=== PATIENT | male | born 1960 | race Caucasian/White ===

== ENCOUNTER → 2020-02-05 16:38 | Outpatient (CLI) | payer MEDICARE, SELFPAY ==
[2020-02-05 17:27] LABS: Basophils # 0.1 K/mm3 (0-0.2); Basophils % 0.5 % (0.1-2.0); Eosinophils # 0.4 K/mm3 (0.0-0.4); Eosinophils % 3.2 % (0.1-12.0); Hemoglobin 12.8 g/dL (14.1-18.0); Lymphocytes # 1.6 K/mm3 (0.7-4.5); Lymphocytes % 12.4 % (10-50); Mean Corpuscular HGB Conc 32.9 g/dL (31.8-35.4); Mean Corpuscular Hemoglobin 27.2 pg (27.0-31.2); Mean Corpuscular Volume 82.7 fl (80-94); Mean Platelet Volume 9.7 fl (7.4-10.4); Monocytes # 0.7 K/mm3 (0.1-1.0); Monocytes % 5.6 % (1.7-9.3); Neutrophils # 9.9 K/mm3 (1.8-7.8); Neutrophils % 78.4 % (37.0-80.0); Platelet Count 308 K/mm3 (142-424); Red Blood Count 4.71 M/mm3 (4.60-6.20); Red Cell Distribution Width 15.2 % (11.5-17.5); White Blood Count 12.7 K/mm3 (4.8-10.8)
[2020-02-05 17:29] LABS: Chloride 97 mmol/L (98-107)
[2020-02-05 17:30] LABS: Potassium 5.1 mmoL/L (3.5-5.1); Sodium 136 mmol/L (136-145)
[2020-02-05 17:32] LABS: Blood Urea Nitrogen 28 mg/dl (9-20); Estimated Glomerular Filt Rate 62 ml/min (>60); GFR (African American) 75 ML/MIN (>60)
[2020-02-05 17:33] LABS: Alanine Aminotransferase 21 U/L (12-78); Albumin/Globulin Ratio 1.3 (1.1-1.8); Alkaline Phosphatase 47 U/L (38-126); Anion Gap 17.1 mEq/L (5-15); Aspartate Amino Transferase 25 U/L (17-59); Bilirubin,Total 0.8 mg/dl (0.2-1.3); Calcium 9.8 mg/dl (8.4-10.2); Carbon Dioxide 27 mmol/L (22.0-30.0); Chol/HDL Ratio 3.9 (1-3.5); Cholesterol 128 mg/dl (140-200); Glucose 255 mg/dl (74-100); HDL Cholesterol 33 mg/dl (40-60); Triglycerides 154 mg/dl (30-150); VLDL Cholesterol 31 mg/dL (0-40)
[2020-02-05 17:44] LABS: Direct LDL Cholesterol 83.18 mg/dL (100-129)
[2020-02-05 19:41] LABS: Hemoglobin A1C 8.2 % (4.0-6.0)
== END ==
PROVIDERS: Visit Provider Family Medicine
DX: D64.9 Anemia, unspecified (principal); R00.1 Bradycardia, unspecified; I10 Essential (primary) hypertension; E11.9 Type 2 diabetes mellitus without complications; Z79.4 Long term (current) use of insulin
CPT/HCPCS: 80053; 80061; 83036; 84439; 84443; 85025

== ENCOUNTER → 2020-11-18 15:15 | Outpatient (CLI) | payer MEDICARE, OTHER, SELFPAY ==
[2020-11-18 15:41] LABS: Alanine Aminotransferase 17 U/L (12-78); Albumin Level 3.9 g/dl (3.5-5.0); Albumin/Globulin Ratio 1.3 (1.1-1.8); Alkaline Phosphatase 52 U/L (38-126); Anion Gap 12.8 mEq/L (5-15); Aspartate Amino Transferase 24 U/L (17-59); Bilirubin,Total 0.5 mg/dl (0.2-1.3); Blood Urea Nitrogen 20 mg/dl (9-20); Carbon Dioxide 25 mmol/L (22.0-30.0); Chloride 102 mmol/L (98-107); Cholesterol 129 mg/dl (140-200); Estimated Glomerular Filt Rate 68 ml/min (>60); GFR (African American) 82 ML/MIN (>60); Globulin 2.9 g/dL (1.3-3.2); Glucose 221 mg/dl (74-100); HDL Cholesterol 32 mg/dl (40-60); Potassium 4.8 mmoL/L (3.5-5.1); Sodium 135 mmol/L (136-145); Total Protein,Serum 6.8 g/dl (6.3-8.2); Triglycerides 124 mg/dl (30-150); VLDL Cholesterol 25 mg/dL (0-40)
[2020-11-18 15:52] LABS: Direct LDL Cholesterol 86.87 mg/dL (100-129)
[2020-11-18 15:59] LABS: T4 (Thyroxine) 10.9 ug/dl (5.53-11.0)
[2020-11-18 16:12] LABS: Prostate Specific Ag Screen 0.3 ng/ml (0.0-4.0); Thyroid Stimulating Hormone 5.17 uIU/mL (0.465-4.68)
== END ==
PROVIDERS: Visit Provider Family Medicine
DX: Z12.5 Encounter for screening for malignant neoplasm of prostate (principal); E05.90 Thyrotoxicosis, unspecified without thyrotoxic crisis or storm; E11.9 Type 2 diabetes mellitus without complications; E78.5 Hyperlipidemia, unspecified; I10 Essential (primary) hypertension; Z79.4 Long term (current) use of insulin
CPT/HCPCS: 80053; 80061; 84436; 84443; G0103

== ENCOUNTER → 2021-05-12 16:51 | Outpatient (CLI) | payer MEDICARE, SELFPAY ==
[2021-05-12 20:08] LABS: Alanine Aminotransferase 21 U/L (12-78); Albumin Level 3.9 g/dl (3.5-5.0); Albumin/Globulin Ratio 1.5 (1.1-1.8); Alkaline Phosphatase 49 U/L (38-126); Anion Gap 14.5 mEq/L (5-15); Aspartate Amino Transferase 25 U/L (17-59); Bilirubin,Total 0.4 mg/dl (0.2-1.3); Blood Urea Nitrogen 22 mg/dl (9-20); Calcium 9.2 mg/dl (8.4-10.2); Carbon Dioxide 26 mmol/L (22.0-30.0); Chloride 101 mmol/L (98-107); Cholesterol 137 mg/dl (140-200); Estimated Glomerular Filt Rate 86 ml/min (>60); GFR (African American) 104 ML/MIN (>60); Globulin 2.6 g/dL (1.3-3.2); Glucose 231 mg/dl (74-100); Hemoglobin A1C 9.4 % (4.0-6.0); Potassium 4.5 mmoL/L (3.5-5.1); Sodium 137 mmol/L (136-145); Total Protein,Serum 6.5 g/dl (6.3-8.2); Triglycerides 218 mg/dl (30-150); VLDL Cholesterol 44 mg/dL (0-40)
[2021-05-12 20:19] LABS: Direct LDL Cholesterol 88.99 mg/dL (100-129)
[2021-05-12 20:23] LABS: Free T4 (Free Thyroxine) 1.46 ng/dl (0.78-2.19)
[2021-05-12 20:40] LABS: Thyroid Stimulating Hormone 4.38 uIU/mL (0.465-4.68)
[2021-05-12 21:16] LABS: Basophils # 0.1 K/mm3 (0-0.2); Basophils % 0.7 % (0.1-2.0); Eosinophils # 0.5 K/mm3 (0.0-0.4); Eosinophils % 3.7 % (0.1-12.0); Hematocrit 42.9 % (42.0-52.0); Hemoglobin 13.6 g/dL (14.1-18.0); Lymphocytes % 16.2 % (10-50); Mean Corpuscular HGB Conc 31.6 g/dL (31.8-35.4); Mean Corpuscular Hemoglobin 24.5 pg (27.0-31.2); Mean Corpuscular Volume 77.5 fl (80-94); Mean Platelet Volume 9.8 fl (7.4-10.4); Monocytes # 0.8 K/mm3 (0.1-1.0); Monocytes % 6.2 % (1.7-9.3); Neutrophils % 73.2 % (37.0-80.0); Platelet Count 304 K/mm3 (142-424); Red Blood Count 5.53 M/mm3 (4.60-6.20); Red Cell Distribution Width 16.4 % (11.5-17.5); White Blood Count 12.3 K/mm3 (4.8-10.8)
[2021-05-12 21:52] LABS: Chol/HDL Ratio 4.4 (1-3.5); HDL Cholesterol 31 mg/dl (40-60)
== END ==
PROVIDERS: Visit Provider Family Medicine
DX: E11.9 Type 2 diabetes mellitus without complications (principal); Z79.4 Long term (current) use of insulin
CPT/HCPCS: 80053; 80061; 83036; 84439; 84443; 85025

== ENCOUNTER → 2021-12-18 16:40 | Outpatient (CLI) | payer MEDICARE, SELFPAY ==
[2021-12-18 13:53] LABS: Basophils # 0.1 K/mm3 (0-0.2); Basophils % 1.1 % (0.1-2.0); Eosinophils # 0.4 K/mm3 (0.0-0.4); Eosinophils % 2.9 % (0.1-12.0); Hematocrit 43.2 % (42.0-52.0); Hemoglobin 14.3 g/dL (14.1-18.0); Lymphocytes # 1.6 K/mm3 (0.7-4.5); Lymphocytes % 11.9 % (10-50); Mean Corpuscular Hemoglobin 24.9 pg (27.0-31.2); Mean Corpuscular Volume 75.7 fl (80-94); Mean Platelet Volume 9.6 fl (7.4-10.4); Monocytes # 0.7 K/mm3 (0.1-1.0); Monocytes % 5.5 % (1.7-9.3); Neutrophils # 10.5 K/mm3 (1.8-7.8); Neutrophils % 78.6 % (37.0-80.0); Platelet Count 298 K/mm3 (142-424); Red Blood Count 5.71 M/mm3 (4.60-6.20); Red Cell Distribution Width 16.7 % (11.5-17.5); White Blood Count 13.3 K/mm3 (4.8-10.8)
[2021-12-18 14:41] LABS: Free T4 (Free Thyroxine) 1.52 ng/dl (0.78-2.19)
[2021-12-18 14:58] LABS: Hemoglobin A1C 10.4 % (4.0-6.0)
[2021-12-18 15:58] LABS: Alanine Aminotransferase 21 U/L (12-78); Albumin Level 3.7 g/dl (3.5-5.0); Albumin/Globulin Ratio 1.3 (1.1-1.8); Alkaline Phosphatase 60 U/L (38-126); Anion Gap 14.7 mEq/L (5-15); Aspartate Amino Transferase 27 U/L (17-59); Bilirubin,Total 0.3 mg/dl (0.2-1.3); Blood Urea Nitrogen 24 mg/dl (9-20); Calcium 9.2 mg/dl (8.4-10.2); Carbon Dioxide 22 mmol/L (22.0-30.0); Chloride 102 mmol/L (98-107); Chol/HDL Ratio 5.5 (1-3.5); Cholesterol 153 mg/dl (140-200); Estimated Glomerular Filt Rate 68 ml/min (>60); GFR (African American) 82 ML/MIN (>60); Globulin 2.8 g/dL (1.3-3.2); Glucose 275 mg/dl (74-100); HDL Cholesterol 28 mg/dl (40-60); Potassium 4.7 mmoL/L (3.5-5.1); Sodium 134 mmol/L (136-145); Total Protein,Serum 6.5 g/dl (6.3-8.2); Triglycerides 187 mg/dl (30-150); VLDL Cholesterol 37 mg/dL (0-40)
[2021-12-18 16:09] LABS: Direct LDL Cholesterol 99.64 mg/dL (100-129)
[2021-12-18 16:29] LABS: Prostate Specific Ag Screen 0.4 ng/ml (0.0-4.0); Thyroid Stimulating Hormone 3.62 uIU/mL (0.465-4.68)
== END ==
PROVIDERS: Visit Provider Family Medicine
DX: E05.90 Thyrotoxicosis, unspecified without thyrotoxic crisis or storm (principal); R53.81 Other malaise; E11.9 Type 2 diabetes mellitus without complications; Z12.5 Encounter for screening for malignant neoplasm of prostate; Z79.4 Long term (current) use of insulin
CPT/HCPCS: 80053; 80061; 83036; 84439; 84443; 85025; G0103

== ENCOUNTER → 2022-07-20 17:12 | Outpatient (CLI) | payer MEDICARE, SELFPAY ==
[2022-07-20 15:21] LABS: Basophils # 0.1 K/mm3 (0-0.2); Basophils % 0.6 % (0.1-2.0); Eosinophils # 0.5 K/mm3 (0.0-0.4); Eosinophils % 3.4 % (0.1-12.0); Hematocrit 43.1 % (42.0-52.0); Hemoglobin 14.1 g/dL (14.1-18.0); Lymphocytes # 1.8 K/mm3 (0.7-4.5); Lymphocytes % 11.6 % (10-50); Mean Corpuscular HGB Conc 32.7 g/dL (31.8-35.4); Mean Corpuscular Hemoglobin 25.3 pg (27.0-31.2); Mean Corpuscular Volume 77.4 fl (80-94); Mean Platelet Volume 9.8 fl (7.4-10.4); Monocytes # 0.9 K/mm3 (0.1-1.0); Neutrophils # 12.2 K/mm3 (1.8-7.8); Neutrophils % 78.4 % (37.0-80.0); Platelet Count 320 K/mm3 (142-424); Red Blood Count 5.57 M/mm3 (4.60-6.20); Red Cell Distribution Width 15.9 % (11.5-17.5); White Blood Count 15.6 K/mm3 (4.8-10.8)
[2022-07-20 15:26] LABS: MANUAL DIFFERENTIAL MANUAL DIFFERENTIAL (MANUAL DIFF)
[2022-07-20 15:53] LABS: Alanine Aminotransferase 20 U/L (12-78); Albumin Level 3.7 g/dl (3.5-5.0); Albumin/Globulin Ratio 1.4 (1.1-1.8); Alkaline Phosphatase 59 U/L (38-126); Anion Gap 13.5 mEq/L (5-15); Aspartate Amino Transferase 28 U/L (17-59); Bilirubin,Total 0.3 mg/dl (0.2-1.3); Blood Urea Nitrogen 17 mg/dl (9-20); Calcium 8.4 mg/dl (8.4-10.2); Carbon Dioxide 26 mmol/L (22.0-30.0); Chloride 103 mmol/L (98-107); Chol/HDL Ratio 6.7 (1-3.5); Cholesterol 141 mg/dl (140-200); Estimated Glomerular Filt Rate 68 ml/min (>60); GFR (African American) 82 ML/MIN (>60); Globulin 2.7 g/dL (1.3-3.2); Glucose 144 mg/dl (74-100); HDL Cholesterol 21 mg/dl (40-60); Potassium 4.5 mmoL/L (3.5-5.1); Sodium 138 mmol/L (136-145); Total Protein,Serum 6.4 g/dl (6.3-8.2); Triglycerides 319 mg/dl (30-150); VLDL Cholesterol 64 mg/dL (0-40)
[2022-07-20 16:10] LABS: Direct LDL Cholesterol 89.27 mg/dL (100-129)
[2022-07-20 16:53] LABS: Hemoglobin A1C 8.1 % (4.0-6.0)
[2022-07-20 18:21] LABS: Anisocytosis 1+; Eosinophils % 3 % (0-3); Lymphocytes % 14 % (10-50); Microcytosis 2+; Monocytes % 1 % (2-9); Neutrophils % 79 % (42-76); Platelet Estimate Normal; Total Cells Counted 100; Toxic Granulation 2+
== END ==
LOC: LAB.DROPOF 17:13
PROVIDERS: PCP Family Medicine; Visit Provider Family Medicine
DX: E05.90 Thyrotoxicosis, unspecified without thyrotoxic crisis or storm (principal); E11.9 Type 2 diabetes mellitus without complications; L40.9 Psoriasis, unspecified; Z79.4 Long term (current) use of insulin
CPT/HCPCS: 80053; 80061; 83036; 84443; 85007; 85025

== ENCOUNTER → 2022-11-08 23:09 | Outpatient (CLI) | payer MEDICARE, SELFPAY ==
[2022-11-08 18:11] LABS: Basophils % 0.3 % (0.1-2.0); Eosinophils # 0.6 K/mm3 (0.0-0.4); Eosinophils % 3.7 % (0.1-12.0); Hemoglobin 13.5 g/dL (14.1-18.0); Lymphocytes # 1.5 K/mm3 (0.7-4.5); Lymphocytes % 9.6 % (10-50); Mean Corpuscular HGB Conc 31.5 g/dL (31.8-35.4); Mean Corpuscular Hemoglobin 23.9 pg (27.0-31.2); Mean Corpuscular Volume 75.9 fl (80-94); Mean Platelet Volume 9.8 fl (7.4-10.4); Monocytes % 6.2 % (1.7-9.3); Neutrophils # 12.6 K/mm3 (1.8-7.8); Neutrophils % 80.3 % (37.0-80.0); Platelet Count 297 K/mm3 (142-424); Red Blood Count 5.66 M/mm3 (4.60-6.20); Red Cell Distribution Width 15.9 % (11.5-17.5); White Blood Count 15.7 K/mm3 (4.8-10.8)
[2022-11-08 18:13] LABS: MANUAL DIFFERENTIAL MANUAL DIFFERENTIAL (MANUAL DIFF)
[2022-11-08 18:26] LABS: Alanine Aminotransferase 19 U/L (12-78); Albumin Level 3.3 g/dl (3.5-5.0); Albumin/Globulin Ratio 1.2 (1.1-1.8); Alkaline Phosphatase 57 U/L (38-126); Anion Gap 17.1 mEq/L (5-15); Aspartate Amino Transferase 26 U/L (17-59); Bilirubin,Total 0.5 mg/dl (0.2-1.3); Blood Urea Nitrogen 20 mg/dl (9-20); Calcium 8.6 mg/dl (8.4-10.2); Carbon Dioxide 29 mmol/L (22.0-30.0); Chloride 92 mmol/L (98-107); Chol/HDL Ratio 4.9 (1-3.5); Cholesterol 128 mg/dl (140-200); Estimated Glomerular Filt Rate 56 ml/min (>60); GFR (African American) 67 ML/MIN (>60); Globulin 2.7 g/dL (1.3-3.2); Glucose 210 mg/dl (74-100); HDL Cholesterol 26 mg/dl (40-60); Potassium 5.1 mmoL/L (3.5-5.1); Sodium 133 mmol/L (136-145); Triglycerides 163 mg/dl (30-150); VLDL Cholesterol 33 mg/dL (0-40)
[2022-11-08 18:36] LABS: Direct LDL Cholesterol 86.86 mg/dL (100-129)
[2022-11-08 18:40] LABS: Hemoglobin A1C 7.9 % (4.0-6.0)
[2022-11-08 18:43] LABS: T4 (Thyroxine) 10.4 ug/dl (5.53-11.0)
[2022-11-08 18:56] LABS: Thyroid Stimulating Hormone 4.95 uIU/mL (0.465-4.68)
[2022-11-08 19:30] LABS: Anisocytosis 1+; Eosinophils % 3 % (0-3); Hypochromasia 2+; Lymphocytes % 14 % (10-50); Microcytosis 1+; Monocytes % 2 % (2-9); Neutrophils % 81 % (42-76); Platelet Estimate Normal; Total Cells Counted 100
== END ==
LOC: LAB.DROPOF 23:09
PROVIDERS: PCP Family Medicine; Visit Provider Family Medicine
DX: E05.90 Thyrotoxicosis, unspecified without thyrotoxic crisis or storm (principal); E11.9 Type 2 diabetes mellitus without complications; E78.5 Hyperlipidemia, unspecified; G62.9 Polyneuropathy, unspecified; I10 Essential (primary) hypertension; Z79.4 Long term (current) use of insulin
CPT/HCPCS: 80053; 80061; 83036; 84436; 84443; 85007; 85025

== ENCOUNTER → 2023-01-02 10:20 | Outpatient (CLI) | payer MEDICARE, SELFPAY ==
[2023-01-02 19:05] LABS: Alanine Aminotransferase 19 U/L (12-78); Albumin Level 3.4 g/dl (3.5-5.0); Albumin/Globulin Ratio 1.1 (1.1-1.8); Alkaline Phosphatase 55 U/L (38-126); Anion Gap 15.4 mEq/L (5-15); Aspartate Amino Transferase 30 U/L (17-59); Bilirubin,Total 0.3 mg/dl (0.2-1.3); Blood Urea Nitrogen 22 mg/dl (9-20); Calcium 8.9 mg/dl (8.4-10.2); Carbon Dioxide 25 mmol/L (22.0-30.0); Chloride 99 mmol/L (98-107); Chol/HDL Ratio 6.5 (1-3.5); Cholesterol 144 mg/dl (140-200); Estimated Glomerular Filt Rate 51 ml/min (>60); GFR (African American) 62 ML/MIN (>60); Glucose 146 mg/dl (74-100); HDL Cholesterol 22 mg/dl (40-60); Potassium 4.4 mmoL/L (3.5-5.1); Sodium 135 mmol/L (136-145); Total Protein,Serum 6.4 g/dl (6.3-8.2); Triglycerides 303 mg/dl (30-150); VLDL Cholesterol 61 mg/dL (0-40)
[2023-01-02 19:15] LABS: Basophils # 0.1 K/mm3 (0-0.2); Basophils % 0.5 % (0.1-2.0); Eosinophils # 0.4 K/mm3 (0.0-0.4); Eosinophils % 3.5 % (0.1-12.0); Hematocrit 44.4 % (42.0-52.0); Hemoglobin 14.3 g/dL (14.1-18.0); Lymphocytes # 1.6 K/mm3 (0.7-4.5); Lymphocytes % 12.9 % (10-50); Mean Corpuscular HGB Conc 32.1 g/dL (31.8-35.4); Mean Corpuscular Hemoglobin 23.6 pg (27.0-31.2); Mean Corpuscular Volume 73.5 fl (80-94); Mean Platelet Volume 9.8 fl (7.4-10.4); Monocytes % 8.3 % (1.7-9.3); Neutrophils % 74.8 % (37.0-80.0); Platelet Count 295 K/mm3 (142-424); Red Blood Count 6.04 M/mm3 (4.60-6.20)
[2023-01-02 19:24] LABS: T4 (Thyroxine) 12.3 ug/dl (5.53-11.0)
[2023-01-02 19:37] LABS: Prostate Specific Ag Screen 0.3 ng/ml (0.0-4.0); Thyroid Stimulating Hormone 6.95 uIU/mL (0.465-4.68)
== END ==
LOC: LAB.DROPOF 01-03 06:55
PROVIDERS: PCP Family Medicine; Visit Provider Family Medicine
DX: Z12.5 Encounter for screening for malignant neoplasm of prostate (principal); I10 Essential (primary) hypertension; E11.9 Type 2 diabetes mellitus without complications; Z79.4 Long term (current) use of insulin; Z79.899 Other long term (current) drug therapy
CPT/HCPCS: 80053; 80061; 83036; 84436; 84443; 85025; G0103

== ENCOUNTER 2023-07-25 22:11 | Outpatient (CLI) | payer MEDICARE, SELFPAY ==
[2023-07-25 19:53] LABS: Chloride 104 mmol/L (98-107)
[2023-07-25 19:54] LABS: Potassium 4.6 mmoL/L (3.5-5.1); Sodium 135 mmol/L (136-145)
[2023-07-25 19:56] LABS: Alanine Aminotransferase 21 U/L (12-78); Albumin Level 3.1 g/dl (3.5-5.0); Albumin/Globulin Ratio 1.2 (1.1-1.8); Alkaline Phosphatase 55 U/L (38-126); Anion Gap 12.6 mEq/L (5-15); Aspartate Amino Transferase 41 U/L (17-59); Bilirubin,Total 0.4 mg/dl (0.2-1.3); Blood Urea Nitrogen 19 mg/dl (9-20); Carbon Dioxide 23 mmol/L (22.0-30.0); Estimated Glomerular Filt Rate 51 ml/min (>60); GFR (African American) 62 ML/MIN (>60); Globulin 2.6 g/dL (1.3-3.2); Total Protein,Serum 5.7 g/dl (6.3-8.2)
[2023-07-25 19:57] LABS: Calcium 8.6 mg/dl (8.4-10.2); Glucose 173 mg/dl (74-100)
[2023-07-25 20:29] LABS: Thyroid Stimulating Hormone 5.24 uIU/mL (0.465-4.68)
[2023-07-26 00:31] LABS: Hemoglobin A1C 8.1 % (4.0-6.0)
== END 2023-07-25 23:59 ==
LOC: LAB.DROPOF 22:11
PROVIDERS: PCP Family Medicine; Visit Provider Family Medicine
DX: E11.9 Type 2 diabetes mellitus without complications (principal); Z76.0 Encounter for issue of repeat prescription; E07.9 Disorder of thyroid, unspecified; Z79.4 Long term (current) use of insulin
CPT/HCPCS: 80053; 83036; 84443

== ENCOUNTER 2023-10-17 10:56 | Outpatient (CLI) | payer MEDICARE, SELFPAY ==
[2023-10-17 18:40] LABS: Hemoglobin A1C 8.8 % (4.0-6.0)
[2023-10-17 18:55] LABS: Alanine Aminotransferase 16 U/L (12-78); Albumin Level 3.2 g/dl (3.5-5.0); Albumin/Globulin Ratio 1.2 (1.1-1.8); Alkaline Phosphatase 51 U/L (38-126); Anion Gap 11.3 mEq/L (5-15); Aspartate Amino Transferase 23 U/L (17-59); Bilirubin,Total 0.4 mg/dl (0.2-1.3); Blood Urea Nitrogen 18 mg/dl (9-20); Calcium 8.7 mg/dl (8.4-10.2); Carbon Dioxide 25 mmol/L (22.0-30.0); Chloride 105 mmol/L (98-107); Chol/HDL Ratio 7.6 (1-3.5); Cholesterol 182 mg/dl (140-200); Estimated Glomerular Filt Rate 47 ml/min (>60); GFR (African American) 57 ML/MIN (>60); Globulin 2.6 g/dL (1.3-3.2); Glucose 194 mg/dl (74-100); HDL Cholesterol 24 mg/dl (40-60); Potassium 4.3 mmoL/L (3.5-5.1); Sodium 137 mmol/L (136-145); Total Protein,Serum 5.8 g/dl (6.3-8.2); Triglycerides 259 mg/dl (30-150); VLDL Cholesterol 52 mg/dL (0-40)
[2023-10-17 19:03] LABS: Free T4 (Free Thyroxine) 1.32 ng/dl (0.78-2.19)
[2023-10-17 19:06] LABS: Direct LDL Cholesterol 109.02 mg/dL (100-129)
[2023-10-17 19:26] LABS: Thyroid Stimulating Hormone 9.04 uIU/mL (0.465-4.68)
== END 2023-10-17 23:59 | disposition home or self-care (01) ==
LOC: LAB.DROPOF 10-18 10:56
PROVIDERS: PCP Family Medicine; Visit Provider Family Medicine
DX: E11.9 Type 2 diabetes mellitus without complications (principal); E05.90 Thyrotoxicosis, unspecified without thyrotoxic crisis or storm; Z79.4 Long term (current) use of insulin; Z79.85 Long-term (current) use of injectable non-insulin antidiabetic drugs
CPT/HCPCS: 80053; 80061; 80162; 83036; 84439; 84443

== ENCOUNTER 2023-12-09 18:00 | Outpatient (CLI) | payer MEDICARE, SELFPAY ==
[2023-12-09 18:11] LABS: Basophils # 0.1 K/mm3 (0-0.2); Eosinophils # 0.5 K/mm3 (0.0-0.4); Eosinophils % 4.4 % (0.1-12.0); Hematocrit 46.3 % (42.0-52.0); Hemoglobin 14.7 g/dL (14.1-18.0); Lymphocytes # 1.3 K/mm3 (0.7-4.5); Lymphocytes % 12.3 % (10-50); Mean Corpuscular HGB Conc 31.7 g/dL (31.8-35.4); Mean Corpuscular Hemoglobin 25.3 pg (27.0-31.2); Mean Corpuscular Volume 79.9 fl (80-94); Monocytes # 0.7 K/mm3 (0.1-1.0); Monocytes % 6.2 % (1.7-9.3); Neutrophils # 8.3 K/mm3 (1.8-7.8); Platelet Count 175 K/mm3 (142-424); Red Cell Distribution Width 15.7 % (11.5-17.5); White Blood Count 10.9 K/mm3 (4.8-10.8)
[2023-12-09 18:30] LABS: Chloride 100 mmol/L (98-107); Potassium 4.4 mmoL/L (3.5-5.1); Sodium 134 mmol/L (136-145)
[2023-12-09 18:33] LABS: Anion Gap 13.4 mEq/L (5-15); Carbon Dioxide 25 mmol/L (22.0-30.0)
[2023-12-09 18:34] LABS: Glucose 187 mg/dl (74-100)
[2023-12-09 19:04] LABS: Blood Urea Nitrogen 22 mg/dl (9-20); Estimated Glomerular Filt Rate 41 ml/min (>60); GFR (African American) 49 ML/MIN (>60)
== END 2023-12-09 23:59 | disposition home or self-care (01) ==
LOC: LAB.DROPOF 12-10 10:15
PROVIDERS: PCP Nurse Practitioner; Visit Provider Nurse Practitioner
DX: E11.9 Type 2 diabetes mellitus without complications (principal); R30.0 Dysuria; Z79.4 Long term (current) use of insulin; Z79.85 Long-term (current) use of injectable non-insulin antidiabetic drugs
CPT/HCPCS: 80048; 85025

== ENCOUNTER 2023-12-11 15:24 | Outpatient (CLI) | payer MEDICARE, SELFPAY | END 2023-12-11 23:59 | disposition home or self-care (01) | LOC: LAB.DROPOF 12-12 15:24 | PROVIDERS: PCP Nurse Practitioner; Visit Provider Nurse Practitioner | DX: R30.0 Dysuria (principal); B96.5 Pseudomonas (aeruginosa) (mallei) (pseudomallei) as the cause of diseases classified elsewhere | CPT/HCPCS: 87086; 87088; 87186 ==

== ENCOUNTER 2024-04-09 11:30 | Outpatient (CLI) | payer MEDICARE, SELFPAY ==
[2024-04-09 19:06] LABS: Alanine Aminotransferase 16 U/L (12-78); Albumin Level 3.2 g/dl (3.5-5.0); Albumin/Globulin Ratio 1.1 (1.1-1.8); Alkaline Phosphatase 48 U/L (38-126); Anion Gap 6.3 mEq/L (5-15); Aspartate Amino Transferase 22 U/L (17-59); Bilirubin,Total 0.5 mg/dl (0.2-1.3); Blood Urea Nitrogen 20 mg/dl (9-20); Calcium 8.7 mg/dl (8.4-10.2); Carbon Dioxide 25 mmol/L (22.0-30.0); Chloride 106 mmol/L (98-107); Estimated Glomerular Filt Rate 41 ml/min (>60); GFR (African American) 49 ML/MIN (>60); Globulin 2.9 g/dL (1.3-3.2); Glucose 201 mg/dl (74-100); Potassium 4.3 mmoL/L (3.5-5.1); Sodium 133 mmol/L (136-145); Total Protein,Serum 6.1 g/dl (6.3-8.2)
[2024-04-09 19:08] LABS: Creatinine,Urine Random 132 mg/dL (Not Estab.)
[2024-04-09 19:33] LABS: Prostate Specific Ag Screen 0.4 ng/ml (0.0-4.0)
[2024-04-09 19:56] LABS: Microalbumin > 1140.000 mg/L (0-16.7); Microalbumin/Creatinine Ratio 863.6
[2024-04-09 20:38] LABS: Thyroid Stimulating Hormone 8.03 uIU/mL (0.465-4.68)
== END 2024-04-09 23:59 | disposition home or self-care (01) ==
LOC: LAB.DROPOF 04-10 09:45
PROVIDERS: PCP Family Medicine; Visit Provider Family Medicine
DX: E11.9 Type 2 diabetes mellitus without complications (principal); E78.5 Hyperlipidemia, unspecified; Z12.5 Encounter for screening for malignant neoplasm of prostate; Z00.00 Encounter for general adult medical examination without abnormal findings; E05.90 Thyrotoxicosis, unspecified without thyrotoxic crisis or storm; N15.9 Renal tubulo-interstitial disease, unspecified; Z87.442 Personal history of urinary calculi; L40.9 Psoriasis, unspecified; Z85.528 Personal history of other malignant neoplasm of kidney; Z90.5 Acquired absence of kidney; M15.4 Erosive (osteo)arthritis; G89.29 Other chronic pain; R53.81 Other malaise; I89.0 Lymphedema, not elsewhere classified
CPT/HCPCS: 80053; 82043; 82570; 84443; G0103

== ENCOUNTER 2024-06-10 10:20 | Outpatient (CLI) | payer MEDICARE, SELFPAY ==
[2024-06-10 19:19] LABS: Alanine Aminotransferase 14 U/L (12-78); Albumin Level 3.2 g/dl (3.5-5.0); Albumin/Globulin Ratio 1.2 (1.1-1.8); Alkaline Phosphatase 48 U/L (38-126); Anion Gap 11.5 mEq/L (5-15); Aspartate Amino Transferase 23 U/L (17-59); Bilirubin,Total 0.4 mg/dl (0.2-1.3); Blood Urea Nitrogen 25 mg/dl (9-20); Calcium 8.5 mg/dl (8.4-10.2); Carbon Dioxide 22 mmol/L (22.0-30.0); Chloride 108 mmol/L (98-107); Estimated Glomerular Filt Rate 30 ml/min (>60); GFR (African American) 37 ML/MIN (>60); Globulin 2.7 g/dL (1.3-3.2); Glucose 222 mg/dl (74-100); Potassium 4.5 mmoL/L (3.5-5.1); Sodium 137 mmol/L (136-145); Total Protein,Serum 5.9 g/dl (6.3-8.2)
== END 2024-06-10 23:59 | disposition home or self-care (01) ==
LOC: LAB.DROPOF 06-11 08:59
PROVIDERS: PCP Family Medicine; Visit Provider Family Medicine
DX: E78.5 Hyperlipidemia, unspecified (principal)
CPT/HCPCS: 80053

== ENCOUNTER 2024-08-21 21:23 | Outpatient (CLI) | payer MEDICARE, SELFPAY ==
[2024-08-25 12:31] LABS: Creatinine,Urine Random 58 mg/dL (Not Estab.)
[2024-08-25 12:48] LABS: Chloride 107 mmol/L (98-107); Potassium 5.4 mmoL/L (3.5-5.1); Sodium 139 mmol/L (136-145)
[2024-08-25 12:51] LABS: Anion Gap 14.4 mEq/L (5-15); Blood Urea Nitrogen 28 mg/dl (9-20); Calcium 8.8 mg/dl (8.4-10.2); Carbon Dioxide 23 mmol/L (22.0-30.0); Estimated Glomerular Filt Rate 30 ml/min (>60); GFR (African American) 37 ML/MIN (>60); Glucose 162 mg/dl (74-100)
[2024-08-25 13:10] LABS: T4 (Thyroxine) 8.8 ug/dl (5.53-11.0)
[2024-08-25 13:12] LABS: 25-OH Vitamin D, Total < 12.8 ng/mL (30-100)
[2024-08-25 13:23] LABS: Thyroid Stimulating Hormone 5.16 uIU/mL (0.465-4.68)
== END 2024-08-21 23:59 | disposition home or self-care (01) ==
LOC: LAB.DROPOF 21:27
PROVIDERS: PCP Internal Medicine; Visit Provider Internal Medicine
DX: I12.9 Hypertensive chronic kidney disease with stage 1 through stage 4 chronic kidney disease, or unspecified chronic kidney disease (principal); E11.22 Type 2 diabetes mellitus with diabetic chronic kidney disease; N18.32 Chronic kidney disease, stage 3b
CPT/HCPCS: 80048; 82088; 82306; 82570; 84436; 84443

== ENCOUNTER 2025-01-25 11:00 | Outpatient (CLI) | payer MEDICARE, SELFPAY ==
--- OUTSIDE RECORDS SUMMARY | 2020-03-18 05:00 | XMS_ITS | Encounter Summary ---
Author Organization [place] [address] Care Team Providers Care Waitress Name Role Phone Geovani Wright MD Primary Care Provider [phone] Raleigh Evangelista MD Unavailable [phone] Reina Holden APRN Unavailable [phone] Encounter Details Date Type Department Care Team (Late st Contact Info) Description 03/18/2020 5:00 AM EDT Hospital Encounter [facility] Referral Lab 1 [place] [address] Social History Tobacco Use Types [...] 8:38 PM EDT Marie Quintero RN * [place] Suicide Severity Rating Scale (Q shift for [...] Care Team (Late st Contact Info) Description 01/28/2025 3:45 PM EDT Office Visit [facility] Nephrology [place] 47 [facility] [address] [place] [address] Greg Leblanc MD 47 [facility] [address] [place] [address] 02/05/2025 9:30 AM EDT Office Visit [facility] [address] [facility] [address] [place] [address] 02/05/2025 10:00 AM EDT Office Visit [facility] [address] [facility] [address] [place] [address] Elizabeth Lee, DENISA [address] [place], [place] [phone] 03/10/2025 12:30 PM EDT [facility] [address] [facility], [place] [phone] Talib Martínez MD [address] [place] [address] 03/17/2025 10:30 AM EDT Office Visit [facility] [address] [place] [address] [address] [place] [address] 03/17/2025 11:00 AM EDT Office Visit [facility] [address] [place] [address] [address] [place] [address] [place] Evangelista MD [address] [place] [id number] 04/22/2025 10:30 AM EDT Office Visit [facility] Nephrology [place] [address] [place], [place] [phone] Nilsa Petersen APRN [address] [place] [address] documented as of this encounter Results * [...] - 100 mg/dL 03/18/2020 9:08 AM EDT [facility] BUN 21 8 - 23 mg/dL 03/18/2020 9:08 AM EDT [facility] Creatinine 1.29 0.67 - 1.30 mg/dL 03/18/2020 9:08 AM EDT [facility] Albumin 3.7 3.2 - 4.6 gm/dL 03/18/2020 9:08 AM EDT [facility] Phosphorus 4.3 2.5 - 4.5 mg/dL 03/18/2020 9:08 AM EDT [facility] GFR Afr Am 69 >=60 mL/min/1.7 3 m2 03/18/2020 9:08 AM EDT [facility] GFR Non Afr Am 60 >=60 mL/min/1.7 3 m2 03/18/2020 9:08 AM EDT [facility] Comment: This estimated GFR was calculated using [...] U Unknown CHEMISTRY ORDERABLES Final Resul t [facility] 1 [facility] , [place] [address] [facility] 1 [place] [address] * (ABNORMAL) CBC WITH DIFF (03/18/2020 5:55 AM EDT) WBC 10.1 3.7 - 10.3 x10(3)/mcL 03/18/2020 [...] 8:46 AM EDT [facility] Platelet 308 155 - 369 x10(3)/mcL 03/18/2020 8:46 AM EDT [facility] MPV 10.5 8.8 - 12.5 fL 03/18/2020 8:46 AM EDT [facility] Neut Percent 67.1 % 03/18/2020 8:46 AM EDT [facility] Comment:Neutrophils equals s egs plus bands Imm Gran% 0.8 % 03/18/2020 8:46 AM EDT [facility] Comment:Automated count of m etamyelocytes, myelocytes and promyelocytes. Lymph Percent 20.0 % 03/18/2020 8:46 AM EDT [facility] [place] Percent 8.5 % 03/18/2020 8:46 AM EDT [facility] Eos Percent 2.8 % 03/18/2020 8:46 AM EDT [facility] Baso Percent 0.8 % 03/18/2020 8:46 AM EDT [facility] Neut # 6.8(H) 1.6 - 6.1 x10(3)/mcL 03/18/2020 8:46 AM EDT [facility] Comment:Neutrophils equals s egs plus bands IMMGRAN# 0.1 0.0 - 0.1 x10(3)/[facility] 03/18/2020 8:46 AM EDT [facility] Comment:Automated count of m etamyelocytes, myelocytes and promyelocytes. An absolute IG <0.1 is reported as 0.0. Lymph # 2.0 1.2 - 3.9 x10(3)/[facility] 03/18/2020 8:46 AM EDT [facility] [place] # 0.9 0.3 - 0.9 x10(3)/[facility] 03/18/2020 8:46 AM EDT [facility] Eos# 0.3 0.0 - 0.5 x10(3)/[facility] 03/18/2020 8:46 AM EDT [facility] Baso # 0.1 0.0 - 0.1 x10(3)/[facility] 03/18/2020 8:46 AM EDT [facility] Blood Venipuncture / Unknown 03/18/2020 5:55 AM EDT 03/18/2020 7:39 AM EDT us U Unknown HEMATOLOGY ORDERABLES Final Resu lt [facility] [employer] [address] [facility] , [place] [address] documented in this encounter Visit Diagnoses Not on filedocumented in this encounter Additional Health Concerns Infection Onset Date Last Indicated Resolved Time R/O C-Diff 06/21/2021 06/21/2021 06/21/2021 11:3 0 AM EST R/O COVID-19 07/02/2021 07/02/2021 07/02/2021 7:20 PM EST R/O C-Diff 07/07/2021 07/07/2021 07/07/2021 6:23 PM EST documented as of this encounter Care Teams Waitress Relationship Specialty Start Date End Date Geovani Wright MD PCP - General Family Medicine 02/12/12 [place] Evangelista MD [address] [facility] [place] [address] Internal Medicine - Clinical Cardiac Electrophysiology 04/10/16 Reina Holden APRN [address] [facility] [place] [address] Nurse Practitioner 10/12/16 documented as of this encounter
--- OUTSIDE RECORDS SUMMARY | 2020-03-21 05:00 | XMS_ITS | Encounter Summary ---
Author Organization [place] [address] Care Team Providers Care Caster Operator Name Role Phone Geovani Wright MD Primary Care Provider [phone] [place] Evangelista MD Unavailable [phone] Reina Holden APRN Unavailable [phone] Encounter Details Date Type Department Care Team (Late st Contact Info) Description 03/21/2020 5:00 AM EDT Hospital Encounter [facility] Referral Lab 1 [place] [address] Social History Tobacco Use Types [...] 8:38 PM EDT Marie Quintero RN * [place] Suicide Severity Rating Scale (Q shift for [...] Description 01/28/2025 3:45 PM EDT Office Visit [facility] Nephrology [place] 47 [facility] [address] [place] [address] Greg Leblanc MD 47 [facility] [address] [place] [address] 02/05/2025 9:30 AM EDT Office Visit [facility] [address] [facility] [address] [place] [address] 02/05/2025 10:00 AM EDT Office Visit [facility] [address] [facility] [address] [place] [address] Elizabeth Lee, DENISA [address] [place], [place] [phone] 03/10/2025 12:30 PM EDT [facility] Visit [facility] [address] [place], [place] [phone] Talib Martínez MD [address] [place] [address] 03/17/2025 10:30 AM EDT Office Visit [facility] [address] [place] [address] [address] [place] [address] 03/17/2025 11:00 AM EDT Office Visit [facility] [address] [place] [address] [address] [place] [address] [place] Evangelista MD [address] [place] [phone] 04/22/2025 10:30 AM EDT Office Visit [facility] Nephrology [place] 47 [facility] [address] [place], [place] [phone] Nilsa Petersen APRN [address] [facility] [address] [place] [address] Scheduled Orders Name Type Priority Associated Diagnoses Orde r Schedule CBC WITH DIFF Lab Routine ONCE for 1 Occurrences starting 03/21/2020 until 04/25/2020 documented as of this encounter Results * (ABNORMAL) RENAL FUNCTION PANEL (03/21/2020 5:15 AM EDT) Sodium 138 136 - 145 mmol/L 03/21/2020 8:51 AM EDT [facility] Potassium 4.5 3.5 - 5.0 mmol/L 03/21/2020 8:51 AM EDT [facility] Chloride 100 98 - 107 mmol/L 03/21/2020 8:51 AM EDT [facility] Total CO2 25 22 - 29 mmol/L 03/21/2020 8:51 AM EDT [facility] Anion Gap 13 7 - 16 mmol/L 03/21/2020 8:51 AM EDT [facility] Calcium 8.9 8.8 - 10.4 mg/dL 03/21/2020 8:51 AM EDT [facility] Glucose Lvl 217(H) 82 - 100 mg/dL 03/21/2020 8:51 AM EDT [facility] BUN 25(H) 8 - 23 mg/dL 03/21/2020 8:51 AM EDT [facility] Creatinine 1.42(H) 0.67 - 1.30 mg/dL 03/21/2020 8:51 AM EDT [facility] Albumin 3.9 3.2 - 4.6 gm/dL 03/21/2020 8:51 AM EDT [facility] Phosphorus 3.9 2.5 - 4.5 mg/dL 03/21/2020 8:51 AM EDT [facility], [facility] GFR Afr Am 62 >=60 mL/min/1.7 3 m2 03/21/2020 8:51 AM EDT [facility] GFR Non Afr Am 53(L) >=60 mL/min/1.7 3 m2 03/21/2020 8:51 AM EDT [facility] Comment: This estimated GFR was calculated [...] or muscle mass. Blood Venipuncture / Unknown 03/21/2020 5:15 AM EDT 03/21/2020 8:15 AM EDT us U Unknown CHEMISTRY ORDERABLES Final Resul t [facility], [facility] 1 [facility] , [place] [address] [facility] 1 [place] [address] documented in this encounter Visit Diagnoses Not on filedocumented in this encounter Additional Health Concerns Infection Onset Date Last Indicated Resolved Time R/O C-Diff 06/21/2021 06/21/2021 06/21/2021 11:3 0 AM EST R/O COVID-19 07/02/2021 07/02/2021 07/02/2021 7:20 PM EST R/O C-Diff 07/07/2021 07/07/2021 07/07/2021 6:23 PM EST documented as of this encounter Care Teams Caster Operator Relationship Specialty Start Date End Date Geovani Wright MD PCP - General Family Medicine 02/12/12 [place] Evangelista MD [address] [facility] [place] [address] Internal Medicine - Clinical Cardiac Electrophysiology 04/10/16 Reina Holden APRN [address] [place] [address] [place] [address] Nurse Practitioner 10/12/16 documented as of this encounter
--- OUTSIDE RECORDS SUMMARY | 2020-03-28 05:00 | XMS_ITS | Encounter Summary ---
Author Organization [place] [address] Care Team Providers Care Blogs Manager Name Role Phone Geovani Wright MD Primary Care Provider [phone] Raleigh Evangelista MD Unavailable [phone] Reina Holden APRN Unavailable [phone] Encounter Details Date Type Department Care Team (Late st Contact Info) Description 03/28/2020 5:00 AM EDT Hospital Encounter [facility] Referral Lab 1 [place] [address] Social History Tobacco Use Types [...] of Assessment Author No 12/25/2019 2:36 PM EDeHide Farmer RN * Question Answer Date of [...] 8:38 PM EDT Marie Quintero RN * [place] Suicide Severity Rating Scale (Q shift for [...] Description 01/28/2025 3:45 PM EDT Office Visit [facility] Nephrology [place] [address] [facility] [address] [place] [phone] Greg Leblanc MD [address] [facility] [address] [place] [phone] 02/05/2025 9:30 AM EDT Office Visit [facility] [address] [facility] [address] [place] [address] 02/05/2025 10:00 AM EDT Office Visit [facility] [address] [facility] [address] [place] [address] Elizabeth Lee, DENISA [address] [place], [place] [id number] 03/10/2025 12:30 PM EDT Office Visit [facility] [address] [place], [place] [id number] Talib Martínez MD [address] [place] [phone] 03/17/2025 10:30 AM EDT Office Visit [facility] [address] [place] [address] [address] [place] [phone] 03/17/2025 11:00 AM EDT Office Visit [facility] [address] [place] [address] [address] [place] [address] Raleigh Evangelista MD [address] [place] [id number] 04/22/2025 10:30 AM EDT Office Visit [facility] Nephrology [place] [address] [facility] [address] [place], [place] [phone] Nilsa Petersen APRN [address] [facility] [address] [place] [address] Scheduled Orders Name Type Priority [...] documented as of this encounter Care Teams Blogs Manager Relationship Specialty Start Date End Date Geovani Wright MD PCP - General Family Medicine 02/12/12 Raleigh Evangelista MD [address] [facility] [place] [address] Internal Medicine - Clinical Cardiac Electrophysiology 04/10/16 Reina Holden APRN [address] [place] [address] [place] [address] Nurse Practitioner 10/12/16 documented as of this encounter
--- OUTSIDE RECORDS SUMMARY | 2025-01-20 10:30 | XMS_ITS | Encounter Summary ---
Author Organization [facility] Address [address] [facility] [place] [address] Care Team Providers Care Preassembler And Inspector Name Role Phone Geovani Wright MD Primary Care Provider [phone] Raleigh Evangelista MD Unavailable [phone] Reina Holden APRN Unavailable [phone] Reason for Visit * Reason Comments Hypertension Chronic Kidney Disease Encounter Details Date Type Department Care Team (Late st Contact Info) Description 01/20/2025 10:30 AM EDT Office Visit [facility] Nephrology [place] [address] [place], [place] [id number] Nilsa Petersen, RN COMMUNITY [address] [facility] [address] [place] [address] Stage 4 chronic kidney disease (HCC) (Primary Dx); High blood pressure associated with diabetes (HCC) Social History Tobacco Use Types Packs/Day Years Used Date Smoking Tobacco: Former Cigarettes 3 40 0 12/21/1967 - 2005 Smokeless Tobacco: Never Tobacco Cessation:Counseling Given: Not Answered Alcohol Use Standard Drinks/Week Comments No 0 (1 standard drink = 0.6 oz pur e alcohol) Sex and Gender Information Value Date Recorded Sex Assigned at Not on file Legal Sex Male 6:06 PM EDT Gender Identity Not on file Sexual Orientation Not on file documented as of this encounter Last Filed Vital Signs Vital Sign Reading Time Taken Comments Blood Pressure 142/74 01/20/2025 10:16 AM EDT Pulse - - Temperature 36.7 C (98.1 F) 01/20/2025 10:16 AM EDT Respiratory Rate - - Oxygen Saturation - - Inhaled Oxygen Concentration - - Weight - - Height - - Body Mass Index - - documented in this encounter Functional Status * Is the person deaf or does [...] of Assessment Author Yes 12/25/2019 2:36 PM EDT Heide Ellis RN * Does this person have difficulty dressing or bathing? Answer Date of Assessment Author Yes 12/25/2019 2:36 PM EDT Heide Ellis RN * Because of a physical, mental or emotional condition, does this person have difficulty doing errands alone such as visiting a doctor's office or shopping? Answer Date of Assessment Author No 12/25/2019 2:36 PM EDT Heide Ellis RN documented as of this encounter Mental Status * Because of a physical, mental or emotional condition, does this person have serious difficulty concentrating, remembering or making decisions? Answer Entry Date Author No 12/25/2019 2:36 PM EDT Heide Ellis RN documented in this encounter Ordered Prescriptions Prescription Sig Dispense Quantity Refills Last Filled Start Date End Date ergocalciferol (DRISDOL) 1,250 mcg (50,000 unit) Oral Capsule Take 1 Capsule by mouth once a week. 12 Capsule 1 01/20/2025 ferrous sulfate 325 mg (65 mg iron) Oral Tablet, Delayed Release (E.C.) Take 1 Tablet by mouth 2 times daily. 180 Tablet 3 01/20/2025 allopurinoL (ZYLOPRIM) 100 mg Oral Tablet Take 1 Tablet by mouth daily. 90 Tablet 2 01/20/2025 documented in this encounter Progress Notes * Nilsa Petersen, RN COMMUNITY - 01/20/2025 10:30 AM EDT Images from the original note were not included. Interval History Gilberto Anderson is a 64 y.o. male with Hx of CKD. Patient of Dr Wright. Previously seen on 11/04/2024. Gilberto is doing pretty good Neg for SOA, flank pain, CP, N/v/D Bilateral le edema - Denies hospitalizations or surgeries since last visit BP checked at 82/55-->152/84-->142/74-->142/74 Wt last checked at 300-->212--> Wheelchair #s Vit D 25 = 17 C02 = 23 BUN = 39 Uric Acid = 9.3 UA Protein = 3+ UA Glucose = 4+ UA Blood = 4+ UA RBC = 11-20 UA Bacteria = 1+ Osmo Calc = 291 Completed kidney ultrasound 12/22/2024 Assessment & Plan 1.CKD Stage III-b : Cr at present 1.68-->2.49-->2.20-->2.31-->2.58-->2.70. GFR 45-->28-->30-->31-->27-->25 ml/min. ( Underlying condition: Nephrosclerosis ) Has acute worsening of Cr. ?? Medication related ?? CKD progression. Has solitary Kidney. Mild Proteinruia in past. Last was nephrotic range. Unable to do biopsy with solitary kidney. Volume stable. Had KIERRA and Hyperkalemia in 2017, required HD. Recovered nicely. 09/02/2024 UPC 5.57 PTH 47 UA 4+ blood Phos 3.9 Uric 8.1 Mg 2.0 Serum Aldosetrone 5.2 K 5.4 -> 5.0 11/04/2024 K 5.0 Tsat 13% Na 137 Bicarb 24 Glucose 137 BUN 36 Cr 2.31 01/16/2025 Vit D 25 = 17 UR Protein Random = 234-->235 H/h = 10.9/34.3-->115/36.4 BUN = 26 Iron = 44 TIBC = 377 Iron sat - 12 Uric Acid = 9.3 K 4.9 - on Veltassa daily Farxiga 10 mg daily 01/20/2025 Feeling well. SERGIO boots still. BOSTON left nephretcomy. Right kidney 11.7x5.5x5.6. Plan- - Tsat 12, had gone for 2 iron infusions at [facility] but difficulty with transport. Would like totake an iron pill for now. - Had slight improvement with stopping medication Kerendia and losartan but still 2.20 with 5.5 gm proteinuria and 4+ blood on the UA. Most recently UA with 2 gm protein and 4+ blood. Has solitary kidney so biopsy is not an option. Continue with current dose of Losartan 25 mg. He has issues with hyperkalemia with the Losartan so he is on Veltassa 8.4 gm daily. No change to Losartan right now. LowK diet has been discussed and he has been given K food list to help monitor K intake. - Check BP at home. BP running around 140/70's at home now. - FSBS have been better. Glucose 131 on BMP. - Low sodium DASH diet. - RTC 3 months. He gets his labs at [facility] as it is closer to home. Lab sheet sent with him today for next visit. 2. Left Nephrectomy in 2009 Had RCC Margins were clear Need BOSTON updated 3. Hx of Nephrolithiasis Hx of Ureteral stent in 2017 Been stable since Needs 24 hour urine studies at some point 4. Proteinuria UPC 6.67 -> 2.02 gm Losartan 25 mg daily 5. HTN, BP currently controlled 6. Chronic A Fib, rate control, Xarelto 7. T2 DM with c/o, tight DM control addressed. On Trulicity. A1c 7.4 now, doing better. 8. Anemia of CKD , Tsat 13% Will try for iron infusion at [facility]. 9. HLD, goal LDL 70 or less 10. Gen Weakness, wheel chair bound since 2019 when he had GB surgery. ?? Neuropathy 11.KIA,Obesity, does not use CPAP 12. Quit smoking 10+ yrs ago. No EtOH Past Medical History: Diagnosis Date Anesthesia couldn't breathe after surgery Arthritis Atrial fibrillation (HCC) Atrial flutter (HCC) Blood circulation, collateral Cancer (HCC) kidney- no chemo/radiation, surgical removal of left kidney and freezing of right kidney Cardiac dysrhythmia CHF (congestive heart failure) (HCC) Chronic kidney disease kidney cancer Claustrophobia COPD (chronic obstructive pulmonary disease) (HCC) PRN 2L oxygen per NC Diabetes mellitus (HCC) IDDM Diabetic neuropathy (HCC) HATFIELD (dyspnea on exertion) Encounter for blood transfusion 2017 Heartburn Hyperlipidemia Hypertension Hyperthyroidism Kidney disorder right partial surgical freezing Neuropathy On home O2 2lnc PRN, unsure of companies name, no travel tank Orthopnea KIA (obstructive sleep apnea) wasn't able to tolerate CPap Pacemaker Psoriasis RBBB Recurrent appendicitis 11/10/2017 Sinus bradycardia Sinus bradycardia Sinus node dysfunction (HCC) Past Surgical History: Past Surgical History: Procedure Laterality Date ABLATION OF DYSRHYTHMIC FOCUS 12/24/2019 EPS w/ Typical AFL Ablation - Dr. Evangelista APPENDECTOMY CARDIAC CATHETERIZATION CHOLECYSTECTOMY, LAPAROSCOPIC N/A 03/03/2020 Laparoscopic cholecystectomy ; Surgeon: Manuel العلي MD; Location: [facility]; Service: General COLONOSCOPY CYSTOSCOPY Right 09/27/2016 CYSTOSCOPY RIGHT STENT INSERTION right retrograde; Surgeon: Georgi Myrick MD; Location: [facility]; Service: Urology CYSTOSCOPY 09/27/2016 Surgeon: Georgi Myrick MD; Location: [facility]; Service: Urology CYSTOSCOPY Right 04/20/2019 CYSTOSCOPY RIGHT STENT REMOVAL; Surgeon: Ray Teran MD; Location: [facility]; Service: Urology KIDNEY SURGERY left nephrectomy, right freezing PACEMAKER INSERTION Left 04/10/2016 MDT, dual chamber pacemaker by Dr. Evangelista PACEMAKER INSERTION 10/16/2024 Pacemaker generator change for SURI by Dr. Evangelista PRESSURE ULCER DEBRIDEMENT N/A 05/19/2020 EXCISIONAL DEBRIDEMENT BUTTOCK WOUND; Surgeon: Manuel العلي MD; Location: [facility]; Service: General TYMPANOSTOMY TUBE PLACEMENT UPPER GASTROINTESTINAL ENDOSCOPY N/A 09/25/2016 ESOPHAGOGASTRODUODENOSCOPY with biopsy; Surgeon: Rikki Mcmanus MD; Location: [facility]; Service: Endoscopy URETEROSCOPY Right 11/25/2018 CYSTOSCOPY RIGHT URETEROSCOPY, BASKET STONE RETRIEVAL, LOO EXCHANGE AND STENT INSERTION; Surgeon:Domo Penny MD; Location: [facility]; Service: Urology Allergies: Allergies Allergen Reactions Ciprocinonide Other (See Comments) developed pancreatitis Ciprofloxacin Other (See Comments) developed pancreatitis Amiodarone Other (See Comments) Hyperthyroidism Bactrim [Sulfamethoxazole-Trimethoprim] Rash Medications: Current Outpatient Medications Medication ACCU-CHEK SOFTCLIX LANCETS Mis Misc ammonium lactate (LAC-HYDRIN) 12 % Top Lotion apremilast (OTEZLA) 30 mg Oral Tablet dapagliflozin propanediol (FARXIGA) 10 mg Oral Tablet digoxin (LANOXIN) 125 mcg (0.125 mg) Oral Tablet dilTIAZem 120 mg Oral Capsule, Sust. Release 24 hr diphenhydrAMINE (BENADRYL) 25 mg Oral Tablet fenofibrate (TRICOR) 145 mg Oral Tablet finerenone (KERENDIA) 20 mg Oral Tablet gabapentin (NEURONTIN) 800 mg Oral Tablet HUMALOG KWIKPEN INSULIN 100 unit/mL SubQ Insulin Pen HYDROcodone-acetaminophen (NORCO) 10-325 mg Oral Tablet insulin aspart U-100 (NOVOLOG) 100 unit/mL SubQ Solution insulin glargine U-100 (LANTUS) 100 unit/mL SubQ Solution loperamide (IMODIUM) 2 mg Oral Capsule losartan (COZAAR) 25 mg Oral Tablet methIMAzole (TAPAZOLE) 5 mg Oral Tablet metoprolol succinate ER (TOPROL-XL) 100 mg Oral Tablet Sustained Release 24 hr ONETOUCH VERIO FLEX METER [facility] ONETOUCH VERIO TEST STRIPS [facility] Strip pantoprazole (PROTONIX) 40 mg Oral Tablet, Delayed Release (E.C.) patiromer calcium sorbitex (VELTASSA) 8.4 gram Oral Powder in Packet rivaroxaban (XARELTO) 20 mg Oral Tablet tamsulosin (FLOMAX) 0.4 mg Oral Capsule TRULICITY 0.75 mg/0.5 mL SubQ Pen Injector No current facility-administered medications for this visit. Social History: Social History Tobacco Use Smoking status: Former Current packs/day: 0.00 Average packs/day: 3.0 packs/day for 40.0 years (120.1 ttl pk-yrs) Types: Cigarettes Start date: 12/21/1967 Quit date: 2006 Years since quittin.5 Smokeless tobacco: Never Vaping Use Vaping status: Never Used Substance Use Topics Alcohol use: No Drug use: No Family History: Family History Problem Relation Age of Onset Coronary Art Dis Mother 63 age: 63 Diabetes Mother COPD Mother Cancer Mother lung Coronary Art Dis Maternal Grandfather 70 Heart Attack Maternal Grandfather Anesth Problems Neg Hx Pertinent Labs: CBC: Lab Results Component Value Date WBC 12.5 (H) 10/16/2024 WBC 8.2 11/15/2016 RBC 5.81 10/16/2024 RBC 3.27 (L) 11/15/2016 HGB 13.5 (L) 10/16/2024 HGB 10.1 (L) 11/15/2016 HCT 45.0 10/16/2024 HCT 29.1 (L) 11/15/2016 MCV 77.5 (L) 10/16/2024 MCV 89.0 11/15/2016 MCHC 30.0 (L) 10/16/2024 MCHC 34.8 11/15/2016 RDW 15.7 (H) 10/16/2024 RDW 16.0 (H) 11/15/2016 PLT 273 10/16/2024 PLT 347 11/15/2016 MPV 10.2 10/16/2024 MPV 7.4 11/15/2016 BMP: Lab Results Component Value Date NA 139 10/16/2024 NA 137 09/30/2016 K 4.7 10/16/2024 K 4.8 09/30/2016 CL 104 10/16/2024 CL 99 09/30/2016 CO2 22 10/16/2024 CO2 21 (L) 09/30/2016 BUN 28 (H) 10/16/2024 BUN 23 (H) 09/30/2016 CREATININE 2.42 (H) 10/16/2024 CREATININE 2.60 (H) 09/30/2016 CALCIUM 9.4 10/16/2024 CALCIUM 9.0 09/30/2016 GFRAFRAM 53 (L) 05/23/2020 GFRAFRAM 31 09/30/2016 GFRNONAFRAM 45 (L) 05/23/2020 GFRNONAFRAM 26 09/30/2016 GLU 166 (H) 10/16/2024 GLU 220 (H) 09/30/2016 Review of Systems: 12 point ROS done and negative except listed above Physical Exam: Patient is Alert and oriented x3 HEENT, PEERL Chest clear to auscultation bilaterally S1S2 normal Abdomen is soft and NT Ext: Edema + Bilateral SERGIO boots he changes weekly Patient Active Problem List Diagnosis Hypertensive heart disease without heart failure Hyperlipidemia associated with type 2 diabetes mellitus (HCC) Type 2 diabetes mellitus with complication, with long-term current use of insulin (HCC) Hypertension associated with diabetes (HCC) Long-term insulin use in type 2 diabetes (HCC) KIA (obstructive sleep apnea) RBBB Advance directive discussed with patient Intestinal mass Sinus node dysfunction (HCC) Pacemaker Acanthosis nigricans Chronic acquired lymphedema Other termite control service representative (current) drug therapy Psoriasis Acute on chronic diastolic (congestive) heart failure (HCC) suspected Obesity due to excess calories with serious comorbidity CKD stage 3 due to type 2 diabetes mellitus (HCC) Hyperkalemia Metabolic acidosis Iron deficiency anemia due to chronic blood loss Anemia in stage 3 chronic kidney disease (HCC) Chronic venous hypertension involving both sides Ureterolithiasis KIERRA (acute kidney injury) Calculus of ureter Typical atrial flutter (HCC) Atrial flutter with rapid ventricular response (HCC) Acute cystitis with hematuria Sepsis (HCC) Paroxysmal A-fib (HCC) Essential hypertension CKD stage 2 due to type 2 diabetes mellitus (HCC) Abdominal pain Acute calculous cholecystitis Cholecystitis Hyponatremia Encephalopathy acute Neuropathy Weakness of left foot Atrial fibrillation with RVR (HCC) Diarrhea Diabetic ketoacidosis associated with type 2 diabetes mellitus (HCC) UTI (urinary tract infection) Elevated troponin Leukocytosis Fever Personal history of colonic polyps Venous insufficiency of both lower extremities Lymph edema Non-pressure ulcer of left lower extremity (HCC) Pacemaker battery depletion Return to CKD Clinic in 3 month with labs. Labs to be drawn few days prior to the visit. Thank You for letting me participate in your patient care. Please do not hesitate to call me if anyquestions ( office phone [phone] ). Nilsa Petersen APRN Seen in collaboration with Greg Leblanc MD Nephrology documented in this encounter Miscellaneous Notes * Patient Instructions - Jodie BINU Singh - 01/20/2025 10:30 AM EDT 2 Gram Sodium Diet, Low Sodium A 2 gram sodium diet restricts the amount of sodium in the diet to no more than 2 grams or 2000 milligrams (mg) daily. Limiting the amount of sodium is often used to help lower blood pressure, and important for heart failure, liver and kidney problems. Many foods contain sodium for flavor and sometimes as a preservative. So when the amount of sodium in a diet needs to be low, it's important to know what to look for when choosing foods and drinks. It may take some time to get used to making somedietary changes. The following includes some information and guidelines to help make it easier for you to adapt to a lower sodium diet. QUICK TIPS ?? Do not add salt to food. ?? Avoid convenience items and fast food which are often high in sodium. ?? Choose unsalted snack foods. ?? Buy lower sodium products often labeled as lower sodium or no salt added . ?? Check food labels to learn how much sodium is in one serving. ?? When eating at a restaurant, ask that your food be prepared with less salt, or none if possible. READING FOOD LABELS FOR SODIUM INFORMATION The Nutrition Facts panel is a good place to find how much sodium is in foods. Look for products with no more than 500-600 mg/meal and no more than 150 mg salt/serving. Remember that 2 g = 2000 mg. The food label may also list foods as: ?? Sodium-free: Less than five mg in a serving. ?? Very low sodium: 35 mg or less in a serving. ?? Low-sodium: 140 mg or less in a serving. ?? Light in sodium: 50 percent less sodium in a serving. ?? For example, if a food that usually has 300 mg of sodium is changed to become light in sodium, it will have 150 mg of sodium. ?? Reduced sodium: 25 percent less sodium in a serving. For example, if a food that usually has 400mg of sodium is changed to reduced sodium; it will have 300 mg of sodium. CHOOSING FOODS AVOID CHOOSE Grains: Salted crackers and snack items Some cereals, including instant hot cereals Bread stuffing and biscuit mixes. Seasoned rice or pasta mixes Grains: Unsalted snack items Low sodium cereals, oats, puffed wheat and rice, shredded wheat Maltese muffins and bread Pasta Meats: Salted, canned, smoked, spiced, pickled meats including fish and poultry. Lacey, ham, sausage, cold cuts, hot dogs, anchovies. Meats: Low sodium canned tuna and salmon. Fresh or frozen meat, poultry and fish. Dairy: Processed cheese and spreads Cottage cheese Buttermilk and condensed milk Regular cheese Dairy: Milk Low sodium cottage cheese Yogurt Sour cream Low sodium cheese Fruits and Vegetables: Regular canned vegetables Regular canned tomato sauce and paste Frozen vegetables in sauces Olives Pickles Relishes Sauerkraut Fruits and Vegetables: Low sodium canned vegetables Low sodium tomato sauce and paste Frozen or fresh vegetables Fresh and frozen fruit Condiments: Canned and packaged gravies [facility] Hospital[facility] sauce Tartar sauce Barbecue sauce Soy sauce Steak sauce Ketchup Onion, garlic and table salt Meat flavorings and tenderizers Condiments: Fresh and dried herbs and spices. Low sodium varieties of mustard and ketchup. Lemon juice Tabasco sauce Horseradish SAMPLE 2 GRAM SODIUM MEAL PLAN Meal Foods Sodium (mg) Breakfast 1 cup low fat milk 2 slices whole wheat toast 1 Tablespoon heart healthy tub margarine 1 hardboiled egg 1 small orange 143 270 153 139 0 Lunch 1 cup raw carrots ?? cup hummus 1 cup low fat milk ?? cup red grapes 1 whole wheat frances bread 76 298 143 2 356 Dinner 1 cup whole wheat pasta 1 cup low sodium tomato sauce 3 oz lean ground beef 1 small side salad (1 cup raw spinach leaves, ?? cup cucumber, ?? cup yellow kimbrough pepper) with 1 tsp olive oil and 1 tsp red wine vinegar 2 73 57 25 Snack 1 container low fat vanilla yogurt 3 homer cracker squares 107 127 Nutrient Analysis Calories: 2032 Protein: 77g Carbohydrate: 282g Fat: 72g Sodium: 1971mg documented in this encounter Plan of Treatment Upcoming Encounters Date Type Department Care Team (Late st Contact Info) Description 01/28/2025 3:45 PM EDT Office Visit [facility]phrology [place] [address] [place] [address] Greg Leblanc MD [address] [facility] [address] [place] [address] 02/05/2025 9:30 AM EDT Office Visit [facility] [address] [place] [address] [place] [phone] 02/05/2025 10:00 AM EDT Office Visit [facility] [address] [place] [address] [address] [place] [address] Elizabeth Lee APRN [address] [place] [phone] 03/10/2025 12:30 PM EDT Office Visit [facility] [address] [place] [address] Talib Martínez MD [address] [place] [address] 03/17/2025 10:30 AM EDT Office Visit [facility] [address] [place] [phone] 03/17/2025 11:00 AM EDT Office Visit [facility] [address] [place] [phone] Raleigh Evangelista MD [address] [place] [phone] 04/22/2025 10:30 AM EDT Office Visit [facility] Nephrology [place] [address] [place] [address] Nilsa Petersen, RN COMMUNITY [address] [place] [address] documented as of this encounter Visit Diagnoses Diagnosis Stage 4 chronic kidney disease (HCC)- Primary High blood pressure associated with diabetes (HCC) Type II or unspecified type diabetes mellitus with other specified manifestations, not stated as uncontrolled documented in this encounter Care Teams Preassembler And Inspector Relationship Specialty Start Date End Date Geovani Wright MD PCP - General Family Medicine 02/12/12 Raleigh Evangelista MD [address] [place] [address] [place] [address] Internal Medicine - Clinical Cardiac Electrophysiology 04/10/16 Reina Holden APRN [address] [place] [address] [place] [address] Nurse Practitioner 10/12/16 documented as of this encounter
[2025-01-25 15:59] LABS: Alanine Aminotransferase 21 U/L (12-78); Albumin Level 3.5 g/dl (3.5-5.0); Albumin/Globulin Ratio 1.3 (1.1-1.8); Alkaline Phosphatase 51 U/L (38-126); Anion Gap 13.4 mEq/L (5-15); Aspartate Amino Transferase 27 U/L (17-59); Bilirubin,Total 0.2 mg/dl (0.2-1.3); Blood Urea Nitrogen 34 mg/dl (9-20); Calcium 8.7 mg/dl (8.4-10.2); Carbon Dioxide 19 mmol/L (22.0-30.0); Chloride 114 mmol/L (98-107); Creatinine,Serum 2.60 mg/dl (0.66-1.25); Estimated Glomerular Filt Rate 25 ml/min (>60); GFR (African American) 30 ML/MIN (>60); Globulin 2.7 g/dL (1.3-3.2); Glucose 121 mg/dl (74-100); Sodium 140 mmol/L (136-145); Total Protein,Serum 6.2 g/dl (6.3-8.2)
[2025-01-25 16:20] LABS: Potassium 6.4 mmoL/L (3.5-5.1)
[2025-01-25 16:31] LABS: Thyroid Stimulating Hormone 7.44 uIU/mL (0.465-4.68)
[2025-01-25 16:56] LABS: Hepatitis C Ab Qual. W/ RFX NEGATIVE (Negative)
--- OUTSIDE RECORDS SUMMARY | 2025-01-25 20:29 | XMS_ITS | Encounter Summary ---
Author Organization [place] [address] Care Team Providers Care Machinist Instructor Name Role Phone Geovani Wright MD Primary Care Provider [phone] Raleigh Evangelista MD Unavailable [phone] Reina Holden APRN Unavailable [phone] Reason for Visit * Reason Comments Abnormal Lab Pt sts he had blood work drawn and the MD called reynaldo telling him to come in for eval due to abnormal K+. Pt voices he has been having trouble with his kidney. CPTA: none Encounter Details Date Type Department Care Team (Late st Contact Info) Description 01/25/2025 8:29 PM EDT - 01/25/2025 11:20 PM EDT Emergency [facility] [place] [address] Bob Arana MD [address] [place] [address] Hyperkalemia (Primary Dx); Hx of chronic kidney disease Discharge Disposition: Home or Self Care Social History Tobacco Use Types Packs/Day Years [...] Sign Reading Time Taken Comments Blood Pressure 137/68 01/25/2025 7:51 PM EDT Pulse 64 01/25/2025 11:19 PM EDT Temperature 36.6 C (97.8 F) 01/25/2025 7:51 PM EDT Respiratory Rate 20 01/25/2025 7:51 PM EDT Oxygen Saturation 100% 01/25/2025 7:51 PM EDT Inhaled Oxygen Concentration - - Weight 102.1 kg (225 lb) 01/25/2025 7:51 PM EDT Height 172.7 cm (5' 8 ) 01/25/2025 7:51 PM EDT Body Mass Index 34.21 01/25/2025 7:51 PM EDT documented in this encounter Functional Status * [...] 2:36 PM EDT Heide Ellis RN * Suicide Severity Rating Answer Date of Assessment Author No Risk 01/25/2025 8:38 PM EDT Marie Quintero RN * [place] Suicide Severity Rating Scale (Q shift for [...] Heide Ellis RN documented in this encounter Discharge Instructions * Discharge Instructions* Juanita Purdy APRN - 01/25/2025 10:26 PM EDT Call your construction administrative assistant tomorrow for close follow-up Take the Veltassa once in the morning and once in the evening for the next 3 days Return to the ER for any new or worsening chest pain, shortness of breath, vomiting, diarrhea or any other concerning symptom documented in this encounter Medications at Time of Discharge ACCU-CHEK SOFTCLIX LANCETS [facility] 03/23/2022 allopurinoL (ZYLOPRIM) 100 mg Oral Tablet Take 1 Tablet by mouth daily. 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 digoxin (LANOXIN) 125 mcg (0.125 mg) Oral TabletIndications :Paroxysmal A-fib (HCC) Take 1 Tablet by mouth daily. 90 Tablet 05/07/2022 dilTIAZem 120 mg Oral Capsule, Sust. Release 24 hr TAKE 2 CAPSULES (240 MG) BY MOUTH EVERY MORNING AND 1 CAPSULE (120 MG) BY MOUTH EVERY EVENING. 90 Capsule 5 05/18/2022 diphenhydrAMINE (BENADRYL) 25 mg Oral Tablet Take 1-2 Tablets by mouth every 4 hours as needed for Rash. 30 Tablet 06/30/2021 ergocalciferol (DRISDOL) 1,250 mcg (50,000 unit) Oral Capsule Take 1 Capsule by mouth once a week. 12 Capsule 1 01/20/2025 fenofibrate (TRICOR) 145 mg Oral Tablet Take 145 mg by mouth daily. 02/05/2020 ferrous sulfate 325 mg (65 mg iron) Oral Tablet, Delayed Release (E.C.) Take 1 Tablet by mouth 2 times daily. 180 Tablet 3 01/20/2025 finerenone (KERENDIA) 20 mg Oral Tablet Take 20 mg by mouth daily. gabapentin (NEURONTIN) 800 mg Oral Tablet Take 1 Tab by mouth 3 times daily. 0 08/27/2018 HUMALOG KWIKPEN INSULIN 100 unit/mL SubQ Insulin Pen Subcutaneous (Inject under the skin) 80 Units Before every meal. 02/23/2020 HYDROcodone-aceta minophen (NORCO) 10-325 mg Oral Tablet Take 1 Tablet by mouth 2 times daily as needed. for pain 03/10/2024 insulin aspart U-100 (NOVOLOG) 100 unit/mL SubQ Solution 04/05/2020 insulin glargine U-100 (LANTUS) 100 unit/mL SubQ Solution Subcutaneous (Inject under the skin) 36 Units 2 times daily. 10 mL 06/30/2021 loperamide (IMODIUM) 2 mg Oral Capsule Take 1 Capsule by mouth every 4 hours as needed for Diarrhea. 06/30/2021 losartan (COZAAR) 25 mg Oral Tablet TAKE ONE (1) TABLET BY MOUTH DAILY. 30 Tablet 3 11/30/2024 methIMAzole (TAPAZOLE) 5 mg Oral Tablet Take 5 mg by mouth daily. metoprolol succinate ER (TOPROL-XL) 100 mg Oral Tablet Sustained Release 24 hrIndications:Par oxysmal A-fib (HCC) TAKE 2 TABLETS BY MOUTH 2 TIMES DAILY. 360 Tablet 1 08/15/2022 ONETOUCH VERIO FLEX METER [facility] 03/30/2022 ONETOUCH VERIO TEST STRIPS [facility] Strip 03/30/2022 pantoprazole (PROTONIX) 40 mg Oral Tablet, Delayed Release (E.C.) Take 1 Tab by mouth daily. 30 Tab 2 09/30/2016 patiromer calcium sorbitex (VELTASSA) 8.4 gram Oral Powder in Packet Take 8.4 g by mouth 2 times daily for 3 days. 6 Each 01/25/2025 rivaroxaban (XARELTO) 20 mg Oral Tablet Take 1 Tab by mouth daily. 30 Tab 5 08/15/2020 tamsulosin (FLOMAX) 0.4 mg Oral Capsule Take 0.4 mg by mouth daily. TRULICITY 0.75 mg/0.5 mL SubQ Pen Injector 04/03/2022 documented as of this encounter Ordered Prescriptions Prescription Sig Dispense Quantity Refills Last Filled Start Date End Date patiromer calcium sorbitex (VELTASSA) 8.4 gram Oral Powder in Packet Take 8.4 g by mouth 2 times daily for 3 days. 6 Each 01/25/2025 01/28/2025 documented in this encounter Discharge Disposition Disposition Code Departure Means Destination Comment s Home or Self Nursing Home documented in this encounter Miscellaneous Notes * Critical Result Value - Angelica Mcbride RN - 01/25/2025 9:36 PM EDT Test Name/ Result: Potassium 6.1 Date/ Time: 01/25/25 Notified Physician/Physician Designee: Sumit documented in this encounter Plan of Treatment Upcoming Encounters Date Type Department Care Team (Late st Contact Info) Description 01/28/2025 3:45 PM EDT Office Visit [facility] Nephrology [place] [address] [facility] [address] [place] [address] Greg Leblanc MD [address] [facility] [address] [place] [address] 02/05/2025 9:30 AM EDT [facility] [address] [place] [address] [address] [place] [address] 02/05/2025 10:00 AM EDT Office Visit [facility] [address] [place] [address] [address] [place] [address] Elizabeth Lee APRN [address] [place], [place] [id number] 03/10/2025 12:30 PM EDT Office Visit [facility] [address] [place] [address] Talib Martínez MD [address] [place] [address] 03/17/2025 10:30 AM EDT Office Visit [facility] [address] [place] [address] [address] [place] [address] 03/17/2025 11:00 AM EDT Office Visit [facility] [address] [place] [address] [address] [place] [address] Raleigh Evangelista MD [address] [place] [id number] 04/22/2025 10:30 AM EDT Office Visit [facility] Nephrology [place] [address] [place] [address] Nilsa Petersen, MANAGER C[employer]INARY [address] [place] [address] documented as of this encounter Procedures Procedure Name Priority Date/Time Associated Diagnosis Comments SCANNED EKG 01/26/2025 11:36 AM EDT BASIC METABOLIC PANEL STAT 01/25/2025 9:05 PM EDT EK EKG 12 LEAD STAT 01/25/2025 7:21 PM EDT documented in this encounter Results * SCANNED EKG (01/26/2025 11:36 AM EDT) Anatomical Region Laterality Modality Other 01/26/2025 11:3 6 AM EDT us Unknown Provider IMG ECG ORDERABLES Final Result * (ABNORMAL) BASIC METABOLIC PANEL (01/25/2025 9:05 PM EDT) Sodium 139 136 - 145 mmol/L 01/25/2025 9:35 PM EDT [facility] Potassium 6.1(HH) 3.5 - 5.0 mmol/L 01/25/2025 9:35 PM EDT [facility] Chloride 111(H) 98 - 107 mmol/L 01/25/2025 9:35 PM EDT [facility] Total CO2 17(L) 22 - 29 mmol/L 01/25/2025 9:35 PM EDT [facility] Anion Gap 11 7 - 16 mmol/L 01/25/2025 9:35 PM EDT [facility] Calcium 8.4(L) 8.8 - 10.4 mg/dL 01/25/2025 9:35 PM EDT [facility] Glucose Lvl 140(H) 70 - 99 mg/dL 01/25/2025 9:35 PM EDT [facility] BUN 39(H) 8 - 23 mg/dL 01/25/2025 9:35 PM EDT [facility] Creatinine 2.49(H) 0.67 - 1.30 mg/dL 01/25/2025 9:35 PM EDT [facility] eGFR (CKD-EPIcr 2020) 28(L) >=60 mL/min/1.7 3 m2 01/25/2025 9:35 PM EDT [facility] Comment:Estimated GFR was ca lculated using the CKD-EPIcr (2020) equation refit without race. The equation is recommended by the National Kidney Foundation - [place] [employer] of Nephrology Task Force. Blood VENOUS BLOOD / Unknown Venipuncture / Unknown 01/25/2025 9:05 PM EDT 01/25/2025 9:08 PM EDT us Bob Arana MD CHEMISTRY ORDERABLES Final Resul t [facility] [place] [facility] [address] [place] [address] * EK EKG 12 LEAD (01/25/2025 7:21 PM EDT) Anatomical Region Laterality Modality Electrocardiogra phy 01/25/2025 7:25 PM EDT Impressions 01/26/2025 9:[address] [facility] [place] Test Date: 2025-01-25 Pat Name: [facility] Department: DEPID Room: [facility] Gender: Male Adjunct Instructor In Economics: : 1960 Requested By: [facility] Order Number: [id number] Reading MD: Adolfo Bañuelos Measurements Intervals [place] Rate: 65 P: 0 KS: 0 QRS: -44 QRSD: 132 T: -69 QT: 363 QTc: 380 Interpretive Statements ELECTRONIC VENTRICULAR PACEMAKER Electronically Signed On 01-26-2025 09:51:14 EDT by Adolfo Bañuelos Narrative Procedure Note Adolfo Bañuelos MD - 01/26/[address] [facility] [place] Test Date: 2025-01-25 Pat Name: [facility] Department: DEPID Room: [facility] Gender: Male Adjunct Instructor In Economics: : 1960 Requested By: [facility] Order Number: [id number] Reading MD: Adolfo Bañuelos Measurements Intervals [place] Rate: 65 P: 0 KS: 0 QRS: -44 QRSD: 132 T: -69 QT: 363 QTc: 380 Interpretive Statements ELECTRONIC VENTRICULAR PACEMAKER Electronically Signed On 01-26-2025 09:51:14 EDT by Adolfo Bañuelos us Bob Arana MD IMG ECG ORDERABLES Final Result documented in this encounter Visit Diagnoses Diagnosis Hyperkalemia- Primary Hyperpotassemia Hx of chronic kidney disease Personal history of other disorder of urinary system documented in this encounter Administered Medications Inactive Administered Medications - up to 1 most recent administrations Medication Order MAR Action Action Date Dose Rate Site sodium zirconium cyclosilicate (LOKELMA) packet 10 g 10 g, Oral, ONCE, 1 dose, On Sat01/25/25 at 2200, Administer other oral medications at least 2 hours before or 2 hours after administration. Empty entire contents of packet into drinking glass containing at least 3 tablespoons (45 mL) of water. Stir well and drink immediately. If powder remains in drinking glass, add water, stir and drink immediately. Repeat until no powder remains to ensure full dose is taken. Given 01/25/2025 10:12 PM EDT 10 g documented in this encounter Discontinued Medications Medication Sig Discontinue Reason Start Date End Da te patiromer calcium sorbitex (VELTASSA) 8.4 gram Oral Powder in Packet Take 8.4 g by mouth daily. 09/02/2024 01/25/2025 documented as of this encounter Active and Recently Administered Medications Times are shown in EDT. Scheduled Medication Order 01/23/2025 01/24/2025 01/25/2025 sodium zirconium cyclosilicate (LOKELMA) packet 10 g (COMPLETED) 10 g, Oral, ONCE, 1 dose, On Sat01/25/25 at 2200, Administer other oral medications at least 2 hours before or 2 hours after administration. Empty entire contents of packet into drinking glass containing at least 3 tablespoons (45 mL) of water. Stir well and drink immediately. If powder remains in drinking glass, add water, stir and drink immediately. Repeat until no powder remains to ensure full dose is taken. 2211 (Given - Provid er: Brianda Quintero RN) documented in this encounter Orders Medications Ordered That Darryl ht Not Have Been Administered Count Last Ordered Date First Ordered Date sodium zirconium cyclosilica te (LOKELMA) packet 10 g 1 01/25/2025 Nursing Count Last Ordered Date First Orde red Date BLOOD GLUCOSE 1 01/25/2025 documented in this encounter Care Teams Machinist Instructor Relationship Specialty Start Date End Date Geovani Wright MD PCP - General Family Medicine 02/12/12 Raleigh Evangelista MD [address] [facility] [place] [address] Internal Medicine - Clinical Cardiac Electrophysiology 04/10/16 Reina Holden APRN [address] [place] [address] [place] [address] Nurse Practitioner 10/12/16 documented as of this encounter
--- OUTSIDE RECORDS SUMMARY | 2025-01-26 15:44 | XMS_ITS | Encounter Summary ---
Author Organization [place] [address] Care Team Providers Care Aerospace Medicine Physician Name Role Phone Geovani Wright MD Primary Care Provider [phone] Raleigh Evangelista MD Unavailable [phone] Reina Holden APRN Unavailable [phone] Encounter Details Date Type Department Care Team (Late st Contact Info) Description 01/03/2020 Orders Only [facility] [address] [facility] [address] [place] [address] Raleigh Evangelista MD [address] [place] [address] Social History Tobacco Use Types [...] Exposure Response Date Recorded In the last month, have you been in contact with someone who was confirmed or suspected to have Coronavirus / COVID-19? No / Unsure 12/25/2019 2:51 PM EDT documented as of this encounter Functional Status * Is the [...] 01/28/2025 3:45 PM EDT Office Visit [facility] Nephrology [place] [address] [facility] [address] [place] [address] Greg Leblanc MD [address] [facility] [address] [place] [address] 02/05/2025 9:30 AM EDT Office Visit [facility] [address] [facility] [address] [place] [address] 02/05/2025 10:00 AM EDT Office Visit [facility] [address] [facility] [address] [place] [address] Elizabeth Lee APRN [address] [place], [place] [phone] 03/10/2025 12:30 PM EDT Office Visit [facility] [address] [facility], [place] [id number] Talib Martínez MD [address] [place] [address] 03/17/2025 10:30 AM EDT Office Visit [facility] [address] [place] [address] [address] [place] [address] 03/17/2025 11:00 AM EDT Office Visit [facility] [address] [place] [address] [address] [place] [address] Raleigh Evangelista MD [address] [place] [id number] 04/22/2025 10:30 AM EDT Office Visit [facility] Nephrology [place] [address] [place] [address] Nilsa Petersen, CLINICAL STAFF RN [address] [place] [address] documented as of this encounter Procedures Procedure Name Priority Date/Time Associated Diagnosis Comments PACEART REPORT Routine 01/03/2020 11:59 PM EDT documented in this encounter Results * PACEART REPORT (01/03/2020 11:59 PM EDT) 01/03/2020 11:5 9 PM EDT Narrative [facility] - 01/04/2020 1:10 PM EDT Remote Carelink transmission ELLA D PPM- 1 wk f/u med change. Presenting EGM = AP/VS @ 86 bpm. AP = 30.1%TOWER HELPER = 16.2% AF burden = 65.8% Last AF event lasted 95 hrs with max v- rate 146 bpm. Hx PAF/warfarin. Patient was started on diltizem 240mg bid a week ago and was told to send transmission 1 wk later. Rates decreased and not in AF today. Patient sttes he feels better.Device function is as programmed. Will let Dr. Evangelista know. Ruthann Fajardo RN us Raleigh Evangelista MD [facility] C[facility] ORDERAB LES Final Result [facility] [address] [place] [id number] documented in this encounter Visit Diagnoses Not on filedocumented in this encounter Additional Health Concerns Infection Onset Date Last Indicated Resolved Time R/O C-Diff 06/21/2021 06/21/2021 06/21/2021 11:3 0 AM EST R/O COVID-19 07/02/2021 07/02/2021 07/02/2021 7:20 PM EST R/O C-Diff 07/07/2021 07/07/2021 07/07/2021 6:23 PM EST documented as of this encounter Care Teams Aerospace Medicine Physician Relationship Specialty Start Date End Date Geovani Wright MD PCP - General Family Medicine 02/12/12 Raleigh Evangelista MD [address] [place] [address] Internal Medicine - Clinical Cardiac Electrophysiology 04/10/16 Reina Holden APRN [address] [place] [address] Nurse Practitioner 10/12/16 documented as of this encounter
--- OUTSIDE RECORDS SUMMARY | 2025-01-26 15:44 | XMS_ITS | Clinical Summary ---
Author Organization [facility] Address [address] [facility] [address] [place] [address] Phone Care Team Providers Care Capacity Planner Name Role Phone Outside, Provider Unavailable [phone] Conditions or Problems Problem Name Problem Code Onset Date Status Entry Date Provider Comment Standard Description Annotate SPONDYLOSIS, CERVICAL W/MYELOPATHY 16155459 (SNOMED CT) Active Vee Benavides MD Cervical spondylosis with myelopathy OVERWEIGHT 132474134 (SNOMED CT) Active Vee Benavides MD Overweight Medications Medication Instructions Start Date Stop Date Generic Name NDC Provider ULTRAM 50 MG ORAL TABLET 1 PO TID-QID prn pain TRAMADOL HCL 10912355898 Vee Benavides MD ULTRAM 50 MG ORAL TABLET 1 OI TID - QID TRAMADOL HCL [id number] Tamara Cole MA CLINDAMYCIN HCL 150 MG CAPS CLINDAMYCIN HCL 12021038041 Vee Benavides MD FUROSEMIDE 40 MG TABS FUROSEMIDE 79185352794 Vee Benavides MD PANTOPRAZOLE SODIUM 40 MG TBEC PANTOPRAZOLE SODIUM 68623015440 Vee Benavides MD FENOFIBRATE 145 MG TABS FENOFIBRATE [id number] Vee Benavides MD PENICILLIN V POTASSIUM 500 MG TABS PENICILLIN V POTASSIUM 22785291176 Vee Benavides MD CLINDAMYCIN HCL 300 MG CAPS CLINDAMYCIN HCL 29331243323 Vee Benavides MD METHIMAZOLE 5 MG TABS METHIMAZOLE [id number] Vee Benavides MD HYDRALAZINE HCL 50 MG TABS HYDRALAZINE HCL [id number] Vee Benavides MD WARFARIN SODIUM 4 MG TABS WARFARIN SODIUM 30800765013 Vee Benavides MD GABAPENTIN 600 MG TABS GABAPENTIN 49050949546 Vee Benavides MD NOVOLOG FLEXPEN 100 UNIT/ML SOPN INSULIN ASPART [id number] Vee Benavides MD ACETAMINOPHEN-CO DEINE #3 300-30 MG ORAL TABLET ACETAMINOPHEN-C ODEINE 89865690212 Vee Benavides MD METOPROLOL SUCCINATE ER 100 MG [id number] METOPROLOL SUCCINATE 66779957049 Vee Benavides MD LISINOPRIL 5 MG TABS LISINOPRIL [id number] Vee Benavides MD LINZESS 145 MCG CAPS LINACLOTIDE 29933346472 Vee Benavides MD GABAPENTIN 800 MG TABS GABAPENTIN [id number] Vee Benavides MD Medications Administered No information available. Allergies, Adverse Reactions, Alerts Allergy Name Reaction Description Start Date Severity Statu s Provider CIPRO Critical Vee Benavides MD Results No information available. Plan of Care No information available. Procedures Code Procedure Name Date Entry Date [facility]-[id number] Flu Shot Previously Received [facility]-[id number] Medications Documented Vital Signs Date Name Value Unit Description BMI (Body Mass Index) 48.65 kg/m2 Bod y Mass Index (Ratio) BP Diastolic 80 mm[Hg] blood pressu re, diastolic BP Systolic 140 mm[Hg] blood pressur e, systolic Height 68 [in_us] height E&M Weight Measured 320 [lb_av] weight E& M Weight Measured 320 [lb_av] weight E& M Immunizations No information available. Advance Directives No information available.
--- OUTSIDE RECORDS SUMMARY | 2025-01-26 15:44 | XMS_ITS | Encounter Summary ---
Author Organization [place] [address] Care Team Providers Care Screen Printing Stencil Preparer Name Role Phone Geovani Wright MD Primary Care Provider Raleigh Evangelista MD Unavailable [phone] Reina Holden APRN Unavailable [phone] Encounter Details Date Type Department Care Team (Late st Contact Info) Description 12/28/2019 Orders Only [facility] [address] [facility] [address] [place] [address] Raleigh Evangelista MD [address] [place] [address] Social History Tobacco Use Types [...] Description 01/28/2025 3:45 PM EDT Office Visit [facility] Nephrology [place] [address] [facility] [address] [place] [address] Greg Leblanc MD 47 [facility] [address] [place] [address] 02/05/2025 9:30 AM EDT Office Visit [facility] [address] [facility] [address] [place] [address] 02/05/2025 10:00 AM EDT Office Visit [facility] [address] [facility] [address] [place] [address] Elizabeth Lee APRN [address] [place], [place] [id number] 03/10/2025 12:30 PM EDT Office Visit [facility] [address] [facility] [place], [place] [id number] Talib Martínez MD [address] [place] [address] 03/17/2025 10:30 AM EDT Office Visit [facility] [address] [place] [address] [address] [place] [address] 03/17/2025 11:00 AM EDT Office Visit [facility] [address] [place] [address] [address] [place] [address] Raleigh Evangelista MD [address] [place], [place] [id number] 04/22/2025 10:30 AM EDT Office Visit [facility] Nephrology [place] [address] [place] [address] Nilsa Petersen, CORPORATE TRAVEL CONSULTANT [address] [place] [address] documented as of this encounter Procedures Procedure Name Priority Date/Time Associated Diagnosis Comments PACEART REPORT Routine 12/28/2019 12:47 PM EDT documented in this encounter Results * PACEART REPORT (12/28/2019 12:47 PM EDT) 12/28/2019 12:4 7 PM EDT Narrative [facility] - 12/28/2019 10:14 AM EDT - [employer] DR ashok erwin at the request of Dr. Evangelista d/t pt c/o having issues w/ heart rate over the weekend. - No VT events recorded since 12/24/19. - (6) Fast A/V events. All events = 12/26/19 between 12:50-14:29. Longest = 8 min. EGM's = AF/FL w/ RVR. Avg V-rates = 145-182bpm. - (4) AF events. Last in progress since 12/26/19 starting @ 17:12. V-rates during AT/AF = 100-170bpm approx 65-70% of time. AF burden = 55%. Pt is on ELIQUIS and TOPROL-XL 100mg BID per [facility] med list. - Presenting rhythm EGM = AF w/ rapid irregular VS'ing rhythm @ 100-120's. Results forwarded to Dr. Evangelista and DENISA (Hanane Alfaro). us Raleigh Evangelista MD [facility] C[facility] ORDERAB LES Final Result [facility] [address] [place] [address] documented in this encounter Visit Diagnoses Not on filedocumented in this encounter Additional Health Concerns Infection Onset Date Last Indicated Resolved Time R/O C-Diff 06/21/2021 06/21/2021 06/21/2021 11:3 0 AM EST R/O COVID-19 07/02/2021 07/02/2021 07/02/2021 7:20 PM EST R/O C-Diff 07/07/2021 07/07/2021 07/07/2021 6:23 PM EST documented as of this encounter Care Teams Screen Printing Stencil Preparer Relationship Specialty Start Date End Date Geovani Wright MD PCP - General Family Medicine 02/12/12 Raleigh Evangelista MD [address] [place] [address] [place] [address] Internal Medicine - Clinical Cardiac Electrophysiology 04/10/16 Reina Holden APRN [address] [place] [address] [place] [address] Nurse Practitioner 10/12/16 documented as of this encounter
--- OUTSIDE RECORDS SUMMARY | 2025-01-26 15:45 | XMS_ITS | Encounter Summary ---
Author Organization [place] [address] Care Team Providers Care Supervisor Correspondence Section Name Role Phone Geovani Wright MD Primary Care Provider [phone] Raleigh Evangeilsta MD Unavailable [phone] Reina Holden APRN Unavailable [phone] Encounter Details Date Type Department Care Team (Late st Contact Info) Description 12/21/2019 Orders Only [facility] [address] [facility] [address] [place] [address] Raleigh Evangelista MD [address] [place] [address] Social History Tobacco Use Types [...] have Coronavirus / COVID-19? No / Unsure 12/23/2019 7:50 PM EDT documented as of this encounter Functional Status * Alcohol Screening Score Answer Date of Assessment Author 0 12/21/2019 8:49 PM EDT Bryon Tavarez, LARRY * Drug Screening Score Answer Date of Assessment Author 0 12/21/2019 8:49 PM EDT Bryon Tavarez, LARRY * Question Answer Date of Assessment Author How often do you have a drin k containing alcohol? 0 12/21/2019 8:49 PM EDT Toribio Tavarez RN How many drinks containing alcohol do you have on a typical day when you are drinking? 0 12/21/2019 8:49 PM EDT Toribio Tavarez RN How often do you have six or more drinks on one occasion? 0 12/21/2019 8:49 PM EDT Toribio Tavarez RN AUDIT-C to Determine Rows 4-10 0 12/21/2019 8:49 PM EDT Toribio Tavarez RN documented as of this encounter Plan of Treatment Upcoming Encounters Date Type Department Care Team (Late st Contact Info) Description 01/28/2025 3:45 PM EDT Office Visit [facility] Nephrology [place] [address] [place] [address] Greg Leblanc MD [address] [place] [phone] 02/05/2025 9:30 AM EDT Office Visit [facility] [address] [facility] [address] [place] [address] 02/05/2025 10:00 AM EDT Office Visit [facility] [address] [facility] [address] [place] [address] Elizabeth Lee, DENISA [address] [place] [address] 03/10/2025 12:30 PM EDT Office Visit [facility] [address] [place] [address] Talib Martínez MD [address] [place] [address] 03/17/2025 10:30 AM EDT Office Visit [facility] [address] [facility] [address] [place] [address] 03/17/2025 11:00 AM EDT Office Visit [facility] [address] [facility] [address] [place] [address] Raleigh Evangelista MD [address] [place] [address] 04/22/2025 10:30 AM EDT Office Visit [facility] Nephrology [place] [address] [place] [address] Nilsa Petersen APRN [address] [place] [address] documented as of this encounter Procedures Procedure Name Priority Date/Time Associated Diagnosis Comments PACEART REPORT Routine 12/21/2019 2:36 PM EDT documented in this encounter Results * PACEART REPORT (12/21/2019 2:36 PM EDT) 12/21/2019 2:36 PM EDT [address] [facility] - 12/21/2019 11:40 AM EDT Manual Carelink transmission for c/o heart rate in the 150s since Saturday @ 1:00pm. MDT D PPM. Current EGM AT/AFL, VS rate 158. Programmed MVP-R 60/130/130. Episodes since 10/22/2019; 100% AF. 361 fast A&V, 25 SVT, which started on 12/19/2019 @ 5:10pm and ongoing, average ventricular rate 140-158bpm. See telephone encounter in [facility] for full documentation. Macie Nam RN, BSN us Raleigh Evangelista MD [facility] CARDIAC CATH ORDERAB LES Final Result [facility] 1 [place] [address] documented in this encounter Visit Diagnoses Not on filedocumented in this encounter Additional Health Concerns Infection Onset Date Last Indicated Resolved Time R/O COVID-19 10/30/2019 10/30/2019 12/21/2019 6:55 PM EDT R/O C-Diff 12/22/2019 12/22/2019 12/24/2019 6:51 AM EDT R/O C-Diff 06/21/2021 06/21/2021 06/21/2021 11:3 0 AM EST R/O COVID-19 07/02/2021 07/02/2021 07/02/2021 7:20 PM EST R/O C-Diff 07/07/2021 07/07/2021 07/07/2021 6:23 PM EST documented as of this encounter Care Teams Supervisor Correspondence Section Relationship Specialty Start Date End Date Geovani Wright MD PCP - General Family Medicine 02/12/12 Raleigh Evangelista MD [address] [place] [address] [place] [address] Internal Medicine - Clinical Cardiac Electrophysiology 04/10/16 Reina Holden APRN [address] [place] [address] [place] [address] Nurse Practitioner 10/12/16 documented as of this encounter
--- OUTSIDE RECORDS SUMMARY | 2025-01-26 15:45 | XMS_ITS | Encounter Summary ---
Author Organization [place] [address] Care Team Providers Care Data Entry Name Role Phone Geovani Wright MD Primary Care Provider [phone] Raleigh Evangelista MD Unavailable Reina Holden APRN Unavailable Encounter Details Date Type Department Care Team (Late st Contact Info) Description 04/10/2016 Orders Only [facility] [address] [facility] [address] [place] [address] Raleigh Evangelista MD [address] [place] [address] Social History Tobacco Use Types Packs/Day Years Used Date Smoking Tobacco: Former Cigarettes 3 35 0 03/10/1978 - 03/10/2013 Comments:quit in 2004 Alcohol Use Standard Drinks/Week Comments No 0 (1 standard drink = 0.6 oz pur e alcohol) Quit over 10 years ago Sex and Gender Information Value Date Recorded Sex Assigned at Not on file Legal Sex Male 6:06 PM EDT Gender Identity Not on file Sexual Orientation Not on file documented as of this encounter Plan of Treatment Upcoming Encounters Date Type Department Care Team (Late st Contact Info) Description 01/28/2025 3:45 PM EDT Office Visit [facility] Nephrology [place] [address] [place], [place] [phone] Greg Leblanc MD [address] [facility] [address] [place] [phone] 02/05/2025 9:30 AM EDT Office Visit [facility] [address] [place] [address] [address] [place] [address] 02/05/2025 10:00 AM EDT Office Visit [facility] [address] [place] [address] [address] [place] [address] Elizabeth Lee APRN [address] [place] [phone] 03/10/2025 12:30 PM EDT Office Visit [facility] [address] [place] [address] Talib Martínez MD [address] [place] [address] 03/17/2025 10:30 AM EDT Office Visit [facility] [address] [place] [phone] 03/17/2025 11:00 AM EDT Office Visit [facility] [address] [place] [address] Raleigh Evangelista MD [address] [place] [address] [phone] 04/22/2025 10:30 AM EDT Office Visit [facility] Nephrology [place] [address] [place] [address] Nilsa Petersen, DENISA [address] [place] [phone] documented as of this encounter Procedures Procedure Name Priority Date/Time Associated Diagnosis Comments PACEART REPORT Routine 04/10/2016 3:09 PM EDT documented in this encounter Results * PACEART REPORT (04/10/2016 3:09 PM EDT) 04/10/2016 3:09 PM EDT Narrative [facility] - 04/10/2016 1:33 PM EDT implant report us Raleigh Evangelista MD [facility] CARDIAC CATH ORDERAB LES Final Result [facility] 1 [place] [address] documented in this encounter Visit Diagnoses Not [...] documented as of this encounter Care Teams Data Entry Relationship Specialty Start Date End Date Geovani Wright MD PCP - General Family Medicine 02/12/12 Raleigh Evangelista MD [address] [place] [address] [place] [address] Internal Medicine - Clinical Cardiac Electrophysiology 04/10/16 Reina Holden APRN [address] [place] [address] [place] [address] Nurse Practitioner 10/12/16 documented as of this encounter
--- OUTSIDE RECORDS SUMMARY | 2025-01-26 15:45 | XMS_ITS | Encounter Summary ---
Author Organization [place] [address] Care Team Providers Care Airplane Pilot Photogrammetry Name Role Phone Geovani Wright MD Primary Care Provider [phone] Raleigh Evangelista MD Unavailable [phone] Reina Holden APRN Unavailable [phone] Encounter Details Date Type Department Care Team (Late st Contact Info) Description 12/24/2019 Orders Only [facility] [address] [facility] [address] [place] [address] Hanane Davis APRN Social History Tobacco Use Types Packs/Day Years [...] as of this encounter Functional Status * Cognitive and Functional Status Question Answer Date of Assessment Author Is the person deaf or does he/she have serious difficulty hearing? No 12/25/2019 2:36 PM EDT Heide Singh RN Is the person blind or does he/she have serious difficulty seeing even when wearing glasses? No 12/25/2019 2:36 PM EDT Heide Singh RN Does this person have seriou s difficulty walking or climbing stairs? Yes 12/25/2019 2:36 PM EDT Heide Singh RN Does this person have difficulty dressing or bathing? Yes 12/25/2019 2:36 PM EDT Heide Singh RN documented as of this encounter Mental Status * Cognitive and Functional Status Question Answer Entry Date Author Because of a physical, menta l or emotional condition, does this person have difficulty doing errands alone such as visiting a doctor's office or shopping? No 12/25/2019 2:36 PM EDT Heide Singh RN Because of a physical, menta l or emotional condition, does this person have serious difficulty concentrating, remembering or making decisions? No 12/25/2019 2:36 PM EDT Heide Singh RN documented in this encounter Plan of Treatment Upcoming Encounters Date Type Department Care Team (Late st Contact Info) Description 01/28/2025 3:45 PM EDT Office Visit [facility] Nephrology [place] [address] [facility] [address] [place] [address] Greg Leblanc MD 47 [facility] [address] [place] [phone] 02/05/2025 9:30 AM EDT Office Visit [facility] [address] [facility] [address] [place] [phone] 02/05/2025 10:00 AM EDT Office Visit [facility] [address] [facility] [address] [place] [phone] Elizabeth Lee, DENISA [address] [place] [address] 03/10/2025 12:30 PM EDT Office Visit [facility] [address] [place] [address] Talib Martínez MD [address] [place] [address] 03/17/2025 10:30 AM EDT Office Visit [facility] [address] [facility] [address] [place] [address] 03/17/2025 11:00 AM EDT Office Visit [facility] [address] [facility] [address] [place] [address] Raleigh Evangelista MD [address] [place] [address] 04/22/2025 10:30 AM EDT Office Visit [facility] Nephrology [place] [address] [place] [address] Nilsa Petersen APRN [address] [place] [address] documented as of this encounter Procedures Procedure Name Priority Date/Time Associated Diagnosis Comments EP LAB RECORDINGS Routine 12/24/2019 3:35 PM EDT documented in this encounter Results * EP LAB RECORDINGS (12/24/2019 3:35 PM EDT) 12/24/2019 3:35 PM EDT Hanane Davis APRN CARDIAC CATH ORDERABLES Edited Result - Final [facility] 1 [place], [place] [id number] documented in this encounter Visit Diagnoses Not on filedocumented in this encounter Additional Health Concerns Infection Onset Date Last Indicated Resolved Time R/O C-Diff 12/22/2019 12/22/2019 12/24/2019 6:51 AM EDT R/O C-Diff 06/21/2021 06/21/2021 06/21/2021 11:3 0 AM EST R/O COVID-19 07/02/2021 07/02/2021 07/02/2021 7:20 PM EST R/O C-Diff 07/07/2021 07/07/2021 07/07/2021 6:23 PM EST documented as of this encounter Care Teams Airplane Pilot Photogrammetry Relationship Specialty Start Date End Date Geovani Wright MD PCP - General Family Medicine 02/12/12 Raleigh Evangelista MD [address] [place] [address] Internal Medicine - Clinical Cardiac Electrophysiology 04/10/16 Reina Holden APRN [address] [place] [address] Nurse Practitioner 10/12/16 documented as of this encounter
--- OUTSIDE RECORDS SUMMARY | 2025-01-26 15:45 | XMS_ITS | Encounter Summary ---
Author Organization [place] [address] Care Team Providers Care Solidworks Designer Name Role Phone Geovani Wright MD Primary Care Provider Raleigh Evangelista MD Unavailable [phone] Reina Holden APRN Unavailable Encounter Details Date Type Department Care Team (Late st Contact Info) Description 10/17/2017 Orders Only [facility] [address] [facility] [address] [place] [address] Raleigh Evangelista MD [address] [place] [address] Social History Tobacco Use Types Packs/Day Years Used Date Smoking Tobacco: Former Cigarettes 3 35 0 07/01/2005 - 03/10/2006 Smokeless Tobacco: Never Comments:quit in 2004 Alcohol Use Standard Drinks/Week [...] Description 01/28/2025 3:45 PM EDT Office Visit [facility] Nephrology [place] [address] [place], [place] [phone] Greg Leblanc MD [address] [facility] [address] [place] [phone] 02/05/2025 9:30 AM EDT Office Visit [facility] [address] [place] [address] 02/05/2025 10:00 AM EDT Office Visit [facility] [address] [place] [address] Elizabeth Lee APRN [address] [place] [phone] 03/10/2025 12:30 PM EDT Office Visit [facility] [address] [place] [address] Talib Martínez MD [address] [place] [address] 03/17/2025 10:30 AM EDT Office Visit [facility] [address] [place] [phone] 03/17/2025 11:00 AM EDT Office Visit [facility] [address] [place] [address] Raleigh Evangelista MD [address] [place] [address] [phone] 04/22/2025 10:30 AM EDT Office Visit [facility] Nephrology [place] [address] [place] [address] Nilsa Petersen APRN [address] [place] [phone] documented as of this encounter Procedures Procedure Name Priority Date/Time Associated Diagnosis Comments PACEART REPORT Routine 10/17/2017 7:24 PM EDT documented in this encounter Results * PACEART REPORT (10/17/2017 7:24 PM EDT) 10/17/2017 7:24 PM EDT Narrative [facility] - 10/17/2017 3:52 PM EDT Carelink transmission sent in at request of Nohelia CRAWLEY. Patient c/o of having more AF and currently in AF with RVR of 150. Longest event was 19 hrs, 21/40 were paced terminated. Avg V- rate 108-128 bpm. Currently on amio and warfarin. Stephanie Holden FIRE EQUIPMENT OPERATOR to f/u with patient. Ruthann Fajardo RN us Raleigh Evangelista MD [facility] CARDIAC CATH ORDERAB LES Final Result [facility] 1 [place] [address] documented in this encounter Visit Diagnoses Not [...] documented as of this encounter Care Teams Solidworks Designer Relationship Specialty Start Date End Date Geovani Wright MD PCP - General Family Medicine 02/12/12 Raleigh Evangelista MD [address] [facility] [place] [address] Internal Medicine - Clinical Cardiac Electrophysiology 04/10/16 Reina Holden APRN [address] [facility] [place] [address] Nurse Practitioner 10/12/16 documented as of this encounter
--- OUTSIDE RECORDS SUMMARY | 2025-01-26 15:45 | XMS_ITS | Encounter Summary ---
Author Organization [place] [address] Care Team Providers Care Snow Removal/Plowing Name Role Phone Geovani Wright MD Primary Care Provider [phone] Raleigh Evangelista MD Unavailable [phone] Reina Holden APRN Unavailable Encounter Details Date Type Department Care Team (Late st Contact Info) Description 09/23/2017 Orders Only [facility] 711 [facility] [address] [place] [address] Raleigh Evangelista MD [address] [place] [address] Social History Tobacco Use Types [...] Description 01/28/2025 3:45 PM EDT Office Visit [facility] Nephrology [place] [address] [place], [place] [phone] Greg Leblanc MD [address] [facility] [address] [place] [phone] 02/05/2025 9:30 AM EDT Office Visit [facility] [address] [place] [phone] 02/05/2025 10:00 AM EDT Office Visit [facility] [address] [place] [address] Elizabeth Lee APRN [address] [place] [address] [phone] 03/10/2025 12:30 PM EDT Office Visit [facility] [address] [place] [address] Talib Martínez MD [address] [place] [address] 03/17/2025 10:30 AM EDT Office Visit [facility] [address] [place] [phone] 03/17/2025 11:00 AM EDT Office Visit [facility] [address] [place] [address] Raleigh Evangelista MD [address] [place] [address] [phone] 04/22/2025 10:30 AM EDT Office Visit [facility] Nephrology [place] [address] [place] [address] Nilsa Petersen APRN [address] [place] [phone] documented as of this encounter Procedures Procedure Name Priority Date/Time Associated Diagnosis Comments PACEART REPORT Routine 09/23/2017 3:48 PM EDT documented in this encounter Results * PACEART REPORT (09/23/2017 3:48 PM EDT) 09/23/2017 3:48 PM EDT Narrative [facility] - 09/23/2017 12:10 PM EDT Unscheduled Carelink transmission for symptomatic AF. 43 treated AF, longest 12 hours. 63 monitored AF, longest 77 seconds and average ventricular rate 90's-130's for all AF episodes. 6 Fast A&V (AF with RVR) all on 09/03/17 with average ventricular rate 171-200bpm and longest ~ 6 minutes. AF burden 9.8%. Stable lead performance. No device malfunction noted. Macie aNm, RN us Raleigh Evangelista MD [facility] CARDIAC CATH ORDERAB LES Final Result [facility] 1 [place] [address] documented in this encounter Visit Diagnoses Not [...] documented as of this encounter Care Teams Snow Removal/Plowing Relationship Specialty Start Date End Date Geovani Wright MD PCP - General Family Medicine 02/12/12 Raleigh Evangelista MD [address] [place] [address] [place] [address] Internal Medicine - Clinical Cardiac Electrophysiology 04/10/16 Reina Holden APRN [address] [place] [address] [place] [address] Nurse Practitioner 10/12/16 documented as of this encounter
--- OUTSIDE RECORDS SUMMARY | 2025-01-26 15:45 | XMS_ITS | Encounter Summary ---
Author Organization [place] [address] Care Team Providers Care Business Technology Analyst Name Role Phone Geovani Wright MD Primary Care Provider [phone] Raleigh Evangelista MD Unavailable [phone] Reina Holden APRN Unavailable [phone] Encounter Details Date Type Department Care Team (Late st Contact Info) Description 10/22/2019 Orders Only [facility] [address]11 [facility] [address] [place] [address] Raleigh Evangelista MD [address] [place] [address] Social History Tobacco Use Types Packs/Day Years Used Date Smoking Tobacco: Former Cigarettes 3 40 1 966 - 2006 Smokeless Tobacco: Never Alcohol Use Standard Drinks/Week [...] or suspected to have Coronavirus / COVID-19? Unable to assess 10/13/2019 9:59 AM EDT documented as of this encounter Plan of Treatment Upcoming Encounters Date Type Department Care Team (Late st Contact Info) Description 01/28/2025 3:45 PM EDT Office Visit [facility] Nephrology [place] [address] [place] [address] Greg Leblanc MD [address] [facility] [address] [place] [phone] 02/05/2025 9:30 AM EDT Office Visit [facility] [address] [place] [address] 210 [place] [phone] 02/05/2025 10:00 AM EDT Office Visit [facility] [address] [place] [address] 210 [place] [address] Elizabeth Lee APRN [address] [place] [address] [phone] 03/10/2025 12:30 PM EDT Office Visit [facility] [address] [place] [address] Talib Martínez MD [address] [place] [place] [address] 03/17/2025 10:30 AM EDT Office Visit [facility] [address] [place] [phone] 03/17/2025 11:00 AM EDT Office Visit [facility] [address] [place] [address] 210 [place] [address] Raleigh Evangelista MD [address] [place] [address] 04/22/2025 10:30 AM EDT Office Visit [facility] Nephrology [place] [address] [place], [place] [phone] Nilsa Petersen APRN [address] [place] [address] documented as of this encounter Procedures Procedure Name Priority Date/Time Associated Diagnosis Comments PACEART REPORT Routine 10/22/2019 1:36 PM EDT documented in this encounter Results * PACEART REPORT (10/22/2019 1:36 PM EDT) 10/22/2019 1:36 PM EDT Narrative [facility] - 10/22/2019 10:25 AM EDT Carelink transmission d/t patient experiencing rapid heart rate in the 150s. Current EGM AT/AFL, ventricular rate 150s. 100% AT/AFL since 10/12/2019, on warfarin. Ventricular rate during AT/AFL >150 ~10% of the time. ROPE SILICA MACHINE OPERATOR 9.2%. Stable lead performance. Battery longevity 4 years. Macie Nam, RN, BSN [place] Evangelista MD [facility] CARDIAC CATH ORDERAB LES Final Result [facility] [address] [place], [place] [id number] documented in this encounter Visit Diagnoses Not [...] documented as of this encounter Care Teams Business Technology Analyst Relationship Specialty Start Date End Date Geovani Wright MD PCP - General Family Medicine 02/12/12 Raleigh Evangelista MD [address] [place] [address] Internal Medicine - Clinical Cardiac Electrophysiology 04/10/16 Reina Holden APRN [address] [place] [address] [place] [address] Nurse Practitioner 10/12/16 documented as of this encounter
--- OUTSIDE RECORDS SUMMARY | 2025-01-26 15:46 | XMS_ITS | Encounter Summary ---
Author Organization [place] [address] Care Team Providers Care Electronics Hardware Design Engineer Name Role Phone Geovani Wright MD Primary Care Provider [phone] Raleigh Evangelista MD Unavailable [phone] Reina Holden APRN Unavailable [phone] Encounter Details Date Type Department Care Team (Late st Contact Info) Description 10/12/2019 Orders Only [facility] [address] [facility] [address] [place] [address] Raleigh Evangelista MD [address] [place] [address] Social History Tobacco Use Types [...] Description 01/28/2025 3:45 PM EDT Office Visit [facility] Nephrology [place] [address] [place] [address] Greg Leblanc MD [address] [place] [address] 02/05/2025 9:30 AM EDT Office Visit [facility] [address] [place] [address] [address] [place] [address] 02/05/2025 10:00 AM EDT Office Visit [facility] [address] [place] [address] [address] [place] [address] Elizabeth Lee APRN [address] [place] [address] [id number] 03/10/2025 12:30 PM EDT Office Visit [facility] [address] [place] [address] Talib Martínez MD [address] [place] [address] 03/17/2025 10:30 AM EDT Office Visit [facility] [address] [place] [address] 03/17/2025 11:00 AM EDT Office Visit [facility] [address] [place] [address] [address] [place] [address] Raleigh Evangelista MD [address] [place] [address] 04/22/2025 10:30 AM EDT Office Visit [facility] Nephrology [place] [address] [place], [place] [address] Nilsa Petersen APRN [address] [place] [address] documented as of this encounter Procedures Procedure Name Priority Date/Time Associated Diagnosis Comments PACEART REPORT Routine 10/12/2019 6:08 PM EDT documented in this encounter Results * PACEART REPORT (10/12/2019 6:08 PM EDT) 10/12/2019 6:08 PM EDT Narrative [facility] - 10/12/2019 2:19 PM EDT Manual Carelink transmission to assess current rhythm. Current EGM AT/AFL atrial rate 300bpm, ventricular rate 150bpm. See [facility] for telephone encounter. Macie Nam, RN, BSN us Raleigh Evangelista MD [facility] CARDIAC CATH ORDERAB LES Final Result [facility] 1 [place] [address] documented in this encounter Visit Diagnoses Not [...] documented as of this encounter Care Teams Electronics Hardware Design Engineer Relationship Specialty Start Date End Date Geovani Wright MD PCP - General Family Medicine 02/12/12 Raleigh Evangelista MD [address] [facility] [address] Internal Medicine - Clinical Cardiac Electrophysiology 04/10/16 Reina Holden APRN [address] [facility] [address] [place], [place] [address] Nurse Practitioner 10/12/16 documented as of this encounter
--- OUTSIDE RECORDS SUMMARY | 2025-01-26 15:46 | XMS_ITS | Encounter Summary ---
Author Organization [place] [address] Care Team Providers Care Dinkey Locomotive Engineer Name Role Phone Geovani Wright MD Primary Care Provider [phone] Raleigh Evangelista MD Unavailable [phone] Reina Holden APRN Unavailable [phone] Encounter Details Date Type Department Care Team (Late st Contact Info) Description 10/13/2012 Pre-Imaging Procedure Adult Med [address] [place] [address] Aisha Agrawal, LARRY Social History Tobacco Use Types Packs/Day Years Used Date Smoking Tobacco: Never Assessed Sex and Gender Information Value Date Recorded Sex Assigned at Not on file Legal Sex Male 6:06 PM EDT Gender Identity Not on file Sexual Orientation Not on file documented as of this encounter Plan of Treatment Upcoming Encounters Date Type Department Care Team (Late st Contact Info) Description 01/28/2025 3:45 PM EDT Office Visit [facility] Nephrology [place] [address] [place] [address] Greg Leblanc MD [address] [place] [address] 02/05/2025 9:30 AM EDT Office Visit [facility] [address] [place] [address] [address] [place] [address] 02/05/2025 10:00 AM EDT Office Visit [facility] [address] [place] [address] [address] [place] [address] Elizabeth Lee APRN [address] [place] [address] [id number] 03/10/2025 12:30 PM EDT Office Visit [facility] [address] [place] [address] Talib Martínez MD [address] [place] [address] 03/17/2025 10:30 AM EDT Office Visit [facility] [address] [place] [address] [address] [place] [address] 03/17/2025 11:00 AM EDT Office Visit [facility] [address] [place] [address] [address] [place] [address] Raleigh Evangelista MD [address] [place] [address] [id number] 04/22/2025 10:30 AM EDT Office Visit [facility] Nephrology [address] [place] [phone] Nilsa Petersen, DENISA [address] [place] [address] documented as of this encounter Visit Diagnoses [...] documented as of this encounter Care Teams Dinkey Locomotive Engineer Relationship Specialty Start Date End Date Geovani Wright MD PCP - General Family Medicine 02/12/12 Raleigh Evangelista MD [address] [facility] [place] [address] Internal Medicine - Clinical Cardiac Electrophysiology 04/10/16 Reina Holden APRN [address] [place] [address] Nurse Practitioner 10/12/16 documented as of this encounter
--- OUTSIDE RECORDS SUMMARY | 2025-01-26 15:47 | XMS_ITS | Encounter Summary ---
Author Organization [facility] Address [address] [place] [address] Care Team Providers Care Chief Radiologic Technologist Name Role Phone Geovani Wright MD Primary Care Provider [phone] Raleigh Evangelista MD Unavailable [phone] Reina Holden APRN Unavailable [phone] Reason for Visit * Reason Onset Date Comments Follow-up 11/30/2024 Encounter Details Date Type Department Care Team (Late st Contact Info) Description 11/30/2024 Telephone [facility] Nephrology [place] [address] [facility] [address] [place] [address] Samantha Feliciano RMA Follow-up Social History Tobacco Use Types Packs/Day Years [...] on file documented as of this encounter Functional Status [...] Heide Ellis RN documented in this encounter Miscellaneous Notes * Telephone Encounter - Samantha Feliciano RMA - 11/30/2024 3:38 PM EDTSummary: infusion auth code faxed Spoke to infusion center verified fax number [phone] re-faxed Auth Code Authorizations approved for iron infusions CPT code J1756 Auth code [id number] documented in this encounter Plan of Treatment Upcoming Encounters Date Type Department Care Team (Late st Contact Info) Description 01/28/2025 3:45 PM EDT Office Visit [facility] Nephrology [place] [address] [facility] [address] [place] [address] Greg Leblanc MD [address] [facility] [address] [place] [address] 02/05/2025 9:30 AM EDT Office Visit [facility] [address] [facility] [address] [place] [address] 02/05/2025 10:00 AM EDT Office Visit [facility] [address] [place] [address] [address] [place] [address] Elizabeth Lee APRN [address] [place] [address] 03/10/2025 12:30 PM EDT Office Visit [facility] [address] [address] Talib Martínez MD [address] [place] [address] 03/17/2025 10:30 AM EDT Office Visit [facility] [address] [place] [address] [address] [place] [address] 03/17/2025 11:00 AM EDT Office Visit [facility] [address] [place] [address] [address] [place] [address] Raleigh Evangelista MD [address] [place] [address] [place] [address] 04/22/2025 10:30 AM EDT Office Visit [facility] Nephrology [place] [address] [place] [address] Nilsa Petersen APRN [address] [place] [address] documented as of this encounter Visit Diagnoses Not on filedocumented in this encounter Care Teams Chief Radiologic Technologist Relationship Specialty Start Date End Date Geovani Wright MD PCP - General Family Medicine 02/12/12 Raleigh Evangelista MD [address] [place] [address] [place] [address] Internal Medicine - Clinical Cardiac Electrophysiology 04/10/16 Reina Holden APRN 1 [place] [address] Nurse Practitioner 10/12/16 documented as of this encounter
--- OUTSIDE RECORDS SUMMARY | 2025-01-26 15:47 | XMS_ITS | Continuity of Care Document ---
Author Organization [facility] & [place], [facility] M[id number] Address [address] [place] [address] [place] [address] Assessment No assessment recorded. Plan of Treatment Reminders Order Date Submit Date Provider Last Modified By Organization Details Last Modified Time Details Appointments None record ed. Lab None record ed. Referral None record ed. Procedures None record ed. Surgeries None record ed. Imaging None record ed. Medication Orders None record ed. Patient TargetsNo targets recorded. Patient InstructionsNo instructions recorded. Reason for Referral None Reported. Problems Name Problem SNOMED Code Status Onset Date Resolution Date Notes Provider Name and Address Organization Details Recorded Time Sensorineural hearing loss 05020578 Active 2022 MARKIE SINGH, AUD [address] [facility], [place], [address] , [facility] [place] 3 10:23:12 Chronic atrial fibrillation 510963979 Active 2024 Juancarlos Shaffer MD [facility] [employer] [facility],[place] [address] [place] [address], [phone] , [facility] [place] 5 14:56:21 Moderate aortic valve stenosis 768433291 Active 2024 Juancarlos Shaffer MD [facility] [employer],[place] [address] [place] [address], [phone] , [facility] [place] 5 14:56:39 Diastolic dysfunction 6425946 Active 2024 Juancarlos Shaffer MD [facility] [employer] [facility],[place] [address], [address] , [facility] [place] 5 14:56:47 Essential hypertension 34603139 Active 2024 Juancarlos Shaffer MD [address] [place] [address], [phone] , [facility] [place] 5 14:56:52 Electrocardio gram abnormal 916006389 Active 2024 Juancarlos Shaffer MD [address] [place] [address], [phone] , [facility] [place] 5 14:57:36 Coronary arteriosclero sis 62189054 Active 2024 Juancarlos Shaffer MD [address] [place] [address], [phone] , [facility] [place] 5 14:57:46 Problem Notes None recorded. Procedures Surgical History Date Name Laterality Status Provider Name and Address Organization Details Recorded Time kidney excision completed Leigh Morales [place] [facility] & [place] 10/20/2024 09:49:23 Cholecystectomy completed [facility]/20[facility] 09:49:44 Imaging Results None recorded. Procedure Notes None recorded. Medical Equipment None Reported. Allergies Allergen ID Allergen Name Allergen Category Reaction Reaction Severity Criticality Documentation Date Start Date Code Code System Note Provider Name and Address Organization Details Recorded Time 203952 Cipro medicatio n Not available Not available Not available 10/20/202415218 3 RxNorm Leigh Horneharpreet n null, [facility] & [place] 5 09:47:07 Medications Name Sig Start Date Stop Date Status Note LastModified by Organization Details LastModified Time loperamide 2 mg capsule Take 1 capsule every 4 hours by oral route as needed. active Not Available Not Available N ot Available metoprolol succinate ER 100 mg tablet,exten ded release 24 hr Take 2 tablets twice a day by oral route. active Not Available Not Available No t Available hydrocodone 10 mg-acetamino phen 325 mg tablet Take 1 tablet twice a day by oral route as needed. active Not Available Not Available No t Available tamsulosin 0.4 mg capsule Take 1 capsule every day by oral route. active Not Available Not Available No t Available gabapentin 800 mg tablet Take 1 tablet 3 times a day by oral route. active Not Available Not Available No t Available pantoprazole 40 mg tablet,delay ed release Take 1 tablet every day by oral route. active Not Available Not Available No t Available diphenhydram ine 25 mg tablet Take 1 tablet every 4 hours by oral route. active Not Available Not Available Not Available losartan 25 mg tablet Take 1 tablet every day by oral route. active Not Available Not Available No t Available methimazole 5 mg tablet Take 1 tablet every day by oral route. active Not Available Not Available No t Available diltiazem CD 120 mg capsule,exte nded release 24 hr Take 1 capsule every day by oral route. active Not Available Not Available No t Available digoxin 125 mcg (0.125 mg) tablet Take 1 tablet every day by oral route. active Not Available Not Available No t Available fenofibrate micronized 145 mg tablet Take 1 tablet every day by oral route. active Not Available Not Available No t Available insulin glargine (U-100) 100 unit/mL (3 mL) subcutaneous pen Inject 36 units twice a day by subcutaneou s route. active Not Available Not Available No t Available Humalog KwikPen (U-100) Insulin 100 unit/mL subcutaneous Inject 80 units 3 times a day by subcutaneou s route before meal(s). active Not Available Not Available No t Available Xarelto 20 mg tablet Take 1 tablet every day by oral route. active Not Available Not Available No t Available dapagliflozi n propanediol 10 mg tablet Take 1 tablet every day by oral route. active Not Available Not Available No t Available Otezla 30 mg tablet Take 1 tablet twice a day by oral route. active Not Available Not Available No t Available Veltassa 8.4 gram oral powder packet Take 1 packet every day by oral route. active Not Available Not Available No t Available Vitals None Recorded Social History None recorded. Functional Status Question Answer Note LastModified by Organizat ion Details LastModified Time Do you use any illicit or recreational drugs? No [email or web address] Information not available 10/20/2024 What is your level of alcohol consumption? None [email or web address] Information not available 10/20/2024 Mental Status None recorded. Family History Nothing Reported. Medical History Condition Response Diabetes Y Atrial Fibrillation Y Hypertension Y Past Encounters Encounter ID Performer Location Encounter Start Date Encounter Closed Date Diagnosis/Indication Diagnosis SNOMED-CT Code Diagnosis ICD10 Code Diagnosis Note [id number] [facility] [address] [place] [phone] 12/14/2024 12:33:36 12/14/2024 12:58:44 Sensorineural hearing loss 62135683 H90.3 Health Concerns Section Related Observation LastModified by Organization Detai ls LastModified Time None Recorded Concern Status LastModified by Organization Details LastModified Time None Recorded Payers None recorded.
--- OUTSIDE RECORDS SUMMARY | 2025-01-26 15:47 | XMS_ITS | Encounter Summary ---
Author Organization [facility] Address [address] [facility] [address] [place] [address] Care Team Providers Care Core Finisher Name Role Phone Geovani Wright MD Primary Care Provider [phone] Raleigh Evangelista MD Unavailable [phone] Reina Holden APRN Unavailable [phone] Reason for Visit * Reason Onset Date Comments Follow-up 11/27/2024 Encounter Details Date Type Department Care Team (Late st Contact Info) Description 11/27/2024 Telephone [facility] Nephrology [place] [address] [facility] [address] [place] [address] Samantha Feliciano RMA Follow-up Social History Tobacco [...] Telephone Encounter - Samantha Feliciano RMA - 11/27/2024 12:09 PM EDTSummary: Prior Authorizations Authorizations approved for iron infusions CPT code J1756 Auth code [id number] documented in this encounter Plan of Treatment Upcoming Encounters Date Type Department Care Team (Late st Contact Info) Description 01/28/2025 3:45 PM EDT Office Visit [facility] Nephrology [place] [address] [facility] [address] [place] [address] Greg Leblanc MD 47 [facility] [address] [place] [address] 02/05/2025 9:30 AM EDT Office Visit [facility] [address] [facility] [address] [place] [address] 02/05/2025 10:00 AM EDT Office Visit [facility] [address] [facility] [address] [place] [address] Elizabeth Lee APRN [address] [place] [phone] 03/10/2025 12:30 PM EDT Office Visit [facility] [address] [place] [address] Talib Martínez MD [address] [place] [place] [address] 03/17/2025 10:30 AM EDT Office Visit [facility] [address] [place] [address] [address] [place] [address] 03/17/2025 11:00 AM EDT Office Visit [facility] [address] [place] [address] [address] [place] [address] Raleigh Evangelista MD [address] [place] [address] [address] [place], [place] [phone] 04/22/2025 10:30 AM EDT Office Visit [facility] Nephrology [place] [address] [facility] [address] [place], [place] [address] Nilsa Petersen APRN [address] [facility] [address] [place] [address] documented as of this encounter Visit Diagnoses Not on filedocumented in this encounter Care Teams Core Finisher Relationship Specialty Start Date End Date Geovani Wright MD PCP - General Family Medicine 02/12/12 Raleigh Evangelista MD [address] [place] [address] [address] [place], [place] [id number] Internal Medicine - Clinical Cardiac Electrophysiology 04/10/16 Reina Holden APRN [address] [facility] [place] [address] Nurse Practitioner 10/12/16 documented as of this encounter
--- OUTSIDE RECORDS SUMMARY | 2025-01-26 15:47 | XMS_ITS | Encounter Summary ---
Author Organization [place] [address] Care Team Providers Care Narrative Writer Name Role Phone Geovani Wright MD Primary Care Provider Raleigh Evangelista MD Unavailable [phone] Reina Holden APRN Unavailable [phone] Encounter Details Date Type Department Care Team (Late st Contact Info) Description 01/15/2025 Orders Only [facility] [address] [facility] [address] [place] [address] Raleigh Evangelista MD [address] [place] [address] Vector Remote Device Social History Tobacco Use Types Packs/Day Years [...] Author No 12/25/2019 2:36 PM EDT Heide Ellis, LARRY * Is the person blind or does [...] Description 01/28/2025 3:45 PM EDT Office Visit [facility] Nephrology [place] [address] [facility] [address] [place] [address] Greg Leblanc MD 47 [facility] [address] [place] [address] 02/05/2025 9:30 AM EDT Office Visit [facility] [address] [facility] [address] [place] [address] 02/05/2025 10:00 AM EDT Office Visit [facility] [address] [facility] [address] [place] [address] Elizabeth Lee, DENISA [address] [place] [address] 03/10/2025 12:30 PM EDT Office Visit [facility] [address] [place] [address] Talib Martínez MD [address] [place] [address] 03/17/2025 10:30 AM EDT Office Visit [facility] [address] [place] [address] [address] [place] [address] 03/17/2025 11:00 AM EDT Office Visit [facility] [address] [facility] [address] [place] [address] Raleigh Evangelista MD [address] [place] [address] 04/22/2025 10:30 AM EDT Office Visit [facility] Nephrology [place] [address] [place] [address] Nilsa Petersen, DENISA [address] [place] [address] documented as of this encounter Procedures Procedure Name Priority Date/Time Associated Diagnosis Comments IL REM INTERROG PM/LDLS PM <90 D PHYS/QHP Routine 01/15/2025 12:00 AM EDT Vector Remote Device documented in this encounter Results * VECTOR REMOTE DEVICE (01/15/2025 12:00 AM EDT) 01/15/2025 Narrative [facility] - 01/15/2025 12:00 AM EDT No significant episodes. Atrial Episodes: 9 c/w AF/AFL, current episode in progress since 01/13/25. AT/AF [place]: 85%. Longest atrial episode 22 days. Patient on AC. Mode: AAIR<=>DDDR. AP: 15%. TREASURY MANAGER: 74%. Normal device function. us Raleigh Evangelista MD [facility] CARDIAC CATH ORDERAB LES Final Result [facility] 1 [place] [address] documented in this encounter Visit Diagnoses Diagnosis Vector Remote Device documented in this encounter Care Teams Narrative Writer Relationship Specialty Start Date End Date Geovani Wright MD PCP - General Family Medicine 02/12/12 Raleigh Evangelista MD [address] [place] [address] [place] [address] Internal Medicine - Clinical Cardiac Electrophysiology 04/10/16 Reina Holden APRN [address] [place] [address] [place] [address] Nurse Practitioner 10/12/16 documented as of this encounter
--- OUTSIDE RECORDS SUMMARY | 2025-01-26 15:47 | XMS_ITS | Encounter Summary ---
Author Organization [place] [address] Care Team Providers Care Processes Chemical Design Engineer Name Role Phone Geovani Wright MD Primary Care Provider [phone] Raleigh Evangelista MD Unavailable [phone] Reina Holden APRN Unavailable [phone] Reason for Referral * MRI/CAT Scan (Routine) - Closed Specialty Diagnoses / Procedures Referred By Contac t Referred To Contact Radiology Diagnoses Malignant neoplasm of kidney, except pelvis Procedures CT GUIDED PARENCHYMAL TISSUE ABLATION Kar Ferrari MD Phone: tel: fax: Referral ID Status Reason Start Date Expiration Date Visits Re quested Visits Authorized [id number] Closed 10/13/2012 04/11/2013 1 1 Encounter Details Date Type Department Care Team (Latest Contact Info) Description 10/13/2012 Pre-Imaging Procedure Adult Med [address] [place] [address] Aisha Agrawal, LARRY Malignant neoplasm of kidney, except pelvis (HCC) (Primary Dx) Social History Tobacco Use Types Packs/Day Years [...] Description 01/28/2025 3:45 PM EDT Office Visit [facility] Nephrology [place] [address] [place] [address] Greg Leblanc MD [address] [facility] [place] [phone] 02/05/2025 9:30 AM EDT Office Visit [facility] [address] [place] [address] 02/05/2025 10:00 AM EDT Office Visit [facility] [address] [place] [address] Elizabeth Lee APRN [address] [place] [address] [phone] 03/10/2025 12:30 PM EDT Office Visit [facility] [address] [place] [address] Talib Martínez MD [address] [place] [address] 03/17/2025 10:30 AM EDT Office Visit [facility] [address] [place] [address] 03/17/2025 11:00 AM EDT Office Visit [facility] [address] [place] [address] Raleigh Evangelista MD [address] [place] [address] [id number] 04/22/2025 10:30 AM EDT Office Visit [facility] Nephrology [place] [address] [place] [address] Nilsa Petersen TRUCK BODY REPAIRER 47 [facility] [address] [place] [address] documented as of this encounter Results * CT GUIDED PARENCHYMAL TISSUE ABLATION (11/19/2012 12:33 PM EDT) Anatomical Region Laterality Modality Computed Tomogra phy 11/19/2012 Impressions 11/19/2012 1:45 PM EDT IMPRESSION: Successful CT-guided right lower pole renal mass cryoablation. Followup CT scan in 3, 6, 9, and 12 months. Narrative 11/19/2012 1:[address]-guided right kidney lower pole renal mass cryoablation, 11/19/2012 COMPARISON: 08/25/2012 HISTORY: Enlarging right lower pole renal mass. Patient with history of left renal cell carcinoma and left nephrectomy. Right lower pole mass is presumed to be renal cell carcinoma. Sedation provided by anesthesiology PROCEDURE: Patient was placed in the prone position. CT scanning reidentified right lower pole renal mass. Using CT guidance, three 17-gauge 17 cm cryoablation probes were placed into the renal mass in a triangular configuration. CT scanning confirmed probe positioning within mass. Cryoablation was performed, with two 10 minute freeze cycles performed. CT scanning during ablation demonstrated good ice ball formation enveloping the entire mass. Following ablation, needles were removed. Hemostasis achieved with manual pressure. No immediate complications. Procedure Note Kar Ferrari MD - 11/19/2012 CT-guided right kidney lower pole renal mass cryoablation, 11/19/2012 COMPARISON: 08/25/2012 HISTORY: Enlarging right lower pole renal mass. Patient with history ofleft renal cell carcinoma and left nephrectomy. Right lower pole mass is presumed to berenal cell carcinoma. Sedation provided by anesthesiology PROCEDURE: Patient was placed in the prone position. CT scanningreidentified right lower pole renal mass. Using CT guidance, three 17-gauge 17 cm cryoablation probeswere placed into the renal mass in a triangular configuration. CT scanning confirmed probepositioning within mass. Cryoablation was performed, with two 10 minute freeze cycles performed. CTscanning during ablation demonstrated good ice ball formation enveloping the entire mass.Following ablation, needles were removed. Hemostasis achieved with manual pressure. Noimmediate complications. IMPRESSION: Successful CT-guided right lower pole renal masscryoablation. Followup CT scan in 3, 6, 9, and 12 months. us Agustina BELL IMG CT ORDERABLES Final Result documented in this encounter Visit Diagnoses Diagnosis Malignant neoplasm of kidney, except pelvis- Primary Malignant neoplasm of kidney, except pelvis- Primary documented in this encounter Additional Health Concerns Infection Onset Date Last Indicated Resolved Time R/O COVID-19 10/30/2019 10/30/2019 12/21/2019 6:55 PM EDT R/O C-Diff 12/22/2019 12/22/2019 12/24/2019 6:51 AM EDT R/O C-Diff 06/21/2021 06/21/2021 06/21/2021 11:3 0 AM EST R/O COVID-19 07/02/2021 07/02/2021 07/02/2021 7:20 PM EST R/O C-Diff 07/07/2021 07/07/2021 07/07/2021 6:23 PM EST documented as of this encounter Care Teams Processes Chemical Design Engineer Relationship Specialty Start Date End Date Geovani Wright MD PCP - General Family Medicine 02/12/12 Raleigh Evangelista MD [address] [place] [address] [place] [address] Internal Medicine - Clinical Cardiac Electrophysiology 04/10/16 Reina Holden APRN [address] [place] [address] [place] [address] Nurse Practitioner 10/12/16 documented as of this encounter
--- OUTSIDE RECORDS SUMMARY | 2025-01-26 15:47 | XMS_ITS | Encounter Summary ---
Author Organization [place] [address] Care Team Providers Care Food Mixer Repairer Name Role Phone Geovani Wright MD Primary Care Provider [phone] Raleigh Evangelista MD Unavailable [phone] Reina Holden APRN Unavailable [phone] Encounter Details Date Type Department Care Team (Late st Contact Info) Description 10/02/2012 Pre-Imaging Procedure Adult Med [address] [place] [address] Aisha Agrawal, LARRY Social History Tobacco [...] Description 01/28/2025 3:45 PM EDT Office Visit [facility] Nephrology [place] [address] [place] [address] Greg Leblanc MD [address] [place] [address] 02/05/2025 9:30 AM EDT Office Visit [facility] [address] [place] [address] [address] [place] [address] 02/05/2025 10:00 AM EDT Office Visit [facility] [address] [place] [address] [address] [place] [address] Elizabeth Lee APRN [address] [place] [address] [phone] 03/10/2025 12:30 PM EDT Office Visit [facility] [address] [place] [address] Talib Martínez MD [address] [place] [address] 03/17/2025 10:30 AM EDT Office Visit [facility] [address] [place] [address] [address] [place] [address] 03/17/2025 11:00 AM EDT Office Visit [facility] [address] [place] [address] [address] [place] [address] Raleigh Evangelista MD [address] [place] [address] [phone] 04/22/2025 10:30 AM EDT Office Visit [facility] Nephrology [address] [place] [phone] Nilsa Petersen, DENISA [address] [place] [address] documented as of this encounter Visit Diagnoses [...] documented as of this encounter Care Teams Food Mixer Repairer Relationship Specialty Start Date End Date Geovani Wright MD PCP - General Family Medicine 02/12/12 Raleigh Evangelista MD [address] [place] [address] Internal Medicine - Clinical Cardiac Electrophysiology 04/10/16 Reina Holden APRN [address] [place] [address] Nurse Practitioner 10/12/16 documented as of this encounter
--- OUTSIDE RECORDS SUMMARY | 2025-01-26 15:47 | XMS_ITS | Encounter Summary ---
Author Organization [place] [address] Care Team Providers Care Operations Executive Name Role Phone Geovani Wright MD Primary Care Provider [phone] Raleigh Evangelista MD Unavailable [phone] Reina Holden APRN Unavailable [phone] Encounter Details Date Type Department Care Team (Latest Contact Info) Description 10/13/2012 Pre-Imaging Procedure Adult Med [address] [place] [address] [phone] Aisha Agrawal, LARRY Malignant neoplasm of kidney, [...] Description 01/28/2025 3:45 PM EDT Office Visit [facility] Nephrology [place] [address] [place] [address] Greg Leblanc MD [address] [facility] [address] [place] [address] 02/05/2025 9:30 AM EDT Office Visit [facility] [address] [place] [address] [address] [place] [address] 02/05/2025 10:00 AM EDT Office Visit [facility] [address] [place] [address] [address] [place] [address] Elizabeth Lee APRN [address] [place], [place] [phone] 03/10/2025 12:30 PM EDT Office Visit [facility] [address] [place] [facility] [place] [address] Talib Martínez MD [address] [place] [address] 03/17/2025 10:30 AM EDT Office Visit [facility] [address] [place] [address] [address] [place] [address] 03/17/2025 11:00 AM EDT Office Visit [facility] [address] [place] [address] [address] [place] [address] Raleigh Evangelista MD [address] [place] [address] [phone] 04/22/2025 10:30 AM EDT Office Visit [facility] Nephrology [place] [address] [place] [address] Nilsa Petersen, BRUSH SANDER [address] [place] [address] documented as of this encounter Visit Diagnoses Diagnosis Malignant neoplasm [...] documented as of this encounter Care Teams Operations Executive Relationship Specialty Start Date End Date Geovani Wright MD PCP - General Family Medicine 02/12/12 Raleigh Evangelista MD [address] [place] [address] [place] [address] Internal Medicine - Clinical Cardiac Electrophysiology 04/10/16 Reina Holden APRN [address] [place] [address] [place] [address] Nurse Practitioner 10/12/16 documented as of this encounter
--- OUTSIDE RECORDS SUMMARY | 2025-01-26 15:47 | XMS_ITS | Encounter Summary ---
Author Organization [place] [address] Care Team Providers Care Practical Nurse Clinical Coordinator Name Role Phone Geovani Wright MD Primary Care Provider [phone] Raleigh Evangelista MD Unavailable [phone] Reina Holden APRN Unavailable [phone] Encounter Details Date Type Department Care Team (Latest Contact Info) Description 10/02/2012 Pre-Imaging Procedure Adult Med [address] [place] [address] [phone] Aisha Agrawal, LARRY Malignant neoplasm of kidney, [...] EDT Office Visit [facility] Nephrology [place] [address] [place] [address] Greg Leblanc MD [address] [facility] [address] [place] [address] 02/05/2025 9:30 AM EDT Office Visit [facility] [address] [place] [address] [address] [place] [address] 02/05/2025 10:00 AM EDT Office Visit [facility] [address] [place] [address] [address] [place] [address] Elizabeth Lee APRN [address] [place], [place] [phone] 03/10/2025 12:30 PM EDT Office Visit [facility] [address] [facility] [place] [address] Talib Martínez MD [address] [place] [address] 03/17/2025 10:30 AM EDT Office Visit [facility] [address] [place] [address] [address] [place] [address] 03/17/2025 11:00 AM EDT Office Visit [facility] [address] [place] [address] [address] [place] [address] Raleigh Evangelista MD [address] [place] [address] [id number] 04/22/2025 10:30 AM EDT Office Visit [facility] Nephrology [place] [address] [place] [address] Nilsa Petersen, EARLY CHILDHOOD EDUCATION SPECIALIST [address] [place] [address] documented as of this encounter Visit Diagnoses [...] documented as of this encounter Care Teams Practical Nurse Clinical Coordinator Relationship Specialty Start Date End Date Geovani Wright MD PCP - General Family Medicine 02/12/12 Raleigh Evangelista MD [address] [place] [address] [place] [address] Internal Medicine - Clinical Cardiac Electrophysiology 04/10/16 Reina Holden APRN [address] [place] [address] [place] [address] Nurse Practitioner 10/12/16 documented as of this encounter
--- OUTSIDE RECORDS SUMMARY | 2025-01-26 15:47 | XMS_ITS | Continuity of Care Document ---
Author Organization [facility] [place] NEW Address [address] [place] [address] [address] [place] [address] Assessment No assessment recorded. Plan of Treatment [...] Organization Details Recorded Time Sensorineural hearing loss 39946136 Active 2022 MARKIE SINGH, AUD [address] [facility]ly [facility], [place], [address] , [facility] 3 10:23:12 Chronic atrial fibrillation 147292017 Active 2024 Juancarlos Shaffer MD [facility] [employer] [address] [place] [address], [phone] , [facility] 5 14:56:21 Moderate aortic valve stenosis 653303656 Active 2024 Juancarlos Shaffer MD [facility] [employer] [address] [place] [address], [phone] , [facility] 5 14:56:39 Diastolic dysfunction 0279900 Active 2024 Juancarlos Shaffer MD [facility] [employer] [address], [place], [address] , [facility] [place] [facility] 5 14:56:47 Essential hypertension 62294883 Active 2024 Juancarlos Shaffer MD [address] [place] [address], [phone] , [facility] [place] 5 14:56:52 Electrocardio gram abnormal 611681526 Active 2024 Juancarlos Shaffer MD [address] [place] [address], [phone] , [facility] [place] 5 14:57:36 Coronary arteriosclero sis 06424824 Active 2024 Juancarlos Shaffer MD [address] [place] [address], [phone] , [facility] 5 14:57:46 Problem Notes None recorded. Procedures Surgical History Date Name Laterality Status Provider Name and Address Organization Details Recorded Time kidney excision completed Leighbarb Morales [facility] 10/20/2024 09:49:23 Cholecystectomy completed Leigh Morales JE[facility] PAUL [facility] 10/20/2024 09:49:44 Imaging Results None recorded. Procedure Notes None recorded. Medical Equipment None Reported. Allergies Allergen ID Allergen Name Allergen Category Reaction Reaction Severity Criticality Documentation Date Start Date Code Code System Note Provider Name and Address Organization Details Recorded Time 716828 Cipro medicatio n Not available Not available Not available 10/20/202499109 3 RxNorm Leigh Tomeka n hilaria, [facility] 5 09:47:07 Medications Name Sig Start Date [...] use any illicit or recreational drugs? No [email or web address] Information not available 10/20/2024 What is your level of alcohol consumption? None [email or web address] Information not available 10/20/2024 Mental Status None recorded. Family History Nothing Reported. Medical History Condition Response Atrial Fibrillation Y Diabetes Y Hypertension Y Past Encounters Encounter ID Performer Location Encounter Start Date Encounter Closed Date Diagnosis/Indication Diagnosis SNOMED-CT Code Diagnosis ICD10 Code Diagnosis Note [id number] [facility] S[facility] [address] [place] [address] 01/22/2025 11:01:32 01/22/2025 11:01:55 Sensorineural hearing loss 08945462 H90.3 Health Concerns Section Related Observation LastModified by Organization Detai ls LastModified Time None Recorded Concern Status LastModified by Organization Details LastModified Time None Recorded Payers Encounter Date Sequence Insurance Name Policy Number Policy Hare Covered Member ID Hare Member ID Guarantor Name 01/22/2025 1 LCURETIA-JEAN PAUL: JASWINDER [facility] ACCESS (MEDICARE REPLACEMENT REGIONAL O) [id number] Gilberto Anderson [id number] Gilberto Anderson
--- OUTSIDE RECORDS SUMMARY | 2025-01-26 15:47 | XMS_ITS | Encounter Summary ---
Author Organization [facility] Address [address] [facility] [place] [address] Care Team Providers Care Lead Principal Technical Architect Name Role Phone Geovani Wright MD Primary Care Provider Raleigh Evangelista MD Unavailable [phone] Reina Holden APRN Unavailable [phone] Reason for Visit * Reason Comments Medication Refill Encounter Details Date Type Department Care Team (Late st Contact Info) Description 11/30/2024 Refill [facility] Nephrology [place] [address] [place] [address] Nilsa Petersen, PASTER OPERATOR [address] [facility] [address] [place] [address] Medication Refill Social History Tobacco Use Types Packs/Day Years [...] Refills Last Filled Start Date End Date losartan (COZAAR) 25 mg Oral Tablet TAKE ONE (1) TABLET BY MOUTH DAILY. 30 Tablet 3 11/30/2024 documented in this encounter Plan of Treatment Upcoming Encounters Date Type Department Care Team (Late st Contact Info) Description 01/28/2025 3:45 PM EDT Office Visit [facility] Nephrology [place] [address] [facility] [address] [place] [address] Greg Leblanc MD [address] [facility] [address] [place] [address] 02/05/2025 9:30 AM EDT Office Visit [facility] [address] [facility] [address] [place] [address] 02/05/2025 10:00 AM EDT Office Visit [facility] [address] [facility] [address] [place] [address] Elizabeth Lee, DENISA [address] [place], [place] [phone] 03/10/2025 12:30 PM EDT Office Visit [facility] [address] [place], [place] [phone] Talib Martínez MD [address] [place] [address] 03/17/2025 10:30 AM EDT Office Visit [facility] [address] [place] [address] 03/17/2025 11:00 AM EDT Office Visit [facility] [address] [place] [address] Raleigh Evangelista MD [address] [place] [address] [place], [place] [phone] 04/22/2025 10:30 AM EDT Office Visit [facility] Nephrology [place] [address] [facility] [address] [place], [place] [phone] Nilsa Petersen, DENISA [address] [facility] [address] [place] [address] documented as of this encounter Visit Diagnoses Not on filedocumented in this encounter Discontinued Medications Medication Sig Discontinue Reason Start Date End Da te losartan (COZAAR) 25 mg Oral Tablet Take 1 Tablet by mouth daily. 09/02/2024 11/30/2024 documented as of this encounter Care Teams Lead Principal Technical Architect Relationship Specialty Start Date End Date Geovani Wright MD PCP - General Family Medicine 02/12/12 Raleigh Evangelista MD [address] [place] [address] [place] [address] Internal Medicine - Clinical Cardiac Electrophysiology 04/10/16 Reina Holden APRN [address] [facility] [place] [address] Nurse Practitioner 10/12/16 documented as of this encounter
--- OUTSIDE RECORDS SUMMARY | 2025-01-26 15:47 | XMS_ITS | Clinical Summary ---
Author Organization [facility] Address [address] [place] [address] Care Team Providers Care Manager Banking Name Role Phone Geovani Wright MD Primary Care Provider [phone] Source Comments This information has been disclosed to you from confidential records protectedfrom disclosure by state law. You shall make no further disclosure of thisinformation without the specific, written, and informed release of theindividual to whom it pertains, or as otherwise permitted by law. A generalauthorization for the release of medical or other information is not sufficientfor the purposes of therelease of HIV test results or diagnoses. [id number] Allergies Active Allergy Reactions Criticality Noted Date Comments Ciprofloxacin Medications ranitidine (ZANTAC) 150 MG tablet Active DULoxetine (CYMBALTA) 60 MG capsule Active carvedilol (COREG) 12.5 MG tablet Active losartan (COZAAR) 100 MG tablet Active fenofibric acid, choline, (TRILIPIX) 135 mg capsule Active metFORMIN (GLUCOPHAGE) 500 MG tablet Take 1,000 mg by mouth 2 (two) times daily. Active amLODIPine (NORVASC) 10 MG tablet Active furosemide (LASIX) 80 MG tablet Active potassium chloride (MICRO-K) 10 MEQ CR capsule Activ e niacin-simvasta tin 1,000-40 mg TM24 Active ASPIRIN LOW-STRENGTH ORAL DAKSHA 81 MG TBEC Active insulin glargine (LANTUS) 100 unit/mL injection Active INSULIN ASPART (NOVOLOG PENFILL SUBQ) Active liraglutide (VICTOZA) 0.6 mg/0.1 mL (18 mg/3 mL) PnIj Active fluocinonide (LIDEX) 0.05 % creamIndication s:PSORIASIS 2 (two) times daily as needed. Apply to affected areas 2 Active urea (CARMOL) 40 % CreamIndication s:Psoriasis Apply to feet at bedtime 199 g 3 3 Active clobetasol (TEMOVATE) 0.05 % ointmentIndicat ions:Psoriasis Apply topically 2 times a day. 120 g 3 3 Active cephALEXin (KEFLEX) 500 MG capsuleIndicati ons:Psoriasis Take 1 capsule (500 mg total) by mouth 4 times daily before meals and at bedtime. 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 Acanthosis nigricans 08/21/2012 Other psoriasis 09/05/2011 Family History Medical History Relation Comments Melanoma Neg Hx denies Social History Tobacco Use Types Packs/Day Years Used Date Smoking Tobacco: Former Comments:09-05-2011 Alcohol Use Standard Drinks/Week Comments No 0 (1 standard drink = 0.6 oz pur e alcohol) 09-05-2011 Sex and Gender Information Value Date Recorded Sex Assigned at Not on file Legal Sex Male 4:17 PM EST Gender Identity Not on file Sexual Orientation Not on file Last Filed Vital Signs Vital Sign Reading Time Taken Comments Blood Pressure - - Pulse - - Temperature - - Respiratory Rate - - Oxygen Saturation - - Inhaled Oxygen Concentration - - Weight 155.6 kg (343 lb) 08/21/2012 11:14 AM EST Height 172.7 cm (5' 8 ) 08/21/2012 11:14 AM EST Body Mass Index 52.15 08/21/2012 11:14 AM EST Plan of Treatment Not on file Care Teams Manager Banking Relationship Specialty Start Date End Date Geovani Wright MD [address] [place] [address] PCP - General Family Medicine 01/04/12
--- OUTSIDE RECORDS SUMMARY | 2025-01-26 15:48 | XMS_ITS | Data Portability ---
Author Organization [place] & [facility] ADMIN Address [address] [place] [address] Assessment Encounter Date Assessment Date Assessment LastModified by Organization Details LastModified Time 10/20/2024 10/20/2024 no signs of hear t failure on examination. He has never had a stent. Mild coronary disease. His ejection fraction is normal to 70%. Has a history a heart murmur and it looks like he has moderate aortic stenosis and moderate aortic insufficiency. It was a difficult study. Pressures in the harder normal. This is something to follow. He has not having any other symptoms. I need to get all his records. We will get these from the outside hospital and from his rn medication . Will then see him back in 5-6 weeks. In the meantime I am not going to make any changes in the medical regimen. He has chronic atrial fibrillation. He is followed by electrophysiology. We will follow him for general cardiology in his other issues. Continue the current medical regimen. Blood pressure and heart rate are under excellent control. Exam is also not consistent with critical or severe aortic stenosis. Follow-up in 5-6 weeks in Cardiology Clinic Patient Education was printed, I have reviewed the Past Medical, Family, and Social Histories along with ROS and all orders in today's record, and have noted any changes. Medications, charts and records reviewed in full today. 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 Mild mitral insufficiency. He has evidence for moderate aortic stenosis and moderate aortic insufficiency. Velocity is a rapid upstroke. The leaflets of the valves appear to be moving in this does not appear to be severe aortic stenosis LAST ISCHEMIC EVAL:10/21/2009 showed normal perfusion with no ischemia and normal left ventricular systolic function LAST HEART CATH: None on file. LAST LDL: None on file. LAST CNI: None on file. PAST LHC: None on file. Plan: Get records from electrophysiology and prior cardiology Continue electrophysiology follow-up Repeat echocardiogram at the six-month kaylyn Continue digoxin and diltiazem Continue metoprolol Continue Xarelto Blood work as per primary care Patient is not having symptoms at present time. No need for stress testing. We will see when his last studies were when we get his old records Follow-up in Cardiology Clinic in 5-6 weeks -Continue other current medications. -Continue aggressive risk factor modification. -Recommend LDL less than 100. -Encouraged regular exercise and activity. This note was dictated using [employer] software. If something is unclear, or does not make sense, please do not hesitate to contact our office at [phone] for clarification. laura Not available 10/20/2024 14:56:13 Plan of Treatment Reminders Order Date Submit Date Provider Last Modified By Organization Details Last Modified Time Details Appointments None recorded. Lab None recorded. Referral None recorded. Procedures None recorded. Surgeries None recorded. Imaging electrocard iogram 2024 [address], [place], [address], 14:58:05 Medication Orders None recorded. Patient TargetsNo targets recorded. Patient InstructionsNo instructions recorded. Reason for Referral None Reported. Results Created Date Observation Date Name Description Value Unit Range Abnormal Flag Note LastModifiedBy Organization Detail LastModifiedTime 10/21/19 elect radha paz am No observ ation record ed. RAYMOND Adkins [address], [place], [address], 10/20/2024 09:51:42 10/21/19 25 10/20/2024 elect radha bagr am No observ ation record ed. [email or web address] Not Available 2024 11:12:52 Result Notes None recorded. Problems Name Problem SNOMED Code Status Onset Date Resolution Date Notes Provider Name and Address Organization Details Recorded Time Sensorineural hearing loss 31096622 Active 2022 MARKIE SINGH, AUD [address] [facility], [place], [address] , [place] - [place] - [place] & [place] 3 10:23:12 Chronic atrial fibrillation 589116065 Active 2024 Juancarlos Shaffer MD [facility],[address] [place] [address], [address] , [place] & [place] 5 14:56:21 Moderate aortic valve stenosis 588977352 Active 2024 Juancarlos Shaffer MD [facility] [employer] [facility],[address], [place], [address] , [place] & [place] 5 14:56:39 Diastolic dysfunction 7544739 Active 2024 Juancarlos Shaffer MD [facility] [employer] [facility],[address], [place], [address] , [place] & [place] 5 14:56:47 Essential hypertension 55843640 Active 2024 Juancarlos Shaffer MD [facility] [employer] [facility],[address], [place], [address] , [place] & [place] 5 14:56:52 Electrocardio gram abnormal 678204431 Active 2024 Juancarlos Shaffer MD [facility] [employer] [facility],[address], [place], [address] , [place] & [place] 5 14:57:36 Coronary arteriosclero sis 95908493 Active 2024 Juancarlos Shaffer MD [facility] [employer] [facility],[address], [place], [address] , [place] & [place] 5 14:57:46 Problem Notes None recorded. Procedures Surgical History Date Name Laterality Status Provider Name and Address Organization Details Recorded Time kidney excision completed Leigh REAVES - [facility] & [place] 10/20/2024 09:49:23 Cholecystectomy completed Leigh SPARKS [facility] & [place] 10/20/2024 09:49:44 Imaging Results None recorded. Procedure Notes None recorded. Medical Equipment None Reported. Allergies Allergen ID Allergen Name Allergen Category Reaction Reaction Severity Criticality Documentation Date Start Date Code Code System Note Provider Name and Address Organization Details Recorded Time 957267 Cipro medicatio n Not available Not available Not available 10/20/2024 3 RxNorm Leigh wall null, JEAN PAUL [facility] & [place] 09:47:07 Medications Name Sig Start Date Stop [...] Available Not Available No t Available Vitals Date Recorded Body height Body mass index (BMI) Body weight Oxygen saturation Oxygen saturation in Arterial blood by Pulse oximetry Heart rate Systolic And Diastolic Provider Name and Address Organization Details Last Updated DateTime 5 172.72 cm 33.5 kg/m2 11219.3 2 g 97 % 97 % 74 /min 100/79 mm[Hg] Leigh wall [facility] & [place] 5 09:58:06 Social History None recorded. Functional Status Question Answer Note LastModified by Organizat ion Details LastModified Time Do you use any illicit or recreational drugs? No [email or web address] Information not available 10/20/2024 What is your level of alcohol consumption? None [email or web address] Information not available 10/20/2024 Mental Status None recorded. Family History Nothing Reported. Medical History Condition Response Atrial Fibrillation Y Diabetes Y Hypertension Y Past Encounters Encounter ID Performer Location Encounter Start Date Encounter Closed Date Diagnosis/Indication Diagnosis SNOMED-CT Code Diagnosis ICD10 Code Diagnosis Note [id number] [facility] [address] [place] [address] 09/03/2022 10:20:58 09/03/2022 10:22:53 Sensorineural hearing loss 61729481 H90.[id number] MAGGY SAPP [address] [place] [id number] 8 12/26/2022 13:36:00 12/26/2022 13:36:21 Sensorineural hearing loss 37812123 H90.3 [id number] MAGGY SAPP [address] [place] [address] 01/17/2024 09:44:29 01/17/2024 10:14:52 Sensorineural hearing loss 90090917 H90.3 [id number] MAGYG SAPP [address] [place] [address] 03/11/2024 11:58:56 03/11/2024 12:06:41 Sensorineural hearing loss 79567607 H90.3 [id number] Juancarlos Shaffer MD [address] [place] [address] [place] [address] 6 10/20/2024 09:29:01 10/20/2024 10:21:38 Heart murmur 74650456 R01.1 Chronic at rial fibrillation 760030924 I48.20 Cardiac pa cemaker in situ 504894183 Z95.0 Moderate a ortic valve stenosis 988679874 I35.0 Diastolic dysfunction 35 38845 I51.89 Essential hypertension 87368699 I10 Electrocar diogram abnormal 574884854 R94.31 Coronary arteriosclerosis 96239021 I25.10 [id number] [facility] [address] [place] [address] 12/14/2024 12:33:36 12/14/2024 12:58:44 Sensorineural hearing loss 74663175 H90.3 [id number] MAGGY SAPP [address] [place] [address] 01/22/2025 11:01:32 01/22/2025 11:01:55 Sensorineural hearing loss 57065325 H90.3 Health Concerns Section Related Observation LastModified by Organization Detai ls LastModified Time None Recorded Concern Status LastModified by Organization Details LastModified Time None Recorded Advance Directives Directive None Recorded Payers Insurance Date Sequence Insurance Name Policy Number Policy Hare Covered Member ID Hare Member ID Guarantor Name 12/14/2024 [employer] Gilberto Anderson 03/11/2024 1 [place] Gilberto Anderson [id number] Gilberto Anderson 01/20/2025 1 [place] - [employer] (MEDICARE REPLACEMENT REGIONAL PPO) [id number] Gilberto Anderson [id number] Gilberto Anderson
--- OUTSIDE RECORDS SUMMARY | 2025-01-26 16:47 | XMS_ITS | CCD ---
Author Organization Unknown Care Team Providers Care Electrocardiograph Operator Name Role Phone Unavailable Primary Care Provider Unavailabl e Unavailable Chronic Care Management Unavaila ble Summary Purpose DataExchange Insurance Providers Payer name Policy type / Coverage type Covered libertarian ID Effective Begin Date Effective End Date [facility] [id number] Unknown Unknown Family History Family History data not found Medication Administered No Medication Administered data Reason For Visit No Reason For Visit data Medical Equipment No Medical Equipment data Advance Directives No Advance Directive data
--- OUTSIDE RECORDS SUMMARY | 2025-01-26 16:47 | XMS_ITS | CCD ---
Author Organization Unknown Care Team Providers Care Beauty Operator Apprentice Name Role Phone Unavailable Primary Care Provider Unavailabl e Unavailable Chronic Care Management Unavaila ble Summary Purpose DataExchange Insurance Providers Payer name Policy type / Coverage type Covered green party ID Effective Begin Date Effective End Date [facility] [id number] Unknown Unknown Family History Family History data not found Medication Administered No Medication Administered data Reason For Visit No Reason For Visit data Medical Equipment No Medical Equipment data Advance Directives No Advance Directive data
== END 2025-01-25 23:59 | disposition home or self-care (01) ==
LOC: LAB.DROPOF 01-26 15:42
PROVIDERS: PCP Family Medicine; Visit Provider Family Medicine
DX: E11.9 Type 2 diabetes mellitus without complications (principal); E87.5 Hyperkalemia; I10 Essential (primary) hypertension; Z11.59 Encounter for screening for other viral diseases
CPT/HCPCS: 80053; 80074; 84443; 87389

== ENCOUNTER 2025-04-23 10:29 | Outpatient (CLI) | payer MEDICARE, SELFPAY ==
--- OUTSIDE RECORDS SUMMARY | 2020-03-18 05:00 | XMS_ITS | Encounter Summary ---
Author Organization [place] [address] Care Team Providers Care Relationship Assoc Name Role Phone Geovani Wright MD Primary Care Provider [phone] Raleigh Evangelista MD Unavailable [phone] Reina Holden APRN Unavailable [phone] Encounter Details Date Type Department Care Team (Late st Contact Info) Description 03/18/2020 5:00 AM EDT Hospital Encounter [facility] Referral Lab 1 [place] [address] Social History Tobacco Use Types Packs/Day Years Used Date Smoking Tobacco: Former Cigarettes 3 40 0 12/21/1967 - 2005 Smokeless Tobacco: Never Alcohol Use Standard Drinks/Week Comments No 0 (1 standard drink = 0.6 oz pur e alcohol) Sex and Gender Information Value Date Recorded Sex Assigned at Not on file Legal Sex Male 6:06 PM EDT Gender Identity Not on file Sexual Orientation Not on file COVID-19 Exposure Response Date Recorded In the last 10 days, have yo u been in contact with someone who was confirmed or suspected to have Coronavirus/COVID-19? No / Unsure 12/27/2022 8:09 AM EDT documented as of this encounter Functional Status * Alcohol Screening Score Answer Date of Assessment Author 0 06/21/2021 3:30 AM Devorah Dacosta RN * Drug Screening Score Answer Date of Assessment Author 0 06/21/2021 3:30 AM Devorah Dacosta RN * Question Answer Date of Assessment Author How often do you have a drin k containing alcohol? 0 06/21/2021 3:30 AM Devorah Dacosta RN How many drinks containing a lcohol do you have on a typical day when you are drinking? 0 06/21/2021 3:30 AM Devorah Dacosta RN How often do you have six or more drinks on one occasion? 0 06/21/2021 3:30 AM Pasquale Dacosta RN AUDIT-C to Determine Rows 4-10 0 06/21/2021 3:30 AM Devorah Dacosta RN * Is the person deaf or does he/she have serious difficulty hearing? Answer Date of Assessment Author No 12/25/2019 2:36 PM EDT Heide Ellis RN * Is the person blind or does he/she have serious difficulty seeing even when wearing glasses? Answer Date of Assessment Author No 12/25/2019 2:36 PM EDT Heide Ellis RN * Does this person have serious difficulty walking or climbing stairs? Answer Date of Assessment Author Yes 12/25/2019 2:36 PM Heide Gallo RN * Does this person have difficulty dressing or bathing? Answer Date of Assessment Author Yes 12/25/2019 2:36 PM Heide Gallo RN * Because of a physical, mental or emotional condition, does this person have difficulty doing errands alone such as visiting a doctor's office or shopping? Answer Date of Assessment Author No 12/25/2019 2:36 PM EDHeide Farmer RN * Question Answer Date of Assessment Author Do you ever wish you weren't alive anymore? (Past 1 Month) 0 06/20/2021 10:28 PM Lolis Thorne RN Have you thought about doing something to make youself not alive anymore? (Past 1 Month) 0 06/20/2021 10:28 PM Lolis Thorne, LARRY * Recent Risk Level: Answer Date of Assessment Author No Risk, Screening Complete 06/20/2021 10:28 PM Lolis Underwood, LARRY * Suicide Severity Rating Answer Date of Assessment Author No Risk 01/25/2025 8:38 PM EDT Marie Quintero RN * [place] Suicide Severity Rating Scale (Q shift for moderate and high) Question Answer Date of Assessment Author 1. In the past month, have y ou wished you were or wished you could go to sleep and not wake up? 0 01/25/2025 8:38 PM EDT Tesha Quintero RN 2. In the past month, have y ou actually had any thoughts of killing yourself? (If no, skip to question 6) 0 01/25/2025 8:38 PM EDT Brianda Quintero RN 6. Have you ever done anythi ng, started to do anything, or prepared to do anything to end your life? 0 01/25/2025 8:38 PM EDT Slime Quintero RN documented as of this encounter Mental Status * Because of a physical, mental or emotional condition, does this person have serious difficulty concentrating, remembering or making decisions? Answer Entry Date Author No 12/25/2019 2:36 PM EDT Heide Ellis RN documented in this encounter Plan of Treatment Upcoming Encounters Date Type Department Care Team (Late st Contact Info) Description 06/02/2025 12:00 PM EST Office Visit [facility] [place] [facility] [address] [place] [address] Greg Leblanc MD 47 [facility] [address] [place] [address] 06/09/2025 12:00 PM EST Office Visit [facility] [address] [place] [address] Talib Martínez MD [address] [place] [address] 03/31/2026 10:30 AM EDT [facility] [address] [facility] [address] [place] [address] 03/31/2026 11:00 AM EDT Office Visit [facility] [address] [facility] [address] [place] [address] Elizabeth Lee, CLIENT EXPERIENCE ADMINISTRATOR [address] [place] [address] documented as of this encounter Results * (ABNORMAL) RENAL FUNCTION PANEL (03/18/2020 5:55 AM EDT) Sodium 136 136 - 145 mmol/L 03/18/2020 9:08 AM EDT [facility] Potassium 4.6 3.5 - 5.0 mmol/L 03/18/2020 9:08 AM EDT [facility] Chloride 98 98 - 107 mmol/L 03/18/2020 9:08 AM EDT [facility] Total CO2 26 22 - 29 mmol/L 03/18/2020 9:08 AM EDT [facility] Anion Gap 12 7 - 16 mmol/L 03/18/2020 9:08 AM EDT [facility] Calcium 9.2 8.8 - 10.4 mg/dL 03/18/2020 9:08 AM EDT [facility] Glucose Lvl 166(H) 82 - 100 mg/dL 03/18/2020 9:08 AM EDT [facility] BUN 21 8 - 23 mg/dL 03/18/2020 9:08 AM EDT [facility] Creatinine 1.29 0.67 - 1.30 mg/dL 03/18/2020 9:08 AM EDT [facility] Albumin 3.7 3.2 - 4.6 gm/dL 03/18/2020 9:08 AM EDT [facility] Phosphorus 4.3 2.5 - 4.5 mg/dL 03/18/2020 9:08 AM EDT [facility] GFR Afr Am 69 >=60 mL/min/1.7 3 m2 03/18/2020 9:08 AM EDT [facility] GFR Non Afr Am 60 >=60 mL/min/1.7 3 m2 03/18/2020 9:08 AM EDT [facility] Comment: This estimated GFR was calculated using CKD-EPI equation which is modified based on ethnicity for Non Americans and Americans. Both results are reported since it is not always possible to determine the patient's ethnicity. This equation should only be used for individuals 18 and older. It has not been validated for use with the elderly (>70 years), women, or in some racial or ethnic subgroups, such as Hispanics. The equation will be less accurate in people with differences in nutritional status or muscle mass. Blood Venipuncture / Unknown 03/18/2020 5:55 AM EDT 03/18/2020 7:39 AM EDT us U Unknown CHEMISTRY ORDERABLES Final Resul t [facility] 1 [facility], [address] [place] [id number] [facility] [address] [place] [address] * (ABNORMAL) CBC WITH DIFF (03/18/2020 5:55 AM EDT) [facility] WBC 10.1 3.7 - 10.3 x10(3)/mcL 03/18/2020 8:46 AM EDT [facility] RBC 4.38(L) 4.60 - 6.10 x10(6)/mcL 03/18/2020 8:46 AM EDT [facility] Hgb 11.4(L) 13.7 - 17.5 g/dL 03/18/2020 8:46 AM EDT [facility] Hct 36.9(L) 40.0 - 51.0 % 03/18/2020 8:46 AM EDT [facility] MCV 84.2 80.0 - 100.0 fL 03/18/2020 8:46 AM EDT [facility] MCH 26.0 26.0 - 34.0 pg 03/18/2020 8:46 AM EDT [facility] MCHC 30.9 30.7 - 35.5 g/dL 03/18/2020 8:46 AM EDT [facility] RDW 15.6(H) <=14.9 % 03/18/2020 8:46 AM EDT [facility] Platelet 308 155 - 369 x10(3)/mcL 03/18/2020 8:46 AM EDT [facility] MPV 10.5 8.8 - 12.5 fL 03/18/2020 8:46 AM EDT [facility] Neut Percent 67.1 % 03/18/2020 8:46 AM EDT [facility] Comment:Neutrophils equals s egs plus bands Imm Gran% 0.8 % 03/18/2020 8:46 AM EDT [facility] Comment:Automated count of m etamyelocytes, myelocytes and promyelocytes. Lymph Percent 20.0 % 03/18/2020 8:46 AM EDT [facility] Lares Percent 8.5 % 03/18/2020 8:46 AM EDT [facility] Eos Percent 2.8 % 03/18/2020 8:46 AM EDT [facility] Baso Percent 0.8 % 03/18/2020 8:46 AM EDT [facility] Neut # 6.8(H) 1.6 - 6.1 x10(3)/[facility] 03/18/2020 8:46 AM EDT [facility] Comment:Neutrophils equals s egs plus bands IMMGRAN# 0.1 0.0 - 0.1 x10(3)/[facility] 03/18/2020 8:46 AM EDT [facility] Comment:Automated count of m etamyelocytes, myelocytes and promyelocytes. An absolute IG <0.1 is reported as 0.0. Lymph # 2.0 1.2 - 3.9 x10(3)/[facility] 03/18/2020 8:46 AM EDT [facility] Lares # 0.9 0.3 - 0.9 x10(3)/[facility] 03/18/2020 8:46 AM EDT [facility] Eos# 0.3 0.0 - 0.5 x10(3)/[facility] 03/18/2020 8:46 AM EDT [facility] Baso # 0.1 0.0 - 0.1 x10(3)/[facility] 03/18/2020 8:46 AM EDT [facility] Blood Venipuncture / Unknown 03/18/2020 5:55 AM EDT 03/18/2020 7:39 AM EDT us U Unknown HEMATOLOGY ORDERABLES Final Resu lt [facility] [employer] [address] [facility] , [place] [address] documented in this encounter Visit Diagnoses Not on filedocumented in this encounter Additional Health Concerns Infection Onset Date Last Indicated Resolved Time R/O C-Diff 06/21/2021 06/21/2021 06/21/2021 11:3 0 AM EST R/O COVID-19 07/02/2021 07/02/2021 07/02/2021 7:20 PM EST R/O C-Diff 07/07/2021 07/07/2021 07/07/2021 6:23 PM EST documented as of this encounter Care Teams Relationship Assoc Relationship Specialty Start Date End Date Geovani Wright MD PCP - General Family Medicine 02/12/12 [place] Evangelista MD [address] [facility] [place] [address] Internal Medicine - Clinical Cardiac Electrophysiology 04/10/16 Reina Holden APRN [address] [place] [address] [place] [address] Nurse Practitioner 10/12/16 documented as of this encounter
--- OUTSIDE RECORDS SUMMARY | 2020-03-21 05:00 | XMS_ITS | Encounter Summary ---
Author Organization [place] [address] Care Team Providers Care Cloth Laminating Supervisor Name Role Phone Geovani Wright MD Primary Care Provider [phone] [place] Evangelista MD Unavailable [phone] Reina Holden APRN Unavailable [phone] Encounter Details Date Type Department Care Team (Late st Contact Info) Description 03/21/2020 5:00 AM EDT Hospital Encounter [facility] Referral Lab 1 [place] [address] Social History Tobacco Use Types [...] 8:38 PM EDT Marie Quintero RN * [place] Suicide Severity Rating Scale (Q shift for [...] Description 06/02/2025 12:00 PM EST Office Visit [facility] Nephrology [place] [address] [facility] [address] [place] [address] Greg Leblanc MD 47 [facility] [address] [place] [phone] 06/09/2025 12:00 PM EST Office Visit [facility] [address] [place] [address] Talib Martínez MD [address] [place] [address] 03/31/2026 10:30 AM EDT Office Visit [facility] [address] [facility] [address] [place] [address] 03/31/2026 11:00 AM EDT Office Visit [facility] [address] [facility] [address] [place] [address] Elizabeth Lee, STRUCTURAL IRONWORKER [address] [place] [address] Scheduled Orders Name Type Priority Associated Diagnoses [...] 8:51 AM EDT [facility] Calcium 8.9 8.8 - 10.4 mg/dL 03/21/2020 8:51 AM EDT [facility] Glucose Lvl 217(H) 82 - 100 mg/dL 03/21/2020 8:51 AM EDT [facility] BUN 25(H) 8 - 23 mg/dL 03/21/2020 8:51 AM EDT [facility] Creatinine 1.42(H) 0.67 - 1.30 mg/dL 03/21/2020 8:51 AM EDT [facility] Albumin 3.9 3.2 - 4.6 gm/dL 03/21/2020 8:51 AM EDT [facility] Phosphorus 3.9 2.5 - 4.5 mg/dL 03/21/2020 8:51 AM EDT [facility] GFR Afr Am 62 >=60 mL/min/1.7 3 m2 03/21/2020 8:51 AM EDT [facility] GFR Non Afr Am 53(L) >=60 mL/min/1.7 3 m2 03/21/2020 8:51 AM EDT [facility] Comment: This estimated GFR was calculated [...] CHEMISTRY ORDERABLES Final Resul t [facility] [employer] 1 [facility] , [place] [address] [facility] [address] [place] [address] documented in this encounter Visit Diagnoses Not on filedocumented in this encounter Additional Health Concerns Infection Onset Date Last Indicated Resolved Time R/O C-Diff 06/21/2021 06/21/2021 06/21/2021 11:3 0 AM EST R/O COVID-19 07/02/2021 07/02/2021 07/02/2021 7:20 PM EST R/O C-Diff 07/07/2021 07/07/2021 07/07/2021 6:23 PM EST documented as of this encounter Care Teams Cloth Laminating Supervisor Relationship Specialty Start Date End Date Geovani Wright MD PCP - General Family Medicine 02/12/12 [place] Evangelista MD [address] [facility] [place] [address] Internal Medicine - Clinical Cardiac Electrophysiology 04/10/16 Reina Holden APRN [address] [facility] [place] [address] Nurse Practitioner 10/12/16 documented as of this encounter
--- OUTSIDE RECORDS SUMMARY | 2020-03-28 05:00 | XMS_ITS | Encounter Summary ---
Author Organization [place] [address] Care Team Providers Care Special Loan Officer Name Role Phone Geovani Wright MD Primary Care Provider [phone] Raleigh Evangelista MD Unavailable [phone] Reina Holden APRN Unavailable [phone] Encounter Details Date Type Department Care Team (Late st Contact Info) Description 03/28/2020 5:00 AM EDT Hospital Encounter [facility] Referral Lab 1 [place] [address] Social History Tobacco Use Types [...] 8:38 PM EDT Marie Quintero RN * [place] Suicide Severity Rating Scale (Q shift for [...] Description 06/02/2025 12:00 PM EST Office Visit [facility] [address] [facility] [address] [place] [id number] Greg Leblanc MD [address] [facility] [address] [place] [phone] 06/09/2025 12:00 PM EST Office Visit [facility] [address] [place] [address] Talib Martínez MD [address] [place] [address] 03/31/2026 10:30 AM EDT Office Visit [facility] [address] [facility] [address] [place] [address] 03/31/2026 11:00 AM EDT Office Visit [facility] [address] [facility] [address] [place] [address] Elizabeth Lee APRN [address] [place] [address] Scheduled Orders Name Type Priority Associated Diagnoses Orde r Schedule CBC WITH DIFF Lab Routine ONCE for 1 Occurrences starting 03/28/2020 until 05/02/2020 documented as of this encounter Visit Diagnoses Not on filedocumented in this encounter Additional Health Concerns Infection Onset Date Last Indicated Resolved Time R/O C-Diff 06/21/2021 06/21/2021 06/21/2021 11:3 0 AM EST R/O COVID-19 07/02/2021 07/02/2021 07/02/2021 7:20 PM EST R/O C-Diff 07/07/2021 07/07/2021 07/07/2021 6:23 PM EST documented as of this encounter Care Teams Special Loan Officer Relationship Specialty Start Date End Date Geovani Wright MD PCP - General Family Medicine 02/12/12 Raleigh Evangelista MD [address] [place] [address] [place] [address] Internal Medicine - Clinical Cardiac Electrophysiology 04/10/16 Reina Holden APRN [address] [place] [address] [place] [address] Nurse Practitioner 10/12/16 documented as of this encounter
--- OUTSIDE RECORDS SUMMARY | 2025-03-30 13:30 | XMS_ITS | Encounter Summary ---
Author Organization [place] [address] Care Team Providers Care Trash Collector Name Role Phone Geovani Wright MD Primary Care Provider [phone] Raleigh Evangelista MD Unavailable [phone] Reina Holden APRN Unavailable [phone] Reason for Visit * Reason Comments Pacemaker Check 1 year f/u MDT D PPM Encounter Details Date Type Department Care Team (Late st Contact Info) Description 03/30/2025 1:30 PM EDT Office Visit [facility] [address] [facility] [address] [place] [address] Leighton Tafoya, RN Pacemaker reprogramming/check (Primary Dx); RBBB; Sinus node dysfunction (HCC); Pacemaker; Typical atrial flutter (HCC); Atrial flutter with rapid ventricular response (HCC); Paroxysmal A-fib (HCC) Social History Tobacco Use Types Packs/Day [...] - Inhaled Oxygen Concentration - - Weight 103.4 kg (228 lb) 03/30/2025 1:4 8 PM EDT Pt is in wheelchair. Height - - Body Mass Index 34.67 01/28/2025 3:40 PM EDT documented in this encounter Functional [...] Heide Ellis RN documented in this encounter Progress Notes * Leighton Tafoya RN - 03/30/2025 1:30 PM EDT Device Site Physician: Second [employer] Device Leads: Dual Chamber Device Type: Pacemaker Device Name: [place] Implant Date: 10/16/24 Implanting Provider: Dr. Jean Carlos Reyna in Clinic Check: 10/30/24 Device is not on advisory Presenting: AF w/ Welding Pantograph Machine Operator'ing in 60's. Underlying Rhythm: AF w/ intermittent CHB @ 30ppm. Patient is pacemaker dependent Pacing Mode / Rate: MVP(R) Lower Rate: 60 bpm UTR / USR: 130 bpm / 130 bpm Battery: 12.5 yr till SURI. Battery Voltage: 3.16 V Charge Time: Atrium Paced: Atrium Paced: 7.6% Ventricle Paced: Ventricle Paced: 78.7% SIC: 0 PVC: 6.5/hr AF: AF: 92.3% V rates in AF: (Avg V-rates = 60-70's.) AF Alert: OFF RA Lead: [id number] Lead Implant Date: 04/10/16 Sensing: Sensin.4mv Pacing Threshold: AF Impedance: 399 Ohm RV Lead: [id number] Lead Implant Date: 04/10/16 Sensing: Sensin.1mv Pacing Threshold: 0.75V @ 0.4ms Impedance: 665 Ohm Ejection Fraction History 06/21/2021 4:14 PM Ejection Fraction 55 HF Monitoring: No On Anticoagulant: Yes (XARELTO) Dx: Atrial Fibrillation; Sinus Node Dysfunction Next Remote Due: 04/16/25 Phone Number with Vector: [phone] Impression: Since 10/30/24: (9) AT/AF episodes. Last in progress since 01/13/25. Avg V-rates 60-70's. No VT episodes. Histogram indicates OK rate response distribution. ADL/Exertion response adjusted to 4 from [address] respose. RA is already @ max sensitivity = 0.15mv. documented in this encounter Plan of Treatment Upcoming Encounters Date Type Department Care Team (Late st Contact Info) Description 06/02/2025 12:00 PM EST Office Visit [facility] [place] [address] [place] [address] Greg Leblanc MD [address] [place] [address] 06/09/2025 12:00 PM EST Office Visit [facility] [address] [place] [address] Talib Martínez MD [address] [place] [address] 03/31/2026 10:30 AM EDT Office Visit [facility] [address] [facility] [address] [place] [address] 03/31/2026 11:00 AM EDT Office Visit [facility] [address] [facility] [address] [place] [address] Elizabeth Lee, BLANKET MAKER [address] [place] [address] Scheduled Orders Name Type Priority Associated Diagnoses Orde r Schedule OH PROGRAM EVAL IMPLANTABLE IN PERSN DUAL LD PACER OH Charge Routine Pacemaker reprogramming/check RBBB Sinus node dysfunction (HCC) Pacemaker Typical atrial flutter (HCC) Atrial flutter with rapid ventricular response (HCC) Paroxysmal A-fib (HCC) Ordered: 03/30/2025 documented as of this encounter Procedures Procedure Name Priority Date/Time Associated Diagnosis Comments PACEART REPORT Routine 03/30/2025 6:05 PM EDT documented in this encounter Results * PACEART REPORT (03/30/2025 6:05 PM EDT) 03/30/2025 6:05 PM EDT Narrative [facility] - 03/30/2025 2:15 PM EDT Pt here for 1 yr f/u. See provider OV note for details. - Normal device function. Battery = 12.5 yr till SURI w/ lead measurements = stable/WNL. - See PDF for episode(s) details, counters and parameters. - Device is functioning as programmed. Parameters are programmed w/in appropriate threshold safety margins. Sera JUAREZ/CDS. us Raleigh Evangelista MD [facility] CATH ORDERAB LES Final Result [facility] [address] [place], [place] [id number] documented in this encounter Visit Diagnoses Diagnosis Pacemaker reprogramming/check- Primary Fitting and adjustment of cardiac pacemaker RBBB Right bundle branch block Sinus node dysfunction (HCC) Sinoatrial node dysfunction Pacemaker Cardiac pacemaker in situ Typical atrial flutter (HCC) Atrial flutter Atrial flutter with rapid ventricular response (HCC) Atrial flutter Paroxysmal A-fib (HCC) Atrial fibrillation documented in this encounter Additional Health Concerns Assessment Noted Time A fall risk assessment has been complete d for the patient 03/30/2025 2:10 PM EDT documented as of this encounter Care Teams Trash Collector Relationship Specialty Start Date End Date Geovani Wright MD PCP - General Family Medicine 02/12/12 Raleigh Evangelista MD [address] [place] [address] [place] [address] Internal Medicine - Clinical Cardiac Electrophysiology 04/10/16 Reina Holden APRN [address] [place] [address] [place] [address] Nurse Practitioner 10/12/16 documented as of this encounter
--- OUTSIDE RECORDS SUMMARY | 2025-03-30 14:00 | XMS_ITS | Encounter Summary ---
Author Organization [place] [address] Care Team Providers Care Potato Chip Processing Supervisor Name Role Phone Geovani Wright MD Primary Care Provider [phone] Raleigh Evangelista MD Unavailable [phone] Reina Holden APRN Unavailable [phone] Reason for Visit * Reason Comments Follow-up 1 year f/u MDT D PPM Meds per pt report Encounter Details Date Type Department Care Team (Late st Contact Info) Description 03/30/2025 2:00 PM EDT Office Visit [facility] [address] [facility] [address] [place] [address] Raleigh Evangelista MD [address] [place] [address] RBBB (Primary Dx); Pacemaker; Sinus node dysfunction (HCC); Paroxysmal A-fib (HCC) Social History Tobacco [...] Sign Reading Time Taken Comments Blood Pressure 122/62 03/30/2025 2:14 PM EDT Pulse 62 03/30/2025 2:14 PM EDT Temperature - - Respiratory Rate - - Oxygen Saturation 97% 03/30/2025 2:14 PM EDT Inhaled Oxygen Concentration - - Weight - - Height 172.7 cm (5' 8 ) 03/30/2025 2:14 PM EDT Body Mass Index - - documented in [...] Refills Last Filled Start Date End Date metoprolol succinate ER (TOPROL-XL) 100 mg Oral Tablet Sustained Release 24 hrIndications:Parox ysmal A-fib (HCC) Take 1 Tablet by mouth daily. 90 Tablet 3 03/30/2025 documented in this encounter Progress Notes * Raleigh Evangelista MD - 03/30/2025 2:00 PM EDT Cardiac Electrophysiology Progress Note Patient ID: Gilberto Anderson is a 64 y.o. male. Chief Complaint Patient presents with Follow-up 1 year f/u MDT D PPM Meds per pt report Doing well. No pain at implant location. Since last visit no issues with pacemaker. No presyncope or syncope. Follow-up Chronicity: 1 year f/u MDT D PPM. Pertinent negatives include no arthralgias, coughing, diaphoresis, fatigue, headaches, myalgias, rash, urinary symptoms, vertigo or weakness. Their chronic cardiac conditions are: Problem List Cardiology Problems Hyperlipidemia associated with type 2 diabetes mellitus (HCC) Hypertensive heart disease without heart failure Hypertension associated with diabetes (HCC) RBBB Pacemaker Sinus node dysfunction (HCC) Acute on chronic diastolic (congestive) heart failure (HCC) suspected Chronic venous hypertension involving both sides Typical atrial flutter (HCC) Atrial flutter with rapid ventricular response (HCC) Essential hypertension Paroxysmal A-fib (HCC) Atrial fibrillation with RVR (HCC) Venous insufficiency of both lower extremities Tobacco Use History[1] Current Medications[2] Patients past medical, family and social histories were reviewed and updated. There were no changesexcept as noted Review of Systems Constitutional: Negative for diaphoresis, fatigue, malaise/fatigue, weight gain and weight loss. HENT: Negative for nosebleeds. Cardiovascular: Negative for leg swelling, palpitations and syncope. Respiratory: Negative for cough and shortness of breath. Skin: Negative for flushing and rash. Musculoskeletal: Negative for arthralgias, falls and myalgias. Gastrointestinal: Negative for heartburn and melena. Neurological: Negative for dizziness, headaches, vertigo and weakness. Psychiatric/Behavioral: Negative for depression. The patient does not have insomnia. Allergic/Immunologic: Negative for hives and persistent infections. Objective: Patient Vitals for the past 24 hrs: Pulse BP 03/30/25 1414 62 122/62 Body mass index is 34.67 kg/m??. General: No apparent distress. Alert and oriented. Neck:Trachea is midline. Neck veins are flat. Respiratory: Clear to auscultation bilaterally Cardiovascular: Rhythm is regular. S1 and S2 normal. Abdomen: Abdomen is soft and non tender. Extremeties: No Edema. Clubbing is absent. Cyanosis is absent. Skin: Warm and dry. Neurological: Cranial nerves are grossly intact. Speech is normal. [id number] Stroke Risk Points: 4 Values used to calculate this score: Points Metrics 1 Has Congestive Heart Failure: Yes 1 Has Hypertension: Yes 1 Age: 64 1 Has Diabetes: Yes 0 Had Stroke: No Had TIA: No Had Thromboembolism: No 0 Has Vascular Disease: No 0 Clinically Relevant Sex: Male Device Sign Painter Apprentice: Medtronic Device Leads: Dual Chamber Device Type: Pacemaker Device Name: Marcie Implant Date: 10/16/24 Implanting Provider: Dr. Evangelista Last in Clinic Check: 10/30/24 Device is not on advisory Presenting: AF w/ Cycle Touring Guide'ing in 60's. Underlying Rhythm: AF w/ intermittent [...] Remote Due: 04/16/25 Phone Number with Vector: [phone] Impression: Since 10/30/24: (9) AT/AF episodes. Last in progress since 01/13/25. Avg V-rates 60-70's. No VT episodes. Histogram indicates OK rate response distribution. ADL/Exertion response adjusted to 4 from [address] respose. RA is already @ max sensitivity = 0.15mv. Assessment and Plan: Dual Chamber Permanent Pacemaker -- Normal Device Function Paroxysmal AF on chronic anticoagulation RM 1 year [1] Social History Tobacco Use Smoking Status Former Current packs/day: 0.00 Average packs/day: 3.0 packs/day for 40.0 years (120.1 ttl pk-yrs) Types: Cigarettes Start date: 12/21/1967 Quit date: 2005 Years since quittin.7 Smokeless Tobacco Never [2] Current Outpatient Medications Medication Sig Dispense Refill ACCU-CHEK SOFTCLIX LANCETS Misc Misc allopurinoL (ZYLOPRIM) 100 mg Oral Tablet Take 1 Tablet by mouth daily. 90 Tablet 2 ammonium lactate (LAC-HYDRIN) 12 % Top Lotion 1 janette, Lotion, Topical BID, Refill(s) 0 apremilast (OTEZLA) 30 mg Oral Tablet Take 30 mg by mouth 2 times daily. 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 dilTIAZem 120 mg Oral Capsule, Sust. Release 24 hr TAKE 2 CAPSULES (240 MG) BY MOUTH EVERY MORNING AND 1 CAPSULE (120 MG) BY MOUTH EVERY EVENING. 90 Capsule 5 diphenhydrAMINE (BENADRYL) 25 mg Oral Tablet Take 1-2 Tablets by mouth every 4 hours as needed for Rash. 30 Tablet 0 ergocalciferol (DRISDOL) 1,250 mcg (50,000 unit) Oral Capsule Take 1 Capsule by mouth once a week. 12 Capsule 1 fenofibrate (TRICOR) 145 mg Oral Tablet Take 145 mg by mouth daily. ferrous sulfate 325 mg (65 mg iron) Oral Tablet, Delayed Release (E.C.) Take 1 Tablet by mouth 2 times daily. 180 Tablet 3 gabapentin (NEURONTIN) 800 mg Oral Tablet Take 1 Tab by mouth 3 times daily. 0 HUMALOG KWIKPEN INSULIN 100 unit/mL SubQ Insulin Pen Subcutaneous (Inject under the skin) 80 Units Before every meal. HYDROcodone-acetaminophen (NORCO) 10-325 mg Oral Tablet Take 1 Tablet by mouth 2 times daily as needed. for pain insulin aspart U-100 (NOVOLOG) 100 unit/mL SubQ Solution insulin glargine U-100 (LANTUS) 100 unit/mL SubQ Solution Subcutaneous (Inject under the skin) 36 Units 2 times daily. 10 mL loperamide (IMODIUM) 2 mg Oral Capsule Take 1 Capsule by mouth every 4 hours as needed for Diarrhea. methIMAzole (TAPAZOLE) 5 mg Oral Tablet Take 5 mg by mouth daily. metoprolol succinate ER (TOPROL-XL) 100 mg Oral Tablet Sustained Release 24 hr TAKE 2 TABLETS BY MOUTH 2 TIMES DAILY. 360 Tablet 1 ONETOUCH VERIO FLEX METER Misc Misc ONETOUCH VERIO TEST STRIPS Misc Strip pantoprazole (PROTONIX) 40 mg Oral Tablet, Delayed Release (E.C.) Take 1 Tab by mouth daily. 30 Tab2 rivaroxaban (XARELTO) 20 mg Oral Tablet Take 1 Tab by mouth daily. 30 Tab 5 tamsulosin (FLOMAX) 0.4 mg Oral Capsule Take 0.4 mg by mouth daily. TRULICITY 0.75 mg/0.5 mL SubQ Pen Injector losartan (COZAAR) 25 mg Oral Tablet TAKE ONE (1) TABLET BY MOUTH DAILY. (Patient not taking: Reported on 01/28/2025) 30 Tablet 3 No current facility-administered medications for this visit. documented in this encounter Miscellaneous Notes * Patient Instructions - Michelle Taveras MA - 03/30/2025 2:00 PM EDT You may be contacted by mail or e-mail to participate in a patient satisfaction survey regarding your office visit today. We value your opinion and depend on your feedback to make improvements and provide you with the best possible experience while receiving high quality medical treatment. Your time in completing this survey is greatly appreciated. documented in this encounter Plan of Treatment Upcoming Encounters Date Type Department Care Team (Late st Contact Info) Description 06/02/2025 12:00 PM EST Office Visit [facility] Nephrology [place] [address] [facility] [address] [place] [address] Greg Leblanc MD [address] [facility] [address] [place] [address] 06/09/2025 12:00 PM EST Office Visit [facility] [address] [place] [address] Talib Martínez MD [address] [place] [address] 03/31/2026 10:30 AM EDT Office Visit [facility] [address] [place] [address] [address] [place] [address] 03/31/2026 11:00 AM EDT Office Visit [facility] [address] [place] [address] [address] [place] [address] Elizabeth Lee APRN [address] [place] [address] documented as of this encounter Visit Diagnoses Diagnosis RBBB- Primary Right bundle branch block Pacemaker Cardiac pacemaker in situ Sinus node dysfunction (HCC) Sinoatrial node dysfunction Paroxysmal A-fib (HCC) Atrial fibrillation documented in this encounter Discontinued Medications Medication Sig Discontinue Reason Start Date End Da te finerenone (KERENDIA) 20 mg Oral Tablet Take 20 mg by mouth daily. DELETE-Therapy completed 03/30/2025 metoprolol succinate ER (TOPROL-XL) 100 mg Oral Tablet Sustained Release 24 hrIndications:Paroxysm al A-fib (HCC) TAKE 2 TABLETS BY MOUTH 2 TIMES DAILY. Reorder 08/15/2022 03/30/2025 documented as of this encounter Additional Health Concerns Assessment Noted Time A fall risk assessment has been complete d for the patient 03/30/2025 2:10 PM EDT documented as of this encounter Care Teams Potato Chip Processing Supervisor Relationship Specialty Start Date End Date Geovani Wright MD PCP - General Family Medicine 02/12/12 Raleigh Evangelista MD [address] [place] [address] [place] [address] Internal Medicine - Clinical Cardiac Electrophysiology 04/10/16 Reina Holden APRN [address] [place] [place] [address] Nurse Practitioner 10/12/16 documented as of this encounter
--- OUTSIDE RECORDS SUMMARY | 2025-03-30 15:30 | XMS_ITS | Encounter Summary ---
Author Organization [facility] Address [address] [facility]. [address] [place] [address] Care Team Providers Care Extrusion Die Repair Manager Name Role Phone Geovani Wright MD Primary Care Provider [phone] Raleigh Evangelista MD Unavailable [phone] Reina Holden APRN Unavailable [phone] Reason for Visit * Reason Comments Chronic Kidney Disease Encounter Details Date Type Department Care Team (Late st Contact Info) Description 03/30/2025 3:30 PM EDT Office Visit [facility] Nephrology [place] [address] [facility] [address] [place], [place] [phone] Greg Leblanc MD [address] [facility] [address] [place] [phone] Stage 4 chronic kidney disease (HCC) (Primary Dx); Hypocalcemia Social History Tobacco Use Types Packs/Day Years [...] Sign Reading Time Taken Comments Blood Pressure 131/68 03/30/2025 3:44 PM EDT Pulse 63 03/30/2025 3:44 PM EDT Temperature 36.4 C (97.6 F) 03/30/2025 3:44 PM EDT Respiratory Rate - - Oxygen Saturation - - Inhaled Oxygen Concentration - - Weight - - Height 172.7 cm (5' 8 ) 03/30/2025 3:44 PM EDT Body Mass Index - - [...] documented in this encounter Progress Notes * Greg Leblanc MD - 03/30/2025 3:30 PM EDT Images from the original note were not included. Interval History Gilberto Anderson is a 64 y.o. male with Hx of CKD. Patient of Dr Wright. Patient Reports: Gilberto is scheduled for a 2 month FU appointment. Last seen on 01/28/2025. He is doing pretty good. Neg for SOB and flank pain. Some LE edema when he is not elevating. No CP, nausea or vomiting. Diarrhea every once in a while. No hospitalizations or Sx since last visit. Med list reviewed, taking lower dose metoprolol, unsure dosage. BP monitored at home. Readings range 110s/50s - 150s/60s No issues or concerns at this time. BP checked at 131/68 Wt last checked at 300-->212-->225 Wheelchair #s K+= 6.1-->4.3 Cortes= 8.4-->8.2 C02 = 23-->17-->26 BUN = 39-->39-->39 UA = 9.3-->6.0 Vit D = 17--> Osmo Calc = 291-->287-->290 Assessment & Plan 1.CKD Stage 4 : Cr at present 2.70-->2.39-->2.77. GFR 28-->29-->25 ml/min. ( Underlying condition: Glomerulosclerosis ) Proteinuria 2.7 gm Has acute worsening of Cr. ?? Medication related ?? CKD progression. Has solitary Kidney. Last was nephrotic range. Unable to do biopsy with solitary kidney. Volume stable exceptr mild LE edema Had KIERRA and Hyperkalemia in 2017, required HD. Recovered nicely. Cr has been 1.7-2.2 since.l Lately Cr 2.49 3+ proteins 03/30/25- Seen in ER with Hyperkalemia, acidosis. Cr 2.49 eGFR 28 CKD stage 4 K 6.1. UPC 5 gm. Was taken off ARBs. Given Veltassa. K better now Cr 2.77 Still with Pr uria Has 2+ edema in the LE Still on Farxiga and Trulicity ( Not on Kerendia) Not on diuretics Hx of Left Nephrectomy. BOSTON left nephretcomy. Right kidney 11.7x5.5x5.6. Plan- -Hold ARBs for now because of hyperkalemia. My goal is to control K with Veltassa so he can be on ARBs alf given he has Nephrotic Syndrome and severe diabetic nephropathy. If K remains stable, will try lower dose ARBs with Veltasa next visit. - Continue with Farxiga and Trulicity ( Not on Kerendia) - Check BMP, UPC again - low sodium Renal diabetic diet. - Edema in LE- doing PAULA wraps and leg elevation. Seems to be better. No SOA. - On low dose Allopurinol, continue - Vit D weekly ok, check PTH next - Will recommend lowering the dose of Gabapentin. Defer to Dr Wright. Max dose 1200 mg in a day. -Xarelto ok. - RTC 2 mo 09/02/2024 UPC 5.57 PTH 47 UA 4+ [...] still. BOSTON left nephretcomy. Right kidney 11.7x5.5x5.6. 2. Left Nephrectomy in 2009 Had RCC Margins were clear Need BOSTON updated 3. Hx of Nephrolithiasis Hx of Ureteral stent in 2017 Been stable since Needs 24 hour urine studies at some point 4. Proteinuria UPC 6.67 -> 2.02 gm 5. HTN, BP currently controlled 6. Chronic A Fib, rate control, Xarelto 7. T2 DM with c/o, tight DM control addressed. On Trulicity. A1c 7.4 now, doing better. 8. Anemia of CKD , Tsat 13% [facility]. 9. HLD, goal LDL 70 or less [...] Current Outpatient Medications Medication ACCU-CHEK SOFTCLIX LANCETS [facility] allopurinoL (ZYLOPRIM) 100 mg Oral Tablet ammonium lactate (LAC-HYDRIN) 12 % Top Lotion apremilast (OTEZLA) 30 mg Oral Tablet dapagliflozin propanediol (FARXIGA) 10 mg Oral Tablet dilTIAZem 120 mg Oral Capsule, Sust. Release 24 hr diphenhydrAMINE (BENADRYL) 25 mg Oral Tablet ergocalciferol (DRISDOL) 1,250 mcg (50,000 unit) Oral Capsule fenofibrate (TRICOR) 145 mg Oral Tablet ferrous sulfate 325 mg (65 mg iron) Oral Tablet, Delayed Release (E.C.) finerenone (KERENDIA) 20 mg Oral Tablet gabapentin [...] Release 24 hr ONETOUCH VERIO FLEX METER [facility] ONETOUCH VERIO TEST STRIPS [facility] Strip pantoprazole (PROTONIX) 40 mg Oral Tablet, Delayed Release (E.C.) rivaroxaban (XARELTO) 20 mg Oral Tablet tamsulosin (FLOMAX) 0.4 mg Oral Capsule TRULICITY 0.75 mg/0.5 mL SubQ Pen Injector No current facility-administered medications for this visit. Social History: Social History Tobacco Use Smoking status: Former Current packs/day: 0.00 Average packs/day: 3.0 packs/day for 40.0 years (120.1 ttl pk-yrs) Types: Cigarettes Start date: 12/21/1967 Quit date: 2005 Years since quittin.7 Smokeless tobacco: Never Vaping Use Vaping status: [...] Lab Results Component Value Date NA 139 01/25/2025 NA 137 09/30/2016 K 6.1 (HH) 01/25/2025 K 4.8 09/30/2016 CL 111 (H) 01/25/2025 CL 99 09/30/2016 CO2 17 (L) 01/25/2025 CO2 21 (L) 09/30/2016 BUN 39 (H) 01/25/2025 BUN 23 (H) 09/30/2016 CREATININE 2.49 (H) 01/25/2025 CREATININE 2.60 (H) 09/30/2016 CALCIUM 8.4 (L) 01/25/2025 CALCIUM 9.0 09/30/2016 GFRAFRAM 53 (L) 05/23/2020 GFRAFRAM 31 09/30/2016 GFRNONAFRAM 45 (L) 05/23/2020 GFRNONAFRAM 26 09/30/2016 GLU 140 (H) 01/25/2025 GLU 220 (H) 09/30/2016 Review of Systems: [...] Pacemaker Acanthosis nigricans Chronic acquired lymphedema Other alf (current) drug therapy Psoriasis Acute on chronic [...] battery depletion Return to CKD Clinic in 2 month with labs. Labs to be drawn few days prior to the visit. Thank You for letting me participate in your patient care. Please do not hesitate to call me if anyquestions ( office phone [phone] ). Greg Leblanc MD Nephrology documented in this encounter Miscellaneous Notes * Patient Instructions - Greg Leblanc MD - 03/30/2025 3:30 PM EDT Instructions 2 Gram Sodium Diet, Low Sodium A [...] oats, puffed wheat and rice, shredded wheat Romanian muffins and bread Pasta Meats: Salted, canned, [...] frozen fruit Condiments: Canned and packaged gravies [facility] [place] sauce Tartar sauce Barbecue sauce Soy sauce [...] Description 06/02/2025 12:00 PM EST Office Visit [facility] Nephrology [place] [address] [place] [address] Greg Leblanc MD [address] [facility] [address] [place] [address] 06/09/2025 12:00 PM EST Office Visit [facility] [address] [facility], [place] [id number] Talib Martínez MD [address] [place] [address] 03/31/2026 10:30 AM EDT Office Visit [facility] [address] [place] [address] [address] [place] [address] 03/31/2026 11:00 AM EDT Office Visit [facility] [address] [place] [address] [address] [place] [address] Elizabeth Lee APRN [address] [place], [place] [phone] documented as of this encounter Visit Diagnoses Diagnosis Stage 4 chronic kidney disease (HCC)- Primary Hypocalcemia documented in this encounter Additional Health Concerns Assessment Noted Time A fall risk assessment has been complete d for the patient 03/30/2025 2:10 PM EDT documented as of this encounter Care Teams Extrusion Die Repair Manager Relationship Specialty Start Date End Date Geovani Wright MD PCP - General Family Medicine 02/12/12 Raleigh Evangelista MD [address] [place] [address] [place] [address] Internal Medicine - Clinical Cardiac Electrophysiology 04/10/16 Reina Holden APRN [address] [place] [address] [place] [address] Nurse Practitioner 10/12/16 documented as of this encounter
[2025-04-23 15:48] LABS: Blood Urea Nitrogen 39 mg/dl (9-20); Creatinine,Serum 2.50 mg/dl (0.66-1.25); Estimated Glomerular Filt Rate 26 ml/min (>60); GFR (African American) 32 ML/MIN (>60)
[2025-04-23 15:54] LABS: Anion Gap 10.2 mEq/L (5-15); Carbon Dioxide 25 mmol/L (22.0-30.0); Chloride 105 mmol/L (98-107); Potassium 5.2 mmoL/L (3.5-5.1); Sodium 135 mmol/L (136-145)
[2025-04-23 15:55] LABS: Alanine Aminotransferase 12 U/L (12-78); Albumin Level 3.2 g/dl (3.5-5.0); Albumin/Globulin Ratio 1.0 (1.1-1.8); Aspartate Amino Transferase 44 U/L (17-59); Bilirubin,Total 0.5 mg/dl (0.2-1.3); Calcium 8.4 mg/dl (8.4-10.2); Globulin 3.2 g/dL (1.3-3.2); Glucose 129 mg/dl (74-100); Total Protein,Serum 6.4 g/dl (6.3-8.2)
[2025-04-23 15:56] LABS: Alkaline Phosphatase 57 U/L (38-126); Thyroid Stimulating Hormone 10.50 uIU/mL (0.465-4.68)
[2025-04-23 16:59] LABS: Digoxin 1.80 ng/ml (0.2-2.00)
--- OUTSIDE RECORDS SUMMARY | 2025-04-26 10:39 | XMS_ITS | Encounter Summary ---
Author Organization [place] [address] Care Team Providers Care Soldering Machine Operator Name Role Phone Geovani Wright MD Primary Care Provider Raleigh Evangelista MD Unavailable [phone] Reina Holden APRN Unavailable [phone] Encounter Details Date Type Department Care Team (Late st Contact Info) Description 12/28/2019 Orders Only [facility] [address] [facility] [address] [place] [address] Raleigh Evangelista MD [address] [place] [address] Social History Tobacco Use Types [...] Description 06/02/2025 12:00 PM EST Office Visit [facility] Nephrology [place] [address] [facility] [address] [place] [address] Greg Leblanc MD [address] [facility] [address] [place] [address] 06/09/2025 12:00 PM EST Office Visit [facility] [address] [place] [facility] [address] Talib Martínez MD [address] [place] [address] 03/31/2026 10:30 AM EDT Office Visit [facility] [address] [facility] [address] [place] [address] 03/31/2026 11:00 AM EDT Office Visit [facility] [address] [facility] [address] [place] [address] Elizabeth Lee APRN [address] [place] [address] documented as of this encounter Procedures Procedure Name Priority Date/Time Associated Diagnosis Comments PACEART REPORT Routine 12/28/2019 12:47 PM EDT documented in this encounter Results * PACEART REPORT (12/28/2019 12:47 PM EDT) 12/28/2019 12:4 7 PM EDT Narrative [facility] - 12/28/2019 10:14 AM EDT - [employer] Advisa DR pulido remote at the request of Dr. Evangelista d/t [...] on ELIQUIS and TOPROL-XL 100mg BID per EPIC med list. - Presenting rhythm EGM = AF w/ rapid irregular VS'ing rhythm @ 100-120's. Results forwarded to Dr. Evangelista and DENISA (Hanane Alfaro). us Raleigh Evangelista MD [facility] CATH ORDERAB LES Final Result [facility] [address] [place] [address] documented in this encounter Visit Diagnoses Not on filedocumented in this encounter Additional Health Concerns Infection Onset Date Last Indicated Resolved Time R/O C-Diff 06/21/2021 06/21/2021 06/21/2021 11:3 0 AM EST R/O COVID-19 07/02/2021 07/02/2021 07/02/2021 7:20 PM EST R/O C-Diff 07/07/2021 07/07/2021 07/07/2021 6:23 PM EST documented as of this encounter Care Teams Soldering Machine Operator Relationship Specialty Start Date End Date Geovani Wright MD PCP - General Family Medicine 02/12/12 Raleigh Evangelista MD [address] [facility] [place] [address] Internal Medicine - Clinical Cardiac Electrophysiology 04/10/16 Reina Holden APRN [address] [place] [address] [place] [address] Nurse Practitioner 10/12/16 documented as of this encounter
--- OUTSIDE RECORDS SUMMARY | 2025-04-26 10:39 | XMS_ITS | Clinical Summary ---
Author Organization [facility] Address [address] [facility] [address] [place] [address] Phone Care Team Providers Care Patient Navigator Name Role Phone Outside, Provider Unavailable [phone] Conditions or Problems Problem Name Problem Code Onset Date Status Entry Date Provider Comment Standard Description Annotate SPONDYLOSIS, CERVICAL W/MYELOPATHY 27445859 (SNOMED CT) Active Vee Benavides MD Cervical spondylosis with myelopathy OVERWEIGHT 567292839 (SNOMED CT) Active Vee Benavides MD Overweight Medications Medication Instructions Start Date Stop Date Generic Name NDC Provider ULTRAM 50 MG ORAL TABLET 1 PO TID-QID prn pain TRAMADOL HCL 71132538715 Vee Benavides MD ULTRAM 50 MG ORAL TABLET 1 OI TID - QID TRAMADOL HCL 49891216104 Tamara Cole MA CLINDAMYCIN HCL 150 MG CAPS CLINDAMYCIN HCL [id number] Vee Benavides MD FUROSEMIDE 40 MG TABS FUROSEMIDE [id number] Vee Benavides MD PANTOPRAZOLE SODIUM 40 MG TBEC PANTOPRAZOLE SODIUM 84981343103 Vee Benavides MD FENOFIBRATE 145 MG TABS FENOFIBRATE [id number] Vee Benavides MD PENICILLIN V POTASSIUM 500 MG TABS PENICILLIN V POTASSIUM [id number] Vee Benavides MD CLINDAMYCIN HCL 300 MG CAPS CLINDAMYCIN HCL 12358477500 Vee Benavides MD METHIMAZOLE 5 MG TABS METHIMAZOLE [id number] Vee Benavides MD HYDRALAZINE HCL 50 MG TABS HYDRALAZINE HCL 50638864646 Vee Benavides MD WARFARIN SODIUM 4 MG TABS WARFARIN SODIUM 39349502251 Vee Benavides MD GABAPENTIN 600 MG TABS GABAPENTIN 25040837878 Vee Benavides MD NOVOLOG FLEXPEN 100 UNIT/ML SOPN INSULIN ASPART [id number] Vee Benavides MD ACETAMINOPHEN-CO DEINE #3 300-30 MG ORAL TABLET ACETAMINOPHEN-C ODEINE [id number] Vee Benavides MD METOPROLOL SUCCINATE ER 100 MG [id number] METOPROLOL SUCCINATE [id number] Vee Benavides MD LISINOPRIL 5 MG TABS LISINOPRIL 53473606069 Vee Benavides MD LINZESS 145 MCG CAPS LINACLOTIDE [id number] Vee Benavides MD GABAPENTIN 800 MG TABS GABAPENTIN [id number] Vee Benavides MD Medications Administered No information available. Allergies, Adverse Reactions, Alerts Allergy Name Reaction Description Start Date Severity Statu s Provider CIPRO Critical Vee Benavides MD Results No information available. Plan of Care No information available. Procedures Code Procedure Name Date Entry Date [facility]-[id number] Flu Shot Previously Received [facility]-[id number] Medications Documented Vital Signs Date Name Value [...]
--- OUTSIDE RECORDS SUMMARY | 2025-04-26 10:39 | XMS_ITS | Encounter Summary ---
Author Organization [place] [address] Care Team Providers Care Rn Document Improvement Name Role Phone Geovani Wright MD Primary Care Provider Raleigh Evangelista MD Unavailable [phone] Reina Holden APRN Unavailable Encounter Details Date Type Department Care Team (Late st Contact Info) Description 10/17/2017 Orders Only [facility] [address] [facility] [address] [place] [address] Raleigh Evangelista MD [address] [place] [address] Social History Tobacco Use Types [...] Description 06/02/2025 12:00 PM EST Office Visit [facility] Nephrology [place] [address] [place] [address] Greg Leblanc MD [address] [place] [phone] 06/09/2025 12:00 PM EST Office Visit [facility] [address] [place] [address] Talib Martínez MD [address] [place] [phone] 03/31/2026 10:30 AM EDT Office Visit [facility] [address] [facility] [address] [place] [address] 03/31/2026 11:00 AM EDT Office Visit [facility] [address] [place] [address] [address] [place] [address] Elizabeth Lee APRN 711 [place], [place] [id number] documented as of this encounter Procedures Procedure Name Priority Date/Time Associated Diagnosis Comments PACEART REPORT Routine 10/17/2017 7:24 PM EDT documented in this encounter Results * PACEART REPORT (10/17/2017 7:24 PM EDT) 10/17/2017 7:24 PM EDT Narrative [facility] - 10/17/2017 3:52 PM EDT Carelink transmission sent in at request of Nohelia CRAWLEY. Patient c/o of having more AF and currently in AF with RVR of 150. Longest event was 19 hrs, 40 were paced terminated. Avg V- rate 108-128 bpm. Currently on amio and warfarin. Stephanie Holden MANAGER STAR to f/u with patient. Ruthann Fajardo RN us Raleigh Evangelista MD [facility] CARDIAC CATH ORDERAB LES Final Result [facility] 1 [place] [address] documented in this encounter Visit Diagnoses Not [...] documented as of this encounter Care Teams Rn Document Improvement Relationship Specialty Start Date End Date Geovani Wright MD PCP - General Family Medicine 02/12/12 Raleigh Evangelista MD [address] [place] [address] [place] [address] Internal Medicine - Clinical Cardiac Electrophysiology 04/10/16 Reina Holden APRN [address] [place] [address] [place] [address] Nurse Practitioner 10/12/16 documented as of this encounter
--- OUTSIDE RECORDS SUMMARY | 2025-04-26 10:39 | XMS_ITS | Encounter Summary ---
Author Organization [place] [address] Care Team Providers Care Business Objects Analyst Name Role Phone Geovani Wright MD Primary Care Provider [phone] Raleigh Evangelista MD Unavailable [phone] Reina Holden APRN Unavailable Encounter Details Date Type Department Care Team (Late st Contact Info) Description 09/23/2017 Orders Only [facility] [address] [facility] [address] [place] [address] Raleigh Evangelista MD [address]11 [place] [address] Social History Tobacco Use Types [...] Description 06/02/2025 12:00 PM EST Office Visit [facility] Nephrology [place] [address] [place] [address] Greg Leblanc MD [address] [place] [phone] 06/09/2025 12:00 PM EST Office Visit [facility] [address] [address] Talib Martínez MD [address] [place] [phone] 03/31/2026 10:30 AM EDT Office Visit [facility] [address] [facility] [address] [place] [address] 03/31/2026 11:00 AM EDT Office Visit [facility] [address] [place] [address] [address] [place] [address] Elizabeth Lee APRN 711 [place], [place] [phone] documented as of this encounter Procedures Procedure Name Priority Date/Time Associated Diagnosis Comments PACEART REPORT Routine 09/23/2017 3:48 PM EDT documented in this encounter Results * PACEART REPORT (09/23/2017 3:48 PM EDT) 09/23/2017 3:48 PM EDT Narrative [facility] - 09/23/2017 12:10 PM EDT Unscheduled Carelink transmission for symptomatic AF. 43 treated AF, longest 12 hours. 63 monitored AF, longest 77 seconds and average ventricular rate 90's-130's for all AF episodes. 6 Fast A&V (AF with RVR) all on 09/03/17 with average ventricular rate 171-200bpm and longest ~ 6 minutes. AF burden 9.8%. Stable lead performance. No device malfunction noted. Macie Nam, RN us Raleigh Evangelista MD [facility] CARDIAC CATH ORDERAB LES Final Result [facility] 1 [place] [address] documented in this encounter Visit Diagnoses Not [...] as of this encounter Care Teams Business Objects Analyst Relationship Specialty Start Date End Date Geovani Wright MD PCP - General Family Medicine 02/12/12 Raleigh Evangelista MD [address] [place] [address] Internal Medicine - Clinical Cardiac Electrophysiology 04/10/16 Reina Holden APRN [address] [place] [address] Nurse Practitioner 10/12/16 documented as of this encounter
--- OUTSIDE RECORDS SUMMARY | 2025-04-26 10:39 | XMS_ITS | Encounter Summary ---
Author Organization [place] [address] Care Team Providers Care Driver/Sales Workers Name Role Phone Geovain Wright MD Primary Care Provider [phone] Raleigh Evangelista MD Unavailable [phone] Reina Holden APRN Unavailable [phone] Encounter Details Date Type Department Care Team (Late st Contact Info) Description 12/24/2019 Orders Only [facility] [address] [facility] [address] [place] [address] Hanane Davis APRN Social History [...] Description 06/02/2025 12:00 PM EST Office Visit [facility] Nephrology [place] [address] [facility] [address] [place] [address] Greg Leblanc MD [address] [facility] [address] [place] [address] 06/09/2025 12:00 PM EST Office Visit [facility] [address] [place] [address] Talib Martínez MD [address] [place] [address] 03/31/2026 10:30 AM EDT Office Visit [facility] [address] [facility] [address] [place] [address] 03/31/2026 11:00 AM EDT Office Visit [facility] [address] [facility] [address] [place] [address] Elizabeth Lee APRN [address] [place] [address] documented as of this encounter Procedures Procedure Name Priority Date/Time Associated Diagnosis Comments EP LAB RECORDINGS Routine 12/24/2019 3:35 PM EDT documented in this encounter Results * EP LAB RECORDINGS (12/24/2019 3:35 PM EDT) 12/24/2019 3:35 PM EDT Hanane Davis APRN CARDIAC CATH ORDERABLES Edited Result - Final [facility] 1 [place] [address] documented in this encounter Visit [...] documented as of this encounter Care Teams Driver/Sales Workers Relationship Specialty Start Date End Date Geovani Wright MD PCP - General Family Medicine 02/12/12 Raleigh Evangelista MD [address] [place] [address] [place] [address] Internal Medicine - Clinical Cardiac Electrophysiology 04/10/16 Reina Holden APRN [address] [place] [address] [place] [address] Nurse Practitioner 10/12/16 documented as of this encounter
--- OUTSIDE RECORDS SUMMARY | 2025-04-26 10:39 | XMS_ITS | Encounter Summary ---
Author Organization [place] [address] Care Team Providers Care Electrical Controls Assembler Name Role Phone Geovani Wright MD Primary Care Provider Raleigh Evangelista MD Unavailable [phone] Reina Holden APRN Unavailable [phone] Encounter Details Date Type Department Care Team (Late st Contact Info) Description 12/21/2019 Orders Only [facility] [address] [facility] [address] [place] [address] Raleigh Evangelista MD [address] [place] [address] Social History Tobacco Use Types [...] Description 06/02/2025 12:00 PM EST Office Visit [facility] Nephrology [place] [address] [place] [address] Greg Leblanc MD [address] [facility] [address] [place] [phone] 06/09/2025 12:00 PM EST Office Visit [facility] [address] [place] [address] Talib Martínez MD [address] [place] [address] 03/31/2026 10:30 AM EDT Office Visit [facility] [address] [facility] [address] [place] [address] 03/31/2026 11:00 AM EDT Office Visit [facility] [address] [facility] [address] [place] [address] Elizabeth Lee APRN [address] [place] [address] documented as of this encounter Procedures Procedure Name Priority Date/Time Associated Diagnosis Comments PACEART REPORT Routine 12/21/2019 2:36 PM EDT documented in this encounter Results * PACEART REPORT (12/21/2019 2:36 PM EDT) 12/21/2019 2:36 PM EDT Narrative [facility] - 12/21/2019 11:40 AM EDT Manual Carelink transmission for c/o heart rate in the 150s since Saturday @ 1:00pm. MDT D PPM. Current EGM AT/AFL, VS rate 158. Programmed MVP-R 60/130/130. Episodes since 10/22/2019; 100% AF. 361 fast A&V, 25 SVT, which started on 12/19/2019 @ 5:10pm and ongoing, average ventricular rate 140-158bpm. See telephone encounter in [facility] for full documentation. Macie Nam, RN, BSN us Raleigh Evangelista MD [facility] CARDIAC CATH ORDERAB LES Final Result [facility] 1 [place] [address] documented in this encounter Visit Diagnoses Not [...] documented as of this encounter Care Teams Electrical Controls Assembler Relationship Specialty Start Date End Date Geovani Wright MD PCP - General Family Medicine 02/12/12 Raleigh Evangelista MD [address] [place] [address] Internal Medicine - Clinical Cardiac Electrophysiology 04/10/16 Reina Holden APRN [address] [place] [address] [place] [address] Nurse Practitioner 10/12/16 documented as of this encounter
--- OUTSIDE RECORDS SUMMARY | 2025-04-26 10:39 | XMS_ITS | Encounter Summary ---
Author Organization [place] [address] Care Team Providers Care Automatic Nailing Machine Operator Name Role Phone Geovani Wright MD Primary Care Provider Raleigh Evangelista MD Unavailable [phone] Reina Holden APRN Unavailable [phone] Encounter Details Date Type Department Care Team (Late st Contact Info) Description 01/03/2020 Orders Only [facility] [address] [facility] [address] [place] [address] Raleigh Evangelista MD [address] [place] [address] Social History Tobacco Use Types [...] Description 06/02/2025 12:00 PM EST Office Visit [facility] Nephrology [place] [address] [facility] [address] [place] [address] Greg Leblanc MD [address] [facility] [address] [place] [address] 06/09/2025 12:00 PM EST Office Visit [facility] [address] [place] [facility] [address] Talib Martínez MD [address] [place] [address] 03/31/2026 10:30 AM EDT Office Visit [facility] [address] [facility] [address] [place] [address] 03/31/2026 11:00 AM EDT Office Visit [facility] [address] [facility] [address] [place] [address] [place], WINDOW CLEANER [address] [place] [address] documented as of this encounter Procedures Procedure Name Priority Date/Time Associated Diagnosis Comments PACEART REPORT Routine 01/03/2020 11:59 PM EDT documented in this encounter Results * PACEART REPORT (01/03/2020 11:59 PM EDT) 01/03/2020 11:5 9 PM EDT Narrative [facility] - 01/04/2020 1:10 PM EDT Remote Carelink transmission MDT D PPM- 1 wk f/u med change. Presenting EGM = AP/VS @ 86 bpm. AP = 30.1%FINANCIAL CONSULTANT = 16.2% AF burden = 65.8% Last [...] Ruthann Fajardo RN us Raleigh Evangelista MD [facility] CARDIAC CATH ORDERAB LES Final Result [facility] 1 [place], [place] [id number] documented in this encounter Visit Diagnoses Not on filedocumented in this encounter Additional Health Concerns Infection Onset Date Last Indicated Resolved Time R/O C-Diff 06/21/2021 06/21/2021 06/21/2021 11:3 0 AM EST R/O COVID-19 07/02/2021 07/02/2021 07/02/2021 7:20 PM EST R/O C-Diff 07/07/2021 07/07/2021 07/07/2021 6:23 PM EST documented as of this encounter Care Teams Automatic Nailing Machine Operator Relationship Specialty Start Date End Date Geovani Wright MD PCP - General Family Medicine 02/12/12 Raleigh Evangelista MD [address] [facility] [place] [address] Internal Medicine - Clinical Cardiac Electrophysiology 04/10/16 Reina Holden APRN [address] [facility] [place] [address] Nurse Practitioner 10/12/16 documented as of this encounter
--- OUTSIDE RECORDS SUMMARY | 2025-04-26 10:39 | XMS_ITS | Continuity of Care Document ---
Author Organization [facility] [place], [facility] [id number] Address [address] [place] [address] [place] [address] Assessment No assessment recorded. Plan of Treatment [...] Organization Details Recorded Time Sensorineural hearing loss 35422633 Active 2022 MARKIE SINGH, AUD [address] [facility], [place], [address] , [facility] [place] 3 10:23:12 Chronic atrial fibrillation 497143327 Active 2024 Juancarlos Shaffer MD [facility] [address] [place] [address], [address] , [facility] [place] 5 14:56:21 Moderate aortic valve stenosis 808727805 Active 2024 Juancarlos Shaffer MD [facility] [address], [place], [address] , [facility] [place] 5 14:56:39 Diastolic dysfunction 9824786 Active 2024 Juancarlos Shaffer MD [facility],[place] [facility] [address], [place], [address] , [facility] [place] 5 14:56:47 Essential hypertension 72717651 Active 2024 Juancarlos Shaffer MD [address] [place] [address], [address] , [facility] & [place] 5 14:56:52 Electrocardio gram abnormal 601690218 Active 2024 Juancarlos Shaffer MD [address] [place] [address], [phone] , [facility] & [place] 5 14:57:36 Coronary arteriosclero sis 33897772 Active 2024 Juancarlos Shaffer MD [address] [place] [address], [address] , [facility] & [place] 5 14:57:46 Problem Notes None recorded. Procedures Surgical History Date Name Laterality Status Provider Name and Address Organization Details Recorded Time kidney excision completed Leigh Morales [place] [facility] [place] 10/20/2024 09:49:23 Cholecystectomy completed [facility]24 09:49:44 Imaging Results None recorded. Procedure Notes None recorded. Medical Equipment None Reported. Allergies Allergen ID Allergen Name Allergen Category Reaction Reaction Severity Criticality Documentation Date Start Date Code Code System Note Provider Name and Address Organization Details Recorded Time 781119 Cipro medicatio n Not available Not available Not available 10/20/202482182 3 RxNorm Leigh Horneharpreet n null, [facility] [place] 5 09:47:07 Medications Name Sig Start Date [...] use any illicit or recreational drugs? No [email or web address] Information not available 10/20/2024 What is your level of alcohol consumption? None [email or web address] Information not available 10/20/2024 Mental Status None recorded. Family History Nothing Reported. Medical History Condition Response Diabetes Y Atrial Fibrillation Y Hypertension Y Past Encounters Encounter ID Performer Location Encounter Start Date Encounter Closed Date Diagnosis/Indication Diagnosis SNOMED-CT Code Diagnosis ICD10 Code Diagnosis IMO Codes Diagnosis Note MAGGY SAPP [facility] [place] [address] [place] [address] 03/08/2025 15:25:14 03/08/2025 15:39:03 Sensorineural hearing loss 54973036 H90.3 Health Concerns Section Related Observation LastModified by Organization Detai ls LastModified Time None Recorded Concern Status LastModified by Organization Details LastModified Time None Recorded Payers Encounter Date Sequence Insurance Name Policy Number Policy Hare Covered Member ID Hare Member ID Guarantor Name 03/08/2025 1 [id number]: JASWINDER [employer]ARY[employer] OF [facility] (MEDICARE REPLACEMENT REGIONAL PPO) [id number] Gilberto Anderson [id number] Gilberto Anderson Notes Date Note Type Note Provider Name and Address Organization Details Recorded Time 03/08/2025 text/html Patient was seen today for a hearing aid service. Cleaned and adjusted hearing aids this date. MARKIE SINGH, MAGGY [address] [facility], [place], [address], [facility] [place] 03/08/2025 15:58:43
--- OUTSIDE RECORDS SUMMARY | 2025-04-26 10:39 | XMS_ITS | Encounter Summary ---
Author Organization [place] [address] Care Team Providers Care Principal Electrical Engineer Name Role Phone Geovani Wright MD Primary Care Provider [phone] Raleigh Evangelista MD Unavailable [phone] Reina Holden APRN Unavailable [phone] Encounter Details Date Type Department Care Team (Late st Contact Info) Description 04/10/2016 Orders Only [facility] [address] [facility] [address] [place] [address] Raleigh Evangelista MD [address]11 [place] [address] Social History Tobacco Use Types [...] Description 06/02/2025 12:00 PM EST Office Visit [facility] Nephrology [address] [place] [address] Greg Leblanc MD [address] [place] [address] 06/09/2025 12:00 PM EST Office Visit [facility] [address] [place] [address] Talib Martínez MD [address] [place] [address] 03/31/2026 10:30 AM EDT Office Visit [facility] [address] [facility] [address] [place] [address] 03/31/2026 11:00 AM EDT Office Visit [facility] [address] [facility] [address] [place] [address] Elizabeth [place], DENISA [address] [place], [place] [phone] documented as of this encounter Procedures Procedure Name Priority Date/Time Associated Diagnosis Comments PACEART REPORT Routine 04/10/2016 3:09 PM EDT documented in this encounter Results * PACEART REPORT (04/10/2016 3:09 PM EDT) 04/10/2016 3:09 PM EDT Narrative [facility] - 04/10/2016 1:33 PM EDT implant report us Raleigh Evangelista MD [facility] CARDIAC CATH ORDERAB LES Final Result [facility] 1 [place] [address] documented in this encounter Visit Diagnoses Not [...] documented as of this encounter Care Teams Principal Electrical Engineer Relationship Specialty Start Date End Date Geovani Wright MD PCP - General Family Medicine 02/12/12 Raleigh Evangelista MD [address] [facility] [place] [address] Internal Medicine - Clinical Cardiac Electrophysiology 04/10/16 Reina Holden APRN [address] [place] [address] [place] [address] Nurse Practitioner 10/12/16 documented as of this encounter
--- OUTSIDE RECORDS SUMMARY | 2025-04-26 10:39 | XMS_ITS | Encounter Summary ---
Author Organization [place] [address] Care Team Providers Care Junior Software Developer Name Role Phone Geovani Wright MD Primary Care Provider [phone] Raleigh Evangelista MD Unavailable [phone] Reina Holden APRN Unavailable [phone] Encounter Details Date Type Department Care Team (Late st Contact Info) Description 10/22/2019 Orders Only [facility] [address] [facility] [address] [place] [address] Raleigh Evangelista MD [address]11 [place] [address] Social History Tobacco Use Types [...] Description 06/02/2025 12:00 PM EST Office [facility] Nephrology [place] [address] [place] [address] Greg Leblanc MD [address] [place] [address] 06/09/2025 12:00 PM EST Office Visit [facility] [address] [facility] [id number] Talib Martínez MD [address] [place] [address] 03/31/2026 10:30 AM EDT Office Visit [facility] [address] [facility] [address] [place] [address] 03/31/2026 11:00 AM EDT Office Visit [facility] [address] [facility] [address] [place] [address] Elizabeth Lee APRN [address] [place], [place] [id number] documented as of this encounter Procedures Procedure Name Priority Date/Time Associated Diagnosis Comments PACEART REPORT Routine 10/22/2019 1:36 PM EDT documented in this encounter Results * PACEART REPORT (10/22/2019 1:36 PM EDT) 10/22/2019 1:36 PM EDT Narrative [facility] - 10/22/2019 10:25 AM EDT Carelink transmission d/t patient experiencing rapid heart rate in the 150s. Current EGM AT/AFL, ventricular rate 150s. 100% AT/AFL since 10/12/2019, on warfarin. Ventricular rate during AT/AFL >150 ~10% of the time. 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 Stable lead performance. Battery longevity 4 years. Macie Nam, RN, BSN [place] Evangelista MD [facility] CARDIAC CATH ORDERAB LES Final Result [facility] 1 [place] [address] documented in this encounter Visit Diagnoses Not [...] documented as of this encounter Care Teams Junior Software Developer Relationship Specialty Start Date End Date Geovani Wright MD PCP - General Family Medicine 02/12/12 Raleigh Evangelista MD [address] [place] [address] Internal Medicine - Clinical Cardiac Electrophysiology 04/10/16 Reina Holden APRN [address] [place] [address] Nurse Practitioner 10/12/16 documented as of this encounter
--- OUTSIDE RECORDS SUMMARY | 2025-04-26 10:39 | XMS_ITS | Data Portability ---
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 Will then see him back in [...] and activity. This note was dictated using [facility] software. If something is unclear, or does not make sense, please do not hesitate to contact our office at [phone] for clarification. laura Not available 10/20/2024 14:56:13 Plan of Treatment Reminders Order Date Submit Date Provider Last Modified By Organization Details Last Modified Time Details Appointments None recorded. Lab None recorded. Referral None recorded. Procedures None recorded. Surgeries None recorded. Imaging electrocard iogram 2024 025 [address], [place], [address], 14:58:05 Medication Orders None recorded. Patient TargetsNo targets recorded. Patient InstructionsNo instructions recorded. Reason for Referral None Reported. Results Created Date Observation Date Name Description Value Unit Range Abnormal Flag Note LastModifiedBy Organization Detail LastModifiedTime 10/21/19 elect radha paz am No observ ation record ed. RAYMOND Adkins [address], [place], [address], 10/20/2024 09:51:42 10/21/19 25 10/20/2024 elect radha bagr am No observ ation record ed. [email or web address] Not Available 2024 11:12:52 Result Notes None recorded. Problems Name Problem SNOMED Code Status Onset Date Resolution Date Notes Provider Name and Address Organization Details Recorded Time Sensorineural hearing loss 82092236 Active 2022 MARKIE SINGH, AUD [address] [facility], [place], [address] , [place] [facility] 3 10:23:12 Chronic atrial fibrillation 434387956 Active 2024 Juancarlos Shaffer MD [facility] [employer],[address] [place] [address], [address] , [place] 5 14:56:21 Moderate aortic valve stenosis 227123114 Active 2024 Juancarlos Shaffer MD [facility] [employer] [facility],[address] [place], [address] , [place] 5 14:56:39 Diastolic dysfunction 0469820 Active 2024 Juancarlos Shaffer MD [facility] [employer] [facility],[address] [place], [address] , [place] 5 14:56:47 Essential hypertension 95443429 Active 2024 Juancarlos Shaffer MD [facility] [employer] [facility],[address], [place], [address] , [place] 5 14:56:52 Electrocardio gram abnormal 044981447 Active 2024 Juancarlos Shaffer MD [facility] [employer] [facility] [place], [address] , [place] 5 14:57:36 Coronary arteriosclero sis 85019260 Active 2024 Juancarlos Shaffer MD [facility] [employer] [facility],[address] [place], [address] , [place] 5 14:57:46 Problem Notes None recorded. Procedures Surgical History Date Name Laterality Status Provider Name and Address Organization Details Recorded Time kidney excision completed Leigh REAVES - [facility] [place] 10/20/2024 09:49:23 Cholecystectomy completed Leigh SPARKS [facility] [place] 10/20/2024 09:49:44 Imaging Results None recorded. Procedure Notes None recorded. Medical Equipment None Reported. Allergies Allergen ID Allergen Name Allergen Category Reaction Reaction Severity Criticality Documentation Date Start Date Code Code System Note Provider Name and Address Organization Details Recorded Time 159615 Cipro medicatio n Not available Not available Not available 10/20/2024 3 RxNorm Leigh wall null, JEAN PAUL [facility] & [place] 09:47:07 Medications Name Sig Start Date Stop [...] Updated DateTime 5 172.72 cm 33.5 kg/m2 64649.3 2 g 97 % 97 % 74 /min 100/79 mm[Hg] [facility] [place] 5 09:58:06 Social History None recorded. Functional Status Question Answer Note LastModified by Organizat ion Details LastModified Time Do you use any illicit or recreational drugs? No [email or web address] Information not available 10/20/2024 What is your level of alcohol consumption? None [email or web address] Information not available 10/20/2024 Mental Status None recorded. Family History Nothing Reported. Medical History Condition Response Diabetes Y Atrial Fibrillation Y Hypertension Y Past Encounters Encounter ID Performer Location Encounter Start Date Encounter Closed Date Diagnosis/Indication Diagnosis SNOMED-CT Code Diagnosis ICD10 Code Diagnosis IMO Codes Diagnosis Note [id number] MAGGY SAPP [facility] [place] [id number] [place] [address] [place] [address] 09/03/2022 10:20:58 09/03/2022 10:22:53 Sensorineural hearing loss 60082779 H90.3 [id number] MAGGY SAPP MV ENT[address] [place] [id number] 12/26/2022 13:36:00 12/26/2022 13:36:21 Sensorineural hearing loss 08947696 H90.3 [id number] MAGGY SAPP [facility] [place] [address] 8 01/17/2024 09:44:29 01/17/2024 10:14:52 Sensorineural hearing loss 41094626 H90.3 [id number] MAGGY SAPP ENT[address] [place] [address] 8 03/11/2024 11:58:56 03/11/2024 12:06:41 Sensorineural hearing loss 68343087 H90.3 [id number] Juancarlos Shaffer MD [address] [place] [address] [place] [address] 6 10/20/2024 09:29:01 10/20/2024 10:21:38 Heart murmur 68332563 R01.1 61040 Chronic at rial fibrillation 463805668 I48.20 450601 Cardiac pa cemaker in situ 225481720 Z95.0 322896 Moderate a ortic valve stenosis 117238366 I35.0 545379 Diastolic dysfunction 35 44462 I51.89 575120 Essential hypertension 05670900 I10 86414 Electrocar diogram abnormal 057817389 R94.31 031759 Coronary arteriosclerosis 34474706 I25.10 072417 [id number] MAGGY SAPP [facility] [address] [place] [address] [place] [id number] 12/14/2024 12:33:36 12/14/2024 12:58:44 Sensorineural hearing loss 23070978 H90.3 [id number] MAGGY SAPP MV [facility] [place] [address] [place] [id number] 01/22/2025 11:01:32 01/22/2025 11:01:55 Sensorineural hearing loss 98412169 H90.3 MAGGY SAPP [facility] [address] [place] [address] [address] [place] [address] 03/08/2025 15:25:14 03/08/2025 15:39:03 Sensorineural hearing loss 88663185 H90.3 [id number] MAGGY SAPP MV ENTLC [address] [place] [address] 03/12/2025 09:56:27 03/12/2025 10:00:47 Sensorineural hearing loss 72728355 H90.3 Health Concerns Section Related Observation LastModified by Organization Detai ls LastModified Time None Recorded Concern Status LastModified by Organization Details LastModified Time None Recorded Advance Directives Directive None Recorded Payers Insurance Date Sequence Insurance Name Policy Number Policy Hare Covered Member ID Hare Member ID Guarantor Name 03/12/2025 [employer] Gilberto ANDERSON Gilbertoricardo Anderson 03/12/2025 1 [place] Gilberto Apariciochas [id number] Gilberto Apariciochas 03/12/2025 1 [place] JASWINDER BOY[place] OF [place] [employer] ACCESS (MEDICARE REPLACEMENT REGIONAL O) [id number] Gilberto Apariciotejaskaela [id number] Gilbertoricardo Apariciotejaskaela Notes Date Note Type Note Provider Name and Address Organization Details Recorded Time 10/20/2024 text/html patient is here to establish care. Recently underwent an echocardiogram given his cardiac murmur. The echocardiogram had increased velocities signifying moderate aortic insufficiency and most likely moderate aortic stenosis not severe. Pressures in the heart were normal. Function of the heart normal. Mild mitral insufficiency. He has chronic atrial fibrillation. Pacemaker was inserted October 16 for a new battery. That was just last week. Here to establish care. He has had a history of a cardiac catheterization over 10 years ago. Recent echocardiogram. No chest pain pressure or tightness. Blood pressure and heart rate have been under good control Juancarlos Shaffer MD [address] [place] [address],[address], [place], [address], [facility] 10/20/2024 14:58:07 12/14/2024 text/html Patient was seen today for a hearing aid service. MARKIE SINGH, MAGGY [address] , [place], [address], [facility] - [facility] [place] 12/14/2024 13:16:55 01/22/2025 text/html Patient was seen today for a hearing aid service. Cleaned and adjusted hearing aids this date. MAGGY SAPP [address] [facility],[address], [place], [address], [facility] - [facility]NT [facility] [place] 01/22/2025 11:04:46 03/08/2025 text/html Patient was seen today for a hearing aid service. Cleaned and adjusted hearing aids this date. MARKIE SINGH, MAGGY [address] , [place], [address], [facility] - [facility] [place] 03/08/2025 15:58:43 03/12/2025 text/html Mr. Anderson was seen today for a hearing aid fitting via [facility]. Hearing Aids: [employer] In[employer] [id number] HS Warranty: 03/27/2028 MARKIE SINGH, MAGGY [address] [facility],[address], [place], [address], [facility] - [facility]NT [facility] [place] 03/12/2025 10:05:51
--- OUTSIDE RECORDS SUMMARY | 2025-04-26 10:41 | XMS_ITS | Continuity of Care Document ---
Author Organization [facility] Address [place] [address] Phone Care Team Providers Care Pediatric Care Coordinator Name Role Phone Geovani Wright MD Primary Care Provider [phone] Padmini Evangelista MD Unavailable [phone] Reina Holden APRN Unavailable [phone] Encounters Date Type Department Care Team Description 5 Telephone [facility] [address] [facility] [address] [place] [address] Ray Clemente MA Other (Scheduled transmission) 5 Orders Only [facility] [address] [facility] [address] [place] [address] Padmini Evangelista MD Vector Remote Device 5 Refill [facility] Nephrology [address] [place], [place] [id number] Nilsa Petersen APRN Medication Refill 5 1:30 PM EDT Office Visit [facility] [address] [facility] [address] [place] [address] Leighton Tafoya, RN Pacemaker reprogramming/check (Primary Dx); RBBB; Sinus node dysfunction (HCC); Pacemaker; Typical atrial flutter (HCC); Atrial flutter with rapid ventricular response (HCC); Paroxysmal A-fib (HCC) 5 2:00 PM EDT Office Visit [facility] [address] [place] [address] [place] [phone] Padmini Evangelista MD RBBB (Primary Dx); Pacemaker; Sinus node dysfunction (HCC); Paroxysmal A-fib (HCC) 5 3:30 PM EDT Office Visit [facility] Nephrology [place] [address] [place] [address] Greg Leblanc MD Stage 4 chronic kidney disease (HCC) (Primary Dx); Hypocalcemia 5 Telephone [facility] [address] [place] [address] [place] [phone] Padmini Evangelista MD Other 5 3:45 PM EDT Office Visit [facility] Nephrology [place] [address] [place] [address] Greg Leblanc MD Stage 4 chronic kidney disease (HCC) (Primary Dx); Hyperkalemia; Hypocalcemia; Vitamin D deficiency 5 8:29 PM EDT - 5 11:[address] [facility] [place] [phone] Bob Arana MD Hyperkalemia (Primary Dx); Hx of chronic kidney disease Discharge Disposition: Home or Self Care 5 10:30 AM EDT Office Visit [facility] Nephrology [place] [address] [place] [address] Nilsa Petersen APRN Stage 4 chronic kidney disease (HCC) (Primary Dx); High blood pressure associated with diabetes (HCC) 5 Orders Only [facility] [address] [place] [address] [place] [phone] Padmini Evangelista MD Vector Remote Device 5 Telephone [facility] Nephrology [place] [address] [place] [address] Samantha Feliciano, RMSeven Follow-up 5 Refill [facility] Nephrology [place] [address] [place], [place] [address] Nilsa Petersen APRN Medication Refill 5 Telephone [facility] Nephrology [place] [address] [place] [address] Samantha Feliciano RMA Follow-up 5 Telephone [facility] [address] [place], [place] [address]vd [place] [address] Talib Martínez MD Referral 5 Telephone [facility] Nephrology [place] [address] [place] [address] Samantha Feliciano RMA Anemia 5 10:00 AM EDT Office Visit [facility] Nephrology [place] [address] [place] [address] Nilsa Petersen APRN Stage 4 chronic kidney disease (HCC) (Primary Dx); High blood pressure associated with diabetes (HCC) 5 9:30 AM EDT Office Visit [facility] [address] [place] [address] [place] [phone] Romeo Martinez MA Pacemaker reprogramming/check (Primary Dx); RBBB; Pacemaker; Sinus node dysfunction (HCC); Atrial flutter with rapid ventricular response (HCC); Paroxysmal A-fib (HCC); Atrial fibrillation with RVR (HCC) 5 Orders Only [facility] [address] [place] [address] [address] [place] [address] Padmini Evangelista MD Vector Remote Device 5 10:07 AM EDT Anesthesia Event [facility] [place] [address] Hood Schwartz MD Collins, Angela, APRN 5 10:10 AM EDT - 5 11:10 AM EDT 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 [address] Padmini Evangelista MD REPLACE PERMANENT PACEMAKER GENERATOR ONLY 5 8:12 AM EDT - 5 12:30 PM EDT Hospital Encounter ED[facility] CARD CATH REC [facility] [place] [address] Padmini Evangelista MD Preop testing (Primary Dx); Pacemaker battery depletion; Sinus node dysfunction (HCC); Atrial fibrillation with RVR (HCC) Discharge Disposition: Home or Self Care 5 Patient Outreach [facility] [address] [place] [address] Brooklynn Porras CPhT Medication Management (Clinical Recreation Teacher: slurry control tender [phone]/) 5 Orders Only [facility] [address] [facility] [address] [place] [address] Reina Holden APRN Pacemaker battery depletion (Primary Dx); Sinus node dysfunction (HCC) 5 Telephone [facility] [address] [facility] [address] [place] [address] Franklin Ruffin MA Procedure (Pre procedure instructions) 5 Orders Only [facility] [address] [facility] [address] [place] [address] Padmini Evangelista MD Vector Remote Device 5 Telephone [facility] [address] [facility] [address] [place] [address] Leighton Tafoya, RN Pacemaker (Monthly transmission) 5 Patient Outreach [facility] [address] [place] [address] Geremias Lara CPhT Medication Management (Clinical Recreation Teacher: slurry control tender [phone] ) 5 10:45 AM EST Office Visit [facility] Nephrology [address] [place], [place] [phone] Nilsa Petersen APRN Stage 4 chronic kidney disease (HCC) (Primary Dx); High blood pressure associated with diabetes (HCC) 5 Orders Only [facility]phrology [place] [address] [facility] [address] [place] [address] Greg Leblanc MD High blood pressure associated with diabetes (HCC) (Primary Dx) 5 Telephone [facility] [address] [facility] [address] [place] [phone] Karla Carroll MA Results (remote device transmission) 5 Orders Only [facility] [address] [place] [address] [place] [phone] Padmini Evangelista MD Vector Remote Device 5 3:30 PM EST Office Visit [facility] Nephrology [address] [place] [address] Greg Leblanc MD Stage 4 chronic kidney disease (HCC) (Primary Dx) 5 Telephone [facility] [address] [place] [address] [place] [phone] Kathy Colbert (ELLA D PPM. Carelink. TC. ) 5 Orders Only [facility] [address] [place] [address] [place] [phone] Padmini Evangelista MD Vector Remote Device 4 Telephone [facility] [address] [place] [address] [place] [phone] Felicia Fajardo RN Results (Carelink results- monthly nearing DOORPERSON) 4 Orders Only [facility] [address] [place] [address] [place] [phone] Padmini Evangelista MD Vector Remote Device 4 Telephone [facility] [address] [place] [address] [place] [phone] Leighton Tafoya, RN Pacemaker (Monthly battery check transmission. ) 4 Orders Only [facility] [address] [facility] [address] [place] [address] Padmini Evangelista MD Vector Remote Device 4 11:04 AM EDT - 4 11:59 PM EDT Hospital Encounter [facility] DS [address] [place], [place] [id number] Paroxysmal A-fib (HCC) Discharge Disposition: Home or Self Care 4 10:00 AM EDT Office Visit [facility] [address] [place] [address] [address] [place] [address] Ray Clemente MA Pacemaker (Primary Dx); Sinus node dysfunction (HCC); Pacemaker reprogramming/check 4 10:30 AM EDT Office Visit [facility] [address] [place] [address] [address] [place] [address] Elizabeth Lee APRN Typical atrial flutter (HCC) (Primary Dx); Paroxysmal A-fib (HCC); Sinus node dysfunction (HCC); Pacemaker; Essential hypertension; Hyperlipidemia associated with type 2 diabetes mellitus (HCC); RBBB; Acute on chronic diastolic (congestive) heart failure (HCC) suspected 4 Telephone [facility] [address] [facility] [address] [place] [address] Romeo Martinez MA Pacemaker Check (Scheduled Device remote check. 7 months until SURI.) 4 Orders Only [facility] [address] [facility] [address] [place] [address] Padmini Evangelista MD Vector Remote Device 4 Patient Outreach [facility] [address] [place] [address] Sangeeta Bright RN Central Patient Navigator Outreach 4 Travel 4 12:45 PM EDT - 4 3:[address] [facility] [place] [address] Jai Dixon MD KIERRA (acute kidney injury) (Primary Dx) Discharge Disposition: Home or Self Care 4 Orders Only [facility] [address] [facility] [address] [place] [address] Padmini Evangelista MD Vector Remote Device 4 Telephone [facility] [address] [facility] [address] [place] [address] Padmini Evangelista MD Other 3 Orders Only [facility] [address] [facility] [address] [place] [address] Padmini Evangelista MD Vector Remote Device 3 9:32 AM EST - 3 11:59 PM EST Hospital Encounter [facility] W[facility] Center [address] [facility] [place] [address] Demetrius Perez MD Venous insufficiency of both lower extremities (Primary Dx); Lymph edema Discharge Disposition: Home or Self Care 3 Telephone [facility] [address] [facility] [address] [place] [phone] Padmini Evangelista MD Reschedule 3 Telephone [facility] [address] [place] [address] Demetrius Perez MD Cancelled Appointment (Pt cancelled today's appointment due to illness. He was advised to cut off his wraps and rewrap his legs with Paula Bandages.) 3 Telephone [facility] [place] [address] [facility] [place] [address] Lili Haro RN Other 3 9:40 AM EST - 3 11:59 PM EST Hospital Encounter [facility] [place] [address] [place] [address] Demetrius Perez MD Venous insufficiency of both lower extremities (Primary Dx); Chronic venous hypertension (idiopathic) with ulcer and inflammation of bilateral lower extremity (HCC) Discharge Disposition: Home or Self Care 3 8:58 AM EDT - 3 11:59 PM EDT Hospital Encounter [facility] [place] [address] Demetrius Perez MD Venous insufficiency of both lower extremities (Primary Dx); Lymph edema Discharge Disposition: Home or Self Care 3 Orders Only [facility] [address] [facility] [address] [place] [address] Padmini Evangelista MD Vector Remote Device 3 Orders Only [facility] [address] [facility] [address] [place] [address] Padmini Evangelista MD Vector Remote Device 3 Telephone [facility] [address] [place] [address] Talib Martínez MD 3 8:42 AM EDT - 3 11:59 PM EDT Hospital Encounter [facility] [address] 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); Type 2 diabetes mellitus with complication, with long-term current use of insulin (HCC); Lymph edema Discharge Disposition: Home or Self Care 3 Orders Only [facility] [address] [facility] [address] [place] [phone] Padmini Evangelista MD Vector Remote Device 3 Telephone [facility] [address] [place] [address] Talib Martínez MD Other 3 9:30 AM EDT Office Visit [facility] [address] [place] [address] Talib Martínez MD Personal history of colonic polyps (Primary Dx) 3 Orders Only [facility] [address] [facility] [address] [place] [phone] Padmini Evangelista MD Vector Remote Device 3 Telephone [facility] [address] [place] [address] [address] [place] [address] Felicia Fajardo RN Results (Carelink results) 3 Refill [facility] [address] [place] [address] [place] [phone] Padmini Evangelista MD Medication Refill 2 Telephone [facility] [address] [place] [address] [place] [phone] Cluadia Colbertgabby Auguste Other (Carelink: jerilyn ) 2 Refill [facility] [address] [place] [address] [place] [phone] Padmini Evangelista MD Medication Refill 2 Refill [facility] [address] [place] [address] [address] [place] [address] Hanane Davis APRN Medication Refill 2 Orders Only [facility] [address] [facility] [address] [place] [address] Padmini Evangelista MD Vector Remote Device 2 Telephone [facility] [address] [place] [address] [address] [place] [address] Felicia Fajardo RN Follow-up (Patient missed sending in remote to check on rhythm status) 2 Telephone [facility] [address] [place] [address] [place] [phone] Padmini Evangelista MD Other 2 Telephone [facility] [address] [place] [phone] Padmini Evangelista MD Medication Question 2 11:00 AM EDT Office Visit [facility] [address] [place] [phone] Padmini Evangelista MD Paroxysmal A-fib (HCC) (Primary Dx); Pacemaker 2 10:30 AM EDT Office Visit [facility] [address] [place] [phone] Sangeeta Nam RN Sinus node dysfunction (HCC) (Primary Dx); Atrial fibrillation with RVR (HCC); Atrial flutter with rapid ventricular response (HCC); Pacemaker; Pacemaker reprogramming/check 2 Telephone [facility] [address] [place] [phone] Felicia Fajardo RN Results (Carelink results) 2 Orders Only [facility] [address] [place] [phone] Padmini Evangelista MD Vector Remote Device 2 Telephone [facility] [address] [place] [address] [place] [phone] Padmini Evangelista MD Other 2 Telephone [facility] [address] [place] [phone] Padmini Evangelista MD Reschedule 2 Orders Only [facility] [address] [place] [phone] Jamison Buckley MA 2 Telephone [facility] [address] [facility] [address] [place] [address] Felicia Fajardo RN Results (Carelink results) 2 9:00 AM EDT Clinical Support [facility] [address] [facility] [address] [place] [address] Felicia Fajardo RN Pacemaker (Primary Dx); Sinus node dysfunction (HCC); Sinus bradycardia 2 Refill [facility] [address] [facility] [address] [place] [address] Padmini Evangelista MD Medication Refill 2 Refill [facility] [address] [place] [address] [address] [place] [address] Padmini Evangelista MD Medication Refill 2 10:27 AM EST - 2 2:[address] [facility] [address] [place] [phone] Georgi Polanco MD Right flank pain (Primary Dx); Diarrhea, unspecified type Discharge Disposition: Home or Self Care 2 Telephone [facility] [address] [facility] [address] [place] [address] Padmini Evangelista MD Other 2 Travel 2 6:03 PM EST - 2 11:[address] [facility] [place] [address] Scott Zapata MD Nausea and vomiting, intractability of vomiting not specified, unspecified vomiting type (Primary Dx) Discharge Disposition: Home or Self Care 1 10:17 PM EST - 1 3:41 PM EST Hospital Encounter [facility] [place] [address] Joseph Turner MD Weprin, Ryan D, MD Atrial fibrillation with RVR (HCC) (Primary Dx); Hyperglycemia Discharge Disposition: Home or Self Care 1 Travel 1 Travel 1 7:55 AM EST - 1 11:59 PM EST Hospital Encounter [facility] [address] [place] [address] Demetrius Perez MD Pressure ulcer of ischium, stage 3, left (HCC) (Primary Dx); Type 2 diabetes mellitus with complication, with long-term current use of insulin (HCC) Discharge Disposition: Home or Self Care 1 Travel 1 7:31 AM EST - 1 11:59 PM EST Hospital Encounter [facility] Wound Care [address] [place] [address] Demetrius Perez MD Pressure ulcer of ischium, stage 3, left (HCC) (Primary Dx); Type 2 diabetes mellitus with complication, with long-term current use of insulin (HCC) Discharge Disposition: Home or Self Care 1 7:44 AM EST - 1 11:59 PM EST Hospital Encounter [facility] [address] [place] [address] Demetrius Perez MD Pressure ulcer of ischium, stage 3, left (HCC) (Primary Dx) Discharge Disposition: Home or Self Care 1 Travel 1 7:21 AM EST - 1 11:59 PM EST Hospital Encounter [facility] Wound Care [address] [place] [address] Demetrius Perez MD Pressure ulcer of ischium, stage 3, left (HCC) (Primary Dx) Discharge Disposition: Home or Self Care 1 7:42 AM EDT - 1 11:59 PM EDT Hospital Encounter [facility] [address] [place] [address] Demetrius Perez MD Pressure ulcer of ischium, stage 3, left (HCC) (Primary Dx); Type 2 diabetes mellitus with complication, with long-term current use of insulin (HCC); Dehiscence of operative wound, initial encounter Discharge Disposition: Home or Self Care 1 7:42 AM EDT - 1 11:59 PM EDT Hospital Encounter [facility] [address] [place] [address] Demetrius Perez MD Pressure ulcer of ischium, stage 3, left (HCC) (Primary Dx) Discharge Disposition: Home or Self Care 1 Travel 1 7:38 AM EDT - 1 11:59 PM EDT Hospital Encounter [facility] [address] [place] [address] Demetrius Perez MD Pressure ulcer of left buttock, stage 4 (HCC) (Primary Dx); Type 2 diabetes mellitus with complication, with long-term current use of insulin (HCC); Dehiscence of operative wound, initial encounter Discharge Disposition: Home or Self Care 1 Travel 1 7:45 AM EDT - 1 11:59 PM EDT Hospital Encounter [facility] [address] [place] [address] Demetrius Perez MD Pressure ulcer of left buttock, stage 4 (HCC) (Primary Dx) Discharge Disposition: Home or Self Care 1 Telephone [facility] [address] [phone] Padmini Evangelista MD Other (medication question ) 1 7:45 AM EDT - 1 11:59 PM EDT Hospital Encounter [facility] [address] [place] [address] Demetrius Perez MD Pressure ulcer of left buttock, stage 4 (HCC) (Primary Dx); Type 2 diabetes mellitus with complication, with long-term current use of insulin (HCC); Dehiscence of operative wound, initial encounter Discharge Disposition: Home or Self Care 1 Telephone [facility] [address] [place] [address] Shayna Laird RN 1 Telephone [facility] [address] [place] [address] Shayna Laird RN 1 Travel 1 7:27 AM EDT - 1 11:59 PM EDT Hospital Encounter [facility] [address] [place] [address] Demetrius Perez MD Pressure ulcer of ischium, stage 3, left (HCC) Discharge Disposition: Home or Self Care 1 Travel 1 7:45 AM EDT - 1 11:59 PM EDT Hospital Encounter [facility] [address] [place] [address] Demetrius Perez MD Pressure ulcer of left buttock, stage 4 (HCC) (Primary Dx); Type 2 diabetes mellitus with complication, with long-term current use of insulin (HCC); Dehiscence of operative wound, initial encounter Discharge Disposition: Home or Self Care 1 Travel 1 7:35 AM EDT - 1 11:59 PM EDT Hospital Encounter [facility] [address] [place] [address] Demetrius Perez MD Pressure ulcer of left buttock, stage 4 (HCC) (Primary Dx); Type 2 diabetes mellitus with complication, with long-term current use of insulin (HCC); Dehiscence of operative wound, initial encounter Discharge Disposition: Home or Self Care 1 Travel 1 7:34 AM EDT - 1 11:59 PM EDT Hospital Encounter [facility] [address] [place] [address] Demetrius Perez MD Pressure ulcer of left buttock, stage 4 (HCC) (Primary Dx) Discharge Disposition: Home or Self Care 1 Travel 1 7:45 AM EDT - 1 11:59 PM EDT Hospital Encounter [facility] [address] [address]. [place] [address] Demetrius Perez MD Pressure ulcer of left buttock, stage 4 (HCC) (Primary Dx) Discharge Disposition: Home or Self Care 1 Travel 1 7:33 AM EDT - 1 11:59 PM EDT Hospital Encounter [facility] [address] [place] [address] Demetrius Perez MD Pressure ulcer of left buttock, stage 4 (HCC) (Primary Dx); Type 2 diabetes mellitus with complication, with long-term current use of insulin (HCC); Dehiscence of operative wound, initial encounter Discharge Disposition: Home or Self Care 1 Travel 1 7:48 AM EDT - 1 11:59 PM EDT Hospital Encounter [facility] [address] [place] [address] Demetrius Perez MD Pressure ulcer of left buttock, stage 4 (HCC) (Primary Dx); Type 2 diabetes mellitus with complication, with long-term current use of insulin (HCC); Dehiscence of operative wound, initial encounter Discharge Disposition: Home or Self Care 1 Travel 1 2:30 PM EDT Office Visit [facility] [address] [address] Padmini Evangelista MD Pacemaker (Primary Dx); Pacemaker reprogramming/check; Paroxysmal atrial fibrillation (HCC) 1 Travel 1 7:45 AM EDT - 1 11:59 PM EDT Hospital Encounter [facility] [address] [place] [address] Demetrius Perez MD Pressure ulcer of left buttock, stage 4 (HCC) (Primary Dx); Type 2 diabetes mellitus with complication, with long-term current use of insulin (HCC); Dehiscence of operative wound, initial encounter Discharge Disposition: Home or Self Care 1 Travel 1 7:46 AM EDT - 1 11:59 PM EDT Hospital Encounter [facility] [place] [address] [place] [address] Demetrius Perez MD Pressure ulcer of left buttock, stage 4 (HCC) (Primary Dx); Type 2 diabetes mellitus with complication, with long-term current use of insulin (HCC); Dehiscence of operative wound, initial encounter Discharge Disposition: Home or Self Care 1 Telephone [facility] [address] [place] [address] [address] [place] [address] Padmini Evangelista MD Reschedule (r/s per [place] 11/01 @ 1 pm) 1 Travel 1 7:47 AM EST - 1 11:59 PM EST Hospital Encounter [facility] [place] [address] [place] [address] Demetrius Perez MD Pressure ulcer of left buttock, stage 4 (HCC) (Primary Dx); Type 2 diabetes mellitus with complication, with long-term current use of insulin (HCC); Dehiscence of operative wound, initial encounter Discharge Disposition: Home or Self Care 1 Telephone [facility] [address] [place] [address] [address] [place] [address] Padmini Evangelista MD Other 1 Telephone [facility] [address] [place] [address] [address] [place] [address] Padmini Evangelista MD Reschedule (r/s 08/02 to 09/13 @ 1:30) 1 Telephone [facility] [address] [place] [address] [address] [place] [address] Leighton Tafoya, LARRY Other (remote results) 1 4:00 PM EST Clinical Support [facility] [address] [place] [address] [address] [place] [address] Leighton Tafoya RN Paroxysmal atrial fibrillation (HCC) (Primary Dx); Sinus node dysfunction (HCC); Acute on chronic diastolic (congestive) heart failure (HCC) suspected; Sinus bradycardia; Pacemaker 1 Telephone [facility] [address] [facility] [address] [place] [address] Padmini Evangelista MD Other (sending remote trans 08/04) 1 Travel 1 7:43 AM EST - 1 11:59 PM EST Hospital Encounter [facility] [address] [place] [place] [address] Demetrius Perez MD Pressure ulcer of left buttock, stage 4 (HCC) (Primary Dx); Type 2 diabetes mellitus with complication, with long-term current use of insulin (HCC); Dehiscence of operative wound, initial encounter Discharge Disposition: Home or Self Care 1 Travel 1 8:38 AM EST - 1 11:59 PM EST Hospital Encounter [facility] [address] [place] [address] Demetrius Perez MD Pressure ulcer of left buttock, stage 4 (HCC) (Primary Dx); Type 2 diabetes mellitus with complication, with long-term current use of insulin (HCC); Dehiscence of operative wound, initial encounter Discharge Disposition: Home or Self Care 1 Travel 1 8:54 AM EST - 1 11:59 PM EST Hospital Encounter [facility] [address] [place] [address] Demetrius Perez MD Pressure ulcer of left buttock, stage 4 (HCC) (Primary Dx); Type 2 diabetes mellitus with complication, with long-term current use of insulin (HCC) Discharge Disposition: Home or Self Care 1 Telephone [facility] [address] [place] [address] Demetrius Perez MD 0 Telephone [facility] [place] [address] [place] [place] [address] Iram Castellanos RN Other 0 Travel 0 8:40 AM EST - 0 11:59 PM EST Hospital Encounter [facility] [place] [address] [place] [place] [address] Demetrius Perez MD Pressure ulcer of left buttock, stage 4 (HCC) (Primary Dx) Discharge Disposition: Home or Self Care 0 Travel 0 8:28 AM EST - 0 11:59 PM EST Hospital Encounter [facility] [address] [place] [place] [address] Demetrius Perez MD Pressure ulcer of left buttock, stage 4 (HCC) (Primary Dx); Type 2 diabetes mellitus with complication, with long-term current use of insulin (HCC); Dehiscence of operative wound, initial encounter Discharge Disposition: Home or Self Care 0 Travel 0 9:33 AM EST - 0 11:59 PM EST Hospital Encounter [facility] [place] [address] [place] [place] [address] Demetrius Perez MD Pressure ulcer of left buttock, stage 4 (HCC) (Primary Dx) Discharge Disposition: Home or Self Care 0 Telephone [facility] [address] [address] Padmini Evangelista MD Other 0 Travel 0 9:04 AM EST - 0 11:59 PM EST Hospital Encounter [facility] [place] [address] [place] [place] [address] Demetrius Perez MD Type 2 diabetes mellitus with complication, with long-term current use of insulin (HCC) (Primary Dx); Dehiscence of operative wound, initial encounter Discharge Disposition: Home or Self Care 0 Travel 0 8:58 AM EST - 0 11:59 PM EST Hospital Encounter [facility] [address] [place] [address] Demetrius Perez MD Type 2 diabetes mellitus with complication, with long-term current use of insulin (HCC) (Primary Dx); Pressure ulcer of left buttock, stage 4 (HCC) Discharge Disposition: Home or Self Care 0 3:04 PM EST - 0 1:30 PM EST Hospital Encounter [facility] 3C PULMON[facility] [place] [address] Scott Zapata MD Bajwa, Kalen S, Anurag Tierney MD Buttock wound, left, sequela (Primary Dx) Discharge Disposition: Home Health Care Svc 0 4:00 PM EST - 0 5:10 PM EST [facility] [place] [address] Manuel العلي MD DEBRIDEMENT OF ULCER DECUBITUS SACRAL / ISCHIAL / HIP / COVERS FLAP 0 5:39 PM EST Anesthesia Event ED[facility] [place] [address] Abdias Hoyt MD Wiseman, Courtney 0 Orders Only [facility] [address] [facility] [address] [place] [address] Manuel العلي MD Buttock wound, left, sequela (Primary Dx) 0 Travel 0 Travel 0 Telephone [facility] [address] [facility] [address] [place] [address] Felicia Fajardo RN Other (carelink results) 0 9:00 AM EDT Clinical Support [facility] 7[address] [facility] [address] [place] [address] Felicia Fajardo RN Sinus node dysfunction (HCC) (Primary Dx); Sinus bradycardia; Pacemaker 0 Travel 0 Telephone [facility] 7[address] [facility] [address] [place] [address] Sangeeta Nam RN Other (Needs to send Carelink transmission) 0 Telephone [facility] Pulmonology [address] [place] [address] Geovani Driscoll MD Non-scheduled Referral 0 Telephone [facility] Pulmonology [address] [address] Geovani Driscoll MD Schedule Appointment 0 External Contact [facility] Pulmonology [address] [address] Víctor Terry MD KIA (obstructive sleep apnea) (Primary Dx); COPD, very severe (HCC); SOB (shortness of breath); Acute on chronic diastolic congestive heart failure (HCC); Atrial fibrillation with rapid ventricular response (HCC); Essential hypertension; Paroxysmal A-fib (HCC); Paroxysmal atrial fibrillation (HCC) 0 5:00 AM EDT - 0 11:59 PM EDT Hospital Encounter [facility] Referral Lab [address] [place] [address] Discharge Disposition: Home or Self Care 0 External Contact [facility] Pulmonology [address] [address] Víctor Terry MD KIA (obstructive sleep apnea) (Primary Dx); COPD, very severe (HCC); SOB (shortness of breath); Acute on chronic diastolic congestive heart failure (HCC); Paroxysmal atrial fibrillation (HCC); Sinus node dysfunction (HCC); Type 2 diabetes mellitus with complication, with long-term current use of insulin (HCC); Typical atrial flutter (HCC) 0 5:00 AM EDT - 0 11:59 PM EDT Hospital Encounter [facility] Referral Lab 1 [place] [address] Discharge Disposition: Home or Self Care 0 External Contact [facility] Pulmonology [place] [phone] Víctor Terry MD KIA (obstructive sleep apnea) (Primary Dx); COPD, very severe (HCC); SOB (shortness of breath); Acute on chronic diastolic congestive heart failure (HCC); Intestinal mass; Paroxysmal atrial fibrillation (HCC); Type 2 diabetes mellitus with complication, with long-term current use of insulin ([facility]) 0 External Contact [place] [address] Víctor Terry MD KIA (obstructive sleep apnea) (Primary Dx); COPD, very severe (HCC); SOB (shortness of breath); Acute on chronic diastolic congestive heart failure (HCC); Hyperlipidemia associated with type 2 diabetes mellitus (HCC); Paroxysmal A-fib (HCC); Type 2 diabetes mellitus with complication, with long-term current use of insulin (HCC) 0 5:00 AM EDT - 0 11:59 PM EDT Hospital Encounter [facility] Referral Lab 1 [place] [address] Discharge Disposition: Home or Self Care 0 External Contact [facility] Pulmonology [address] [address] Víctor Terry MD KIA (obstructive sleep apnea) (Primary Dx); COPD, very severe (HCC); SOB (shortness of breath); Acute on chronic diastolic congestive heart failure (HCC); Atrial fibrillation with rapid ventricular response (HCC); Chronic venous hypertension involving both sides; CKD stage 2 due to type 2 diabetes mellitus (HCC); Encephalopathy acute; Hypertension associated with diabetes (HCC); Paroxysmal A-fib (HCC); Type 2 diabetes mellitus with complication, with long-term current use of insulin (HCC) 0 5:00 AM EDT - 0 11:59 PM EDT Hospital Encounter [facility] Referral Lab 1 [place] [address] Discharge Disposition: Home or Self Care 0 External Contact [place] [address] Víctor Terry MD KIA (obstructive sleep apnea) (Primary Dx); COPD, very severe (HCC); SOB (shortness of breath); Acute on chronic diastolic congestive heart failure (HCC); Atrial fibrillation with rapid ventricular response (HCC); Essential hypertension; Paroxysmal A-fib (HCC) 0 External Contact [place] [address] Domo Navas MD COPD, very severe (HCC) (Primary Dx) 0 5:00 AM EDT - 0 11:59 PM EDT Hospital Encounter [facility] Referral Lab 1 [place] [address] Discharge Disposition: Home or Self Care 0 External Contact [place] [address] Domo Navas MD COPD, very severe (HCC) (Primary Dx) 0 7:24 PM EDT - 0 11:59 PM EDT Hospital Encounter [facility] 1 [place] [address] Jermaine Washburn MD Pain Discharge Disposition: Home or Self Care 0 Travel 0 5:00 AM EDT - 0 7:23 PM EDT Hospital Encounter [facility] Referral Lab 1 [place] [address] Discharge Disposition: Home or Self Care 0 External Contact [facility] [address] [address] Domo Navas MD KIA (obstructive sleep apnea) (Primary Dx) 0 5:00 AM EDT - 0 11:59 PM EDT Hospital Encounter [facility] Referral Lab 1 [place] [address] Discharge Disposition: Home or Self Care 0 5:00 AM EDT Hospital Encounter [facility] Referral Lab 1 [place] [address] 0 External Contact [facility] [address] [address] Víctor Terry MD COPD, very severe (HCC) (Primary Dx); KIA (obstructive sleep apnea); SOB (shortness of breath); Atrial flutter with rapid ventricular response (HCC); Essential hypertension; Paroxysmal A-fib (HCC) 0 5:00 AM EDT - 0 11:59 PM EDT Hospital Encounter [facility] Referral Lab 1 [place] [address] Discharge Disposition: Home or Self Care 0 External Contact [facility] [address] [address] Víctor Terry MD COPD, very severe (HCC) (Primary Dx); KIA (obstructive sleep apnea); SOB (shortness of breath); Acanthosis nigricans; Essential hypertension; Acute respiratory failure with hypoxia (HCC) 0 External Contact [facility] [address] [address] Víctor Terry MD COPD, very severe (HCC) (Primary Dx); KIA (obstructive sleep apnea); SOB (shortness of breath); Atrial flutter with rapid ventricular response (HCC); Essential hypertension 0 Telephone [facility] [address] [address] Padmini Evangelista MD Other (Clarification on medication dosage ) 0 5:00 AM EDT - 0 11:59 PM EDT Hospital Encounter [facility] Referral Lab 1 [place] [address] Discharge Disposition: Home or Self Care 0 External Contact [facility] [place] [phone] Víctor Terry MD COPD, very severe (HCC) (Primary Dx); KIA (obstructive sleep apnea) 0 5:00 AM EDT - 0 11:59 PM EDT Hospital Encounter [facility] 1 [place] [address] Discharge Disposition: Home or Self Care 0 External Contact [facility] [address] [address] Domo Navas MD COPD, very severe (HCC) (Primary Dx) 0 5:00 AM EDT - 0 11:59 PM EDT Hospital Encounter [facility] 1 [place] [address] Discharge Disposition: Home or Self Care 0 External Contact [facility] [place] [phone] Domo Navas MD COPD, very severe (HCC) (Primary Dx) 0 5:00 AM EDT - 0 11:59 PM EDT Hospital Encounter [facility] 1 [place] [id number] Discharge Disposition: Home or Self Care 0 External Contact [facility] [address] [address] Domo Navas MD COPD, very severe (HCC) (Primary Dx) 0 5:00 AM EDT - 0 11:59 PM EDT Hospital Encounter [facility] 1 [place] [id number] Discharge Disposition: Home or Self Care 0 5:00 AM EDT Hospital Encounter [facility] 1 [place] [address] 0 External Contact [facility] [address] [address] Víctor Terry MD COPD, very severe (HCC) (Primary Dx); KIA (obstructive sleep apnea) 0 5:00 AM EDT - 0 11:59 PM EDT Hospital Encounter [facility] 1 [place] [id number] Discharge Disposition: Home or Self Care 0 External Contact [facility] [address] [address] Domo Navas MD COPD, very severe (HCC) (Primary Dx) 0 5:00 AM EDT - 0 11:59 PM EDT Hospital Encounter [facility] 1 [place] [address] Discharge Disposition: Home or Self Care 0 External Contact [facility] [address] [address] Domo Navas MD COPD, very severe (HCC) (Primary Dx) 0 5:51 AM EDT - 0 11:59 PM EDT Hospital Encounter [facility] 1 [place] [address] Discharge Disposition: Home or Self Care 0 5:00 AM EDT Hospital Encounter [facility] 1 [place] [address] 0 External Contact [facility] [address] [address] Domo Navas MD COPD, very severe (HCC) (Primary Dx) 0 5:00 AM EDT - 0 11:59 PM EDT Hospital Encounter [facility] 1 [place] [address] Discharge Disposition: Home or Self Care 0 7:25 PM EDT - 0 9:36 PM EDT Hospital Encounter [place] [address] Dania Pretty MD McGlasson, Patrick I, DO Upadhayay, Niraj, MD Cholecystitis (Primary Dx); Cholecystitis; KIA (obstructive sleep apnea); Acute on chronic diastolic (congestive) heart failure (HCC) suspected Discharge Disposition: Rehab Facility 0 Telephone [facility] [address] [facility] [address] [place] [address] Padmini Evangelista MD Appointment Needed 0 2:00 PM EDT - 0 3:30 PM EDT Surgery EDG [facility] [place] [address] Manuel العلي MD LAPAROSCOPIC CHOLECYSTECTOMY POSSIBLE OPEN 0 3:42 PM EDT Anesthesia Event EDG [facility] [address] [place] [id number] Heath Lakhani MD Merkle Serey, Jennifer L, NP 0 Orders Only [facility] [address] [facility] [address] [place] [phone] Manuel العلي MD Cholecystitis (Primary Dx) 0 Travel 0 Telephone [facility] [address] [place] [address] [address] [place] [address] Padmini Evangelista MD Schedule Appointment (1st attempt to r/s appt. ) 0 Telephone [facility] [address] [place] [address] [address] [place] [address] Felicia Fajardo RN Other (unscheduled carelink) 0 Orders Only [facility] [address] [place] [address] [address] [place] [address] Padmini Evangelista MD 0 Orders Only [facility] [address] [place] [address] [address] [place] [phone] Padmini Evangelista MD 0 Telephone [facility] [address] [place] [address] [address] [place] [address] Padmini Evangelista MD Other 0 Travel 0 3:04 PM EDT - 0 4:31 PM EDT Hospital Encounter [place] [address] Nilsa Hollingsworth MD Slone, Adam T, Hood [place] DO Atrial fibrillation with rapid ventricular response (HCC) (Primary Dx); Atrial flutter with rapid ventricular response (HCC); Urinary tract infection with hematuria, site unspecified Discharge Disposition: Home or Self Care 0 Orders Only [facility] [address] [place] [address] [place], [place] [phone] Hanane Davis APRN 0 1:15 PM EDT - 0 2:35 PM EDT 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 [place] [id number] Richard Schwartz MD Braxton-Brown, Jennifer, APRN 0 Travel 0 Travel 0 Orders Only [facility] [address] [place] [address] [place] [phone] Padmini Evangelista MD 0 Telephone [facility] [address] [place] [address] [place] [phone] Padmini Evangelista MD Other (elevated heart rate) 0 Telephone [facility] [address] [place] [address] [place] [phone] Padmini Evangelista MD Cancellation (post pone procedure. ) 0 Orders Only [facility] [address] [facility] [address] [place] [address] Hanane Davis APRN Typical atrial flutter (HCC) (Primary Dx) 0 Travel 0 Telephone [facility] [address] [facility] [address] [place] [phone] Franklin Ruffin MA Procedure (Pre procedure instructions) 0 Orders Only [facility] [address] [facility] [address] [place] [address] Padmini Evangelista MD 0 Telephone [facility] [address] [place] [address] [address] [place] [address] Pamdini Evangelista MD Other (Rapid heart rate) 0 Travel 0 11:00 AM EDT Telemedicine [facility] [address] [place] [address] [address] [place] [address] Padmini Evangelista MD Pacemaker (Primary Dx); Typical atrial flutter (HCC) 0 Orders Only [facility] [address] [place] [address] [place] [phone] Padmini Evangelista MD 0 Telephone [facility] [address] [place] [address] [place] [phone] Sangeeta Nam RN Pacemaker Check (Results of Carelink transmission) 0 Travel 0 9:00 AM EDT Clinical Support [facility] [address] [place] [address] [address] [place] [address] Sangeeta Nam RN Sinus node dysfunction (HCC) (Primary Dx); Paroxysmal atrial fibrillation (HCC); Pacemaker 0 Travel 0 Telephone [facility] [address] [place] [address] [address] [place] [address] Padmini Evangelista MD Other (r/s d/t covid 19) 0 12:13 PM EST - 0 3:[address] [facility] [place] [address] Victor M Renner MD Acute right-sided low back pain without sciatica (Primary Dx) Discharge Disposition: Home or Self Care 0 Telephone [facility] [address] [place] [address] [address] [place] [address] Felicia Fajardo RN Other (carelink results); Other (new med dose) 0 10:00 AM EST Clinical Support [facility] [address] [place] [address] [address] [place] [address] Felicia Fajardo RN Sinus node dysfunction (HCC) (Primary Dx); Sinus bradycardia; Paroxysmal atrial fibrillation (HCC) 0 Telephone [facility] [address] [place] [address] [place] [phone] Felicia Fajardo RN Other (missed carelink) 9 Travel 9 10:55 AM EDT - 9 11:40 AM EDT [facility] [place] [address] Ray Teran MD CYSTOSCOPY STENT REMOVAL 9 11:24 AM EDT Anesthesia Event EDG [facility] [place] [address] Delilah Nam MD Merkle Serey, Jennifer L, NP 9 10:11 AM EDT - 9 12:37 PM EDT Hospital Encounter ED[facility] SAME DAY SURGERY [facility] 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 Discharge Disposition: Home Health Care [facility] 9 Orders Only MD Adult Med [address] [place] [address] [place] [address] Ray Teran MD Calculus of ureter (Primary Dx) 9 11:30 AM EDT Office Visit [facility] [address] [facility] [address] [place] [address] Padmini Evangelista MD Cardiac pacemaker in situ (Primary Dx); Encounter for interrogation of cardiac pacemaker; Sinus node dysfunction (HCC); Paroxysmal atrial fibrillation (HCC); Typical atrial flutter (HCC); Acute on chronic diastolic (congestive) heart failure (HCC) suspected 9 1:42 PM EDT - 9 11:59 PM EDT Hospital Encounter EDG ECHO [facility] [place] [address] Padmini Evangelista MD Sinus bradycardia; Paroxysmal atrial fibrillation (HCC) Discharge Disposition: Home or Self Care 9 Telephone [facility] [address] [facility] [address] [place] [address] Padmini Evangelista MD Other 9 Orders Only Adult Med [address] [place] [address] [place] [address] Ray Teran MD Calculus of ureter (Primary Dx) 9 Travel 9 11:59 PM EDT Anesthesia Event EDG SURGERY [facility] [place] [address] Brooklynn [place] NP 9 Orders Only Adult Med [address] [place] [address] [place] [address] Ray Teran MD Calculus of ureter (Primary Dx) 9 Travel 9 11:59 PM EDT Anesthesia Event EDG PERIOP [facility] [place] [address] Brooklynn Wong APRN 9 Orders Only Adult Med [address] [place] [address] [place] [address] Domo Penny MD Calculus of ureter (Primary Dx) 9 Telephone [facility] [address] [facility] [address] [place] [address] Sangeeta Nam, LARRY Pacemaker Check (Results of Carelink transmission to assess rate control) 9 9:00 AM EDT Clinical Support [facility] [address] [facility] [address] [place] [address] Sangeeta Nam, LARRY Sinus node dysfunction (HCC) (Primary Dx); Paroxysmal atrial fibrillation (HCC); Pacemaker 9 Telephone [facility] [address] [place] [address] [address] [place] [address] Padmini Evangelista MD Other (sent transmission ) 9 Telephone [facility] [address] [place] [address] [address] [place] [address] Leighton Tafoya RN Other (Remote report) 9 9:00 AM EDT Office Visit [facility] [address] [place] [address] [address] [place] [address] Hanane Davis APRN Typical atrial flutter (HCC) (Primary Dx); Cardiac pacemaker in situ; Encounter for interrogation of cardiac pacemaker; Sinus node dysfunction (HCC); Paroxysmal atrial fibrillation (HCC) 9 Orders Only [facility] [address] [place] [address] [place] [phone] Samantha Alberto MA Paroxysmal atrial fibrillation (HCC) (Primary Dx) 9 Orders Only [facility] [address] [place] [address] [place] [phone] Samantha Alberto MA Paroxysmal atrial fibrillation (HCC) (Primary Dx) 9 Telephone [facility] [address] [place] [address] [place] [phone] Padmini Evangelista MD Other 9 11:21 AM EDT - 9 4:[address] [facility] [place] [address] Nilsa Hollingsworth MD Atrial flutter with rapid ventricular response (HCC) (Primary Dx) Discharge Disposition: Home or Self Care 9 10:21 AM EDT - 9 11:08 AM EDT Hospital Encounter EDG SAME DAY SURGERY [facility] [place] [address] Domo Penny MD Preop testing (Primary Dx); Ureterolithiasis Discharge Disposition: Admitted as an Inpatient 9 Telephone [facility] [address] [place] [address] [address] [place] [address] Padmini Evangelista MD Other 9 10:12 AM EDT Anesthesia Event EDG [facility] [place] [address] Desirae Schroeder MD Collins, Angela, APRN 9 8:21 PM EDT - 9 3:57 PM EDT Hospital Encounter EDG 2B MED SURG [place] [id number] Juancarlos Garrett MD Wyenandt, Robert L Jr., MD Sandhu, Alfredo Lazar MD Ureterolithiasis (Primary Dx); Right flank pain; Acute on chronic renal insufficiency; Right ureteral stone Discharge Disposition: Home or Self Care 9 Travel 9 12:48 PM EDT Anesthesia Event EDG [facility] [place] [address] Vish Isbell MD Dorn, Charlotte L, MD 9 12:40 PM EDT - 9 1:35 PM EDT Surgery EDG [facility] [place] [address] Domo Penny MD CYSTOSCOPY, URETEROSCOPY, LASER LITHOTRIPSY, RETROGRADE PYELOGRAM, STENT INSERTION 9 Refill [facility] [address] [place] [address] [address] [place] [address] Reina Holden APRN Medication Refill 9 Telephone [facility] Pulmonology [facility] [address] [facility] [address] [place] [phone] Ti Zazueta MD Other (orders) 9 1:30 PM EDT Office Visit [facility] [place] [address] [place] [phone] Raoul Quinonez MD Atrial fibrillation with RVR (HCC) (Primary Dx); Pure hypercholesterolemia; Hypertension associated with diabetes (HCC); SOB (shortness of breath); Preop examination 9 11:30 AM EST Office Visit [facility] [address] [facility] [address] [place] [phone] Padmini Evangelista MD Cardiac pacemaker in situ (Primary Dx); Pacemaker reprogramming/check; Atrial fibrillation with RVR (HCC); Sinus node dysfunction (HCC); Acute on chronic diastolic (congestive) heart failure (HCC) suspected; Hypertensive heart disease without heart failure 9 Telephone [facility] W[facility] [place] [address] [place] [address] Whit Parikh RN Other (status) 9 Telephone [facility] [place] [address] [place] [address] Whit Parikh RN Other (follow up on patient's phone call) 9 Telephone [facility] [place] [address] [place] [address] Demetrius Perez MD Other (Using compression pump, does he still need [facility] appts? ) 9 9:20 AM EST - 9 11:59 PM EST Hospital Encounter [facility] Wound [facility] Center [facility] [address] [place] [address] Demetrius Perez MD Chronic acquired lymphedema (Primary Dx) Discharge Disposition: Home or Self Care 9 9:16 AM EST - 9 11:59 PM EST Hospital Encounter [facility] [place] [address] [place] [address] Demetrius Perez MD Chronic acquired lymphedema (Primary Dx) Discharge Disposition: Home or Self Care 8 9:07 AM EST - 8 11:59 PM EST Hospital Encounter [facility] [place] [address] Demetrius Perez MD Type 2 diabetes mellitus with complication, with long-term current use of insulin (HCC) (Primary Dx); Venous ulcer of left lower extremity with varicose veins (HCC); Chronic venous hypertension involving both sides; Lymphedema of both lower extremities Discharge Disposition: Home or Self Care 8 9:21 AM EST - 8 11:59 PM EST Hospital Encounter [facility]ound Care [address] [facility] [place] [address] Demetrius Perez MD Type 2 diabetes mellitus with complication, with long-term current use of insulin (HCC) (Primary Dx); Venous ulcer of left lower extremity with varicose veins (HCC); Chronic acquired lymphedema; Chronic venous hypertension involving both sides Discharge Disposition: Home or Self Care 8 9:13 AM EST - 8 11:59 PM EST Hospital Encounter [facility] Wound Care [address] [place] [address] Demetrius Perez MD Type 2 diabetes mellitus with complication, with long-term current use of insulin (HCC) (Primary Dx); Venous ulcer of left lower extremity with varicose veins (HCC); Chronic venous hypertension involving both sides Discharge Disposition: Home or Self Care 8 10:17 AM EST - 8 11:59 PM EST Hospital Encounter [facility] Wound Care [address] [place] [address] Jose Montano MD Chronic venous hypertension involving both sides (Primary Dx); Venous ulcer of left lower extremity with varicose veins (HCC) Discharge Disposition: Home or Self Care 8 11:59 PM EST Anesthesia Event EDG ENDOSCOPY [facility] [place] [address] Brooklynn Montana NP 8 Refill [facility] [address] [facility] [address] [place] [address] Reina Holden APRN Medication Refill 8 9:07 AM EST - 8 11:59 PM EST Hospital Encounter [facility] Wound Care [place] [address] [place] [place] [address] Demetrius Perez MD Type 2 diabetes mellitus with complication, with long-term current use of insulin (HCC) (Primary Dx); Chronic venous hypertension involving both sides; Venous ulcer of left lower extremity with varicose veins (HCC); Venous ulcer of right lower extremity with varicose veins (HCC) Discharge Disposition: Home or Self Care 8 10:02 AM EDT - 8 11:59 PM EDT Hospital Encounter [place] [address] [place] [address] Jose Montano MD Chronic acquired lymphedema (Primary Dx) Discharge Disposition: Home or Self Care 8 11:30 AM EDT Office Visit [facility] [address] [facility] [address] [place] [address] Padmini Evangelista MD Cardiac pacemaker in situ (Primary Dx); Encounter for interrogation of cardiac pacemaker 8 8:41 AM EDT - 8 11:59 PM EDT Hospital Encounter [place] [address] [place] [place] [address] Demetrius Perez MD Chronic venous hypertension involving both sides (Primary Dx) Discharge Disposition: Home or Self Care 8 9:37 AM EDT - 8 11:59 PM EDT Hospital Encounter [facility] Wound [place] [address] [place] [address] Demetrius Perez MD Chronic acquired lymphedema (Primary Dx); Chronic venous hypertension involving both sides Discharge Disposition: Home or Self Care 8 9:19 AM EDT - 8 11:59 PM EDT Hospital Encounter [facility] Wound Care [facility] [place] [address] [place] [address] Demetrius Perez MD Type 2 diabetes mellitus with complication, with long-term current use of insulin (HCC) (Primary Dx); Chronic acquired lymphedema Discharge Disposition: Home or Self Care 8 12:28 PM EDT - 8 11:59 PM EDT Hospital Encounter [facility] [address] [place] [address] Demetrius Perez MD Claudication in peripheral vascular disease Discharge Disposition: Home or Self Care 8 12:28 PM EDT - 8 11:59 PM EDT Hospital Encounter [facility] [address] [place] [address] Demetrius Perez MD Venous hypertension of both lower extremities Discharge Disposition: Home or Self Care 8 9:22 AM EDT - 8 11:59 PM EDT Hospital Encounter [facility] Wound Care Center [place] [address] [place] [address] Demetrius Perez MD Type 2 diabetes mellitus with complication, with long-term current use of insulin (HCC) (Primary Dx); Chronic acquired lymphedema; Venous hypertension of both lower extremities; Venous stasis Discharge Disposition: Home or Self Care 8 9:30 AM EDT - 8 11:59 PM EDT Hospital Encounter [facility] Wound Care Center [place] [address] [address] [place] [address] Demetrius Perez MD Type 2 diabetes mellitus with complication, with long-term current use of insulin (HCC) (Primary Dx); Venous hypertension of both lower extremities; Claudication in peripheral vascular disease Discharge Disposition: Home or Self Care 8 9:15 AM EDT - 8 11:59 PM EDT Hospital Encounter [facility] Wound Care Center [place] [address] [place] [address] Demetrius Perez MD Type 2 diabetes mellitus with complication, with long-term current use of insulin (HCC) (Primary Dx); Non-pressure chronic ulcer right lower leg, limited to breakdown skin (HCC); Chronic venous hypertension involving both sides Discharge Disposition: Home or Self Care 8 5:54 PM EDT - 8 11:17 AM EDT Hospital Encounter [facility] [place] [id number] Juancarlos Gaspar MD Upadhayay, Niraj, MD Acute appendicitis, unspecified acute appendicitis type (Primary Dx); Atrial fibrillation with rapid ventricular response (HCC) Discharge Disposition: Home or Self Care 8 Telephone [facility] [address] [place] [phone] Reina Holden APRN Other 8 Orders Only [facility] [address] [place] [phone] Reina Holden, DENISA Paroxysmal atrial fibrillation (HCC) (Primary Dx); Atrial flutter, unspecified type (HCC) 8 Telephone [facility] [address] [place] [phone] Padmini Evangelista MD Procedure (pre procedure instructions) 8 11:00 AM EDT Office Visit [facility] [address] [place] [phone] Padmini Evangelista MD Cardiac pacemaker in situ (Primary Dx); Fitting and adjustment of cardiac pacemaker; Paroxysmal atrial fibrillation (HCC); Sinus node dysfunction (HCC); Typical atrial flutter (HCC); Atrial fibrillation with RVR (HCC) 8 Orders Only [facility] [address] [place] [phone] Padmini Evangelista MD 8 Telephone [facility] [address] [place] [phone] Padmini Evangelista MD Other 8 Orders Only [facility] [address] [place] [address] [place] [phone] Padmini Evangelista MD 8 Telephone [facility] [address] [place] [address] [place] [phone] Padmini Evangelista MD Other (Symptomatic AF) 8 11:00 AM EST Office Visit [facility] [address] [place] [address] [place] [phone] Padmini Evangelista MD Cardiac pacemaker in situ (Primary Dx); Pacemaker reprogramming/check 7 10:30 AM EST Clinical Support [facility] [address] [place] [address] [place] [phone] Felicia Fajardo RN Sinus node dysfunction (HCC) (Primary Dx); Pacemaker 7 Telephone [facility] [address] [place] [address] [place] [phone] Padmini Evangelista MD Other (Carelink results.) 7 1:30 PM EDT Office Visit [facility] Nephrology [place] [address] [place], [place] [phone] Greg Leblanc MD Stage 3 chronic kidney disease (HCC) (Primary Dx); Hyperkalemia; Paroxysmal atrial fibrillation (HCC); Anemia in stage 3 chronic kidney disease (HCC) 7 2:30 PM EDT Office Visit [facility] [address] [place] [address] [place] [phone] Padmini Evangelista MD Cardiac pacemaker in situ (Primary Dx); Fitting and adjustment of cardiac pacemaker; Atrial fibrillation with RVR (HCC); Typical atrial flutter (HCC); Sinus bradycardia; RBBB; Sinus node dysfunction (HCC); Acute on chronic diastolic (congestive) heart failure (HCC) suspected 7 Telephone [facility] Nephrology [place] [address] [place] [address] Greg Leblanc MD Lab Orders 7 Telephone [facility] [address] [facility] [address] [place] [address] Padmini Evangelista MD Other (Missed remote transmission) 7 2:15 PM EDT - 7 2:45 PM EDT Surgery [facility]G ENDOSCOPY [facility] [place] [address] Talib Martínez MD COLONOSCOPY-ENDO DEPT ONLY (ANESTHESIA) 7 2:11 PM EDT Anesthesia Event EDG ENDOSCOPY [facility] [place] [address] Richard Schwartz MD Collins, Angela, APRN 7 12:49 PM EDT - 7 3:48 PM EDT Hospital Encounter EDG ENDOSCOPY [facility] [place] [address] Talib Martínez MD Discharge Disposition: Home or Self Care 7 11:17 AM EDT - 7 11:59 PM EDT Hospital Encounter EDG LAB [facility] [address] [place] [address] Click, Edg Lab [facility] Renal cell carcinoma, unspecified laterality (HCC) (Primary Dx); Personal history of colonic polyps; Second degree hemorrhoids; Acute posthemorrhagic anemia Discharge Disposition: Home or Self Care 7 2:00 PM EDT Office Visit [facility] [address] [facility] [address] [place] [address] Reina Holden, EVENT SPECIALIST PRODUCT DEMONSTRATOR Paroxysmal atrial fibrillation (HCC) (Primary Dx); Typical atrial flutter (HCC); Cardiac pacemaker in situ; Pacemaker reprogramming/check 7 1:45 PM EDT Office Visit [facility] Nephrology [address] [place], [place] [id number] Greg Leblanc MD KIERRA (acute kidney injury) (Primary Dx); Iron deficiency anemia due to chronic blood loss; Type 2 diabetes mellitus with complication, with long-term current use of insulin (HCC); Pure hypercholesterolemia; Essential hypertension 7 7:59 PM EDT - 7 3:55 PM EDT Hospital Encounter EDG 2B2 UROLOGY [facility] [address] [place] [address] Ayush Samaniego MD Watson, James Brandon, DO Kuper, Olivia Marie, MD Renal failure (Primary Dx); Anemia, unspecified type; Hyperkalemia; KIERRA (acute kidney injury) Discharge Disposition: Home or Self Care 7 12:30 PM EDT - 7 1:15 PM EDT Surgery EDG [facility] [place] [address] Georgi Myrick MD CYSTOSCOPY STENT INSERTION OR EXCHANGE 7 12:54 PM EDT Anesthesia Event EDG [facility] [place] [address] Rikki Fuentes DO Powell, Jeanne, DENISA 7 9:12 AM EDT Anesthesia Event EDG ENDOSCOPY [facility] [place] [address] Cleveland Kraus MD Braxton-Brown, Jennifer, APRN 7 11:30 AM EDT - 7 11:45 AM EDT Surgery EDG ENDOSCOPY [facility] [place] [address] Rikki Mcmanus MD ESOPHAGOGASTRODUODENOSCOPY (ANESTHESIA) 7 5:58 AM EST - 7 2:44 PM EST Hospital [place] [address] Ruel [place] MD Paroxysmal atrial fibrillation (HCC); Atrial flutter, unspecified type (HCC) Discharge Disposition: Home or Self Care 7 11:59 PM EST Anesthesia Event EDG MASONRY TEACHER [facility] [place] [address] Brooklynn Montana NP 7 2:35 AM EST - 7 7:35 AM EST 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 [place], [place] [id number] Padmini Evangelista MD ABORT EP CASE 7 2:35 AM EST Anesthesia Event EDG [employer] [facility] [place] [address] Desirae Schroeder MD Merkle Serey, Jennifer L, NP 7 Telephone [facility] [address] [place] [address] [place] [phone] Padmini Evangelista MD Other 7 Orders Only [facility] [address] [place] [address] [place] [phone] Reina Holden APRN Typical atrial flutter (HCC) (Primary Dx); Paroxysmal atrial fibrillation (HCC) 7 Telephone [facility] [address] [place] [address] [place] [phone] Padmini Evangelista MD Procedure (pre procedure instructions) 7 Telephone [facility] [address] [place] [address] [place] [phone] Padmini Evangelista MD Procedure 7 11:00 AM EST Office Visit [facility] [address] [place] [address] [place] [phone] Reina Holden APRN Atrial fibrillation with RVR (HCC) (Primary Dx); Typical atrial flutter (HCC); Cardiac pacemaker in situ; Pacemaker reprogramming/check 6 11:30 AM EDT Office Visit [facility] [address] [place] [address] [place] [phone] Reina Holden APRN Paroxysmal atrial fibrillation (HCC) (Primary Dx); Typical atrial flutter (HCC); Fitting and adjustment of cardiac pacemaker; Cardiac pacemaker in situ; Morbid obesity, unspecified obesity type (HCC); Essential hypertension 6 Telephone [facility] [address] [place] [address] [place] [phone] Padmini Evangelista MD Other 6 Telephone [facility] [address] [place] [address] [address] [place] [address] Padmini Evangelista MD Other 6 8:47 AM EDT - 6 5:43 PM EDT Hospital Encounter EDG 6D TCU [facility] [place] [address] Ayush Samaniego MD Stafford, William, MD Atrial fibrillation with rapid ventricular response (HCC) (Primary Dx) Discharge Disposition: Home or Self Care 6 Orders Only [facility] [address] [place] [address] [address] [place] [address] Padmini Evangelista MD 6 10:46 AM EDT Anesthesia Event EDG [employer] TE[employer] [facility] [place] [address] Geovani Canseco MD Powell, Jeanne, APRN 6 9:30 AM EDT - 6 11:00 AM EDT 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 [address] Padmini Evangelista MD PACEMAKER IMPLANT-MASONRY TEACHER ONLY 6 12:47 PM EDT Anesthesia Event EDG ENDOSCOPY [facility] [place] [address] Abdias Hoyt MD Powell, Jeanne, APRN 6 11:15 AM EDT - 6 11:45 AM EDT Surgery EDG ENDOSCOPY [facility] [place] [address] Talib Martínez MD COLONOSCOPY-ENDO DEPT ONLY (ANESTHESIA) 6 Telephone [facility] [address] [place] [address] [address] [place] [address] Padmini Evangelista MD Other 6 Telephone [facility] [address] [place] [address] [address] [place] [address] Padmini Evangelista MD Procedure (pre procedure instructions) 6 Telephone [facility] [address] [facility] [address] [place] [address] Padmini Evangelista MD Other 6 Telephone [facility] [address] [facility] [address] [place] [address] Padmini Evangelista MD Other (Procedure Prep) 6 2:00 PM EDT Office Visit [facility] [address] [facility] [address] [place] [address] Padmini Evangelista MD Atrial fibrillation, unspecified (Primary Dx); Atrial flutter, unspecified 5 Telephone [facility] [address] [place] [address] Ian Martel MD Procedure (Lymph Node Biopsy) 5 Telephone [facility] [address] [facility] [address] [place] [address] Padmini Evangelista MD Other 5 12:00 PM EDT Office Visit [facility] [address] [facility] [place] [address] Padmini Evangelista MD Atrial fibrillation (HCC) (Primary Dx) 3 8:04 AM EDT - 3 11:59 PM EDT Hospital Encounter [facility] [place] [address] Kar [place] MD Malignant neoplasm of kidney, except pelvis (HCC) (Primary Dx) Discharge Disposition: Home or Self Care 3 12:29 PM EDT - 3 11:59 PM EDT Hospital Encounter EDG PRE-ADMIT TESTING [facility] [place] [address] Discharge Disposition: Home or Self Care 3 Pre-Imaging Procedure Adult Med [address] [place] [address] [place] [address] Aisha Agrawal, LARRY Malignant neoplasm of kidney, except pelvis (HCC) (Primary Dx) 3 Pre-Imaging Procedure Adult Med [address] [place] [address] [place] [address] Aisha Agrawal, LARRY Malignant neoplasm of kidney, except pelvis (HCC) (Primary Dx) 3 Pre-Imaging Procedure Adult Med [address] [place] [address] Aisha Agrawal RN 3 Pre-Imaging Procedure Adult Med [address] [place] [address] Aisha Agrawal, LARRY Malignant neoplasm of kidney, except pelvis (HCC) (Primary Dx) 3 Pre-Imaging Procedure Adult Med [address] [place] [address] Aisha Agrawal RN 2 8:45 AM EDT - 2 11:59 PM EDT Hospital Encounter [facility] Ultrasound [address] [place] [address] Georgi Myrick MD Malignant neoplasm of kidney, except pelvis (HCC); Neoplasm of uncertain behavior of kidney and ureter Discharge Disposition: Home or Self Care 3 Hospital Encounter [facility] Generic, Historical Provider 0 8:00 AM EST - 0 5:48 PM EST Hospital Encounter [facility] [id number] FTT Generic, Historical Provider 9 8:45 AM EST - 9 12:15 PM EST Hospital Encounter HST 2CO Hood Michaels 8 11:59 AM EST - 8 3:30 PM EST Hospital Encounter [facility]ST José Miguel Seay MD 0 2:02 PM EST - 0 5:04 PM EST Hospital Encounter [facility]ST 4A Hood Browning MD 0 12:40 PM EST - 0 11:59 PM EST Emergency [facility] EPIC CON UNK COV Hood Browning MD Allergies Active Allergy Reactions Criticality Noted Date Comments Ciprocinonide Other (See Comments) High 10/02/2012 developed pancreatitis Ciprofloxacin Other (See Comments) High 04/09/2016 developed pancreatitis Amiodarone Other (See Comments) Medium 11/12/2017 Hyperthyroidism Sulfamethoxazole-Trimeth oprim Rash Low 06/26/2021 Medications pantoprazole (PROTONIX) 40 mg Oral Tablet, Delayed Release (E.C.) Take 1 Tab by mouth daily. 30 Tab 2 10/01/19 17 Active methIMAzole (TAPAZOLE) 5 mg Oral Tablet Take 5 mg by mouth daily. Active gabapentin (NEURONTIN) 800 mg Oral Tablet Take 1 Tab by mouth 3 times daily. 0 08/27/19 19 Active fenofibrate (TRICOR) 145 mg Oral Tablet Take 145 mg by mouth daily. 02/05/20 20 Active HUMALOG KWIKPEN INSULIN 100 unit/mL SubQ Insulin Pen Subcutaneous (Inject under the skin) 80 Units Before every meal. 02/23/20 20 Active rivaroxaban (XARELTO) 20 mg Oral Tablet Take 1 Tab by mouth daily. 30 Tab 5 08/15/19 21 Active apremilast (OTEZLA) 30 mg Oral TabletIndicati ons:moderate to severe plaque psoriasis,psor iatic arthritis Take 30 mg by mouth 2 times daily. Indications: moderate to severe plaque psoriasis, psoriasis associated with arthritis Active diphenhydrAMIN E (BENADRYL) 25 mg Oral Tablet Take 1-2 Tablets by mouth every 4 hours as needed for Rash. 30 Tablet 06/30/20 21 Active insulin glargine U-100 (LANTUS) 100 unit/mL SubQ Solution Subcutaneous (Inject under the skin) 36 Units 2 times daily. 10 mL 06/30/20 21 Active loperamide (IMODIUM) 2 mg Oral Capsule Take 1 Capsule by mouth every 4 hours as needed for Diarrhea. 06/30/20 21 Active TRULICITY 0.75 mg/0.5 mL SubQ Pen Injector 04/03/20 22 Active ONETOUCH VERIO FLEX METER [facility] 03/30/20 22 Active ONETOUCH VERIO TEST STRIPS [facility] 03/30/20 22 Active ammonium lactate (LAC-HYDRIN) 12 % Top Lotion 1 janette, Lotion, Topical BID, Refill(s) 0 04/05/20 20 Active insulin aspart U-100 (NOVOLOG) 100 unit/mL SubQ Solution 04/05/20 20 Active ACCU-CHEK SOFTCLIX LANCETS Misc Misc 03/23/20 Active dilTIAZem 120 mg Oral Capsule, Sust. Release 24 hr TAKE 2 CAPSULES (240 MG) BY MOUTH EVERY MORNING AND 1 CAPSULE (120 MG) BY MOUTH EVERY EVENING. 90 Capsule 5 05/18/20 22 Active HYDROcodone-ac etaminophen (NORCO) 10-325 mg Oral Tablet Take 1 Tablet by mouth 2 times daily as needed. for pain 03/10/20 24 Active dapagliflozin propanediol (FARXIGA) 10 mg Oral Tablet Take 10 mg by mouth daily. Active tamsulosin (FLOMAX) 0.4 mg Oral Capsule Take 0.4 mg by mouth daily. Active losartan (COZAAR) 25 mg Oral Tablet TAKE ONE (1) TABLET BY MOUTH DAILY. 30 Tablet 3 12/01/19 25 Active Additional Information Patient not taking.Reason: Advised by Physician, Reported on 03/30/2025 allopurinoL (ZYLOPRIM) 100 mg Oral Tablet Take 1 Tablet by mouth daily. 90 Tablet 2 01/21/20 25 Active ferrous sulfate 325 mg (65 mg iron) Oral Tablet, Delayed Release (E.C.) Take 1 Tablet by mouth 2 times daily. 180 Tablet 3 01/21/20 25 Active metoprolol succinate ER (TOPROL-XL) 100 mg Oral Tablet Sustained Release 24 hrIndications: Paroxysmal A-fib (HCC) Take 1 Tablet by mouth daily. 90 Tablet 3 03/30/20 25 Active ergocalciferol (DRISDOL) 1,250 mcg (50,000 unit) Oral Capsule TAKE ONE (1) CAPSULE BY MOUTH ONCE A WEEK. 12 Capsule 1 04/06/20 25 Active metoprolol succinate ER (TOPROL-XL) 100 mg Oral Tablet Sustained Release 24 hrIndications: Paroxysmal A-fib (HCC) TAKE 2 TABLETS BY MOUTH 2 TIMES DAILY. 360 Tablet 1 08/15/19 23 2024 Discontinued(R gertrude) finerenone (KERENDIA) 20 mg Oral Tablet Take 20 mg by mouth daily. 2024 Discontinued(D ELETE-Therapy completed) ergocalciferol (DRISDOL) 1,250 mcg (50,000 unit) Oral Capsule Take 1 Capsule by mouth once a week. 12 Capsule 1 01/21/20 25 2024 Discontinued Active Problems Patient Care Coordination No te Formatting of this note migh t be different from the original. Utilization audit completed by Sangeeta Jonas RN on 01/21/2024. Problem Noted Date Diagnosed Date Pacemaker battery depletion 09/11/2024 Non-pressure ulcer of left lower extremity 01/03 Venous insufficiency of both lower extremities 0 12/27/2022 Lymph edema 12/27/2022 Personal history of colonic polyps 12/10/2022 Assessment & Plan (12/10/2022 10:33 AM EDT): He is a very sick individual from multiple standpoints including his neuropathy, coronary disease, arrhythmia on chronic anticoagulation and significant cancer history of renal cell carcinoma as well as a personal history colon polyps. At this point he is 5 years overdue for his follow-up colonoscopy and now is having symptoms of difficulty with defecation. I will move forth a colonoscopy to be performed at [facility]. We will get clearance from his capital equipment specialist in relationship to hold in his anticoagulation. I have discussed the benefits, risks and possible complications of the procedure which includes a possible infection, bleeding, medication reaction, perforation that may require surgery to correct with a possible ostomy/bag, missed lesion, splenic injury and aspiration pneumonia. Atrial fibrillation with RVR 06/21/2021 Diarrhea 06/21/2021 Diabetic ketoacidosis associ ated with type 2 diabetes mellitus 06/21/2021 UTI (urinary tract infection) 06/21/2021 Elevated troponin 06/21/2021 Leukocytosis 06/21/2021 Fever 06/21/2021 Encephalopathy acute 03/05/2020 Abdominal pain 03/01/2020 Acute calculous cholecystitis 03/01/2020 Cholecystitis 02/29/2020 Overview (03/01/2020): Added automatically from request for surgery [id number] Atrial flutter with rapid ventricular response 0 12/22/2019 Acute cystitis with hematuria 12/22/2019 Sepsis 12/22/2019 Typical atrial flutter 10/30/2019 Overview (10/30/2019): Added automatically from request for surgery [id number] Calculus of ureter 01/26/2019 Overview (01/26/2019): Added automatically from request for surgery [id number] Ureterolithiasis 11/25/2018 KIERRA (acute kidney injury) 11/25/2018 Chronic venous hypertension involving both sides 04/17/2018 Anemia in stage 3 chronic kidney disease 017 Acute on chronic diastolic ( congestive) heart failure (HCC) suspected 09/05/2016 Overview (09/05/2016): Suspected, echo pending Pacemaker 04/10/2016 Overview (10/16/2024): Medtronic dual ppm gen change 10/16/[address] Evangelista Dual chamber pacemaker, MDT on 04/10/[address] Evangelista Advance directive discussed with patient 016 Intestinal mass 04/09/2016 Acanthosis nigricans 08/21/2012 Chronic acquired lymphedema 08/21/2012 [facility] [place] [facility]current[facility] drug therapy 3 Psoriasis 09/05/2011 Hypertensive heart disease without heart failure Hyperlipidemia associated with type 2 diabetes m ellitus Type 2 diabetes mellitus wit h complication, with long-term current use of insulin Hypertension associated with diabetes Long-term insulin use in type 2 diabetes Overview (10/26/2014): IDDM KIA (obstructive sleep apnea) RBBB Sinus node dysfunction Obesity due to excess calories with serious radha rbidity CKD stage 3 due to type 2 diabetes mellitus Hyperkalemia Metabolic acidosis Iron deficiency anemia due to chronic blood loss Paroxysmal A-fib Essential hypertension CKD stage 2 due to type 2 diabetes mellitus Hyponatremia Neuropathy Weakness of left foot Resolved Problems Problem Noted Date Diagnosed Date Resolved Date Non-pressure chronic ulcer o f right lower leg with fat layer exposed 12/27/2022 04/04/2023 Pressure ulcer of ischium, stage 3, left 02/16/2021 12/27/2022 Buttock wound, left, sequela 05/18/2020 12/27/2022 Venous ulcer of left lower e xtremity with varicose veins 05/08/2018 12/27/2022 Recurrent appendicitis 11/10/201703/10 Hyperkalemia 09/22/2016 10/18/2017 A-fib 05/18/2020 Sinus bradycardia 10/16/2024 Atrial flutter 11/25/2018 Immunizations Immunization Administration Dates Next Due Influenza Vaccine Quadrivalent PF 04/09/2016 Pneumococcal Polysaccharide 23 Valent 04/09/2016 Family History Medical History Relation Name Comments Coronary Art Dis Maternal Grandfather Heart Attack Maternal Grandfather COPD Mother Cancer Mother lung Coronary Art Dis Mother age: 6 3 Diabetes Mother Anesth Problems Neg Hx Relation Name Status Comments Maternal Grandfather Mother Social History Smoking Status as of 04/26/2025 Tobacco Use Types Packs/Day Years Used Date [...] F) 03/30/2025 3:44 PM EDT Respiratory Rate 20 01/25/2025 7:51 PM EDT Oxygen Saturation 97% 03/30/2025 2:1 4 PM EDT Inhaled Oxygen Concentration - - Weight 103.4 kg (228 lb) 03/30/2025 1:4 8 PM EDT Pt is in wheelchair. Height 172.7 cm (5' 8 ) 03/30/2025 3:44 PM EDT Body Mass Index 34.67 01/28/2025 3:40 PM EDT Plan of Treatment Upcoming Encounters Date Type Department Care Team (Late st Contact Info) Description 06/02/2025 12:00 PM EST Office Visit [facility] Neph[place] [address] [place] [address] Greg Leblanc MD [address] [place] [address] 06/09/2025 12:00 PM EST Office Visit [facility] [address] [place] [address] Talib Martínez MD [address] [place] [address] 03/31/2026 10:30 AM EDT Office Visit [facility] [address] [place] [address] 03/31/2026 11:00 AM EDT Office Visit [facility] [address] [place] [address] Elizabeth Lee, EVENT SPECIALIST PRODUCT DEMONSTRATOR [address] [place] [address] Medical Devices Implanted Type Area Networking Administrator Device Identifier Shelf Expiration Date Model / Serial / Lot Lead Pacing Implantable Capsurefix Novus 52cm Atrial/Ventric - [id number] Implanted:Qty: 1 on 04/10/2016 by Padmini Evangelista MD at [facility] Lead MEDTR[employer]:LO [place] SYS 5076-52 / [id number] / Description:A-fib Lead Pacing Implantable Capsurefix Novus 58cm Atrial/Ventric - [id number] Implanted:Qty: 1 on 04/10/2016 by Padmini Evangelista MD at [facility] Lead [employer]:LO [place] SYS 5076-58 / [id number] / Pacemaker [place] Xt Dr Martell Guillen 2chmbr 46.6x50.8x7.4m - [id number] Implanted:Qty: 1 on 10/16/2024 by Padmini Evangelista MD at [facility] Pacemaker [employer]:LO [employer] SYS [id number] 02/11/2026 [id number] / [id number] / Stent Ureteral Contour With Wire 6fr X 28cm - [id number] Implanted:Qty: 1 on 09/27/2016 by Georgi Myrick MD at [facility] Stent Right: Ureter [employer]:MICROVASIVE :UROLOGY 03/28/2019 180-224 / / [id number] Envelope Tyrx Absb Antbtc Impl 2.9x3.3in Sgl-Thompson Foil [facility] - [id number] Implanted:Qty: 1 on 10/16/2024 by Padmini Evangelista MD at [facility] MED[employer]IC:LO [employer] SYS [id number] 07/08/2025 [id number] / / [id number] Explanted Type Area Networking Administrator Device Identifier Shelf Expiration Date Model / Serial / Lot Pacemaker Advisa Dual Chamber Mri - [id number] Implanted:Qty : 1 on 04/10/2016 by Padmini Evangelista MD at [facility] Explanted:Qty : 1 on 10/16/2024 by Padmini Evangelista MD at [facility] Pacemaker [employer]:PACING SYS [id number] / [id number] / Stent Ureteral Contour 6 X 26 #180-223 - [id number] Implanted:Qty : 1 on 11/25/2018 by Domo Penny MD at [facility] Explanted:Qty : 1 on 04/20/2019 by Ray Teran MD at [facility] Stent Right: Ureter [employer] SCI:MICROVASIVE: UROLOGY 08/18/2021 180-223 / / [id number] Procedures Procedure Name Priority Date/Time Associated Diagnosis Comments OK REM INTERROG PM/LDLS PM <90 D PHYS/QHP Routine 04/16/2025 Vector Remote Device PACEART REPORT Routine 03/30/2025 6:05 PM EDT SCANNED EKG 01/26/2025 11:36 AM EDT BASIC METABOLIC PANEL STAT 01/25/2025 9:05 PM EDT EK EKG 12 LEAD STAT 01/25/2025 7:21 PM EDT OK REM INTERROG PM/LDLS PM <90 D PHYS/QHP Routine 01/15/2025 12:00 AM EDT Vector Remote Device PACEART REPORT Routine 10/30/2024 1:28 PM EDT Pacemaker reprogramming/ch mode RBBB Pacemaker Sinus node dysfunction (HCC) Atrial flutter with rapid ventricular response (HCC) Paroxysmal A-fib (HCC) Atrial fibrillation with RVR (HCC) ELECTROPHYSIOLOGY PROCEDURE Routine 10/16/2024 10:59 AM EDT Pacemaker battery depletion CBC WITH DIFF STAT 10/16/2024 9:00 AM EDT Pacemaker battery depletion Sinus node dysfunction (HCC) BASIC METABOLIC PANEL STAT 10/16/2024 9:00 AM EDT Pacemaker battery depletion Sinus node dysfunction (HCC) GLUCOSE METER POC Routine 10/16/2024 8:37 AM EDT EK EKG 12 LEAD STAT 10/16/2024 8:32 AM EDT Preop testing Atrial fibrillation with RVR (HCC) VECTOR REMOTE DEVICE Routine 10/16/2024 12:00 AM EDT Vector Remote Device OK REM INTERROG PM/LDLS PM <90 D PHYS/QHP Routine 09/11/2024 12:00 AM EDT Vector Remote Device VECTOR REMOTE DEVICE Routine 08/08/2024 12:00 AM EST Vector Remote Device VECTOR REMOTE DEVICE Routine 07/14/2024 12:00 AM EST Vector Remote Device OK REM INTERROG PM/LDLS PM <90 D PHYS/QHP Routine 06/02/2024 12:00 AM EST Vector Remote Device VECTOR REMOTE DEVICE Routine 04/29/2024 12:00 AM EDT Vector Remote Device PACEART REPORT Routine 03/17/2024 2:21 PM EDT DIGOXIN LEVEL Routine 03/17/2024 11:05 AM EDT Paroxysmal A-fib (HCC) BASIC METABOLIC PANEL Routine 03/17/2024 11:05 AM EDT Paroxysmal A-fib (HCC) OK REM INTERROG PM/LDLS PM <90 D PHYS/QHP Routine 02/26/2024 12:00 AM EDT Vector Remote Device URINALYSIS REFLEX STAT 12/05/2023 1:44 PM EDT UA W/REFLEX TO CULTURE STAT 1:44 PM EDT EXTRA AMADOR URINE CX STAT 12/05/2023 1:44 PM EDT BASIC METABOLIC PANEL STAT 12/05/2023 1:24 PM EDT CBC WITH DIFF STAT 12/05/2023 1:24 PM EDT OK REM INTERROG PM/LDLS PM <90 D PHYS/QHP Routine 11/13/2023 12:00 AM EDT Vector Remote Device OK REM INTERROG PM/LDLS PM <90 D PHYS/QHP Routine 06/27/2023 12:00 AM EST Vector Remote Device OK REM INTERROG PM/LDLS PM <90 D PHYS/QHP Routine 03/21/2023 12:00 AM EDT Vector Remote Device VECTOR REMOTE DEVICE Routine 03/21/2023 12:00 AM EDT Vector Remote Device OK REM INTERROG PM/LDLS PM <90 D PHYS/QHP Routine 12/13/2022 12:00 AM EDT Vector Remote Device OK REM INTERROG PM/LDLS PM <90 D PHYS/QHP Routine 09/06/2022 12:00 AM EST Vector Remote Device VECTOR REMOTE DEVICE Routine 05/17/2022 12:00 AM EST Vector Remote Device PACEART REPORT Routine 04/13/2022 3:07 PM EDT CARDIAC INTERROGATION DEVICE 04/13/2022 2:40 PM EDT OK REM INTERROG PM/LDLS PM <90 D PHYS/QHP Routine 03/15/2022 12:00 AM EDT Vector Remote Device PACEART REPORT Routine 11/13/2021 3:07 PM EDT URINALYSIS STAT 07/07/2021 12:18 PM EST EXTRA AMADOR URINE CX STAT 07/07/2021 12:[address] ABDOMEN PELVIS WO ORAL OR IV CONTRAST STAT 07/07/2021 11:44 AM EST BASIC METABOLIC PANEL STAT 07/07/2021 10:51 AM EST CBC WITH DIFF STAT 07/07/2021 10:[address] ABD PEL ED FAST W CONTRAST STAT 07/02/2021 10:14 PM EST DIGOXIN LEVEL STAT 07/02/2021 7:46 PM EST URINALYSIS STAT 07/02/2021 7:42 PM EST EXTRA AMADOR URINE CX STAT 07/02/2021 7:42 PM EST LACTIC ACID STAT 07/02/2021 7:36 PM EST LIPASE LEVEL STAT 07/02/2021 7:36 PM EST COMPREHENSIVE METABOLIC PANEL STAT 07/02/2021 7:36 PM EST CBC WITH DIFF STAT 07/02/2021 7:36 PM EST CORONAVIRUS 2019 Routine 07/02/2021 6:57 PM EST SALINE LOCK IV STAT 07/02/2021 6:44 PM EST SCANNED EKG 07/01/2021 11:46 AM EST GLUCOSE METER POC Routine 06/30/2021 11:27 AM EST GLUCOSE METER POC Routine 06/30/2021 7:45 AM EST BASIC METABOLIC PANEL Routine 06/30/2021 7:01 AM EST CBC WITH DIFF Routine 06/30/2021 7:01 AM EST ECG AND WAVEFORMS - TELEMETRY Routine 06/30/2021 6:59 AM EST GLUCOSE METER POC Routine 06/29/2021 10:21 PM EST ECG AND WAVEFORMS - TELEMETRY Routine 06/29/2021 7:00 PM EST GLUCOSE METER POC Routine 06/29/2021 6:38 PM EST GLUCOSE METER POC Routine 06/29/2021 12:30 PM EST BASIC METABOLIC PANEL Routine 06/29/2021 9:32 AM EST CBC WITH DIFF Routine 06/29/2021 9:32 AM EST GLUCOSE METER POC Routine 06/29/2021 8:28 AM EST ECG AND WAVEFORMS - TELEMETRY Routine 06/29/2021 7:46 AM EST GLUCOSE METER POC Routine 06/28/2021 9:34 PM EST ECG AND WAVEFORMS - TELEMETRY Routine 06/28/2021 7:05 PM EST GLUCOSE METER POC Routine 06/28/2021 6:33 PM EST GLUCOSE METER POC Routine 06/28/2021 12:22 PM EST GLUCOSE METER POC Routine 06/28/2021 7:58 AM EST BASIC METABOLIC PANEL Routine 06/28/2021 7:07 AM EST CBC WITH DIFF Routine 06/28/2021 7:07 AM EST GLUCOSE METER POC Routine 06/27/2021 9:08 PM EST ECG AND WAVEFORMS - TELEMETRY Routine 06/27/2021 7:47 PM EST GLUCOSE METER POC Routine 06/27/2021 6:48 PM EST GLUCOSE METER POC Routine 06/27/2021 1:35 PM EST ECG AND WAVEFORMS - TELEMETRY Routine 06/27/2021 11:37 AM EST GLUCOSE METER POC Routine 06/27/2021 8:46 AM EST ECG AND WAVEFORMS - TELEMETRY Routine 06/27/2021 7:30 AM EST BASIC METABOLIC PANEL Timed 06/27/2021 7:05 AM EST CBC WITH DIFF Timed 06/27/2021 7:05 AM EST GLUCOSE METER POC Routine 06/26/2021 9:15 PM EST ECG AND WAVEFORMS - TELEMETRY Routine 06/26/2021 7:23 PM EST ECG AND WAVEFORMS - TELEMETRY Routine 06/26/2021 7:05 PM EST GLUCOSE METER POC Routine 06/26/2021 6:27 PM EST IP CONSULT TO CARE COORDINATION Routine 06/26/2021 2:16 PM EST GLUCOSE METER POC Routine 06/26/2021 12:37 PM EST GLUCOSE METER POC Routine 06/26/2021 9:40 AM EST ECG AND WAVEFORMS - TELEMETRY Routine 06/26/2021 7:04 AM EST BASIC METABOLIC PANEL Timed 06/26/2021 6:03 AM EST CBC WITH DIFF Timed 06/26/2021 6:03 AM EST GLUCOSE METER POC Routine 06/25/2021 8:44 PM EST XR HIP RIGHT AP CHARISSE 06/25/2021 7:35 PM EST ECG AND WAVEFORMS - TELEMETRY Routine 06/25/2021 7:01 PM EST GLUCOSE METER POC Routine 06/25/2021 6:33 PM EST GLUCOSE METER POC Routine 06/25/2021 2:52 PM EST GLUCOSE METER POC Routine 06/25/2021 10:06 AM EST BASIC METABOLIC PANEL Timed 06/25/2021 7:44 AM EST CBC WITH DIFF Timed 06/25/2021 7:44 AM EST ECG AND WAVEFORMS - TELEMETRY Routine 06/25/2021 7:05 AM EST GLUCOSE METER POC Routine 06/24/2021 10:06 PM EST ECG AND WAVEFORMS - TELEMETRY Routine 06/24/2021 7:03 PM EST GLUCOSE METER POC Routine 06/24/2021 6:42 PM EST GLUCOSE METER POC Routine 06/24/2021 1:52 PM EST BASIC METABOLIC PANEL Timed 06/24/2021 10:05 AM EST CBC WITH DIFF Timed 06/24/2021 10:05 AM EST ECG AND WAVEFORMS - TELEMETRY Routine 06/24/2021 7:09 AM EST GLUCOSE METER POC Routine 06/24/2021 4:11 AM EST ECG AND WAVEFORMS - TELEMETRY Routine 06/23/2021 10:57 PM EST GLUCOSE METER POC Routine 06/23/2021 7:55 PM EST ECG AND WAVEFORMS - TELEMETRY Routine 06/23/2021 7:26 PM EST ECG AND WAVEFORMS - TELEMETRY Routine 06/23/2021 7:02 PM EST XR KNEE RIGHT AP AND LATERAL CHARISSE 06/23/2021 5:16 PM EST ECG AND WAVEFORMS - TELEMETRY Routine 06/23/2021 4:35 PM EST GLUCOSE METER POC Routine 06/23/2021 4:25 PM EST GLUCOSE METER POC Routine 06/23/2021 1:36 PM EST BASIC METABOLIC PANEL Timed 06/23/2021 9:16 AM EST MAGNESIUM LEVEL Timed 06/23/2021 9:16 AM EST CBC WITH DIFF Timed 06/23/2021 9:16 AM EST GLUCOSE METER POC Routine 06/23/2021 8:58 AM EST XR FEMUR RIGHT AP AND LATERAL CHARISSE 06/23/2021 8:[address] ABDOMEN PELVIS WITH ORAL WO IV CONTRAST CHARISSE 06/23/2021 8:26 AM EST IP CONSULT TO WOUND CARE Routine 021 8:21 AM EST VA US LOWER EXTREMITY VENOUS RIGHT Routine 06/23/2021 8:17 AM EST ECG AND WAVEFORMS - TELEMETRY Routine 06/23/2021 7:48 AM EST ECG AND WAVEFORMS - TELEMETRY Routine 06/23/2021 6:43 AM EST GLUCOSE METER POC Routine 06/22/2021 11:23 PM EST ECG AND WAVEFORMS - TELEMETRY Routine 06/22/2021 7:36 PM EST GLUCOSE METER POC Routine 06/22/2021 5:25 PM EST ECG AND WAVEFORMS - TELEMETRY Routine 06/22/2021 2:10 PM EST ECG AND WAVEFORMS - TELEMETRY Routine 06/22/2021 1:51 PM EST GLUCOSE METER POC Routine 06/22/2021 1:12 PM EST ECG AND WAVEFORMS - TELEMETRY Routine 06/22/2021 9:42 AM EST ECG AND WAVEFORMS - TELEMETRY Routine 06/22/2021 8:49 AM EST GLUCOSE METER POC Routine 06/22/2021 8:13 AM EST ECG AND WAVEFORMS - TELEMETRY Routine 06/22/2021 7:55 AM EST VITAMIN D 25 HYDROXY Routine 06/22/2021 7:48 AM EST BASIC METABOLIC PANEL Timed 06/22/2021 7:48 AM EST CBC WITH DIFF Timed 06/22/2021 7:48 AM EST ECG AND WAVEFORMS - TELEMETRY Routine 06/22/2021 7:09 AM EST GLUCOSE METER POC Routine 06/21/2021 7:56 PM EST ECG AND WAVEFORMS - TELEMETRY Routine 06/21/2021 7:09 PM EST ECG AND WAVEFORMS - TELEMETRY Routine 06/21/2021 6:42 PM EST REPEAT LACTIC ACID STAT 06/21/2021 6:23 PM EST GLUCOSE METER POC Routine 06/21/2021 5:19 PM EST EC ECHOCARDIOGRAM COMPLETE W DOPPLER AND COLOR FLOW MAPPING Routine 06/21/2021 4:14 PM EST REPEAT LACTIC ACID STAT 06/21/2021 3:33 PM EST ECG AND WAVEFORMS - TELEMETRY Routine 06/21/2021 3:04 PM EST SHIGA TOXIN Routine 06/21/2021 2:23 PM EST STOOL CULTURE (NO STAIN) Routine 2:23 PM EST FECAL WHITE BLOOD CELLS Routine 06/21/20 2:23 PM EST REPEAT LACTIC ACID STAT 06/21/2021 1:29 PM EST BLOOD CULTURE (NO STAIN) Routine 1:29 PM EST GLUCOSE METER POC Routine 06/21/2021 11:39 AM EST COMPREHENSIVE METABOLIC PANEL Routine 06/21/2021 11:24 AM EST PROCALCITONIN Routine 06/21/2021 11:24 AM EST BLOOD CULTURE (NO STAIN) Routine 11:24 AM EST HEMOGLOBIN A1C Routine 06/21/2021 11:23 AM EST CBC WITH DIFF Routine 06/21/2021 11:23 AM EST LACTIC ACID Routine 06/21/2021 11:23 AM EST C DIFF TOXIN DNA Routine 06/21/2021 7:49 AM EST GLUCOSE METER POC Routine 06/21/2021 7:38 AM EST ECG AND WAVEFORMS - TELEMETRY Routine 06/21/2021 7:03 AM EST URINALYSIS STAT 06/21/2021 6:41 AM EST EXTRA AMADOR URINE CX STAT 06/21/2021 6:41 AM EST IP CONSULT TO WOUND CARE Routine 4:19 AM EST ECG AND WAVEFORMS - TELEMETRY Routine 06/21/2021 3:48 AM EST IP CONSULT TO CARDIOLOGY Routine 3:29 AM EST Procedure Note - Rikki Mckeon MD - 06/21/2021 9:58 AM ESTThis note is in progress. Heart & Vascular Consult Note PATIENT: Gilberto Cardoso PCP: Geovani Wright MD Primary Manager Infrastructure: Dr. Quinonez- last 2018 Reason for consult: afib History provided by: EMR, patient HPI: Gilberto Cardoso is a 61 y.o. male with PMHx HTN, DM, KIA, PAF, SND s/pMDT PPM, CHF, COPD admitted for afib RVR. Patient was at home, reports hehas not been feeling well since receiving his COVID vaccine a week ago. Hereports generalized weakness, malaise, diarrhea and decreased appetite. Hecalled EMS when he was unable to stand and walk due to weakness. He tellsme he is fairly sedentary, light house work, takes the garbage out but wasunable to do any of those things due to weakness. Upon ED arrival he was noted to be in rapid afib, was started on Diltiazemgtt. WBC 20, sCr 1.79, initial troponin 59 with 2 hour 57. CXR was clear.Patient was hyperglycemic with no DKA, was given IV fluids and insulin. We are asked to see for Afib. He denies chest pain, palpitations or shortness of breath. He has been febrile since admission to the unit, TMAX 102 EKG: Atrial Fibrillation with RVR rate 140 Echocardiogram: 11/2019 Left Ventricular ejection fraction is estimated at 55-60%. Normal global left ventricular size and systolic function No obvious WMA Left ventricular wall thickness mildly increased. Aortic valve not well visualized. There may be mild aortic stenosis. pt report hx of LHC, no stents Unable to obtain records Family History- Mother with coronary artery disection at 63, father withMI. Social History- Former smoker. Denies ETOH. 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 Denies: Constitutional: chills, weight loss ENT: headaches, LOC, runny nose Cardiovascular: chest pain, edema, palpitations, orthopnea, dyspnea, orsyncope Pulmonary: cough, sputum production Gastrointestinal: abdominal pain, nausea, vomiting, blood in stool Genitourinary: change in bladder habits, burning Integumentary: rash Endocrine: Intolerance to heat or cold, frequent urination/thirst Hematologic/Lymphatic: abnormal bruising Allergic/Immunologic: hives Past Medical History Past Medical History: Diagnosis Date Anesthesia couldn't breathe after surgery Arthritis Atrial fibrillation (HCC) Atrial flutter (HCC) Blood circulation, collateral Cancer (HCC) kidney- no chemo/radiation, surgical removal of left kidney and freezingof right kidney Cardiac dysrhythmia CHF (congestive heart failure) (HCC) Chronic kidney disease kidney cancer Claustrophobia COPD (chronic obstructive pulmonary disease) (HCC) PRN 2L oxygen per [place] Diabetes mellitus (HCC) IDDM Diabetic neuropathy (HCC) Encounter for blood transfusion 2017 Heartburn Hyperlipidemia Hypertension Hyperthyroidism Kidney disorder right partial surgical freezing Neuropathy On home O2 2lnc PRN, unsure of companies name, no travel tank KIA (obstructive sleep apnea) wasn't able to tolerate CPap Pacemaker Psoriasis RBBB Recurrent appendicitis 11/10/2017 Sinus bradycardia Sinus node dysfunction (HCC) Medication gabapentin 800 mg Oral TID insulin aspart U-100 1-15 Units Subcutaneous QID WM metoprolol succinate ER 100 mg Oral BID miconazole Topical BID pantoprazole 40 mg Oral Daily rivaroxaban 20 mg Oral Daily dilTIAZem (CARDIZEM) 1 mg/mL INFUSION 20 mg/hr (06/21/21 0848) Past Surgical History Past Surgical History: Procedure Laterality Date ABLATION OF DYSRHYTHMIC FOCUS 12/24/2019 EPS w/ Typical AFL Ablation - Dr. Evangelista APPENDECTOMY CARDIAC CATHETERIZATION CHOLECYSTECTOMY, LAPAROSCOPIC N/A 03/03/2020 Laparoscopic cholecystectomy ; Surgeon: Manuel العلي MD;Location: [facility]; Service: General COLONOSCOPY CYSTOSCOPY Right 09/27/2016 CYSTOSCOPY RIGHT STENT INSERTION right retrograde; Surgeon: Georgi Myrick MD; Location: [facility]; Service: Urology CYSTOSCOPY 09/27/2016 Surgeon: Georgi Myrick MD; Location: [facility]; Service: Urology CYSTOSCOPY Right 04/20/2019 CYSTOSCOPY RIGHT STENT REMOVAL; Surgeon: Ray Teran MD; Location:[facility]; Service: Urology KIDNEY SURGERY left nephrectomy, right freezing PACEMAKER INSERTION Left 04/10/2016 MDT, dual chamber pacemaker by Dr. Evangelista PRESSURE ULCER DEBRIDEMENT N/A 05/19/2020 EXCISIONAL DEBRIDEMENT BUTTOCK WOUND; Surgeon: Manuel العلي MD;Location: [facility]; Service: General TYMPANOSTOMY TUBE PLACEMENT UPPER GASTROINTESTINAL ENDOSCOPY N/A 09/25/2016 ESOPHAGOGASTRODUODENOSCOPY with biopsy; Surgeon: Rikki Mcmanus MD;Location: [facility]; Service: Endoscopy URETEROSCOPY Right 11/25/2018 CYSTOSCOPY RIGHT URETEROSCOPY, BASKET STONE RETRIEVAL, WING EXCHANGE ANDSTENT INSERTION; Surgeon: Domo Penny MD; Location: [facility]; Service: Urology Allergy Allergies Allergen Reactions Amiodarone Other (See Comments) Hyperthyroidism Ciprocinonide Other (See Comments) developed pancreatitis Ciprofloxacin developed pancreatitis Patient Active Problem List Diagnosis Hypertensive heart disease without heart failure Hyperlipidemia associated with type 2 diabetes mellitus (HCC) Type 2 diabetes mellitus with complication, with long-term current useof insulin (HCC) Sinus bradycardia Hypertension associated with diabetes (HCC) Long-term insulin use in type 2 diabetes (HCC) KIA (obstructive sleep apnea) RBBB Advance directive discussed with patient Intestinal mass Sinus node dysfunction (HCC) Pacemaker Paroxysmal atrial fibrillation (HCC) Acanthosis nigricans Chronic acquired lymphedema Other [facility] (current) drug therapy Psoriasis Acute on chronic diastolic (congestive) heart failure (HCC) suspected Morbid obesity due to excess calories (HCC) CKD stage 3 due to type 2 diabetes mellitus (HCC) Hyperkalemia Metabolic acidosis Iron deficiency anemia due to chronic blood loss Anemia in stage 3 chronic kidney disease (HCC) Chronic venous hypertension involving both sides Venous ulcer of left lower extremity with varicose veins (HCC) Ureterolithiasis KIERRA (acute kidney injury) (HCC) Calculus of ureter Typical atrial flutter (HCC) Atrial flutter with rapid ventricular response (HCC) Acute cystitis with hematuria Sepsis (HCC) Paroxysmal A-fib (HCC) Essential hypertension CKD stage 2 due to type 2 diabetes mellitus (HCC) Abdominal pain Acute calculous cholecystitis Cholecystitis Hyponatremia Encephalopathy acute Neuropathy Weakness of left foot Buttock wound, left, sequela Pressure ulcer of ischium, stage 3, left (HCC) Atrial fibrillation with RVR (HCC) BP 118/67 (BP Location: Right arm, Patient Position: Semi Fowlers) Pulse 117 Temp 100.1 F (37.8 C) (Oral) Resp (!) 21 Ht 5' 8 (1.727 m) Wt (!) 310 lb (140.6 kg) SpO2 98% BMI 47.14 kg/m I/O 24 hours: Intake/Output Summary (Last 24 hours) at 06/21/2021 0958 Last data filed at 06/21/2021 0857 Gross per 24 hour Intake 408.19 ml Output 300 ml Net 108.19 ml Diagnostic tests The most recent cardiovascular imaging studies availabe in [facility] EMR werereviewed at time of consultation Exam: Pt lying in bed in no distress.Obese male Head: Atraumatic, normocephalic. EOM's intact Neck: No JVD or pulsations, very thick neck Heart: S1, S2 IRRR No obvious M/R/G. Heart tones distant, PMI diffuse Lung: no rales, no rhonchi, prolonged expiration Abd: soft, non-tender, +BS Ext: trace BLE edema. 2+ radial, 2+ DP pulses Alert and oriented x 3 Mood and affect appropriate Skin warm and dry, severe psoriasis, acanthosis nigracans Telemetry: Atrial Fibrillation 115-125 Assessment/Plan: Afib RVR - s/p aflutter ablation 11/[address] Evangelista - Echo 2019 EF 55-60 %, No WMA, poss mild - [id number] 4 - AC w Xarelto 20 mg [employer] HE[employer]IST without any missed doses - Diltiazem 240 BID, Toprol 100 mg BID [employer] HE[employer] SPECIALIST - S/p IV dilt bolus-->gtt at 10 mg/ hr - K+ 3.2 - in setting of acute illness/fever - replace K- 40 mEq PO X1 - Check Echo - Check TSH - Check Magnesium - Continue PO Toprol XL 100 mg - Continue Xarelto - Recommend maintaining K+ at 4, Mag >2 - BP soft- limiting up titration or PRN rate control - could consider cardioversion given uninterrupted AC- pending COVIDresults Elevated troponin - 59--57 flat, not c/w ACS - no chest pain - likely 2/2 demand ischemia-- tachycardia and KIERRA Generalized weakness Fatigue Fever - + diarrhea - +UTI - decreased PO intake - COVID pending - cdiff pending - empiric IV abx - per primary Sinus node dysfunction - s/p Dual chamber pacemaker, MDT on 04/10/[address] Evangelista - will interrogate device HTN - controlled on cardizem, BB [employer] HEALTH SPECIALIST - BP soft on dilt gtt HLD - fenofibrate [employer] HEALTH SPECIALIST - recheck lipids KIA -non compliant with CPAP DM - not well controlled - A1c 9.9 - SSI per primary CKD -sCr 1.79 on admit-- appears to be at his baseline per chart review Obesity Complicates all aspects of care Psoriasis Further input from Dr. Mckeon Thank you for the consult. Alexandra Donaldson APRN Heart and Vascular 06/21/2021 The patient was seen in collaboration with Alexandra Donaldson NP. I have reviewed the HPI, Problem List, ROS, H & P, Assessment/Plan ofCare. I have taken a history and performed a physical examination of thispatient in a face to face encounter. I agree with the history, physical,assessment and plan as outlined above with the followingadditions/modifications. HPI: Gilberto Cardoso is a pleasant 61 y.o.male who presented 06/20* with thechief complaint of Weakness (pt called ems because he could not stand athome, pt reports he has not felt well since he recieved the jericho andjohnson booster last sat. he has not eaten for a couple of days cpta [id number]) . Patient has multiple medical problems including history of pacemaker,history of atrial flutter ablation, diabetes, hypertension, COPD whorecently received a second shot/booster shot of his Jericho & JohnsonCOVID-19 vaccine. He presents with multiple symptoms including diarrhea,weakness and diagnosed with atrial fibrillation with rapid ventricularresponse. His EKG in the emergency room showed atrial fibrillation at 140bpm. He was started on diltiazem gtt. and continued on his Xarelto. Hisinfectious work-up is negative so far. Denies any cardiac symptoms. Doeshave a fever to 102. Echo is pending. ROS: Positives: Some shortness of breath Negatives: All except above PE: AA Ox3 No icterus No carotid bruit CTAB/L RRR normal S1+S2 No M/R/G Pulses normal and symmetrical Trace edema JVP flat Cranial nerves 2-12 grossly intact Mood stable. Normal affect. Chronic venous changes Telemetry: A. fib 101 EKG: A. fib 140 bpm Past echo reports and caths reviewed if available. A/P Severity/complexity: Low [ ] Moderate [ ] High [ x] 1. Atrial fibrillation with rapid ventricular sponsor Rate controlled with diltiazem Echocardiogram pending We will need to rule out post vaccination pericarditis as it is not clearby EKG Continue Xarelto 2. Hypertension Poor control Restart home meds including metoprolol 3. Diarrhea Unclear if this is infectious Defer to primary 4. Hypothyroidism Continue Tapazole per primary Time spent discussing the diagnosis and treatment plan with the patientand any available family at bedside. Plan discussed with nursing in theunit as necessary. Rikki Mckeon M.D., F.A.C.C . CORONAVIRUS 2019 Routine 06/21/2021 1:45 AM EST ADMIT STAT 06/21/2021 1:27 AM EST MAGNESIUM LEVEL Add-On 06/21/2021 12:23 AM EST TSH REFLEX TO FT4 Add-On 06/21/2021 12:23 AM EST LIPID SCREEN Add-On 06/21/2021 12:23 AM EST BETA-HYDROXYBUTYRIC ACID STAT 021 12:23 AM EST TROPONIN-T HIGH SENSITIVITY 2HR Timed 06/21/2021 12:23 AM EST XR CHEST AP PORTABLE CAHRISSE 06/20/2021 10:55 PM EST PT / INR STAT 06/20/2021 10:53 PM EST TROPONIN-T HIGH SENSITIVITY BASELINE W/ REFLEX STAT 06/20/2021 10:53 PM EST BASIC METABOLIC PANEL STAT 06/20/2021 10:53 PM EST CBC STAT 06/20/2021 10:53 PM EST EK EKG 12 LEAD STAT 06/20/2021 10:27 PM EST PACEART REPORT Routine 11/11/2020 6:40 PM EDT Pacemaker PACEART REPORT Routine 08/04/2020 7:43 PM EST SCANNED RHYTHM STRIPS 05/24/2020 11:54 AM EST GLUCOSE METER POC Routine 05/23/2020 11:27 AM EST GLUCOSE METER POC Routine 05/23/2020 7:43 AM EST BASIC METABOLIC PANEL Early AM 05/23/2020 7:29 AM EST GLUCOSE METER POC Routine 05/22/2020 10:04 PM EST GLUCOSE METER POC Routine 05/22/2020 5:50 PM EST GLUCOSE METER POC Routine 05/22/2020 12:46 PM EST GLUCOSE METER POC Routine 05/22/2020 8:19 AM EST BASIC METABOLIC PANEL Early AM 05/22/2020 7:59 AM EST URIC ACID Routine 05/22/2020 7:59 AM EST GLUCOSE METER POC Routine 05/22/2020 7:47 AM EST GLUCOSE METER POC Routine 05/21/2020 9:28 PM EST GLUCOSE METER POC Routine 05/21/2020 5:47 PM EST US RENAL AND BLADDER CHARISSE 05/21/2020 3:11 PM EST GLUCOSE METER POC Routine 05/21/2020 1:04 PM EST OSMOLALITY URINE Routine 05/21/2020 11:56 AM EST EOSINOPHIL URINE STAT 05/21/2020 11:56 AM EST POTASSIUM LEVEL URINE STAT 05/21/2020 11:56 AM EST CHLORIDE, URINE - REF LAB Routine 2019 11:56 AM EST CREATININE LEVEL URINE STAT 0 11:56 AM EST PROTEIN LEVEL URINE STAT 05/21/2020 11:56 AM EST SODIUM LEVEL URINE STAT 05/21/2020 11:56 AM EST URINALYSIS STAT 05/21/2020 11:56 AM EST OSMOLALITY Routine 05/21/2020 10:50 AM EST MYOGLOBIN Routine 05/21/2020 10:50 AM EST URINALYSIS Routine 05/21/2020 10:19 AM EST IP CONSULT TO NEPHROLOGY Routine 020 8:15 AM EST Procedure Note - Greg Leblanc MD - 05/21/2020 12:30 PM ESTThis note is in progress. Images from the original note were not included. [facility] Greg Leblanc MD PATIENT NAME: Gliberto Cardoso : 1960 MEDICAL RECORD: [id number] HOSPITAL ROOM # [id number] PRIMARY PROVIDER Geovani Wright MD History of Present Illness Gilberto Cardoso is a(n)59 y.o. male admitted on 05/17/2020. We arefollowing for KIERRA on CKD Interval History patient is 59-year-old white male known to me, underlying history of CKDstage III, A. fib, CHF, HTN, COPD, type II DM, hypothyroidism, KIA, leftnephrectomy secondary to RCC. Patient is admitted for buttock wound. Hehad debridement and wound VAC placed at outside hospital however, hadincreased drainage and necrosis. Subsequently had debridement done on05/19/2020. He was on Clindamycin in March and Ampicillin 500 mg BIDstarting 05/03/20. Over here he is on IV Ampicillin. Labs as below: His baseline creatinine is around 1.3. Creatinine was 1.95 on 05/17/2020,now at 1.8 as of 05/21/2020. He does have mild hyponatremia with [id number]. Bicarb is normal. Hemoglobin 9.8. Urinalysis pending. Urineprotein/creatinine ratio in the past with approximately 1 g proteinuria.Patient is not on any PAULA or ARB. He is not getting any NSAIDs. He iscurrently on ampicillin 1 g IV every 6 hours. Blood pressure stablearound 140s/70s. No recent CT with IV contrast done. Assessment & Plan 1. Acute on chronic renal failure, underlying diabetic nephropathy withcreatinine of 1.3. Current creatinine of 1.8 as of 05/21/2020. AKIlikely from ATN as seen with sepsis. Postinfectious glomerulonephritis ispossible also with chronic wounds. AIN possible also with Abx. He was onClindamycin in March and Ampicillin 500 mg BID starting 05/03/20. He isnot on any other nephrotoxic medication at present time. Volume isstable. Blood pressures are controlled. We will check renal ultrasound, UA, urine protein/creatinine ratio, urineeosinophils etc. Monitor urine output closely. Repeat labs. We willcontinue with ampicillin as such for now. Further input based onultrasound and urinary findings. 2. Status post left nephrectomy, history of RCC 3. History of renal stone right kidney, had KIERRA in 2017 requiringhemodialysis. He had ureteral stents with extraction of stone at thattime. His creatinine had stabilized around 1.3. 4. Sacral decubitus ulcer, being followed by surgery, status postdebridement. 5. Essential hypertension, continue current medications. He is not onARB's anymore. 6. Type II DM with complications, continue home medications, slidingscale insulin. He is not on Metformin anymore. 7. History of chronic A. fib, rate controlled. On Eliquis. Past Medical History: Diagnosis Date Anesthesia couldn't breathe after surgery Arthritis Atrial fibrillation (HCC) Atrial flutter (HCC) Blood circulation, collateral Cancer (HCC) kidney- no chemo/radiation, surgical removal of left kidney and freezingof right kidney Cardiac dysrhythmia CHF (congestive heart failure) (HCC) Chronic kidney disease kidney cancer Claustrophobia COPD (chronic obstructive pulmonary disease) (HCC) PRN 2L oxygen per [place] Diabetes mellitus (HCC) IDDM Diabetic neuropathy (HCC) Encounter for blood transfusion 2017 Heartburn Hyperlipidemia Hypertension Hyperthyroidism Kidney disorder right partial surgical freezing Neuropathy On home O2 2lnc PRN, unsure of companies name, no travel tank KIA (obstructive sleep apnea) wasn't able to tolerate CPap Pacemaker Psoriasis RBBB Recurrent appendicitis 11/10/2017 Sinus bradycardia Sinus node dysfunction (HCC) Past Surgical History: Procedure Laterality Date ABLATION OF DYSRHYTHMIC FOCUS 12/24/2019 EPS w/ Typical AFL Ablation - Dr. Evangelista APPENDECTOMY CARDIAC CATHETERIZATION CHOLECYSTECTOMY, LAPAROSCOPIC N/A 03/03/2020 Laparoscopic cholecystectomy ; Surgeon: Manuel العلي MD;Location: [facility]; Service: General COLONOSCOPY CYSTOSCOPY Right 09/27/2016 CYSTOSCOPY RIGHT STENT INSERTION right retrograde; Surgeon: Georgi Myrick MD; Location: [facility]; Service: Urology CYSTOSCOPY 09/27/2016 Surgeon: Georgi Myrick MD; Location: [facility]; Service: Urology CYSTOSCOPY Right 04/20/2019 CYSTOSCOPY RIGHT STENT REMOVAL; Surgeon: Ray Teran MD; Location:[facility]; Service: Urology KIDNEY SURGERY left nephrectomy, right freezing PACEMAKER INSERTION Left 04/10/2016 MDT, dual chamber pacemaker by Dr. Evangelista PRESSURE ULCER DEBRIDEMENT N/A 05/19/2020 EXCISIONAL DEBRIDEMENT BUTTOCK WOUND; Surgeon: Manuel العلي MD;Location: [facility]; Service: General TYMPANOSTOMY TUBE PLACEMENT UPPER GASTROINTESTINAL ENDOSCOPY N/A 09/25/2016 ESOPHAGOGASTRODUODENOSCOPY with biopsy; Surgeon: Rikki Mcmanus MD;Location: [facility]; Service: Endoscopy URETEROSCOPY Right 11/25/2018 CYSTOSCOPY RIGHT URETEROSCOPY, BASKET STONE RETRIEVAL, WING EXCHANGE ANDSTENT INSERTION; Surgeon: Domo Penny MD; Location: [facility]; Service: Urology Family History Problem Relation Age of Onset Coronary Art Dis Mother 63 age: 63 Diabetes Mother COPD Mother Cancer Mother lung Coronary Art Dis Maternal Grandfather 70 Heart Attack Maternal Grandfather Anesth Problems Neg Hx Amiodarone, Ciprocinonide, and Ciprofloxacin SOCIAL HISTORY Social History Socioeconomic History Marital status: Single Spouse name: None Number of children: None Years of education: None Highest education level: None Tobacco Use Smoking status: Former Smoker Packs/day: 3.00 Years: 40.00 Pack years: 120.00 Types: Cigarettes Start date: 12/21/1967 Quit date: 2005 Years since quittin.8 Smokeless tobacco: Never Used Substance and Sexual Activity Alcohol use: No Drug use: No Social History Narrative Lives at home with leah. Completely independent in ADLs andiADLs. Medications Scheduled Meds: ampicillin IVPB (Orderable) 1,000 mg Intravenous 4 times per day apixaban 5 mg Oral BID [START ON 05/23/2020] Cholecalciferol (Vitamin D3) 10,000 Units Oral QW dilTIAZem 240 mg Oral BID fenofibrate 160 mg Oral Daily gabapentin 800 mg Oral TID insulin aspart U-100 1-15 Units Subcutaneous QID WM insulin glargine 25 Units Subcutaneous BID (Insulin) methIMAzole 5 mg Oral 3 times per day metoprolol succinate ER 100 mg Oral BID miconazole Topical BID pantoprazole 40 mg Oral Daily Continuous Infusions: sodium chloride 0.9 % 75 mL/hr at 05/21/20 1016 REVIEW OF SYSTEMS Patient denies having problems with headaches, dizziness, troubleswallowing, visual disturbances, hearing loss, cough or chest pain.Patient does not have any abdominal pain, nausea, vomiting, diarrhea,blood in the stool, difficulty with urination, weakness or numbness in thelegs. No calf swelling or joint tenderness. Please refer to IntervalHistory above for acute problems mentioned and addressed. Objective: BP 140/69 (BP Location: Left arm, Patient Position: Sitting) Pulse 72 Temp 98.1 F (36.7 C) (Oral) Resp 16 Ht 5' 8 (1.727 m) Wt (!)310 lb (140.6 kg) SpO2 95% BMI 47.14 kg/m Intake/Output Summary (Last 24 hours) at 05/21/2020 1030 Last data filed at 05/21/2020 0913 Gross per 24 hour Intake 1079.24 ml Output 1075 ml Net 4.24 ml General appearance : awake alert no acute distress Head: atraumatic HEENT PERRL, EOMI Neck: supple, no JVD Present. No Bruit Lungs: rhonchi in bases, otherwise clear Heart: S1 S2 normal. No murmurs Abdomen: Soft NT. No organanomegaly Extremities: 1+ EDEMA LE Neuro: A&O x3. No gross abnormality. MusuloSkeletal ; No acute arthritis or Synovitis HEMODYNAMIC DATA BP Min: 121/50 Max: 140/69 Pulse Av Min: 72 Max: 84 I/O last 3 completed shifts: In: 1111.2 [P.O.:802; I.V.:109.2; IV Piggyback:200] Out: 1350 [Urine:1350] Wt Readings from Last 2 Encounters: 05/18/20 (!) 310 lb (140.6 kg) 03/09/20 (!) 328 lb 8 oz (149 kg) Wt Reading from Admission: 05/17/2020 (!) 310 lb (140.6 kg) BLOOD GAS & ACID BASE DATA SpO2 Av.3 % Min: 95 % Max: 98 % Lab Results Component Value Date/Time ANIONGAP 9 05/21/2020 06:06 AM RENAL & METABOLIC DATA Lab Results Component Value Date/Time GLU 211 (H) 05/21/2020 06:06 AM BUN 23 05/21/2020 06:06 AM CREATININE 1.81 (H) 05/21/2020 06:06 AM NA 134 (L) 05/21/2020 06:06 AM K 4.4 05/21/2020 06:06 AM CL 101 05/21/2020 06:06 AM CO2 24 05/21/2020 06:06 AM CALCIUM 8.6 (L) 05/21/2020 06:06 AM GFRAFRAM 46 (L) 05/21/2020 06:06 AM CBC Lab Results Component Value Date WBC 9.8 05/21/2020 HGB 9.8 (L) 05/21/2020 HCT 32.1 (L) 05/21/2020 PLT 309 05/21/2020 RBC 4.05 (L) 05/21/2020 Imaging: CXR reviewed, see results Thank you for letting me participate in your patient care. Please do nothesitate to call if any questions. Greg Leblanc MD Nephrology GLUCOSE METER POC Routine 05/21/2020 7:49 AM EST BASIC METABOLIC PANEL Early AM 05/21/2020 6:06 AM EST CBC WITH DIFF Early AM 05/21/2020 6:06 AM EST GLUCOSE METER POC Routine 05/20/2020 11:03 PM EST GLUCOSE METER POC Routine 05/20/2020 7:33 PM EST HOME HEALTH ORDERS (FACE TO FACE ENCOUNTER) Routine 05/20/2020 3:42 PM EST GLUCOSE METER POC Routine 05/20/2020 12:41 PM EST GLUCOSE METER POC Routine 05/20/2020 8:52 AM EST BASIC METABOLIC PANEL Early AM 05/20/2020 7:19 AM EST CBC WITH DIFF Early AM 05/20/2020 7:19 AM EST GLUCOSE METER POC Routine 05/19/2020 11:22 PM EST GLUCOSE METER POC Routine 05/19/2020 8:13 PM EST INTRAOP AIRWAY PLACEMENT Routine 020 6:28 PM EST GLUCOSE METER POC Routine 05/19/2020 6:23 PM EST DEBRIDEMENT OF ULCER DECUBITUS SACRAL / ISCHIAL / HIP / COVERS FLAP 05/19/2020 5:39 PM EST Buttock wound, left, sequela GLUCOSE METER POC Routine 05/19/2020 3:32 PM EST CORONAVIRUS 2019 Routine 05/19/2020 11:38 AM EST GLUCOSE METER POC Routine 05/19/2020 11:17 AM EST BASIC METABOLIC PANEL Early AM 05/19/2020 8:25 AM EST CBC WITH DIFF Early AM 05/19/2020 8:25 AM EST GLUCOSE METER POC Routine 05/18/2020 9:54 PM EST T4, FREE (THYROXINE) Routine 05/18/2020 7:26 PM EST TSH REFLEX TO FT4 Routine 05/18/2020 7:26 PM EST HEPATIC FUNCTION PANEL Routine 0 7:26 PM EST GLUCOSE METER POC Routine 05/18/2020 6:46 PM EST IP CONSULT TO NUTRITION Routine 05/18/20 20 6:11 PM EST GLUCOSE METER POC Routine 05/18/2020 2:00 PM EST GLUCOSE METER POC Routine 05/18/2020 11:30 AM EST IP CONSULT TO GENERAL SURGERY Routine 05/18/2020 8:55 AM EST Procedure Note - Manuel العلي MD - 05/18/2020 5:40 PM ESTThis note is in progress. Surgery Consult Chief Complaint Patient presents with Wound Check Pt has a wound vac on area on his back of his leg and buttocks where pthad area scraped by surgeon and now is infected and pt wants it looked at.CPTA: none HPI: This is a 59 y.o. year old male patient who we are asked to see by for buttock wound. Patient developed wound during recenthospitalization, had debridement and wound VAC placed at outside hospital.Noted to have increased drainage and necrosis on recent nurse evaluation.No pain, fever. Mobility still limited but improving. Past Medical History: Diagnosis Date Anesthesia couldn't breathe after surgery Arthritis Atrial fibrillation (HCC) Atrial flutter (HCC) Blood circulation, collateral Cancer (HCC) kidney- no chemo/radiation, surgical removal of left kidney and freezingof right kidney Cardiac dysrhythmia CHF (congestive heart failure) (HCC) Chronic kidney disease kidney cancer Claustrophobia COPD (chronic obstructive pulmonary disease) (HCC) PRN 2L oxygen per [place] Diabetes mellitus (HCC) IDDM Diabetic neuropathy (HCC) Encounter for blood transfusion 2017 Heartburn Hyperlipidemia Hypertension Hyperthyroidism Kidney disorder right partial surgical freezing Neuropathy On home O2 2lnc PRN, unsure of companies name, no travel tank KIA (obstructive sleep apnea) wasn't able to tolerate CPap Pacemaker Psoriasis RBBB Recurrent appendicitis 11/10/2017 Sinus bradycardia Sinus node dysfunction (HCC) Past Surgical History: Procedure Laterality Date ABLATION OF DYSRHYTHMIC FOCUS 12/24/2019 EPS w/ Typical AFL Ablation - Dr. Evangelista APPENDECTOMY CARDIAC CATHETERIZATION CHOLECYSTECTOMY, LAPAROSCOPIC N/A 03/03/2020 Laparoscopic cholecystectomy ; Surgeon: Manuel العلي MD;[facility]; Service: General COLONOSCOPY CYSTOSCOPY Right 09/27/2016 CYSTOSCOPY RIGHT STENT INSERTION right retrograde; Surgeon: Georgi Myrick MD; [facility]; Service: Urology CYSTOSCOPY 09/27/2016 Surgeon: Georgi Myrick MD; [facility]; Service: Urology CYSTOSCOPY Right 04/20/2019 CYSTOSCOPY RIGHT STENT REMOVAL; Surgeon: Ray Teran MD; Location:[facility]; Service: Urology KIDNEY SURGERY left nephrectomy, right freezing PACEMAKER INSERTION Left 04/10/2016 MDT, dual chamber pacemaker by Dr. Evangelista TYMPANOSTOMY TUBE PLACEMENT UPPER GASTROINTESTINAL ENDOSCOPY N/A 09/25/2016 ESOPHAGOGASTRODUODENOSCOPY with biopsy; Surgeon: Rikki Mcmanus MD;Location: [facility] END[facility]COPY; Service: Endoscopy URETEROSCOPY Right 11/25/2018 CYSTOSCOPY RIGHT URETEROSCOPY, BASKET STONE RETRIEVAL, WING EXCHANGE ANDSTENT INSERTION; Surgeon: Domo Penny MD; Location: [facility]; Service: Urology No current facility-administered medications on file prior to encounter. Current Outpatient Medications on File Prior to Encounter Medication Sig Dispense Refill apixaban (ELIQUIS) 5 mg Oral Tablet Take 1 Tab by mouth 2 times daily.60 Tab 3 Cholecalciferol, Vitamin D3, 10,000 unit Oral Capsule Take 1 Tab bymouth once a week. Saturday' dilTIAZem 240 mg Oral Capsule, Sust. Release 24 hr Take 1 Cap by mouth 2times daily. 60 Cap 2 fenofibrate (TRICOR) 145 mg Oral Tablet Take 145 mg by mouth daily. gabapentin (NEURONTIN) 800 mg Oral Tablet Take 1 Tab by mouth 3 timesdaily. 0 HUMALOG KWIKPEN INSULIN 100 unit/mL SubQ Insulin Pen Subcutaneous(Inject under the skin) 80 Units Before every meal. methIMAzole (TAPAZOLE) 5 mg Oral Tablet Take 5 mg by mouth every 8hours. metoprolol succinate ER (TOPROL-XL) 100 mg Oral Tablet Sustained Vamxzsn99 hr TAKE 1 TABLET BY MOUTH 2 TIMES A DAY 60 Tab 5 oxyCODONE-acetaminophen (PERCOCET) 5-325 mg Oral Tablet Take 1 Tab bymouth every 6 hours as needed. pantoprazole (PROTONIX) 40 mg Oral Tablet, Delayed Release (E.C.) Take 1Tab by mouth daily. 30 Tab 2 insulin aspart (NOVOLOG) 100 unit/mL SubQ Solution Subcutaneous (Injectunder the skin) 20 Units 3 times daily (before meals). (Patient nottaking: Reported on 03/01/2020) 10 mL 12 Insulin Glargine (LANTUS) 100 unit/mL (3 mL) SubQ Insulin PenSubcutaneous (Inject under the skin) 20 Units 2 times daily. LINZESS 145 mcg Oral Capsule Take 145 mcg by mouth as needed. 10 Allergies Allergen Reactions Amiodarone Other (See Comments) Hyperthyroidism Ciprocinonide Other (See Comments) developed pancreatitis Ciprofloxacin developed pancreatitis Social History Socioeconomic History Marital status: Single Spouse name: Not on file Number of children: Not on file Years of education: Not on file Highest education level: Not on file Occupational History Not on file Social Needs Financial resource strain: Not on file Food insecurity Worry: Not on file Inability: Not on file Transportation needs Medical: Not on file Non-medical: Not on file Tobacco Use Smoking status: Former Smoker Packs/day: 3.00 Years: 40.00 Pack years: 120.00 Types: Cigarettes Start date: 12/21/1967 Quit date: 2006 Years since quittin.8 Smokeless tobacco: Never Used Substance and Sexual Activity Alcohol use: No Drug use: No Sexual activity: Not on file Lifestyle Physical activity Days per week: Not on file Minutes per session: Not on file Stress: Not on file Relationships Social connections Talks on phone: Not on file Gets together: Not on file Attends methodist service: Not on file Active member of club or organization: Not on file Attends meetings of clubs or organizations: Not on file Relationship status: Not on file Intimate partner violence Fear of current or ex partner: Not on file Emotionally abused: Not on file Physically abused: Not on file Forced sexual activity: Not on file Other Topics Concern Not on file Social History Narrative Lives at home with leah. Completely independent in ADLs andiADLs. Family History Problem Relation Age of Onset Coronary Art Dis Mother 63 age: 63 Diabetes Mother COPD Mother Cancer Mother lung Coronary Art Dis Maternal Grandfather 70 Heart Attack Maternal Grandfather Anesth Problems Neg Hx No other family history pertinent to the presenting problem Review of Systems As above and all other systems are negative. Physical Exam Vitals: 05/18/20 0839 BP: 148/62 Pulse: 59 Resp: 20 Temp: 97.4 F (36.3 C) SpO2: 97% Body mass index is 47.14 kg/m . General: No acute distress. obese Neuro: alert. oriented Eyes: pupils equal. anicteric Chest: symmetric excursion with respiration. Respirations unlabored andregular. dry rales Heart: Regular rate and rhythm Abdomen: soft, non-distended, non-tender Skin: warm, well perfused, stage III decubitus left posteriorthigh/buttock with moderate necrosis and drainage, no crepitance Back: no tenderness, no CVA tenderness Extremities: good range of motion. No deformities Labs WBC/Hgb/Hct/Plts: 14.3/10.5/34.9/355 (05/17 1615) Na/K/Cl/CO2: 138/4.8/101/26 (05/17 1615)BUN/Cr/glu/ALT/AST/amyl/lip: 25/1.95/--/--/--/--/-- (05/17 1615) Pertinent Labs reviewed and Imaging visualized. Assessment & Plan: Active Hospital Problems Diagnosis *Buttock wound, left, sequela Paroxysmal A-fib (HCC) KIERRA (acute kidney injury) (HCC) CKD stage 3 due to type 2 diabetes mellitus (HCC) Morbid obesity due to excess calories (HCC) Long-term insulin use in type 2 diabetes (HCC) Hyperlipidemia associated with type 2 diabetes mellitus (HCC) Hypertensive heart disease without heart failure Buttock decubitus with necrosis. Will debride in OR, hopefully can apply VAC although proximity to anus isdifficult GLUCOSE METER POC Routine 05/18/2020 8:22 AM EST IP CONSULT TO SOCIAL WORK Routine 2019 1:18 AM EST ADMIT Routine 05/17/2020 6:51 PM EST XR FEMUR LEFT AP AND LATERAL CHARISSE 05/17/2020 4:49 PM EST WOUND CULTURE (STAIN INCLUDED) STAT 05/17/2020 4:22 PM EST LACTIC ACID STAT 05/17/2020 4:15 PM EST BASIC METABOLIC PANEL STAT 05/17/2020 4:15 PM EST CBC WITH DIFF STAT 05/17/2020 4:15 PM EST IP CONSULT TO WOUND CARE Routine 020 3:33 PM EST PACEART REPORT Routine 04/24/2020 1:02 PM EDT CBC WITH DIFF Routine 04/05/2020 6:05 AM EDT BASIC METABOLIC PANEL Routine 04/05/2020 6:05 AM EDT RENAL FUNCTION PANEL Routine 04/04/2020 6:20 AM EDT CBC WITH DIFF Routine 04/04/2020 6:20 AM EDT CBC WITH DIFF Routine 04/02/2020 7:40 AM EDT BASIC METABOLIC PANEL Routine 04/02/2020 7:40 AM EDT RENAL FUNCTION PANEL Routine 04/01/2020 5:55 AM EDT CBC WITH DIFF Routine 04/01/2020 5:55 AM EDT CBC WITH DIFF Routine 03/30/2020 5:10 AM EDT RENAL FUNCTION PANEL Routine 03/30/2020 5:10 AM EDT XR KNEE LEFT AP AND LATERAL CHARISSE 03/29/2020 8:03 PM EDT Pain BASIC METABOLIC PANEL Routine 03/29/2020 5:15 AM EDT CBC WITH DIFF Routine 03/29/2020 5:15 AM EDT RENAL FUNCTION PANEL Routine 03/28/2020 6:10 AM EDT CBC WITH DIFF Routine 03/28/2020 6:10 AM EDT CBC WITH DIFF Routine 03/27/2020 6:00 AM EDT BASIC METABOLIC PANEL Routine 03/27/2020 6:00 AM EDT RENAL FUNCTION PANEL Routine 03/25/2020 6:10 AM EDT CBC WITH DIFF Routine 03/25/2020 6:10 AM EDT CBC WITH DIFF Routine 03/24/2020 5:52 AM EDT BASIC METABOLIC PANEL Routine 03/24/2020 5:52 AM EDT CBC WITH DIFF Routine 03/23/2020 5:15 AM EDT RENAL FUNCTION PANEL Routine 03/23/2020 5:15 AM EDT CBC WITH DIFF Routine 03/22/2020 5:15 AM EDT BASIC METABOLIC PANEL Routine 03/22/2020 5:15 AM EDT CBC WITH DIFF Routine 03/21/2020 5:15 AM EDT RENAL FUNCTION PANEL Routine 03/21/2020 5:15 AM EDT BASIC METABOLIC PANEL Routine 03/20/2020 7:00 AM EDT CBC WITH DIFF Routine 03/20/2020 7:00 AM EDT BASIC METABOLIC PANEL Routine 03/19/2020 6:40 AM EDT CBC WITH DIFF Routine 03/19/2020 6:40 AM EDT RENAL FUNCTION PANEL Routine 03/18/2020 5:55 AM EDT CBC WITH DIFF Routine 03/18/2020 5:55 AM EDT SCANNED RHYTHM STRIPS 03/17/2020 12:18 PM EDT COMPREHENSIVE METABOLIC PANEL Routine 03/17/2020 5:15 AM EDT HEMOGLOBIN A1C Routine 03/17/2020 5:15 AM EDT CBC Routine 03/17/2020 5:15 AM EDT ECG AND WAVEFORMS - TELEMETRY Routine 03/16/2020 7:23 PM EDT GLUCOSE METER POC Routine 03/16/2020 6:05 PM EDT PARATHYROID HORMONE INTACT Routine 03/16/2020 2:28 PM EDT GLUCOSE METER POC Routine 03/16/2020 12:04 PM EDT RENAL FUNCTION PANEL Timed 03/16/2020 10:10 AM EDT GLUCOSE METER POC Routine 03/16/2020 8:32 AM EDT ECG AND WAVEFORMS - TELEMETRY Routine 03/16/2020 7:35 AM EDT GLUCOSE METER POC Routine 03/15/2020 9:58 PM EDT ECG AND WAVEFORMS - TELEMETRY Routine 03/15/2020 7:01 PM EDT GLUCOSE METER POC Routine 03/15/2020 6:29 PM EDT GLUCOSE METER POC Routine 03/15/2020 12:02 PM EDT RENAL FUNCTION PANEL Timed 03/15/2020 9:21 AM EDT GLUCOSE METER POC Routine 03/15/2020 8:15 AM EDT ECG AND WAVEFORMS - TELEMETRY Routine 03/15/2020 7:02 AM EDT GLUCOSE METER POC Routine 03/14/2020 9:11 PM EDT ECG AND WAVEFORMS - TELEMETRY Routine 03/14/2020 7:00 PM EDT GLUCOSE METER POC Routine 03/14/2020 6:08 PM EDT GLUCOSE METER POC Routine 03/14/2020 2:19 PM EDT VA US LOWER EXTREMITY VENOUS RIGHT Routine 03/14/2020 2:12 PM EDT RENAL FUNCTION PANEL Timed 03/14/2020 12:42 PM EDT GLUCOSE METER POC Routine 03/14/2020 9:29 AM EDT ECG AND WAVEFORMS - TELEMETRY Routine 03/14/2020 7:57 AM EDT GLUCOSE METER POC Routine 03/13/2020 9:26 PM EDT ECG AND WAVEFORMS - TELEMETRY Routine 03/13/2020 7:03 PM EDT GLUCOSE METER POC Routine 03/13/2020 6:23 PM EDT GLUCOSE METER POC Routine 03/13/2020 12:58 PM EDT RENAL FUNCTION PANEL Timed 03/13/2020 9:12 AM EDT GLUCOSE METER POC Routine 03/13/2020 8:09 AM EDT ECG AND WAVEFORMS - TELEMETRY Routine 03/13/2020 7:00 AM EDT GLUCOSE METER POC Routine 03/12/2020 11:00 PM EDT ECG AND WAVEFORMS - TELEMETRY Routine 03/12/2020 7:00 PM EDT GLUCOSE METER POC Routine 03/12/2020 5:26 PM EDT GLUCOSE METER POC Routine 03/12/2020 12:07 PM EDT GLUCOSE METER POC Routine 03/12/2020 8:51 AM EDT ECG AND WAVEFORMS - TELEMETRY Routine 03/12/2020 7:00 AM EDT RENAL FUNCTION PANEL Timed 03/12/2020 6:10 AM EDT PHOSPHORUS LEVEL Timed 03/12/2020 6:10 AM EDT MAGNESIUM LEVEL Timed 03/12/2020 6:10 AM EDT GLUCOSE METER POC Routine 03/11/2020 10:10 PM EDT ECG AND WAVEFORMS - TELEMETRY Routine 03/11/2020 7:31 PM EDT GLUCOSE METER POC Routine 03/11/2020 7:28 PM EDT GLUCOSE METER POC Routine 03/11/2020 8:46 AM EDT ECG AND WAVEFORMS - TELEMETRY Routine 03/11/2020 7:05 AM EDT RENAL FUNCTION PANEL Timed 03/11/2020 5:33 AM EDT PHOSPHORUS LEVEL Timed 03/11/2020 5:33 AM EDT MAGNESIUM LEVEL Timed 03/11/2020 5:33 AM EDT GLUCOSE METER POC Routine 03/10/2020 11:08 PM EDT ECG AND WAVEFORMS - TELEMETRY Routine 03/10/2020 7:16 PM EDT GLUCOSE METER POC Routine 03/10/2020 6:14 PM EDT GLUCOSE METER POC Routine 03/10/2020 1:14 PM EDT GLUCOSE METER POC Routine 03/10/2020 8:53 AM EDT ECG AND WAVEFORMS - TELEMETRY Routine 03/10/2020 7:14 AM EDT RENAL FUNCTION PANEL Timed 03/10/2020 5:32 AM EDT PHOSPHORUS LEVEL Timed 03/10/2020 5:32 AM EDT MAGNESIUM LEVEL Timed 03/10/2020 5:32 AM EDT GLUCOSE METER POC Routine 03/09/2020 9:41 PM EDT ECG AND WAVEFORMS - TELEMETRY Routine 03/09/2020 7:19 PM EDT GLUCOSE METER POC Routine 03/09/2020 5:53 PM EDT GLUCOSE METER POC Routine 03/09/2020 1:11 PM EDT SERUM IMMUNOTYPING Routine 03/09/2020 12:39 PM EDT ANTI-NEUTROPHIL CYTOPLASMIC ANTIBODY IGG-REF LAB Routine 03/09/2020 12:39 PM EDT ANTINUCLEAR ANTIBODIES (CONY) SCREEN BY JACKELYN W/ REFLEX TO IFA Add-On 03/09/2020 12:39 PM EDT GLUCOSE METER POC Routine 03/09/2020 10:24 AM EDT GLUCOSE METER POC Routine 03/09/2020 9:00 AM EDT IP CONSULT TO WOUND CARE Routine 020 8:27 AM EDT ECG AND WAVEFORMS - TELEMETRY Routine 03/09/2020 7:08 AM EDT RENAL FUNCTION PANEL Timed 03/09/2020 5:42 AM EDT PHOSPHORUS LEVEL Timed 03/09/2020 5:42 AM EDT MAGNESIUM LEVEL Timed 03/09/2020 5:42 AM EDT GLUCOSE METER POC Routine 03/09/2020 1:09 AM EDT GLUCOSE METER POC Routine 03/08/2020 10:[address] LUMBAR SPINE WO CONTRAST CHARISSE 03/08/2020 9:07 PM EDT ECG AND WAVEFORMS - TELEMETRY Routine 03/08/2020 7:03 PM EDT GLUCOSE METER POC Routine 03/08/2020 6:51 PM EDT GLUCOSE METER POC Routine 03/08/2020 2:19 PM EDT GLUCOSE METER POC Routine 03/08/2020 8:52 AM EDT ECG AND WAVEFORMS - TELEMETRY Routine 03/08/2020 7:11 AM EDT ECG AND WAVEFORMS - TELEMETRY Routine 03/08/2020 7:05 AM EDT RENAL FUNCTION PANEL Timed 03/08/2020 5:38 AM EDT MAGNESIUM LEVEL Timed 03/08/2020 5:38 AM EDT CBC WITH DIFF Early AM 03/08/2020 5:38 AM EDT GLUCOSE METER POC Routine 03/07/2020 9:10 PM EDT XR LUMBAR SPINE AP AND LATERAL CHARISSE 03/07/2020 8:[address] HEAD WO CONTRAST CHARISSE 03/07/2020 8:29 PM EDT ECG AND WAVEFORMS - TELEMETRY Routine 03/07/2020 7:15 PM EDT GLUCOSE METER POC Routine 03/07/2020 6:05 PM EDT GLUCOSE METER POC Routine 03/07/2020 1:17 PM EDT GLUCOSE METER POC Routine 03/07/2020 7:52 AM EDT ECG AND WAVEFORMS - TELEMETRY Routine 03/07/2020 7:00 AM EDT RENAL FUNCTION PANEL Add-On 03/07/2020 6:07 AM EDT CBC WITH DIFF Early AM 03/07/2020 6:07 AM EDT MAGNESIUM LEVEL Early AM 03/07/2020 6:07 AM EDT PHOSPHORUS LEVEL Early AM 03/07/2020 6:07 AM EDT GLUCOSE METER POC Routine 03/06/2020 9:38 PM EDT ECG AND WAVEFORMS - TELEMETRY Routine 03/06/2020 7:32 PM EDT GLUCOSE METER POC Routine 03/06/2020 6:14 PM EDT T4, FREE (THYROXINE) Routine 03/06/2020 5:27 PM EDT RENAL FUNCTION PANEL Timed 03/06/2020 12:31 PM EDT CBC WITH DIFF Early AM 03/06/2020 12:31 PM EDT MAGNESIUM LEVEL Early AM 03/06/2020 12:31 PM EDT GLUCOSE METER POC Routine 03/06/2020 11:42 AM EDT ECG AND WAVEFORMS - TELEMETRY Routine 03/06/2020 10:34 AM EDT GLUCOSE METER POC Routine 03/06/2020 7:50 AM EDT ECG AND WAVEFORMS - TELEMETRY Routine 03/06/2020 7:05 AM EDT ECG AND WAVEFORMS - TELEMETRY Routine 03/05/2020 11:29 PM EDT GLUCOSE METER POC Routine 03/05/2020 10:15 PM EDT GLUCOSE METER POC Routine 03/05/2020 8:54 PM EDT ECG AND WAVEFORMS - TELEMETRY Routine 03/05/2020 7:00 PM EDT GLUCOSE METER POC Routine 03/05/2020 4:33 PM EDT TROPONIN-T HIGH SENSITIVITY 2HR Timed 03/05/2020 4:27 PM EDT LACTIC ACID Routine 03/05/2020 2:16 PM EDT POTASSIUM LEVEL Timed 03/05/2020 2:16 PM EDT SYPHILIS SCREEN WITH REFLEX RPR QUANT Routine 03/05/2020 2:09 PM EDT THYROID STIMULATING HORMONE Routine 03/05/2020 2:09 PM EDT AMMONIA LEVEL Routine 03/05/2020 2:09 PM EDT VITAMIN B12/ FOLIC ACID Routine 03/05/20 2:09 PM EDT TROPONIN-T HIGH SENSITIVITY BASELINE W/ REFLEX STAT 03/05/2020 2:09 PM EDT IP CONSULT TO NEUROLOGY Routine 03/05/20 2:02 PM EDT Procedure Note - Adelso Cool MD - 03/05/2020 2:54 PM EDTThis note is in progress. Neurology Consult - [facility] Neurology HPI: Gilberto Cardoso is a 59 y.o. male who was referred forconsultation for altered mental status. Mr. Cardoso presented to the hospital 02-29-2020 with complaints ofabdominal pain. On exam it seemed he had pain in the right upper quadrant.He has known afib for which he is anti-coagulated with eliquis. He wasfound to have acute cholecystitis and had his anti-coagulation held forsurgery. He underwent laparoscopic cholecystectomy on 03-03-2020 withgangrenous cholecystitis with abscess the post-op diagnosis. He was alsoseen by nephrology for acute renal insufficiency. He was noted to besleepy today. Neurology was consulted to weigh in. Head CT wasordered. He last received gabapentin last night at around 20:45 and had been [id number] TID. He received morphine pre and post-op with the last dose givenat 03:38 this morning (4mg IV). He denies any complaints to me, butnursing reports he has been somnolent as well as confused when awake. Past Medical History: Diagnosis Date Anesthesia couldn't breathe after surgery Arthritis Atrial fibrillation (HCC) Atrial flutter (HCC) Blood circulation, collateral Cancer (HCC) kidney- no chemo/radiation, surgical removal of left kidney and freezingof right kidney Cardiac dysrhythmia CHF (congestive heart failure) (HCC) Chronic kidney disease kidney cancer Claustrophobia COPD (chronic obstructive pulmonary disease) (HCC) PRN 2L oxygen per [place] Diabetes mellitus (HCC) IDDM Diabetic neuropathy (HCC) Encounter for blood transfusion 2017 Heartburn Hyperlipidemia Hypertension Hyperthyroidism Kidney disorder right partial surgical freezing Neuropathy On home O2 2lnc PRN, unsure of companies name, no travel tank KIA (obstructive sleep apnea) wasn't able to tolerate CPap Pacemaker Psoriasis RBBB Sinus bradycardia Sinus node dysfunction (HCC) Past Surgical History: Procedure Laterality Date ABLATION OF DYSRHYTHMIC FOCUS 12/24/2019 EPS w/ Typical AFL Ablation - Dr. Evangelista APPENDECTOMY CARDIAC CATHETERIZATION CHOLECYSTECTOMY, LAPAROSCOPIC N/A 03/03/2020 Laparoscopic cholecystectomy ; Surgeon: Manuel العلي MD;Location: [facility] MAIN OR; Service: General COLONOSCOPY CYSTOSCOPY Right 09/27/2016 CYSTOSCOPY RIGHT STENT INSERTION right retrograde; Surgeon: Georgi Myrick MD; Location: [facility] MAIN OR; Service: Urology CYSTOSCOPY 09/27/2016 Surgeon: Georgi Myrick MD; Location: ED MAIN OR; Service: Urology CYSTOSCOPY Right 04/20/2019 CYSTOSCOPY RIGHT STENT REMOVAL; Surgeon: Ray Teran MD; Location:[facility] MAIN OR; Service: Urology KIDNEY SURGERY left nephrectomy, right freezing PACEMAKER INSERTION Left 04/10/2016 MDT, dual chamber pacemaker by Dr. Evangelista TYMPANOSTOMY TUBE PLACEMENT UPPER GASTROINTESTINAL ENDOSCOPY N/A 09/25/2016 ESOPHAGOGASTRODUODENOSCOPY with biopsy; Surgeon: Rikki Mcmanus MD;Location: [facility] ENDOSCOPY; Service: Endoscopy URETEROSCOPY Right 11/25/2018 CYSTOSCOPY RIGHT URETEROSCOPY, BASKET STONE RETRIEVAL, WING EXCHANGE ANDSTENT INSERTION; Surgeon: Domo Penny MD; Location: [facility]; Service: Urology No current facility-administered medications on file prior to encounter. Current Outpatient Medications on File Prior to Encounter Medication Sig Dispense Refill acetaminophen-codeine (TYLENOL #3) 300-30 mg Oral Tablet Take 1 Tab bymouth as needed. 3 apixaban (ELIQUIS) 5 mg Oral Tablet Take 1 Tab by mouth 2 times daily.60 Tab 3 dilTIAZem 240 mg Oral Capsule, Sust. Release 24 hr Take 1 Cap by mouth 2times daily. 60 Cap 2 fenofibrate (TRICOR) 145 mg Oral Tablet Take 145 mg by mouth daily. fUROsemide (LASIX) 20 mg Oral Tablet Take 20 mg by mouth as needed. gabapentin (NEURONTIN) 800 mg Oral Tablet Take 1 Tab by mouth 3 timesdaily. 0 HUMALOG KWIKPEN INSULIN 100 unit/mL SubQ Insulin Pen Subcutaneous(Inject under the skin) 80 Units Before every meal. hydrALAZINE (APRESOLINE) 50 mg Oral Tablet Take 1 Tab by mouth every 8hours. (Patient taking differently: Take 50 mg by mouth 2 times daily.) 90Tab 2 Insulin Glargine (LANTUS) 100 unit/mL (3 mL) SubQ Insulin PenSubcutaneous (Inject under the skin) 20 Units 2 times daily. lisinopril (PRINIVIL;ZESTRIL) 5 mg Oral Tablet Take 2.5 mg by mouthdaily. methIMAzole (TAPAZOLE) 5 mg Oral Tablet Take 5 mg by mouth every 8hours. metoprolol succinate ER (TOPROL-XL) 100 mg Oral Tablet Sustained [id number] hr TAKE 1 TABLET BY MOUTH 2 TIMES A DAY 60 Tab 5 pantoprazole (PROTONIX) 40 mg Oral Tablet, Delayed Release (E.C.) Take 1Tab by mouth daily. 30 Tab 2 Cholecalciferol, Vitamin D3, 10,000 unit Oral Capsule Take 1 Tab bymouth once a week. Saturday' insulin aspart (NOVOLOG) 100 unit/mL SubQ Solution Subcutaneous (Injectunder the skin) 20 Units 3 times daily (before meals). (Patient nottaking: Reported on 03/01/2020) 10 mL 12 LINZESS 145 mcg Oral Capsule Take 145 mcg by mouth as needed. 10 Social History Socioeconomic History Marital status: Single Spouse name: Not on file Number of children: Not on file Years of education: Not on file Highest education level: Not on file Occupational History Not on file Social Needs Financial resource strain: Not on file Food insecurity Worry: Not on file Inability: Not on file Transportation needs Medical: Not on file Non-medical: Not on file Tobacco Use Smoking status: Former Smoker Packs/day: 3.00 Years: 40.00 Pack years: 120.00 Types: Cigarettes Start date: 12/21/1967 Last attempt to quit: 2006 Years since quittin.6 Smokeless tobacco: Never Used Substance and Sexual Activity Alcohol use: No Drug use: No Sexual activity: Not on file Lifestyle Physical activity Days per week: Not on file Minutes per session: Not on file Stress: Not on file Relationships Social connections Talks on phone: Not on file Gets together: Not on file Attends methodist service: Not on file Active member of club or organization: Not on file Attends meetings of clubs or organizations: Not on file Relationship status: Not on file Intimate partner violence Fear of current or ex partner: Not on file Emotionally abused: Not on file Physically abused: Not on file Forced sexual activity: Not on file Other Topics Concern Not on file Social History Narrative Lives at home with leah. Completely independent in ADLs andiADLs. Family History Problem Relation Age of Onset Coronary Art Dis Mother 63 age: 63 Diabetes Mother COPD Mother Cancer Mother lung Coronary Art Dis Maternal Grandfather 70 Heart Attack Maternal Grandfather Anesth Problems Neg Hx Review of Systems Unable to perform full review of systems Physical Exam Vitals: 03/05/20 1439 BP: 151/75 Pulse: 108 Resp: 20 Temp: 97.8 SpO2: 96% Body mass index is 48.66 kg/m . Gen: Well developed, well nourished Heart: Regular, no murmurs/rubs/gallops Lungs: Clear to auscultation Abd: Soft, non-tender, non-distended Ext: No edema Neurology Exam Mental Status: Alert, but appears mildly somnolent. [facility], [facility] , and . Able to name the president. 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 When informed it is [place] he can recall [place] laterwhen asked (although initially states Biden again and is able to correctto [place]). He declines performing portions of his evaluation (wouldn'tparticipate in portions, stating he was fine or ok and didn't need it- including trying to keep his O2 on and place him on BiPAP). Speechfluent. Follows most commands without difficulty, but does not want toperform others so does not. Cranial Nerves: II: Visual bro unable to be accurately assessed. Pupils 4 to 3mm OU.Funduscopic examination could not be completed III, IV, : EOMI. No nystagmus or gaze preference V: Facial sensations symmetric VII: Facial movements appear symmetric VIII: Hearing intact IX, X: Palate raises midline XI: Shoulder shrug symmetric XII: Tongue protrudes midline Motor: 5/5 bilateral UE's. He states he can not move his LE's when askedto participate in the exam. He does at least have dorsi andplantarflexion, but given the limited exam all that can be stated is thedorsi and plantarflexors are at least a 4-/5 bilaterally. Tone is normalin all 4 extremities. Sensation: Intact light touch in all 4 extremities Reflexes: 1's in the UE's and absent in the LE's. Toes downgoingbilaterally. Coordination: No ataxia or tremor noted Station and Gait: Unable to safely assess Imaging and Labs: Head CT (personally reviewed) - no acute process noted 7.26/ 60/ 69 Na+ - 135 BUN/ Cr - 43/ 1.97 AST - 19 ALT - 16 Ammonia - 16 TSH - 5.2 Free T4 - 1.16 WBC - 18.2 H/H - 10.8/ 35.1 Plt - 252 Assessment and Plan: Gilberto Cardoso is a 59 y.o. male with afib on eliquis atbaseline admitted with abdominal pain found to have gangrenouscholecystitis with associated abscess s/p laparoscopic cholecystectomy on03-03-2020 with encephalopathy noted today. He is a bit hypoxic andhypercarbic, which may be the reason for his encephalopathy. He didreceive opiate based medications, but about 12 hours ago at this point.Given his poor renal function it is possible he has had diminishedclearance, which could be playing some role. The suspicion medicationsare fully to blame is low, however. Unfortunately, he is cognizant enough to refuse certain treatments. Alsounfortunately, the treatment he is refusing is BiPAP, which may actuallyhelp him. He won't even wear his oxygen by nasal canula. I was able toget him to wear it right below his mouth so he is possibly getting atleast a small amount of supplemental O2, but not likely enough to correctthe hypercarbia and hypoxia noted on ABG. I hesitate to recommend givinghim a medication to sedate him as that would likely be counterproductivefor the end goal of improving his oxygenation. While he has atrialfibrillation he has an non-focal examination currently. My suspicion hehas had a stroke is very low. He has a lesion on the left shoulder of uncertain etiology. I took apicture of it and placed it on his chart with the label lesion on back ofleft shoulder . He needs to have this lesion investigated further bydermatology. Attempt to keep him awake and out of bed during the day with the roombrightly lit while keeping him in bed with the room dark and quiet atnight to help maintain a normal sleep-wake cycle. Attempt to limitsedating medications such as benzodiazepines, barbiturates, opiates,tricyclic anti-depressants, anti-cholinergics, and anti-histamines.Attempt frequent re-orientation. I will follow-up tomorrow, but I am not sure there will be much forneurology to add. Thank you for the opportunity to participate in thecare of Gilberto Cardoso. Please do not hesitate to call with furtherquestions or concerns. EK EKG 12 LEAD Routine 03/05/2020 2:00 PM EDT IP CONSULT TO PULMONOLOGY Routine 2019 1:54 PM EDT Procedure Note - Ti Zazueta MD - 03/06/2020 3:17 PM EDTThis note is in progress. Images from the original note were not included. Initial Hospital Care 03/06/2020 Ti Zazueta MD MEDICAL DECISION MAKING ASSESSMENT Late note. Patient seen, examined and orders entered earlier in day. Hypoxic resp failure pulm edema S/p lap chaim KIERRA Solitary kidney- previous resection for RCC. Encephalopathy. Morbid obesity. KIA. PLAN On/off BIPAP in daytime as tolerated. Continuous QHS. Wean O2 as tolerated when off BIPAP keep sats >90%. Followed by renal. Followed by cards. TSH elvated. Check FT4. On methimazole. May need to stop if FT4 alsolow. Surgery following. Encourage IS when off BIPAP. Defer diuresis to renal. The review of labs, physical findings and analysis of appropriatemedications represents a decision of high complexity with regard to healththreatening risks, benefits, and side effects of medicines and underlyingconditions managed. This note was completed using voice recognition technology. Despite thewriter's best efforts to proof read, it may still contain unintendederrors. Please call with questions. Code Status Full Code Gilberto has been in the hospital for LOS: 6 days . HISTORY of PRESENT ILLNESS Chief Complaint Gilberto Cardoso is a 59 y.o. male admitted with a ChiefComplaint of Abdominal pain Present Illness Admitted 02/28 with abd pain. Also with h/o COPD HTN HLP renal carcinoma s/p resection and PPM. Underwent lapchole and developed KIERRA Also with AMS. Past Medical History: Diagnosis Date Anesthesia couldn't breathe after surgery Arthritis Atrial fibrillation (HCC) Atrial flutter (HCC) Blood circulation, collateral Cancer (HCC) kidney- no chemo/radiation, surgical removal of left kidney and freezingof right kidney Cardiac dysrhythmia CHF (congestive heart failure) (HCC) Chronic kidney disease kidney cancer Claustrophobia COPD (chronic obstructive pulmonary disease) (HCC) PRN 2L oxygen per [place] Diabetes mellitus (HCC) IDDM Diabetic neuropathy (HCC) Encounter for blood transfusion 2018 Heartburn Hyperlipidemia Hypertension Hyperthyroidism Kidney disorder right partial surgical freezing Neuropathy On home O2 2lnc PRN, unsure of companies name, no travel tank KIA (obstructive sleep apnea) wasn't able to tolerate CPap Pacemaker Psoriasis RBBB Sinus bradycardia Sinus node dysfunction (HCC) Past Surgical History: Procedure Laterality Date ABLATION OF DYSRHYTHMIC FOCUS 12/24/2019 EPS w/ Typical AFL Ablation - Dr. Evangelista APPENDECTOMY CARDIAC CATHETERIZATION CHOLECYSTECTOMY, LAPAROSCOPIC N/A 03/03/2020 Laparoscopic cholecystectomy ; Surgeon: Manuel العلي MD;Location: [facility]; Service: General COLONOSCOPY CYSTOSCOPY Right 09/27/2016 CYSTOSCOPY RIGHT STENT INSERTION right retrograde; Surgeon: Georgi Myrick MD; Location: [facility]; Service: Urology CYSTOSCOPY 09/27/2016 Surgeon: Georgi Myrick MD; Location: [facility]; Service: Urology CYSTOSCOPY Right 04/20/2019 CYSTOSCOPY RIGHT STENT REMOVAL; Surgeon: Ray Teran MD; Location:[facility]; Service: Urology KIDNEY SURGERY left nephrectomy, right freezing PACEMAKER INSERTION Left 04/10/2016 MDT, dual chamber pacemaker by Dr. Evangelista TYMPANOSTOMY TUBE PLACEMENT UPPER GASTROINTESTINAL ENDOSCOPY N/A 09/25/2016 ESOPHAGOGASTRODUODENOSCOPY with biopsy; Surgeon: Rikki Mcmanus MD;Location: [facility]; Service: Endoscopy URETEROSCOPY Right 11/25/2018 CYSTOSCOPY RIGHT URETEROSCOPY, BASKET STONE RETRIEVAL, WING EXCHANGE ANDSTENT INSERTION; Surgeon: Domo Penny MD; Location: [facility]; Service: Urology Allergies Allergen Reactions Amiodarone Other (See Comments) Hyperthyroidism Ciprocinonide Other (See Comments) developed pancreatitis Ciprofloxacin developed pancreatitis Current Meds apixaban 5 mg Oral BID dilTIAZem 90 mg Oral *Q8H fenofibrate 160 mg Oral Daily gabapentin 400 mg Oral TID insulin aspart U-100 1-15 Units Subcutaneous QID WM insulin aspart (NovoLOG) Nutritional (prandial) insulin (Orderable) 10Units Subcutaneous TID WM insulin glargine 20 Units Subcutaneous BID (Insulin) methIMAzole 5 mg Oral TID metoprolol succinate ER 100 mg Oral BID miconazole Topical 2 times per day pantoprazole 40 mg Oral Daily piperacillin-tazobactam (ZOSYN) extended infusion (Orderable) 3.375 gIntravenous 3 times per day PRN Meds acetaminophen OR acetaminophen, cloNIDine, dextrose, glucagon(human recombinant) AND sterile water, HYDROcodone-acetaminophen,miconazole, ondansetron OR ondansetron, sodium chloride 0.9%, sodiumchloride 0.9% Infusions Family History Problem Relation Age of Onset Coronary Art Dis Mother 63 age: 63 Diabetes Mother COPD Mother Cancer Mother lung Coronary Art Dis Maternal Grandfather 70 Heart Attack Maternal Grandfather Anesth Problems Neg Hx Otherwise, no family history of pulmonary disease. Social History Gilberto reports that he quit smoking about 14 years ago.His smoking use included cigarettes. He started smoking about 52 yearsago. He has a 120.00 pack-year smoking history. He has never usedsmokeless tobacco. He reports that he does not drink alcohol or use drugs. Review of Systems He has had no chronic constitutional symptoms of fevers, chills or nightsweats. All other systems are negative except as outlined above. EXAMINATION Vital Blood Pressure: 147/88 Temp: 97.8 F (36.6 C) Signs Pulse: 108 Resp: (!) 24 SpO2: 99 % Physical Exam Constitutional: He is oriented to person, place, and time. Obese pale. HENT: Head: Normocephalic and atraumatic. Eyes: Pupils are equal, round, and reactive to light. Neck: Normal range of motion. Cardiovascular: Normal rate, regular rhythm and normal heart sounds. Pulmonary/Chest: Effort normal and breath sounds normal. Abdominal: Soft. He exhibits distension. There is no abdominal tenderness. Musculoskeletal: General: No edema. Neurological: He is alert and oriented to person, place, and time. DATAREVIEWED (I have reviewed all data listed below) HEMODYNAMIC DATA BP Min: 141/86 Max: 164/85 Pulse Av.1 Min: 83 Max:108 I/O last 3 completed shifts: In: 2085.1 [P.O.:1050; I.V.:805; IV Piggyback:230.1] Out: 2900 [Urine:2900] Wt Readings from Last 2 Encounters: 03/03/20 (!) 320 lb (145.2 kg) 12/21/19 (!) 322 lb 9.6 oz (146.3 kg) Wt Reading from Admission: 02/29/2020 (!) 320 lb (145.2 kg) Lab Results Component Value Date/Time BNP 3,892 (H) 03/05/2020 11:26 AM SUPPLEMENTAL O2 & NIV (last filed) O2 Device: Bipap/Cpap O2 Flow Rate (L/min): 4 lpm FiO2 (%): 32 % IPAP: 18 cmH20 EPAP: 6 cmH2O Set Rate NIV (BPM): 16 Mask Type: Full mask Mask Size: Large MECHANICAL VENTILATION (last filed) BLOOD GAS & ACID BASE DATA SpO2 Av.3 % Min: 95 % Max: 99 % Recent Labs 03/05/20 1235 PH 7.26* PCO2 60* PO2 69* HCO3 25.9 O2SAT 92.3* Lab Results Component Value Date/Time ANIONGAP 11 03/06/2020 12:31 PM LACTA 1.2 03/05/2020 02:16 PM RENAL & METABOLIC DATA Lab Results Component Value Date/Time GLU 216 (H) 03/06/2020 12:31 PM BUN 33 (H) 03/06/2020 12:31 PM CREATININE 1.49 (H) 03/06/2020 12:31 PM NA 138 03/06/2020 12:31 PM K 5.3 (H) 03/06/2020 12:31 PM CL 102 03/06/2020 12:31 PM CO2 25 03/06/2020 12:31 PM CALCIUM 8.8 03/06/2020 12:31 PM MG 2.5 (H) 03/06/2020 12:31 PM PHOS 2.0 (L) 03/06/2020 12:31 PM GFRAFRAM 58 (L) 03/06/2020 12:31 PM HEMATOLOGY & COAGULATION DATA Recent Labs 03/03/20 0546 03/04/20 0641 03/06/20 1231 WBC 20.6* 18.2* 15.4* HGB 10.7* 10.8* 11.9* HCT 34.7* 35.1* 36.6* PLT 228 252 350 Recent Labs 03/04/20 0641 PTT 33.8 INFECTION DATA Temp (24hrs), Av F (36.7 C), Min:97.7 F (36.5 C), Max:98.7 F(37.1 C) GI & NUTRITION DATA Diet LOW FAT DIET Lab Results Component Value Date/Time AMMONIA 16 03/05/2020 02:09 PM IMAGING DATA No results found. Ti Zazueta MD 03/06/2020 XR CHEST AP PORTABLE CHARISSE 03/05/2020 1:[address] HEAD WO CONTRAST CHARISSE 03/05/2020 1:24 PM EDT BLOOD GAS ARTERIAL STAT 03/05/2020 12:35 PM EDT GLUCOSE METER POC Routine 03/05/2020 12:00 PM EDT NT PROBNP Add-On 03/05/2020 11:26 AM EDT BASIC METABOLIC PANEL Routine 03/05/2020 11:26 AM EDT ECG AND WAVEFORMS - TELEMETRY Routine 03/05/2020 7:01 AM EDT GLUCOSE METER POC Routine 03/04/2020 10:06 PM EDT GLUCOSE METER POC Routine 03/04/2020 8:49 PM EDT ECG AND WAVEFORMS - TELEMETRY Routine 03/04/2020 7:06 PM EDT GLUCOSE METER POC Routine 03/04/2020 5:55 PM EDT GLUCOSE METER POC Routine 03/04/2020 12:17 PM EDT GLUCOSE METER POC Routine 03/04/2020 7:49 AM EDT ECG AND WAVEFORMS - TELEMETRY Routine 03/04/2020 7:21 AM EDT PARTIAL THROMBOPLASTIN TIME Early AM 03/04/2020 6:41 AM EDT HEPARIN ANTI-XA, UNF Early AM 03/04/2020 6:41 AM EDT CBC Routine 03/04/2020 6:41 AM EDT GLUCOSE METER POC Routine 03/03/2020 9:12 PM EDT ECG AND WAVEFORMS - TELEMETRY Routine 03/03/2020 9:00 PM EDT GLUCOSE METER POC Routine 03/03/2020 6:02 PM EDT PATHOLOGY TISSUE REQUEST Routine 020 4:33 PM EDT Cholecystitis INTRAOP AIRWAY PLACEMENT Routine 020 3:59 PM EDT LAPAROSCOPIC CHOLECYSTECTOMY POSSIBLE OPEN 03/03/2020 3:40 PM EDT Cholecystitis GLUCOSE METER POC Routine 03/03/2020 3:08 PM EDT SALINE LOCK IV Routine 03/03/2020 2:29 PM EDT GLUCOSE METER POC Routine 03/03/2020 11:42 AM EDT GLUCOSE METER POC Routine 03/03/2020 7:27 AM EDT ECG AND WAVEFORMS - TELEMETRY Routine 03/03/2020 7:05 AM EDT PROCALCITONIN Timed 03/03/2020 5:46 AM EDT PARTIAL THROMBOPLASTIN TIME Early AM 03/03/2020 5:46 AM EDT HEPARIN ANTI-XA, UNF Early AM 03/03/2020 5:46 AM EDT CBC Timed 03/03/2020 5:46 AM EDT BASIC METABOLIC PANEL Routine 03/03/2020 5:46 AM EDT US RENAL AND BLADDER CHARISSE 03/03/2020 4:49 AM EDT ECG AND WAVEFORMS - TELEMETRY Routine 03/02/2020 11:12 PM EDT ECG AND WAVEFORMS - TELEMETRY Routine 03/02/2020 11:05 PM EDT ECG AND WAVEFORMS - TELEMETRY Routine 03/02/2020 11:03 PM EDT GLUCOSE METER POC Routine 03/02/2020 9:35 PM EDT BLOOD CULTURE (NO STAIN) Routine 020 8:57 PM EDT PARTIAL THROMBOPLASTIN TIME Timed 03/02/2020 8:21 PM EDT HEPARIN ANTI-XA, UNF Timed 03/02/2020 8:21 PM EDT LACTIC ACID Routine 03/02/2020 8:21 PM EDT BLOOD CULTURE (NO STAIN) Routine 020 8:21 PM EDT ECG AND WAVEFORMS - TELEMETRY Routine 03/02/2020 7:19 PM EDT GLUCOSE METER POC Routine 03/02/2020 5:52 PM EDT ECG AND WAVEFORMS - TELEMETRY Routine 03/02/2020 5:45 PM EDT CORONAVIRUS 2019 Routine 03/02/2020 5:44 PM EDT ECG AND WAVEFORMS - TELEMETRY Routine 03/02/2020 5:43 PM EDT GLUCOSE METER POC Routine 03/02/2020 4:11 PM EDT IP CONSULT TO WOUND CARE Routine 020 3:09 PM EDT IP CONSULT TO WOUND CARE Routine 020 3:05 PM EDT IP CONSULT TO ELECTROPHYSIOLOGY Routine 03/02/2020 2:53 PM EDT Procedure Note - Padmini Evangelista MD - 03/03/2020 10:31 AM EDTThis note is in progress. ADMISSION: 03/03/2020 PATIENT: Gilberto Cardoso [id number] PCP: Geovani Wright MD I would like to thank Jae Montoya DO for requesting us to seeyour patient, Gilberto Cardoso in consultation for atrial fib with RVRin the setting of acute cholecystitis. He presented to the ED on 02/28 with acute RUQ pain that [facility]. Dx with acute cholecystitis, surgery delayed to allow wash outof Eliquis. Plan for surgery today Patient with long standing hx of atrial arrhythmias, well known to ourpractice. Non compliant with f/u visits. - hospitalized with atrial flutter with RVR in November of this year. Underwent ablation of a typical atrial flutter that admission. He has notkept follow up appointment with our office since that time, but tells methat he has been doing well until this acute problem Rate currently running around 100 bpm on diltiazem 15 mg/hour, amiodarone0.5 mg/min and toprol 100 mg BID. He was started on amiodarone last night for rate control, given knownhyperthyroidism on methimazole. Past Medical History Past Medical History: Diagnosis Date Anesthesia couldn't breathe after surgery Arthritis Atrial fibrillation (HCC) Atrial flutter (HCC) Blood circulation, collateral Cancer (HCC) kidney- no chemo/radiation, surgical removal of left kidney and freezingof right kidney Cardiac dysrhythmia CHF (congestive heart failure) (HCC) Chronic kidney disease kidney cancer Claustrophobia COPD (chronic obstructive pulmonary disease) (HCC) PRN 2L oxygen per [place] Diabetes mellitus (HCC) IDDM Diabetic neuropathy (HCC) Encounter for blood transfusion 2018 Heartburn Hyperlipidemia Hypertension Hyperthyroidism Kidney disorder right partial surgical freezing Neuropathy On home O2 2lnc PRN, unsure of companies name, no travel tank KIA (obstructive sleep apnea) wasn't able to tolerate CPap Pacemaker Psoriasis RBBB Sinus bradycardia Sinus node dysfunction (HCC) Medication No current facility-administered medications on file prior to encounter. Current Outpatient Medications on File Prior to Encounter Medication Sig Dispense Refill acetaminophen-codeine (TYLENOL #3) 300-30 mg Oral Tablet Take 1 Tab bymouth as needed. 3 apixaban (ELIQUIS) 5 mg Oral Tablet Take 1 Tab by mouth 2 times daily.60 Tab 3 dilTIAZem 240 mg Oral Capsule, Sust. Release 24 hr Take 1 Cap by mouth 2times daily. 60 Cap 2 fenofibrate (TRICOR) 145 mg Oral Tablet Take 145 mg by mouth daily. fUROsemide (LASIX) 20 mg Oral Tablet Take 20 mg by mouth as needed. gabapentin (NEURONTIN) 800 mg Oral Tablet Take 1 Tab by mouth 3 timesdaily. 0 HUMALOG KWIKPEN INSULIN 100 unit/mL SubQ Insulin Pen Subcutaneous(Inject under the skin) 80 Units Before every meal. hydrALAZINE (APRESOLINE) 50 mg Oral Tablet Take 1 Tab by mouth every 8hours. (Patient taking differently: Take 50 mg by mouth 2 times daily.) 90Tab 2 Insulin Glargine (LANTUS) 100 unit/mL (3 mL) SubQ Insulin PenSubcutaneous (Inject under the skin) 20 Units 2 times daily. lisinopril (PRINIVIL;ZESTRIL) 5 mg Oral Tablet Take 2.5 mg by mouthdaily. methIMAzole (TAPAZOLE) 5 mg Oral Tablet Take 5 mg by mouth every 8hours. metoprolol succinate ER (TOPROL-XL) 100 mg Oral Tablet Sustained [id number] hr TAKE 1 TABLET BY MOUTH 2 TIMES A DAY 60 Tab 5 pantoprazole (PROTONIX) 40 mg Oral Tablet, Delayed Release (E.C.) Take 1Tab by mouth daily. 30 Tab 2 Cholecalciferol, Vitamin D3, 10,000 unit Oral Capsule Take 1 Tab bymouth once a week. Saturday' insulin aspart (NOVOLOG) 100 unit/mL SubQ Solution Subcutaneous (Injectunder the skin) 20 Units 3 times daily (before meals). (Patient nottaking: Reported on 03/01/2020) 10 mL 12 LINZESS 145 mcg Oral Capsule Take 145 mcg by mouth as needed. 10 Scheduled Meds: gabapentin 800 mg Oral TID insulin aspart U-100 1-10 Units Subcutaneous QID WM insulin glargine 10 Units Subcutaneous BID (Insulin) methIMAzole 5 mg Oral TID metoprolol succinate ER 100 mg Oral BID miconazole Topical 2 times per day pantoprazole 40 mg Oral Daily piperacillin-tazobactam (ZOSYN) extended infusion (Orderable) 3.375 gIntravenous 3 times per day Continuous Infusions: sodium chloride 0.9 % 75 mL/hr at 03/02/20 2326 amiodarone 450 mg/250 mL infusion 0.5 mg/min (03/03/20 0811) dilTIAZem (CARDIZEM) 1 mg/mL INFUSION 15 mg/hr (03/03/20 0813) lactated ringers Past Surgical History Past Surgical History: Procedure Laterality Date ABLATION OF DYSRHYTHMIC FOCUS 12/24/2019 EPS w/ Typical AFL Ablation - Dr. Evangelista APPENDECTOMY CARDIAC CATHETERIZATION COLONOSCOPY CYSTOSCOPY Right 09/27/2016 CYSTOSCOPY RIGHT STENT INSERTION right retrograde; Surgeon: Georgi Myrick MD; Location: [facility]; Service: Urology CYSTOSCOPY 09/27/2016 Surgeon: Georgi Myrick MD; Location: [facility]; Service: Urology CYSTOSCOPY Right 04/20/2019 CYSTOSCOPY RIGHT STENT REMOVAL; Surgeon: Ray Teran MD; Location:[facility]; Service: Urology KIDNEY SURGERY left nephrectomy, right freezing PACEMAKER INSERTION Left 04/10/2016 MDT, dual chamber pacemaker by Dr. Evangelista TYMPANOSTOMY TUBE PLACEMENT UPPER GASTROINTESTINAL ENDOSCOPY N/A 09/25/2016 ESOPHAGOGASTRODUODENOSCOPY with biopsy; Surgeon: Rikki Mcmanus MD;Location: [facility]; Service: Endoscopy URETEROSCOPY Right 11/25/2018 CYSTOSCOPY RIGHT URETEROSCOPY, BASKET STONE RETRIEVAL, WING EXCHANGE ANDSTENT INSERTION; Surgeon: Domo Penny MD; Location: [facility]; Service: Urology Allergy Allergies Allergen Reactions Amiodarone Other (See Comments) Hyperthyroidism Ciprocinonide Other (See Comments) developed pancreatitis Ciprofloxacin developed pancreatitis Family History Family History Problem Relation Age of Onset Coronary Art Dis Mother 63 age: 63 Diabetes Mother COPD Mother Cancer Mother lung Coronary Art Dis Maternal Grandfather 70 Heart Attack Maternal Grandfather Anesth Problems Neg Hx Social History Social History Tobacco Use Smoking status: Former Smoker Packs/day: 3.00 Years: 40.00 Pack years: 120.00 Types: Cigarettes Start date: 12/21/1967 Last attempt to quit: 2006 Years since quittin.6 Smokeless tobacco: Never Used Substance Use Topics Alcohol use: No Review of Systems palpitations, tachycardia, stable dyspnea on exertion, acute abdominalpain. Overall malaise. all other systems have been reviewed and are negative. Objective: BP 125/60 (BP Location: Right arm) Pulse 101 Temp 97.7 F (36.5 C)(Oral) Resp (!) 22 Ht 5' 8 (1.727 m) SpO2 94% BMI 49.05 kg/m General: Obese male lying in bed in mild distress. Says pain is betterat present Neck: Neck thick, unable to assess neck veins Lung: Clear anterior - limited exam Heart: Irregularly irregular Abdomen: Large, diffusely tender Skin: Not assessed. Neuro: Awake, alert. Oriented x 3. No focal deficits on limited exam Diagnostic tests Lab Results Component Value Date WBC 20.6 (H) 03/03/2020 HGB 10.7 (L) 03/03/2020 HCT 34.7 (L) 03/03/2020 PLT 228 03/03/2020 Lab Results Component Value Date CREATININE 2.24 (H) 03/03/2020 BUN 34 (H) 03/03/2020 NA 131 (L) 03/03/2020 K 4.5 03/03/2020 CL 96 (L) 03/03/2020 CO2 17 (L) 03/03/2020 Lab Results Component Value Date CHOLESTEROL 115 04/09/2016 TRIG 237 (H) 04/09/2016 HDL 21 (L) 04/09/2016 LDLCALC 47 04/09/2016 Lab Results Component Value Date ALT 16 03/02/2020 AST 19 03/02/2020 Lab Results Component Value Date TSH 5.200 (H) 03/01/2020 Lab Results Component Value Date INR 1.29 (H) 12/25/2019 Chest X-Ray: No acute finding ECG: Atrial fib with rate 100 Telemetry: Atrial fib with average rate 100 Echocardiogram: Echo: 12/22/2019 LVEF 55-60% NL LV size with no regional wall motion abnormalities LV wall thickness mildly increased Aortic valve not well visualized Ischemic Evaluation: NA Previously ordered stress test not completed The most recent cardiovascular imaging studies availabe in [facility] EMR werereviewed at time of consultation Assessment: Active Hospital Problems Diagnosis *Abdominal pain Acute calculous cholecystitis Paroxysmal A-fib (HCC) Essential hypertension CKD stage 2 due to type 2 diabetes mellitus (HCC) Cholecystitis CKD stage 3 due to type 2 diabetes mellitus (HCC) Morbid obesity due to excess calories (HCC) Pacemaker Type 2 diabetes mellitus with complication, with long-term current useof insulin (HCC) Hypertensive heart disease without heart failure Hyperlipidemia associated with type 2 diabetes mellitus (HCC) C Congestive heart failure (or Left ventricular systolic dysfunction) Yes1 H Hypertension: blood pressure consistently above 140/90 mmHg (or treatedhypertension on medication) Yes 1 A/A2 Patient Age: < 65 years = 0 0 D Diabetes Mellitus: Yes 1 S2 Prior Stroke or TIA or thromboembolism: No 0 V Vascular disease (e.g. peripheral artery disease, myocardial infarction,aortic plaque) Yes 1 Sc Sex category (i.e. female sex) Male = 0 0 [id number] Score 4 1) Atrial fib with RVR - rate average 100 > diltiazem 15 mg/hour > metoprolol 100 mg bid > amiodarone 0.5 mg per hour > eliquis on hold > heparin drip on hold for surgery 2) atrial flutter > S/p ablation of typical atrial flutter 11/2019 3) acute cholecystitis > plan for surgery 4) chronic anticoagulation > heparin bridge 5) hyperthyrodism with amiodarone > methimazole > d/c amiodarone and load with digoxin 6) KIERRA > SCr 2.2 7) Hx of HFpEF 8) Morbid obesity 9) DM > poor control Plan: Discussed with Dr. Evangelista - atrial fib in setting of acute cholecystitis - d/c amiodarone (hypthyroidism) - load with digoxin - > 250 mcg given IV yesterday at 10 am > plan total load of 1000 mcg with no maintenance dose given KIERRA > continue diltiazem and metoprolol Hanane Davis APRN ATTENDING PHYSICIAN ATTESTATION: The patient was seen in collaboration with the SHEET [employer]IC. I have reviewed all the pertinent history, ROS, laboratory and radiologystudies. I have taken a history and performed a physical examination of thispatient. I agree with the history, physical, assessment and plan as outlinedabove. HPI: 59 yo man well known to me admitted with acute cholecystitis. Surgery onhold for Eliquis washout. On telemetry with atrial fibrillation with rapidventricular response. Physical Examination:BP 168/72 (BP Location: Right arm, Patient Position:Semi Fowlers) Pulse 111 Temp 98.1 F (36.7 C) (Oral) Resp (!) 24 Ht 5' 8 (1.727 m) SpO2 94% BMI 49.05 kg/m General: NAD, AO3 Neck: Nontender, neck veins are flat, trachea is midline Lung: clear to auscultation bilaterally Heart: Irregularly irregular with soft S1, S2 normal Abdomen: Soft, NT, ND Extremities: + edema Pulses: 2+ and symmetric Skin: warm and dry Neuro: normal without focal findings, YOMAIRA and mental status, speechnormal, alert and oriented x iii Assessment/Plan: 1. Atrial fibrillation with rapid ventricular response in setting ofcholecystitis. Hemodynanimcally stable with RVR up to [id number]; currentlyrates are low 100s. --> Continue rate control --> D/c IV amiodarone --> Continue BB and CCB --> IV digoxin load, no maintenance dose given renal dysfunction --> Heparin gtt 2. H/o typical atrial flutter with successful radiofrequency ablation 3. Dual chamber pacemaker 4. Hyperthyroidism on methimazole Padmini Evangelista MD 03/03/2020 1:29 PM CBC Routine 03/02/2020 12:20 PM EDT PROCALCITONIN Add-On 03/02/2020 12:03 PM EDT HEPATIC FUNCTION PANEL Routine 0 12:03 PM EDT BASIC METABOLIC PANEL Routine 03/02/2020 12:03 PM EDT GLUCOSE METER POC Routine 03/02/2020 11:20 AM EDT PARTIAL THROMBOPLASTIN TIME Timed 03/02/2020 10:09 AM EDT HEPARIN ANTI-XA, UNF Timed 03/02/2020 10:09 AM EDT GLUCOSE METER POC Routine 03/02/2020 8:44 AM EDT ECG AND WAVEFORMS - TELEMETRY Routine 03/02/2020 7:31 AM EDT PARTIAL THROMBOPLASTIN TIME Timed 03/02/2020 1:42 AM EDT HEPARIN ANTI-XA, UNF Timed 03/02/2020 1:42 AM EDT GLUCOSE METER POC Routine 03/01/2020 9:08 PM EDT ECG AND WAVEFORMS - TELEMETRY Routine 03/01/2020 8:41 PM EDT ECG AND WAVEFORMS - TELEMETRY Routine 03/01/2020 8:40 PM EDT ECG AND WAVEFORMS - TELEMETRY Routine 03/01/2020 8:35 PM EDT ECG AND WAVEFORMS - TELEMETRY Routine 03/01/2020 7:25 PM EDT ECG AND WAVEFORMS - TELEMETRY Routine 03/01/2020 6:37 PM EDT PARTIAL THROMBOPLASTIN TIME Timed 03/01/2020 6:27 PM EDT HEPARIN ANTI-XA, UNF Timed 03/01/2020 6:27 PM EDT GLUCOSE METER POC Routine 03/01/2020 5:02 PM EDT XR FOOT RIGHT AP LATERAL AND OBLIQUE CHARISSE 03/01/2020 2:58 PM EDT ECG AND WAVEFORMS - TELEMETRY Routine 03/01/2020 1:11 PM EDT ECG AND WAVEFORMS - TELEMETRY Routine 03/01/2020 1:10 PM EDT ECG AND WAVEFORMS - TELEMETRY Routine 03/01/2020 1:09 PM EDT ECG AND WAVEFORMS - TELEMETRY Routine 03/01/2020 1:02 PM EDT ECG AND WAVEFORMS - TELEMETRY Routine 03/01/2020 1:01 PM EDT ECG AND WAVEFORMS - TELEMETRY Routine 03/01/2020 12:42 PM EDT ECG AND WAVEFORMS - TELEMETRY Routine 03/01/2020 12:40 PM EDT GLUCOSE METER POC Routine 03/01/2020 12:26 PM EDT ECG AND WAVEFORMS - TELEMETRY Routine 03/01/2020 12:22 PM EDT PARTIAL THROMBOPLASTIN TIME STAT 03/01/2020 11:40 AM EDT HEPARIN ANTI-XA, UNF STAT 03/01/2020 11:40 AM EDT SCANNED EKG 03/01/2020 11:32 AM EDT IP CONSULT TO PHARMACY Routine 0 10:56 AM EDT BLOOD CULTURE (NO STAIN) Routine 020 10:48 AM EDT HEPATIC FUNCTION PANEL Routine 0 10:04 AM EDT BASIC METABOLIC PANEL Routine 03/01/2020 10:04 AM EDT CBC Routine 03/01/2020 10:04 AM EDT THYROID STIMULATING HORMONE Routine 03/01/2020 10:04 AM EDT MAGNESIUM LEVEL Routine 03/01/2020 10:04 AM EDT BLOOD CULTURE (NO STAIN) Routine 020 10:04 AM EDT GLUCOSE METER POC Routine 03/01/2020 9:33 AM EDT IP CONSULT TO CARDIOLOGY Routine 020 8:07 AM EDT Procedure Note - Mike Garcia MD - 03/01/2020 10:48 AM EDTThis note is in progress. Heart & Vascular Consult Note PATIENT: Gilberto Cardoso PCP: Geovani Wright MD Primary Manager Infrastructure: Dr. Evangelista-EP Reason for consult: Afib RVR History provided by: patient History limited by: nothing HPI: 59 yo male, former smoker, w hx of: Afib/aflutter s/p ablation 11/2019 Sinus node dysfunction s/p ppm 2015 HTN HLD KIA DM COPD CKD-renal ca Pt presented to the ED yesterday with complaints of abdominal pain.Imaging revealing acute cholecystitis. Surgery following with plans forcholecystectomy in two days once eliquis reversed. Cardiology asked toevaluate with afib RVR. Pt has history of afib/aflutter s/p aflutterablation 11/2019. Pt denies chest pain, shortness of breath. Pt was startedon cardizem gtt and IV BB w NPO status on admission. Pt now able to takeclears. HR remains moderately controlled at rest (low 100's) withincreases into the 170's with activity. Past Medical History Past Medical History: Diagnosis Date Anesthesia couldn't breathe after surgery Arthritis Atrial fibrillation (HCC) Atrial flutter (HCC) Blood circulation, collateral Cancer (HCC) kidney- no chemo/radiation, surgical removal of left kidney and freezingof right kidney Cardiac dysrhythmia CHF (congestive heart failure) (HCC) Chronic kidney disease kidney cancer Claustrophobia COPD (chronic obstructive pulmonary disease) (HCC) PRN 2L oxygen per [place] Diabetes mellitus (HCC) IDDM Diabetic neuropathy (HCC) Encounter for blood transfusion 2017 Heartburn Hyperlipidemia Hypertension Hyperthyroidism Kidney disorder right partial surgical freezing Neuropathy On home O2 2lnc PRN, unsure of companies name, no travel tank KIA (obstructive sleep apnea) wasn't able to tolerate CPap Pacemaker Psoriasis RBBB Sinus bradycardia Sinus node dysfunction (HCC) Medication gabapentin 800 mg Oral TID hydrALAZINE 50 mg Oral BID insulin glargine 10 Units Subcutaneous BID (Insulin) methIMAzole 5 mg Oral TID metoprolol 5 mg Intravenous 4 times per day pantoprazole 40 mg Oral Daily sodium chloride 0.9 % 100 mL/hr at 03/01/20 09 dilTIAZem (CARDIZEM) 1 mg/mL INFUSION 5 mg/hr (03/01/20 0902) acetaminophen OR acetaminophen, acetaminophen-codeine, fUROsemide,morphine OR morphine, ondansetron OR ondansetron, sodium chloride0.9%, sodium chloride 0.9% Past Surgical History Past Surgical History: Procedure Laterality Date ABLATION OF DYSRHYTHMIC FOCUS 12/24/2019 EPS w/ Typical AFL Ablation - Dr. Evangelista APPENDECTOMY CARDIAC CATHETERIZATION COLONOSCOPY CYSTOSCOPY Right 09/27/2016 CYSTOSCOPY RIGHT STENT INSERTION right retrograde; Surgeon: Georgi Myrick MD; Location: [facility]; Service: Urology CYSTOSCOPY 09/27/2016 Surgeon: Georgi Myrick MD; Location: [facility]; Service: Urology CYSTOSCOPY Right 04/20/2019 CYSTOSCOPY RIGHT STENT REMOVAL; Surgeon: Ray Teran MD; Location:[facility]; Service: Urology KIDNEY SURGERY left nephrectomy, right freezing PACEMAKER INSERTION Left 04/10/2016 MDT, dual chamber pacemaker by Dr. Evangelista TYMPANOSTOMY TUBE PLACEMENT UPPER GASTROINTESTINAL ENDOSCOPY N/A 09/25/2016 ESOPHAGOGASTRODUODENOSCOPY with biopsy; Surgeon: Rikki Mcmanus MD;[facility]; Service: Endoscopy URETEROSCOPY Right 11/25/2018 CYSTOSCOPY RIGHT URETEROSCOPY, BASKET STONE RETRIEVAL, WING EXCHANGE ANDSTENT INSERTION; Surgeon: Domo Penny MD; Location: [facility]; Service: Urology Allergy Allergies Allergen Reactions Amiodarone Other (See Comments) Hyperthyroidism Ciprocinonide Other (See Comments) developed pancreatitis Ciprofloxacin developed pancreatitis Family History Family History Problem Relation Age of Onset Coronary Art Dis Mother 63 age: 63 Diabetes Mother COPD Mother Cancer Mother lung Coronary Art Dis Maternal Grandfather 70 Heart Attack Maternal Grandfather Anesth Problems Neg Hx Social History Social History Tobacco Use Smoking status: Former Smoker Packs/day: 3.00 Years: 40.00 Pack years: 120.00 Types: Cigarettes Start date: 12/21/1967 Last attempt to quit: 2006 Years since quittin.6 Smokeless tobacco: Never Used Substance Use Topics Alcohol use: No Review of Systems No headache, no LOC, no fever, no chills, no cough, no nausea or vomitingor diarrhea, no burning micturation, no seizures, all other symptomsnegative and reviewed by me. Objective: Telemetry: Afib 03/01/2020 Last BP: BP: 142/78 Last pulse: Pulse: 136 Last resp: Resp: (!) 22 Last temp: Temp: 98.9 F (37.2 C) Last SpO2: SpO2: 94 % Exam: See MD note Diagnostic tests Pertinent laboratory test have been reviewed The most recent cardiovascular imaging studies availabe in [facility] EMR werereviewed at time of consultation Assessment & Plan There are no active hospital problems to display for this patient. Afib RVR -aflutter ablation 11/2019 -po dilt, BB travel pta -last dose of eliquis 02/28 -follows w EP -HR uncontrolled->Cardizem gtt, IV lopressor Cholecystitis -surgery once off eliquis-hopefully 1-2 days -surgery following Sinus node dysfunction s/p ppm 2015 -device interrogation 12/2019 AF burden 65.8% HTN -SBP 130-160's - cardizem gtt, BB, hydralazine -lisinopril travel pta HLD -fenofibrate Venous insufficiency -po lasix qod KIA DM COPD CKD-renal ca -sCr 1.49-near baseline Plan: Eliquis on hold for surgery->will start heparin gtt Afib w RVR->Increase diltiazem gtt to 10mg/hr and restart toprol xl Takes lasix qod w chronic venous insufficiency->trend renal function.sCr at baseline, but trending up. Hold lisinopril at this time. Further input from Dr. Garcia Thank you for the consult. We will follow with you. Dania Mathias APRN ATTENDING PHYSICIAN NOTE/ATTESTATION: I have reviewed other provider notes as well as the patient's past andpresent medical problems, medications, allergies, family history, socialhistory, laboratory and radiology studies. I have personally taken adetailed history and performed a detailed physical examination of thispatient. A cardiology team advanced practitioner also participated inthis patient's care. I have reviewed their history, physical, assessmentand plan. My findings are below and may differ slightly from theassessment and plan of the advanced practitioner. Patient is 59-year-old male past medical history of A. fib and atrialflutter status post ablation November 2019, sinus node dysfunction status postpacemaker, hypertension, hyperlipidemia, sleep apnea, diabetes, COPD,renal carcinoma, CKD who presents today with complaint of abdominal pain.Imaging revealed acute cholecystitis. Initially plan for surgery but iscurrently on hold due to recent Eliquis dose. Manager Infrastructure consult formanagement of A. fib RVR. Patient denies chest pain angina symptoms.Endorses to dysfunction the past and exercise tolerance recently. Haschronic lower extremity edema which is unchanged. Endorses some shortnessof breath. Correcting Cardizem drip. N.p.o. for possible surgery soon. Vitals are noted NAD, awake, alert, morbidly obese Tachycardic, regular rate and rhythm, 2/6 systolic ejection murmurpresent. CTABL ABD RUQ mildly tender to palpation Chronic venous stasis and pigmentation, 1+ edema STUDIES and LABS have been reviewed in detail. ASSESSMENT and PLAN: Gilberto Cardoso is a 59 y.o. male and has the following medicalproblems: A. fib with RVR History of A. fib and a flutter ablation Status post pacemaker Hypertension Sleep apnea Obesity COPD Diabetes CKD Acute cholecystitis Plan Eliquis on hold for surgery. Continue heparin GTT for now Increase Cardizem to 10 mg/hr. Restart metoprolol. Restart baseline home diuretic. Hold lisinopril at this time. Continue to follow. Mike Garcia MD 03/01/2020 1:54 PM This chart was completed using voice recognition technology and [email or web address] unintended errors ECG AND WAVEFORMS - TELEMETRY Routine 03/01/2020 7:41 AM EDT URINALYSIS STAT 03/01/2020 6:29 AM EDT EXTRA AMADOR URINE CX STAT 03/01/2020 6:29 AM EDT ECG AND WAVEFORMS - TELEMETRY Routine 03/01/2020 6:11 AM EDT ECG AND WAVEFORMS - TELEMETRY Routine 03/01/2020 12:44 AM EDT US RIGHT UPPER QUADRANT STAT 03/01/20 20 12:12 AM EDT IP CONSULT TO GENERAL SURGERY Routine 02/29/2020 11:41 PM EDT Procedure Note - Manuel العلي MD - 03/01/2020 4:13 PM EDTThis note is in progress. Surgery Consult Chief Complaint Patient presents with Abdominal Pain PT STATES HAVING ABD PAINS SINCE 0200, BRUNILDA N/V CPTA GABPENTIN HPI: This is a 59 y.o. year old male patient who we are asked to see by for cholecystitis. Patient has one day sudden onset rightabdominal pain, described as sharp, constant, radiating to whole abdomen.No nausea/vomiting. BM normal. History of pancreatitis years ago, noother known GI disease. CT reveals cholelithiasis, cholecystitis. Past Medical History: Diagnosis Date Anesthesia couldn't breathe after surgery Arthritis Atrial fibrillation (HCC) Atrial flutter (HCC) Blood circulation, collateral Cancer (HCC) kidney- no chemo/radiation, surgical removal of left kidney and freezingof right kidney Cardiac dysrhythmia CHF (congestive heart failure) (HCC) Chronic kidney disease kidney cancer Claustrophobia COPD (chronic obstructive pulmonary disease) (HCC) PRN 2L oxygen per [place] Diabetes mellitus (HCC) IDDM Diabetic neuropathy (HCC) Encounter for blood transfusion 2017 Heartburn Hyperlipidemia Hypertension Hyperthyroidism Kidney disorder right partial surgical freezing Neuropathy On home O2 2lnc PRN, unsure of companies name, no travel tank KIA (obstructive sleep apnea) wasn't able to tolerate CPap Pacemaker Psoriasis RBBB Sinus bradycardia Sinus node dysfunction (HCC) Past Surgical History: Procedure Laterality Date ABLATION OF DYSRHYTHMIC FOCUS 12/24/2019 EPS w/ Typical AFL Ablation - Dr. Evangelista APPENDECTOMY CARDIAC CATHETERIZATION COLONOSCOPY CYSTOSCOPY Right 09/27/2016 CYSTOSCOPY RIGHT STENT INSERTION right retrograde; Surgeon: Georgi Myrick MD; Location: [facility]; Service: Urology CYSTOSCOPY 09/27/2016 Surgeon: Georgi Myrick MD; Location: [facility]; Service: Urology CYSTOSCOPY Right 04/20/2019 CYSTOSCOPY RIGHT STENT REMOVAL; Surgeon: Ray Teran MD; [facility]; Service: Urology KIDNEY SURGERY left nephrectomy, right freezing PACEMAKER INSERTION Left 04/10/2016 T, dual chamber pacemaker by Dr. Evangelista TYMPANOSTOMY TUBE PLACEMENT UPPER GASTROINTESTINAL ENDOSCOPY N/A 09/25/2016 ESOPHAGOGASTRODUODENOSCOPY with biopsy; Surgeon: Rikki Mcmanus MD;Location: [facility]; Service: Endoscopy URETEROSCOPY Right 11/25/2018 CYSTOSCOPY RIGHT URETEROSCOPY, BASKET STONE RETRIEVAL, WING EXCHANGE ANDSTENT INSERTION; Surgeon: Domo Penny MD; Location: [facility]; Service: Urology No current facility-administered medications on file prior to encounter. Current Outpatient Medications on File Prior to Encounter Medication Sig Dispense Refill acetaminophen-codeine (TYLENOL #3) 300-30 mg Oral Tablet Take 1 Tab bymouth as needed. 3 apixaban (ELIQUIS) 5 mg Oral Tablet Take 1 Tab by mouth 2 times daily.60 Tab 3 dilTIAZem 240 mg Oral Capsule, Sust. Release 24 hr Take 1 Cap by mouth 2times daily. 60 Cap 2 fenofibrate (TRICOR) 145 mg Oral Tablet Take 145 mg by mouth daily. fUROsemide (LASIX) 20 mg Oral Tablet Take 20 mg by mouth as needed. gabapentin (NEURONTIN) 800 mg Oral Tablet Take 1 Tab by mouth 3 timesdaily. 0 HUMALOG KWIKPEN INSULIN 100 unit/mL SubQ Insulin Pen Subcutaneous(Inject under the skin) 80 Units Before every meal. hydrALAZINE (APRESOLINE) 50 mg Oral Tablet Take 1 Tab by mouth every 8hours. (Patient taking differently: Take 50 mg by mouth 2 times daily.) 90Tab 2 Insulin Glargine (LANTUS) 100 unit/mL (3 mL) SubQ Insulin PenSubcutaneous (Inject under the skin) 20 Units 2 times daily. lisinopril (PRINIVIL;ZESTRIL) 5 mg Oral Tablet Take 2.5 mg by mouthdaily. methIMAzole (TAPAZOLE) 5 mg Oral Tablet Take 5 mg by mouth every 8hours. metoprolol succinate ER (TOPROL-XL) 100 mg Oral Tablet Sustained [id number] hr TAKE 1 TABLET BY MOUTH 2 TIMES A DAY 60 Tab 5 pantoprazole (PROTONIX) 40 mg Oral Tablet, Delayed Release (E.C.) Take 1Tab by mouth daily. 30 Tab 2 Cholecalciferol, Vitamin D3, 10,000 unit Oral Capsule Take 1 Tab bymouth once a week. Saturday' insulin aspart (NOVOLOG) 100 unit/mL SubQ Solution Subcutaneous (Injectunder the skin) 20 Units 3 times daily (before meals). (Patient nottaking: Reported on 03/01/2020) 10 mL 12 LINZESS 145 mcg Oral Capsule Take 145 mcg by mouth as needed. 10 Allergies Allergen Reactions Amiodarone Other (See Comments) Hyperthyroidism Ciprocinonide Other (See Comments) developed pancreatitis Ciprofloxacin developed pancreatitis Social History Socioeconomic History Marital status: Single Spouse name: Not on file Number of children: Not on file Years of education: Not on file Highest education level: Not on file Occupational History Not on file Social Needs Financial resource strain: Not on file Food insecurity Worry: Not on file Inability: Not on file Transportation needs Medical: Not on file Non-medical: Not on file Tobacco Use Smoking status: Former Smoker Packs/day: 3.00 Years: 40.00 Pack years: 120.00 Types: Cigarettes Start date: 12/21/1967 Last attempt to quit: 2006 Years since quittin.6 Smokeless tobacco: Never Used Substance and Sexual Activity Alcohol use: No Drug use: No Sexual activity: Not on file Lifestyle Physical activity Days per week: Not on file Minutes per session: Not on file Stress: Not on file Relationships Social connections Talks on phone: Not on file Gets together: Not on file Attends methodist service: Not on file Active member of club or organization: Not on file Attends meetings of clubs or organizations: Not on file Relationship status: Not on file Intimate partner violence Fear of current or ex partner: Not on file Emotionally abused: Not on file Physically abused: Not on file Forced sexual activity: Not on file Other Topics Concern Not on file Social History Narrative Lives at home with leah. Completely independent in ADLs andiADLs. Family History Problem Relation Age of Onset Coronary Art Dis Mother 63 age: 63 Diabetes Mother COPD Mother Cancer Mother lung Coronary Art Dis Maternal Grandfather 70 Heart Attack Maternal Grandfather Anesth Problems Neg Hx No other family history pertinent to the presenting problem Review of Systems As above and all other systems are negative. Physical Exam Vitals: 03/01/20 1429 BP: 135/66 Pulse: 134 Resp: (!) 22 Temp: SpO2: Body mass index is 49.05 kg/m . General: No acute distress. obese Neuro: alert. oriented Eyes: pupils equal. anicteric Mouth: Oral mucosa moist. No perioral lesions Chest: symmetric excursion with respiration. Respirations unlabored andregular. Few wheezes Heart: Regular rate and rhythm Abdomen: soft, non-distended, tender with firmness RUQ Skin: warm, well perfused Back: no tenderness, no CVA tenderness Extremities: good range of motion. No deformities Labs WBC/Hgb/Hct/Plts: 22.8/13.1/39.7/252 (03/01 100) Na/K/Cl/CO2: 133/5.1/98/21 (03/01 100)BUN/Cr/glu/ALT/AST/amyl/lip: 25/1.49/--/16/17/--/-- (03/01 100) PT/INR/PTT: --/--/34.3 (03/01 1140) Pertinent Labs reviewed and Imaging visualized. Assessment & Plan: Active Hospital Problems Diagnosis *Abdominal pain Paroxysmal A-fib (HCC) Essential hypertension CKD stage 2 due to type 2 diabetes mellitus (HCC) CKD stage 3 due to type 2 diabetes mellitus (HCC) Pacemaker Type 2 diabetes mellitus with complication, with long-term current useof insulin (HCC) Hypertensive heart disease without heart failure Hyperlipidemia associated with type 2 diabetes mellitus (HCC) Acute cholecystitis, probable history chronic cholecystitis Anticoagulation Morbid obesity Recommended cholecystectomy, will delay until 03/03 to allow anticoagulationto reverse ADMIT STAT 02/29/2020 10:28 PM EDT TROPONIN-T HIGH SENSITIVITY 2HR Timed 02/29/2020 10:[address] ABD PEL ED FAST W CONTRAST STAT 02/29/2020 8:56 PM EDT XR CHEST AP PORTABLE CHARISSE 02/29/2020 8:05 PM EDT TROPONIN-T HIGH SENSITIVITY BASELINE W/ REFLEX STAT 02/29/2020 7:55 PM EDT T3 FREE Add-On 02/29/2020 7:54 PM EDT T4, FREE (THYROXINE) Add-On 02/29/2020 7:54 PM EDT LIPASE LEVEL STAT 02/29/2020 7:54 PM EDT COMPREHENSIVE METABOLIC PANEL STAT 02/29/2020 7:54 PM EDT CBC WITH DIFF STAT 02/29/2020 7:54 PM EDT EK EKG 12 LEAD STAT 02/29/2020 7:52 PM EDT SALINE LOCK IV STAT 02/29/2020 7:47 PM EDT PACEART REPORT Routine 01/03/2020 11:59 PM EDT PACEART REPORT Routine 12/28/2019 12:47 PM EDT GLUCOSE METER POC Routine 12/25/2019 12:15 PM EDT GLUCOSE METER POC Routine 12/25/2019 8:15 AM EDT ECG AND WAVEFORMS - TELEMETRY Routine 12/25/2019 7:33 AM EDT PT / INR Early AM 12/25/2019 6:20 AM EDT BASIC METABOLIC PANEL Early AM 12/25/2019 6:20 AM EDT CBC WITH DIFF Early AM 12/25/2019 6:20 AM EDT GLUCOSE METER POC Routine 12/24/2019 10:39 PM EDT ECG AND WAVEFORMS - TELEMETRY Routine 12/24/2019 7:05 PM EDT GLUCOSE METER POC Routine 12/24/2019 5:38 PM EDT ELECTROPHYSIOLOGY PROCEDURE Routine 12/24/2019 4:49 PM EDT Atrial flutter with rapid ventricular response (HCC) INTRAOP AIRWAY PLACEMENT Routine 020 4:03 PM EDT SALINE LOCK IV Routine 12/24/2019 4:00 PM EDT EP LAB RECORDINGS Routine 12/24/2019 3:35 PM EDT GLUCOSE METER POC Routine 12/24/2019 11:50 AM EDT PT / INR Routine 12/24/2019 7:11 AM EDT BASIC METABOLIC PANEL Early AM 12/24/2019 7:11 AM EDT CBC WITH DIFF Early AM 12/24/2019 7:11 AM EDT HEPARIN ANTI-XA, UNF Early AM 12/24/2019 7:11 AM EDT ECG AND WAVEFORMS - TELEMETRY Routine 12/24/2019 7:00 AM EDT GLUCOSE METER POC Routine 12/23/2019 9:50 PM EDT ECG AND WAVEFORMS - TELEMETRY Routine 12/23/2019 7:05 PM EDT GLUCOSE METER POC Routine 12/23/2019 6:23 PM EDT CORONAVIRUS 2019 Routine 12/23/2019 4:29 PM EDT EC ECHOCARDIOGRAM COMPLETE W DOPPLER AND COLOR FLOW MAPPING Routine 12/23/2019 4:06 PM EDT GLUCOSE METER POC Routine 12/23/2019 12:10 PM EDT ALBUMIN/CREATININE RATIO, RANDOM URINE Routine 12/23/2019 9:31 AM EDT GLUCOSE METER POC Routine 12/23/2019 7:56 AM EDT ECG AND WAVEFORMS - TELEMETRY Routine 12/23/2019 7:00 AM EDT GLUCOSE METER POC Routine 12/23/2019 6:09 AM EDT PT / INR Add-On 12/23/2019 6:07 AM EDT BASIC METABOLIC PANEL Early AM 12/23/2019 6:07 AM EDT CBC WITH DIFF Early AM 12/23/2019 6:07 AM EDT HEPARIN ANTI-XA, UNF Early AM 12/23/2019 6:07 AM EDT GLUCOSE METER POC Routine 12/22/2019 9:09 PM EDT ECG AND WAVEFORMS - TELEMETRY Routine 12/22/2019 7:31 PM EDT HEPARIN ANTI-XA, UNF Timed 12/22/2019 7:28 PM EDT GLUCOSE METER POC Routine 12/22/2019 5:59 PM EDT IP CONSULT TO WOUND CARE Routine 020 12:20 PM EDT GLUCOSE METER POC Routine 12/22/2019 11:31 AM EDT SCANNED EKG 12/22/2019 9:54 AM EDT HEMOGLOBIN A1C Routine 12/22/2019 9:23 AM EDT IP CONSULT TO ELECTROPHYSIOLOGY Routine 12/22/2019 9:12 AM EDT ECG AND WAVEFORMS - TELEMETRY Routine 12/22/2019 7:33 AM EDT ECG AND WAVEFORMS - TELEMETRY Routine 12/22/2019 6:54 AM EDT ECG AND WAVEFORMS - TELEMETRY Routine 12/22/2019 6:00 AM EDT SALINE LOCK IV Routine 12/22/2019 4:12 AM EDT IP CONSULT TO NUTRITION Routine 12/21/19 20 11:15 PM EDT Procedure Note - Parker Cruz, RD,LD - 12/22/2019 8:25 AM EDTThis note is in progress. [facility] Nutrition Note Received consult per skin integrity prevention/alteration protocol. [place] 17 and without pressure injuries @ this time. Nutrition screen score0. RD will not actively follow. Please re-consult if further nutritionaltriggers arise. ECG AND WAVEFORMS - TELEMETRY Routine 12/21/2019 9:05 PM EDT ADMIT STAT 12/21/2019 6:30 PM EDT BLOOD CULTURE (NO STAIN) STAT 6:19 PM EDT BLOOD CULTURE (NO STAIN) STAT 6:19 PM EDT EK EKG 12 LEAD STAT 12/21/2019 6:02 PM EDT T4, FREE (THYROXINE) Routine 12/21/2019 5:45 PM EDT TSH REFLEX TO FT4 Routine 12/21/2019 5:45 PM EDT URINALYSIS STAT 12/21/2019 5:29 PM EDT URINE CULTURE (NO STAIN) STAT 5:29 PM EDT EXTRA AMADOR URINE CX STAT 12/21/2019 5:29 PM EDT HEPATIC FUNCTION PANEL STAT 0 5:18 PM EDT TROPONIN-T HIGH SENSITIVITY 2HR Timed 12/21/2019 5:18 PM EDT XR CHEST AP PORTABLE CHARISSE 12/21/2019 4:36 PM EDT LACTIC ACID STAT 12/21/2019 3:22 PM EDT CBC WITH DIFF STAT 12/21/2019 3:22 PM EDT PT / INR STAT 12/21/2019 3:21 PM EDT TROPONIN-T HIGH SENSITIVITY BASELINE W/ REFLEX STAT 12/21/2019 3:21 PM EDT NT PROBNP STAT 12/21/2019 3:21 PM EDT BASIC METABOLIC PANEL STAT 12/21/2019 3:21 PM EDT SALINE LOCK IV STAT 12/21/2019 3:13 PM EDT EK EKG 12 LEAD STAT 12/21/2019 2:57 PM EDT PACEART REPORT Routine 12/21/2019 2:36 PM EDT PACEART REPORT Routine 10/22/2019 1:36 PM EDT PACEART REPORT Routine 10/12/2019 6:08 PM EDT PACEART REPORT Routine 10/11/2019 1:15 PM EDT COMPREHENSIVE METABOLIC PANEL STAT 07/23/2019 1:04 PM EST CBC WITH DIFF STAT 07/23/2019 1:04 PM EST PT / INR STAT 07/23/2019 1:04 PM EST XR LUMBAR SPINE AP AND LATERAL CHARISSE 07/23/2019 12:52 PM EST PACEART REPORT Routine 07/15/2019 5:13 PM EST GLUCOSE METER POC Routine 04/20/2019 12:01 PM EDT INTRAOP AIRWAY PLACEMENT Routine 11:35 AM EDT CYSTOSCOPY STENT REMOVAL 019 11:24 AM EDT Calculus of ureter PT / INR STAT 04/20/2019 10:51 AM EDT Preop testing Other [facility] (current) drug therapy GLUCOSE METER POC Routine 04/20/2019 10:43 AM EDT PACEART REPORT Routine 04/07/2019 3:46 PM EDT Cardiac pacemaker in situ EC ECHOCARDIOGRAM COMPLETE W DOPPLER AND COLOR FLOW MAPPING Routine 04/03/2019 2:42 PM EDT Sinus bradycardia Paroxysmal atrial fibrillation (HCC) PACEART REPORT Routine 01/12/2019 1:08 PM EDT SCANNED EKG 01/05/2019 9:08 AM EDT PACEART REPORT Routine 12/29/2018 1:32 PM EDT Cardiac pacemaker in situ Encounter for interrogation of cardiac pacemaker SCANNED EKG 12/12/2018 12:16 AM EDT TROPONIN-T HIGH SENSITIVITY BASELINE W/ REFLEX Timed 12/10/2018 1:34 PM EDT TROPONIN-T HIGH SENSITIVITY BASELINE W/ REFLEX STAT 12/10/2018 11:33 AM EDT BASIC METABOLIC PANEL STAT 12/10/2018 11:33 AM EDT CBC WITH DIFF STAT 12/10/2018 11:33 AM EDT EK EKG 12 LEAD STAT 12/10/2018 11:21 AM EDT GLUCOSE METER POC Routine 12/10/2018 11:00 AM EDT GLUCOSE METER POC Routine 11/27/2018 12:11 PM EDT GLUCOSE METER POC Routine 11/27/2018 8:15 AM EDT PT / INR Early AM 11/27/2018 6:37 AM EDT BASIC METABOLIC PANEL Early AM 11/27/2018 6:37 AM EDT CBC WITH DIFF Early AM 11/27/2018 6:37 AM EDT GLUCOSE METER POC Routine 11/26/2018 9:45 PM EDT GLUCOSE METER POC Routine 11/26/2018 5:52 PM EDT SCANNED RHYTHM STRIPS 11/26/2018 1:25 PM EDT GLUCOSE METER POC Routine 11/26/2018 12:38 PM EDT GLUCOSE METER POC Routine 11/26/2018 8:00 AM EDT PT / INR CHARISSE 11/26/2018 7:37 AM EDT BASIC METABOLIC PANEL Early AM 11/26/2018 7:37 AM EDT CBC WITH DIFF Early AM 11/26/2018 7:37 AM EDT GLUCOSE METER POC Routine 11/25/2018 9:57 PM EDT GLUCOSE METER POC Routine 11/25/2018 6:52 PM EDT GLUCOSE METER POC Routine 11/25/2018 1:51 PM EDT CALCULI (STONE) ANALYSIS - REF LAB Routine 11/25/2018 1:30 PM EDT Right ureteral stone INTRAOP AIRWAY PLACEMENT Routine 019 1:15 PM EDT CYSTOSCOPY, URETEROSCOPY, LASER LITHOTRIPSY, RETROGRADE PYELOGRAM, STENT INSERTION 11/25/2018 12:56 PM EDT Right ureteral stone GLUCOSE METER POC Routine 11/25/2018 12:31 PM EDT BASIC METABOLIC PANEL Early AM 11/25/2018 9:52 AM EDT CBC WITH DIFF Early AM 11/25/2018 7:45 AM EDT PT / INR Routine 11/25/2018 7:45 AM EDT HEMOGLOBIN A1C Routine 11/25/2018 7:45 AM EDT URINALYSIS STAT 11/25/2018 6:35 AM EDT EXTRA AMADOR URINE CX STAT 11/25/2018 6:35 AM EDT GLUCOSE METER POC Routine 11/25/2018 6:07 AM EDT GLUCOSE METER POC Routine 11/25/2018 1:47 AM EDT IP CONSULT TO NEPHROLOGY Routine 019 12:01 AM EDT Procedure Note - Greg Leblanc MD - 11/25/2018 1:55 PM EDTThis note is in progress. Images from the original note were not included. [facility] Greg Leblanc MD PATIENT NAME: Gilberto Cardoso : 1960 MEDICAL RECORD: [id number] HOSPITAL ROOM # [id number] PRIMARY PROVIDER Geovani Wright MD History of Present Illness Gilberto Cardoso is a(n)58 y.o. male admitted on 11/24/2018. We arefollowing for KIERRA, CHF Interval History Patient is 58-year-old white male with solitary kidney, prior leftnephrectomy, CKD stage III with baseline creatinine around 1.5, priorhistory of stones on the right kidney with ureteral stenting, last doneAugust 2016. At that time he required HD also. Post placing ureteralstent, he improved with a creatinine 1.5. Patient is admitted with right-sided back pain similar to in the past whenhe had obstructive stone. CT of the abdomen and pelvis showed mildright-sided hydronephrosis with 3 mm obstructing stone at the rightureterovesical junction. Labs showed creatinine of 3.1, potassium 4.8.Patient was given IV fluids. Lasix was held. Urology was consulted forright ureteroscopy. nephrology was consulted for KIERRA. Assessment & Plan 1. Acute on chronic kidney disease, prior left nephrectomy: Patient withobstructive uropathy. Has 3 mm stone in the right UV junction.Creatinine now 3.1. Potassium okay. Bicarb okay. Cystoscopy withremoval of stone and ureteral stenting planned. Creatinine should improveafter stones retrieval. Similar issues in August 2016. No acuteindication for dialysis. 2. Nephrolithiasis: As above. Needs extensive work-up including 24-hoururine studies etc. This can be done as outpatient. 3. Diastolic CHF, has chronic venous edema with stasis dermatitis. Localcompression therapy, leg elevation for now. Diuretics once renal functionis stable. 4. Obesity, KIA 5. Type II DM with complications, stable. Past Medical History: Diagnosis Date Anesthesia couldn't breathe after surgery Arthritis Atrial fibrillation (HCC) Atrial flutter (HCC) Blood circulation, collateral Cancer (HCC) kidney CHF (congestive heart failure) (HCC) Chronic kidney disease kidney cancer COPD (chronic obstructive pulmonary disease) (HCC) PRN 2L Diabetes mellitus (HCC) IDDM Diabetic neuropathy (HCC) Hyperlipidemia Hypertension Kidney disorder right partial surgical freezing KIA (obstructive sleep apnea) RBBB Sinus bradycardia Sinus node dysfunction (HCC) Past Surgical History: Procedure Laterality Date APPENDECTOMY CYSTOSCOPY Right 09/27/2016 CYSTOSCOPY RIGHT STENT INSERTION right retrograde; Surgeon: Georgi Myrick MD; Location: [facility]; Service: Urology CYSTOSCOPY 09/27/2016 Surgeon: Georgi Myrick MD; Location: [facility]; Service: Urology KIDNEY SURGERY left nephrectomy PACEMAKER INSERTION Left 04/10/2016 MDT, dual chamber pacemaker by Dr. Evaneglista TYMPANOSTOMY TUBE PLACEMENT UPPER GASTROINTESTINAL ENDOSCOPY N/A 09/25/2016 ESOPHAGOGASTRODUODENOSCOPY with biopsy; Surgeon: Rikki Mcmanus MD;Location: [facility]; Service: Endoscopy Family History Problem Relation Age of Onset Coronary Art Dis Mother 63 age: 63 Diabetes Mother COPD Mother Cancer Mother lung Coronary Art Dis Maternal Grandfather 70 Heart Attack Maternal Grandfather Amiodarone; Ciprocinonide; and Ciprofloxacin SOCIAL HISTORY Social History Socioeconomic History Marital status: Single Spouse name: None Number of children: None Years of education: None Highest education level: None Occupational History None Social Needs Financial resource strain: None Food insecurity: Worry: None Inability: None Transportation needs: Medical: None Non-medical: None Tobacco Use Smoking status: Former Smoker Packs/day: 3.00 Years: 35.00 Pack years: 105.00 Types: Cigarettes Start date: 07/01/2005 Last attempt to quit: 03/10/2006 Years since quittin.7 Smokeless tobacco: Never Used Tobacco comment: quit in 2004 Substance and Sexual Activity Alcohol use: No Comment: Quit over 10 years ago Drug use: No Sexual activity: None Lifestyle Physical activity: Days per week: None Minutes per session: None Stress: None Relationships Social connections: Talks on phone: None Gets together: None Attends methodist service: None Active member of club or organization: None Attends meetings of clubs or organizations: None Relationship status: None Intimate partner violence: Fear of current or ex partner: None Emotionally abused: None Physically abused: None Forced sexual activity: None Other Topics Concern None Social History Narrative Lives at home with leah. Completely independent in ADLs andiADLs. Medications Scheduled Meds: [START ON 12/01/2018] Cholecalciferol (Vitamin D3) 10,000 Units Oral QW gabapentin 600 mg Oral TID insulin aspart U-100 1-10 Units Subcutaneous QID WM insulin glargine 18 Units Subcutaneous BID (Insulin) linaclotide 145 mcg Oral AC BREAKFAST methIMAzole 5 mg Oral 3 times per day metoprolol succinate ER 100 mg Oral BID pantoprazole 40 mg Oral Daily Continuous Infusions: REVIEW OF SYSTEMS Patient denies having problems with headaches, dizziness, troubleswallowing, visual disturbances, hearing loss, cough or chest pain.Patient does not have any abdominal pain, nausea, vomiting, diarrhea,blood in the stool, difficulty with urination, weakness or numbness in thelegs. No calf swelling or joint tenderness. Please refer to IntervalHistory above for acute problems mentioned and addressed. Objective: BP 154/61 (BP Location: Left arm, Patient Position: Sitting) Pulse 67 Temp 98 F (36.7 C) (Oral) Resp 20 Ht 5' 8 (1.727 m) Wt (!)320 lb (145.2 kg) SpO2 92% BMI 48.66 kg/m Intake/Output Summary (Last 24 hours) at 11/25/2018 1755 Last data filed at 11/25/2018 1525 Gross per 24 hour Intake 2250.11 ml Output 475 ml Net 1775.11 ml General appearance : awake alert no acute distress Head: atraumatic HEENT PERRL, EOMI Neck: supple, no JVD Present. No Bruit Lungs: rhonchi in bases, otherwise clear Heart: S1 S2 normal. No murmurs Abdomen: Soft NT. No organanomegaly Extremities: 2+ EDEMA LE Neuro: A&O x3. No gross abnormality. MusuloSkeletal ; No acute arthritis or Synovitis HEMODYNAMIC DATA BP Min: 125/61 Max: 163/71 Pulse Av.3 Min: 62 Max: 84 I/O last 3 completed shifts: In: 2009.1 [I.V.:2009.1] Out: 475 [Urine:475] Wt Readings from Last 2 Encounters: 11/25/18 (!) 320 lb (145.2 kg) 09/08/18 (!) 325 lb (147.4 kg) Wt Reading from Admission: 11/24/2018 (!) 320 lb (145.2 kg) Lab Results Component Value Date/Time SPECGRAV 1.025 11/25/2018 06:35 AM BLOOD GAS & ACID BASE DATA SpO2 Av.9 % Min: 92 % Max: 99 % Lab Results Component Value Date/Time ANIONGAP 13 11/25/2018 09:52 AM LACTA 1.9 11/24/2018 11:03 PM KETONESU Trace (5 mg/dL) (A) 11/25/2018 06:35 AM RENAL & METABOLIC DATA Lab Results Component Value Date/Time GLU 254 (H) 11/25/2018 09:52 AM BUN 26 (H) 11/25/2018 09:52 AM CREATININE 3.08 (H) 11/25/2018 09:52 AM NA 137 11/25/2018 09:52 AM K 4.8 11/25/2018 09:52 AM CL 99 11/25/2018 09:52 AM CO2 25 11/25/2018 09:52 AM CALCIUM 8.8 11/25/2018 09:52 AM GFRAFRAM 24 (L) 11/25/2018 09:52 AM CBC Lab Results Component Value Date WBC 12.5 (H) 11/25/2018 HGB 11.8 (L) 11/25/2018 HCT 37.1 (L) 11/25/2018 PLT 292 11/25/2018 RBC 4.33 (L) 11/25/2018 Imaging: CXR reviewed, see results Thank you for letting me participate in your patient care. Please do nothesitate to call if any questions. Greg Leblanc MD Nephrology REPEAT LACTIC ACID STAT 11/24/2018 11:[address] ABDOMEN PELVIS WO ORAL OR IV CONTRAST STAT 11/24/2018 9:07 PM EDT LACTIC ACID STAT 11/24/2018 9:04 PM EDT LIPASE LEVEL STAT 11/24/2018 9:04 PM EDT COMPREHENSIVE METABOLIC PANEL STAT 11/24/2018 9:04 PM EDT CBC WITH DIFF STAT 11/24/2018 9:04 PM EDT POCT EKG Routine 09/08/2018 1:28 PM EDT Atrial fibrillation with RVR (HCC) Pure hypercholesterol emia Hypertension associated with diabetes (HCC) SOB (shortness of breath) Preop examination SCANNED RADIOLOGY REPORT 019 7:37 AM EST PACEART REPORT Routine 08/29/2018 6:04 PM EST Pacemaker reprogramming/ch mode PACEART REPORT Routine 04/29/2018 3:14 PM EDT Cardiac pacemaker in situ VA US LOWER EXTREMITY ARTERIAL PHYSIOLOGICAL Routine 04/04/2018 2:13 PM EDT Claudication in peripheral vascular disease VA US VENOUS REFLUX COMPLETE Routine 04/04/2018 1:53 PM EDT Venous hypertension of both lower extremities SCANNED EKG 11/15/2017 9:37 AM EDT GLUCOSE METER POC Routine 11/13/2017 8:40 AM EDT ECG AND WAVEFORMS - TELEMETRY Routine 11/13/2017 8:05 AM EDT PT / INR Early AM 11/13/2017 6:08 AM EDT HEPARIN ANTI-XA, UNF Early AM 11/13/2017 6:08 AM EDT BASIC METABOLIC PANEL Routine 11/13/2017 6:08 AM EDT CBC WITH DIFF Routine 11/13/2017 6:08 AM EDT GLUCOSE METER POC Routine 11/12/2017 9:07 PM EDT ECG AND WAVEFORMS - TELEMETRY Routine 11/12/2017 8:21 PM EDT GLUCOSE METER POC Routine 11/12/2017 6:20 PM EDT HEPARIN ANTI-XA, UNF Timed 11/12/2017 1:46 PM EDT GLUCOSE METER POC Routine 11/12/2017 12:47 PM EDT GLUCOSE METER POC Routine 11/12/2017 8:23 AM EDT ECG AND WAVEFORMS - TELEMETRY Routine 11/12/2017 7:49 AM EDT PT / INR Early AM 11/12/2017 6:15 AM EDT HEPARIN ANTI-XA, UNF Early AM 11/12/2017 6:15 AM EDT CBC Timed 11/12/2017 6:15 AM EDT PHOSPHORUS LEVEL Routine 11/12/2017 6:15 AM EDT MAGNESIUM LEVEL Routine 11/12/2017 6:15 AM EDT BASIC METABOLIC PANEL Routine 11/12/2017 6:15 AM EDT GLUCOSE METER POC Routine 11/11/2017 9:24 PM EDT GLUCOSE METER POC Routine 11/11/2017 5:48 PM EDT HEPARIN ANTI-XA, UNF Timed 11/11/2017 3:20 PM EDT ECG AND WAVEFORMS - TELEMETRY Routine 11/11/2017 10:43 AM EDT GLUCOSE METER POC Routine 11/11/2017 8:34 AM EDT IP CONSULT TO ELECTROPHYSIOLOGY Routine 11/11/2017 8:03 AM EDT Procedure Note - Padmini Evangelista MD - 11/11/2017 11:38 AM EDTThis note is in progress. ADMISSION: 11/11/2017 PATIENT: Gilberto Cardoso [id number] PCP: Geovani Wright MD Electrophysiology Consultation I would like to thank Dr. Walls for requesting me to see your patient,Gilberto Cardoso in consultation for AF with RVR. Plan was AF/AFLablation in December by Dr. Evangelista. Patient is a 57 yo male with history of PAF/atrial flutter, S/P dualchamber PPM 2016 for SND, morbid obesity, DM type 2, anemia, rectalbleeding history, CKD- previously on temporary dialysis, COPD. Hepresented to hospital on 11/09 with right-sided abd pain. Recently Dx andTx with ABX for UTI. Patient is AF with RVR on admission. He did convertbut had recurrent AF. CT abd/pelvis showed appendiceal stump remains ofpreviously removed appendix. He was Tx with ABX - surgeon following - nosurgery planned - continuing ABX only. [employer] Advisa implanted 04/10/16, interrogation 10/29/17: DDDR 60/130, Alead 5076, V lead 5076. AP 84%, CONCRETE LABORER 0.1%, AP-CONCRETE LABORER 1.8. RA 0.5mV,0.625V@0.4ms, 380 ohms, RV >20 mV, 0.5V@0.4ms, 513 ohms. AF burden 13.9% Past Medical History Past Medical History: Diagnosis Date Anesthesia couldn't breathe after surgery Arthritis Atrial fibrillation (HCC) Atrial flutter (HCC) Blood circulation, collateral Cancer (HCC) kidney CHF (congestive heart failure) (HCC) Chronic kidney disease kidney cancer COPD (chronic obstructive pulmonary disease) (HCC) PRN 2L Diabetes mellitus (HCC) IDDM Diabetic neuropathy (HCC) Hyperlipidemia Hypertension Kidney disorder right partial surgical freezing KIA (obstructive sleep apnea) RBBB Sinus bradycardia Sinus node dysfunction (HCC) Medication No current facility-administered medications on file prior to encounter. Current Outpatient Prescriptions on File Prior to Encounter Medication Sig Dispense Refill amiodarone (PACERONE) 200 mg Oral Tablet One tablet daily Cholecalciferol, Vitamin D3, 10,000 unit Oral Capsule Take 1 Tab bymouth daily. FENOFIBRIC ACID, CHOLINE, ORAL Take 145 mg by mouth daily. fUROsemide (LASIX) 40 mg Oral Tablet Take 40 mg by mouth daily asneeded. hydrALAZINE (APRESOLINE) 50 mg Oral Tablet Take 1 Tab by mouth every 8hours. 90 Tab 2 insulin aspart (NOVOLOG) 100 unit/mL SubQ Solution Subcutaneous (Injectunder the skin) 20 Units 3 times daily (before meals). 10 mL 12 Insulin Glargine (LANTUS) 100 unit/mL (3 mL) SubQ Insulin PenSubcutaneous (Inject under the skin) 20 Units 2 times daily. lisinopril (PRINIVIL;ZESTRIL) 5 mg Oral Tablet Take 2.5 mg by mouthdaily. metoprolol succinate ER (TOPROL-XL) 100 mg Oral Tablet Sustained [id number] hr Take 100 mg qAM and 50 mg qPM 45 Tab 11 pantoprazole (PROTONIX) 40 mg Oral Tablet, Delayed Release (E.C.) Take 1Tab by mouth daily. 30 Tab 2 warfarin (COUMADIN) 5 mg Oral Tablet Take 1 tablet (5mg) by mouth oncedaily in the evening or as directed by PCP in order to maintain INR2.0-3.0 45 Tab 5 levothyroxine (SYNTHROID) 50 mcg Oral Tablet Take by mouth daily. Scheduled Meds: amiodarone 200 mg Oral Daily fenofibrate 160 mg Oral Daily hydrALAZINE 50 mg Oral 3 times per day insulin aspart U-100 1-10 Units Subcutaneous QID WM insulin aspart U-100 20 Units Subcutaneous TID AC insulin glargine 20 Units Subcutaneous BID (Insulin) lisinopril 2.5 mg Oral Daily metoprolol succinate ER 100 mg Oral Daily pantoprazole 40 mg Oral Daily piperacillin-tazobactam (ZOSYN) extended infusion (Orderable) 3.375 gIntravenous 3 times per day propofol Continuous Infusions: diltiazem (CARDIZEM) 1 mg/mL INFUSION Stopped (11/09/172019) heparin (porcine) 2,300 Units/hr (11/11/17 0702) Past Surgical History Past Surgical History: Procedure Laterality Date APPENDECTOMY CYSTOSCOPY Right 09/27/2016 CYSTOSCOPY RIGHT STENT INSERTION right retrograde; Surgeon: Georgi Myrick MD; Location: [facility] MAIN OR; Service: Urology CYSTOSCOPY 09/27/2016 Surgeon: Georgi Myrick MD; Location: [facility] MAIN OR; Service: Urology KIDNEY SURGERY left nephrectomy PACEMAKER INSERTION Left 04/10/2016 MDT, dual chamber pacemaker by Dr. Evangelista TYMPANOSTOMY TUBE PLACEMENT UPPER GASTROINTESTINAL ENDOSCOPY N/A 09/25/2016 ESOPHAGOGASTRODUODENOSCOPY with biopsy; Surgeon: Rikki Mcmanus MD;Location: ED ENDOSCOPY; Service: Endoscopy Allergy Allergies Allergen Reactions Ciprocinonide Other (See Comments) developed pancreatitis Ciprofloxacin developed pancreatitis Family History Family History Problem Relation Age of Onset Coronary Art Dis Mother age: 63 Diabetes Mother COPD Mother Cancer Mother lung Coronary Art Dis Maternal Grandfather Heart Attack Maternal Grandfather Social History Social History Substance Use Topics Smoking status: Former Smoker Packs/day: 3.00 Years: 35.00 Types: Cigarettes Start date: 07/01/2005 Quit date: 03/10/2006 Smokeless tobacco: Never Used Comment: quit in 2004 Alcohol use No Comment: Quit over 10 years ago Review of Systems Constitutional: negative for - fever, weight loss Ophthalmic: negative for - eye pain, diplopia ENT: negative for - hearing loss, sore throat Respiratory: negative for - cough, sputum. +some chronic SOB Cardiovascular: negative for - orthopnea, dizziness, lightheadedness,syncope, chest pain. +occasional palpitation Gastrointestinal: negative for - melena, hematochezia Hematology: negative for - bleeding, blood clots, bruising Genito-Urinary: negative for - dysuria or incontinence Musculoskeletal: negative for - muscle pain, gait disturbance Neurological: negative for - TIA symptoms, confusion Psychiatric: negative for - anxiety, depression Dermatological: negative for - rash. +LE changes Objective: BP 101/49 (BP Location: Right arm, Patient Position: Sitting) Pulse 140 Temp 98.1 F (36.7 C) (Oral) Resp 18 Ht 5' 8 (1.727 m) Wt(!) 309 lb 6 oz (140.3 kg) SpO2 99% BMI 47.04 kg/m Physical Exam: Constitutional: Vital signs above. Alert and oriented. No distress Eyes: sclera white, conjunctiva clear ENT: Oropharynx is clear and moist Neck: Neck supple. No visible JVD Cardiovascular: tachycardia, irregularly, irregular rhythm, LE edema Pulmonary/Chest: Bilateral respiratory sounds clear. No wheezes, noRhonchi Gastrointestinal: Soft. Bowel sounds present. No distention, Notenderness. Musculoskeletal: no cyanosis, no atrophy Extremities: LE venous stasis changes Neurological: Alert and oriented. No gross deficit Hematological: No abnormal bruising, no petechiae Skin: Warm and dry. No rash noted Psychiatric: Normal mood, affect, and behavior Diagnostic tests: Lab Results Component Value Date WBC 10.0 11/11/2017 HGB 10.4 (L) 11/11/2017 HCT 29.1 (L) 11/15/2016 PLT 313 11/11/2017 Lab Results Component Value Date CREATININE 1.69 (H) 11/11/2017 BUN 32 (H) 11/11/2017 NA 133 (L) 11/11/2017 K 4.2 11/11/2017 CL 98 11/11/2017 CO2 20 (L) 11/11/2017 Lab Results Component Value Date CHOLESTEROL 115 04/09/2016 TRIG 237 (H) 04/09/2016 HDL 21 (L) 04/09/2016 LDLCALC 47 04/09/2016 Lab Results Component Value Date ALT 12 09/24/2016 AST 12 09/24/2016 Lab Results Component Value Date TSH 7.730 (H) 09/05/2016 Lab Results Component Value Date INR 1.37 (H) 11/11/2017 No results found for: CKTOTAL, CKMB, CKMBINDEX, TROPONINI CT abd/pelvis 11/09/17 1. Although the patient has reportedly undergone removal of the appendixand right lower quadrant suture lines are present, the proximal portion ofthe appendix remains and there is evidence of acute, uncomplicatedappendicitis 2. Incidental findings as described Chest X-Ray: No acute finding EC11/09/17 AF with RVR 11/09/17 normal Sinus rhythm 11/11/17 AF with RVR Telemetry: AF with RVR Echocardiogram: TTE 09/05/16 Very technically difficult and limited exam. Mildly increased wall thickness. Difficult to assess ejection fraction but would estimate preserved ef. Ischemic Evaluation: The most recent cardiovascular imaging studies available in [facility] EMR werereviewed at time of consultation Assessment: Active Hospital Problems Diagnosis *Recurrent appendicitis CKD stage 3 due to type 2 diabetes mellitus (HCC) Morbid obesity due to excess calories (HCC) Paroxysmal atrial fibrillation (HCC) Pacemaker Long-term insulin use in type 2 diabetes (HCC) KIA (obstructive sleep apnea) Hypertension associated with diabetes (HCC) Type 2 diabetes mellitus with complication, with long-term current useof insulin (HCC) Atrial fibrillation with RVR (HCC) Hypertensive heart disease without heart failure Plan: Patient is a 57 yo male with history of AF/AFL. He's been Tx withamiodarone. Patient continued to have AF/AFL on pacemaker interrogationand was scheduled for AF/AFL ablation in December. He presented this admissionwith abd pain, previous appendectomy hx -Dx with appenditis from stumparea remaining- Tx with ABX and has been responsive. EP consulted forrecurrent AF with RVR. Recent TSH 0.008/Free T4 2.86 shows patient ishyperthyroid. We will D/C amiodarone. Patient not a good candidate forSotalol with CKD. Increase Toprol XL dose. Focus on rate control.Currently on heparin gtt while off Warfarin. Further recommendations perDr. Evangelista. Reina Holden APRN ATTENDING PHYSICIAN ATTESTATION: The patient was seen in collaboration with the SHEET METAL MECHANIC. I have reviewed all the pertinent history, ROS, laboratory and radiologystudies. I have taken a history and performed a physical examination of thispatient. I agree with the history, physical, assessment and plan as outlined above.Patient seen and examined 11/11. Note is late entry. 57 yo morbidly obese male, T2DM, CKD, s/p DCPM '16 for SND admitted withappendicitis. Several episodes of AF with RVR on admission. AF ablationwas planned for December. NAD, Ao3, sitting up in chair Irregularly irregular Clear lungs Obese Abdomen 1. AF with RVR - D/c amiodarone (hyperthyroid) - Escalate rate control - Not a candidate for other AAD - Will follow T4, FREE (THYROXINE) Routine 11/11/2017 6:01 AM EDT TSH REFLEX TO FT4 Add-On 11/11/2017 6:01 AM EDT HEPARIN ANTI-XA, UNF Early AM 11/11/2017 6:01 AM EDT PT / INR Routine 11/11/2017 6:01 AM EDT BASIC METABOLIC PANEL Routine 11/11/2017 6:01 AM EDT CBC WITH DIFF Routine 11/11/2017 6:01 AM EDT EK EKG 12 LEAD STAT 11/11/2017 12:56 AM EDT ECG AND WAVEFORMS - TELEMETRY Routine 11/11/2017 12:13 AM EDT ECG AND WAVEFORMS - TELEMETRY Routine 11/11/2017 12:10 AM EDT GLUCOSE METER POC Routine 11/10/2017 9:46 PM EDT ECG AND WAVEFORMS - TELEMETRY Routine 11/10/2017 8:48 PM EDT ALBUMIN/CREATININE RATIO, RANDOM URINE Routine 11/10/2017 8:15 PM EDT HEPARIN ANTI-XA, UNF Timed 11/10/2017 5:49 PM EDT GLUCOSE METER POC Routine 11/10/2017 5:42 PM EDT URINALYSIS STAT 11/10/2017 4:02 PM EDT EXTRA AMADOR URINE CX STAT 11/10/2017 4:02 PM EDT GLUCOSE METER POC Routine 11/10/2017 2:08 PM EDT ECG AND WAVEFORMS - TELEMETRY Routine 11/10/2017 8:12 AM EDT GLUCOSE METER POC Routine 11/10/2017 8:06 AM EDT PT / INR STAT 11/10/2017 7:59 AM EDT TROPONIN-T Timed 11/10/2017 12:45 AM EDT ECG AND WAVEFORMS - TELEMETRY Routine 11/09/2017 10:06 PM EDT EK EKG 12 LEAD STAT 11/09/2017 8:30 PM EDT TROPONIN-T STAT 11/09/2017 8:16 PM EDT IP CONSULT TO GENERAL SURGERY STAT 11/09/2017 7:33 PM EDT Procedure Note - Vivi Hamilton MD - 11/10/2017 8:36 AM EDTThis note is in progress. General Surgery Consult Note CSN:[id number] NAME:Gilberto Cardoso :1960 Impression/Plan: Appendiceal stump appendicitis. He is currently feelingbetter on antibiotics alone. His INR is currently too high forappendectomy, as I suspect his dissection will be a bit more difficultgiven his prior operation and his morbid obesity. Discussed that there are recent studies supporting treatment of acuteappendicitis with antibiotics in lieu of surgery in the non-toxic patientwho is improving and has multiple medical comorbidities.Relapse/recurrence rates are about 20%. He is interested in thistreatment option if possible. Will allow clear liquids. Continue antibiotics. NPO after midnight forreassessment in the morning. If he continues to improve clinically, thenwill continue antibiotic therapy. CC: Abdominal pain History of Present Illness: Pt seen in consultation for Ashley Robb NP. Patient with history of CHF, CKD, COPD, insulin-depend diabetes,hypertension, hyperlipidemia, atrial fibrillation on amiodarone andCoumadin presented to the ER with complaints of right-sided abdominal painwhich began on . Pain is primarily in his right lower quadrant.Was seen at an outside hospital, diagnosed with UTI and given a dose of IVantibiotic but no discharge antibiotics. Patient is s/p appendectomy in 2004 at [facility]. On admission, he had CT abd/pelvis which demonstrated acute appendicitisin appendiceal stump. Was in Afib with RVR with supratherapeutic INR at3.7. Underwent cardioversion back into sinus rhythm, received Vitamin K10 mg. INR this am is 1.79. He is currently feeling much better. Past Medical History: Diagnosis Date Anesthesia couldn't breathe after surgery Arthritis Atrial fibrillation (HCC) Atrial flutter (HCC) Blood circulation, collateral Cancer (HCC) kidney CHF (congestive heart failure) (HCC) Chronic kidney disease kidney cancer COPD (chronic obstructive pulmonary disease) (HCC) PRN 2L Diabetes mellitus (HCC) IDDM Diabetic neuropathy (HCC) Hyperlipidemia Hypertension Kidney disorder right partial surgical freezing KIA (obstructive sleep apnea) RBBB Sinus bradycardia Sinus node dysfunction (HCC) Past Surgical History: Procedure Laterality Date APPENDECTOMY CYSTOSCOPY Right 09/27/2016 CYSTOSCOPY RIGHT STENT INSERTION right retrograde; Surgeon: Georgi Myrick MD; Location: [facility]; Service: Urology CYSTOSCOPY 09/27/2016 Surgeon: Georgi Myrick MD; Location: [facility] MAIN OR; Service: Urology KIDNEY SURGERY left nephrectomy PACEMAKER INSERTION Left 04/10/2016 MDT, dual chamber pacemaker by Dr. Evangelista TYMPANOSTOMY TUBE PLACEMENT UPPER GASTROINTESTINAL ENDOSCOPY N/A 09/25/2016 ESOPHAGOGASTRODUODENOSCOPY with biopsy; Surgeon: Rikki Mcmanus MD;Location: [facility] ENDOSCOPY; Service: Endoscopy No current facility-administered medications on file prior to encounter. Current Outpatient Prescriptions on File Prior to Encounter Medication Sig Dispense Refill amiodarone (PACERONE) 200 mg Oral Tablet One tablet daily Cholecalciferol, Vitamin D3, 10,000 unit Oral Capsule Take 1 Tab bymouth daily. FENOFIBRIC ACID, CHOLINE, ORAL Take 145 mg by mouth daily. fUROsemide (LASIX) 40 mg Oral Tablet Take 40 mg by mouth daily asneeded. hydrALAZINE (APRESOLINE) 50 mg Oral Tablet Take 1 Tab by mouth every 8hours. 90 Tab 2 insulin aspart (NOVOLOG) 100 unit/mL SubQ Solution Subcutaneous (Injectunder the skin) 20 Units 3 times daily (before meals). 10 mL 12 Insulin Glargine (LANTUS) 100 unit/mL (3 mL) SubQ Insulin PenSubcutaneous (Inject under the skin) 20 Units 2 times daily. lisinopril (PRINIVIL;ZESTRIL) 5 mg Oral Tablet Take 2.5 mg by mouthdaily. metoprolol succinate ER (TOPROL-XL) 100 mg Oral Tablet Sustained [id number] hr Take 100 mg qAM and 50 mg qPM 45 Tab 11 pantoprazole (PROTONIX) 40 mg Oral Tablet, Delayed Release (E.C.) Take 1Tab by mouth daily. 30 Tab 2 warfarin (COUMADIN) 5 mg Oral Tablet Take 1 tablet (5mg) by mouth oncedaily in the evening or as directed by PCP in order to maintain INR2.0-3.0 45 Tab 5 levothyroxine (SYNTHROID) 50 mcg Oral Tablet Take by mouth daily. Allergies Allergen Reactions Ciprocinonide Other (See Comments) developed pancreatitis Ciprofloxacin developed pancreatitis Family History Problem Relation Age of Onset Coronary Art Dis Mother age: 63 Diabetes Mother COPD Mother Cancer Mother lung Coronary Art Dis Maternal Grandfather Heart Attack Maternal Grandfather Social History Social History Marital status: Single Spouse name: N/A Number of children: N/A Years of education: N/A Occupational History Not on file. Social History Main Topics Smoking status: Former Smoker Packs/day: 3.00 Years: 35.00 Types: Cigarettes Start date: 07/01/2005 Quit date: 03/10/2006 Smokeless tobacco: Never Used Comment: quit in 2004 Alcohol use No Comment: Quit over 10 years ago Drug use: No Sexual activity: Not on file Other Topics Concern Not on file Social History Narrative Lives at home with [facility]. Completely independent in ADLs andiADLs. ROS: Significant as above. Constitutional: Denies fever, chills, weight loss. HEENT: Denies headache, sore throat, yellow eyes Cardiac: Denies chest pain, palpitations Pulm: Denies shortness of breath, cough, hemoptysis GI: As above. : Denies urinary hesitancy, change in color, dysuria Musculoskeletal: Denies joint pain, swelling, leg pain Neuro: Denies weakness or numbness Vitals: Vitals: 11/09/17 2213 11/10/17 0038 11/10/17 0319 11/10/17 0608 BP: 137/54 130/45 150/58 BP Location: Right arm Patient Position: Sitting Pulse: 66 Resp: 19 Temp: 98.7 F (37.1 C) TempSrc: Oral SpO2: 97% Weight: (!) 308 lb 6 oz (139.9 kg) Height: Intake/Output Summary (Last 24 hours) at 11/10/17 0837 Last data filed at 11/10/17 0713 Gross per 24 hour Intake 687.82 ml Output 0 ml Net 687.82 ml Exam: Constituional: WN WD obese WM in no acute distress HEENT: Sclerae anicteric, mucus membranes moist. Neck: Supple, trachea midline. Cardiovascular: RRR with no evidence of JVD, good peripheral perfusion Pulmonary: Respirations easy, chest excursion symmetric Gastrointestinal: Abdomen obese, mild tenderness right lower quadrantwith ?scar. Patient currently semirecumbent in chair - difficult toidentify surgical scar. Musculoskeletal: FROM, pitting edema of lower extremities Integument: Warm and dry with normal skin turgor Neuro: Grossly intact Psychiatric: Behavior and affect appropriate Labs: Recent Results (from the past 48 hour(s)) CBC WITH DIFF Collection Time: 11/09/17 6:10 PM Result Value Ref Range WBC 14.7 (H) 4.0 - 11.0 x10(3)/mcL RBC 3.98 (L) 4.30 - 5.81 x10(6)/mcL Hgb 11.0 (L) 13.5 - 17.1 gm/dL Hct 33.2 (L) 38.9 - 51.6 % MCV 83.5 82.5 - 99.8 fL MCH 27.5 27.0 - 34.3 pg MCHC 33.0 32.1 - 35.3 gm/dL RDW 15.7 (H) 11.5 - 15.0 % Platelet 330 144 - 423 x10(3)/mcL MPV 7.5 6.8 - 10.8 fL Neut Percent 87.6 % Lymph Percent 5.2 % [place] Percent 5.5 % Eos Percent 0.7 % Baso Percent 1.0 % Neut # 12.9 (H) 1.8 - 7.7 x10(3)/mcL Lymph # 0.8 0.6 - 4.8 x10(3)/mcL [place] # 0.8 0.0 - 1.3 x10(3)/mcL Eos# 0.1 0.0 - 0.5 x10(3)/mcL Baso # 0.1 0.0 - 0.2 x10(3)/mcL BASIC METABOLIC PANEL Collection Time: 11/09/17 6:10 PM Result Value Ref Range Sodium 135 (L) 136 - 145 mmol/L Potassium 4.6 3.5 - 5.0 mmol/L Chloride 99 98 - 107 mmol/L Total CO2 22 22 - 29 mmol/L Anion Gap 14 7 - 16 mmol/L Calcium 9.0 8.6 - 10.2 mg/dL Glucose Lvl 187 (H) 74 - 100 mg/dL BUN 33 (H) 6 - 20 mg/dL Creatinine 1.58 (H) 0.67 - 1.30 mg/dL GFR Afr Am 55 mL/min/1.73 m2 GFR Non Afr Am 48 mL/min/1.73 m2 TROPONIN-T Collection Time: 11/09/17 6:10 PM Result Value Ref Range Troponin-T <0.01 <0.01 ng/mL PT / INR Collection Time: 11/09/17 6:10 PM Result Value Ref Range PT 42.9 (H) 9.7 - 12.5 second(s) INR 3.70 (H) 0.84 - 1.08 no units TROPONIN-T Collection Time: 11/09/17 8:16 PM Result Value Ref Range Troponin-T <0.01 <0.01 ng/mL ECG AND WAVEFORMS - TELEMETRY Collection Time: 11/09/17 10:06 PM Result Value Ref Range ECG INTERPRET NSR RN APPROVED Yes TROPONIN-T Collection Time: 11/10/17 12:45 AM Result Value Ref Range Troponin-T <0.01 <0.01 ng/mL PT / INR Collection Time: 11/10/17 7:59 AM Result Value Ref Range PT 20.8 (H) 9.7 - 12.5 second(s) INR 1.79 (H) 0.84 - 1.08 no units GLUCOSE METER POC Collection Time: 11/10/17 8:06 AM Result Value Ref Range Glucose Meter POC 177 (H) 70 - 100 mg/dL Sample Type Capillary Patient Status Non-Critical Patient Imaging: Xr Chest Ap Portable Result Date: 11/09/2017 XR CHEST AP PORTABLE, 11/09/2017 6:34 PM CLINICAL HISTORY: -ABDOMINALPAIN COMPARISON: September 21, 2016 PROCEDURE COMMENTS: AP portabletechnique. FINDINGS: Cardiovascular structures show stable 2-leadpacemaker. Heart size is normal.. No pneumonia or effusion. Nopneumothorax. No acute finding. Ek Ekg 12 Lead Result Date: 11/09/2017 NOTICE: Preliminary tracing available for review; Final Interpretation byphysician to follow. Stationary ECG StudySt. Danika EstrelladebraInterpretive Statements SINUSRHYTHM,converted from a fib of prior tracing POSSIBLE RIGHT VENTRICULARCONDUCTION DELAY Electronically Signed On 11-09-2017 21:03:17 EDT by MD Angel Ek Ekg 12 Lead Result Date: 11/09/2017 NOTICE: Preliminary tracing available for review; Final Interpretation byphysician to follow. Stationary ECG StudySt. Danika MontillaInterpretive StatementsATRIAL FIBRILLATION WITH RAPID VENTRICULAR RESPONSE, not present on priortracing INDETERMINATE AXIS MODERATE INTRAVENTRICULAR CONDUCTION DELAY poorR-wave progression abnormal ECG Electronically Signed On 11-09-201718:02:44 EDT by Jayden Spain MD Paceart Report Result Date: 10/17/2017 Carelink transmission sent in at request of Nohelia CRAWLEY. Patient c/o ofhaving more AF and currently in AF with RVR of 150. Longest event was 19hrs, were paced terminated. Avg V- rate 108-128 bpm. Currently onamio and warfarin. Stephanie Holden APRN to f/u with patient. Ruthann Palmer Ct Abdomen Pelvis Wo Oral Or Iv Contrast Result Date: 11/09/2017 CLINICAL HISTORY: Acute right flank pain. COMPARISON: 09/21/2016.TECHNIQUE: CT ABDOMEN PELVIS WO ORAL OR IV CONTRAST on 11/09/2017 7:00 PM.FINDINGS: Abdomen: The lung bases are clear. The visualized portions ofthe heart are normal. There are nonobstructing calculi in the right kidneywithout evidence of a ureteral calcification. Scarring and irregularityalong the inferior pole of the right kidney is unchanged and has theappearance of prior cryoablation. The left kidney has been resected.Increased density within the gallbladder is from vicarious excretion ofcontrast. The unenhanced liver, spleen, pancreas, and adrenal glands aregrossly normal. The caliber of the small bowel is normal. There are noenlarged abdominal lymph nodes or free fluid. The caliber of the aorta isnormal. There are degenerative changes in the spine. Pelvis: Although thepatient has reportedly undergone removal of the appendix and suture linesare visible, the proximal portion of the appendix remains and was shown onthe most recent prior study. On today's exam, the remaining appendix isinflamed and dilated measuring up to 2.1 cm. There is periappendicealinflammation without evidence of a fluid collection. The caliber of thecolon is normal. There are no enlarged pelvic lymph nodes or free fluid.The urinary bladder and prostate gland are normal. The bony pelvis isunremarkable. 1. Although the patient has reportedly undergone removal of the appendixand right lower quadrant suture lines are present, the proximal portion ofthe appendix remains and there is evidence of acute, uncomplicatedappendicitis 2. Incidental findings as described Dr. Connolly communicatedthese findings to Dr. ROBB at 1910 hours on 11/09/2017. Report given andunderstood. CODE CRITICAL Vivi Hamilton MD CT ABDOMEN PELVIS WO ORAL OR IV CONTRAST STAT 11/09/2017 7:00 PM EDT XR CHEST AP PORTABLE CHARISSE 11/09/2017 6:34 PM EDT HEMOGLOBIN A1C Routine 11/09/2017 6:10 PM EDT PT / INR STAT 11/09/2017 6:10 PM EDT TROPONIN-T STAT 11/09/2017 6:10 PM EDT BASIC METABOLIC PANEL STAT 11/09/2017 6:10 PM EDT CBC WITH DIFF STAT 11/09/2017 6:10 PM EDT EK EKG 12 LEAD STAT 11/09/2017 5:51 PM EDT PACEART REPORT Routine 10/29/2017 3:31 PM EDT Cardiac pacemaker in situ PACEART REPORT Routine 10/17/2017 7:24 PM EDT PACEART REPORT Routine 09/23/2017 3:48 PM EDT PACEART REPORT Routine 08/30/2017 5:09 PM EST PACEART REPORT Routine 05/27/2017 2:50 PM EST PACEART REPORT Routine 02/22/2017 6:19 PM EDT Cardiac pacemaker in situ PATHOLOGY TISSUE REPORT Routine 11/20/19 17 2:23 PM EDT GMED COLONOSCOPY Routine 11/19/2016 2:15 PM EDT COLONOSCOPY-ENDO DEPT ONLY (ANESTHESIA) 11/19/2016 2:10 PM EDT Carcinoma, renal cell, unspecified laterality (HCC) Personal history of colonic polyps GLUCOSE METER POC Routine 11/19/2016 1:29 PM EDT DIFFERENTIAL Routine 11/15/2016 11:18 AM EDT PT / INR Routine 11/15/2016 11:18 AM EDT Renal cell carcinoma, unspecified laterality (HCC) Personal history of colonic polyps Second degree hemorrhoids Acute posthemorrhagic anemia CBC WITH DIFF Routine 11/15/2016 11:18 AM EDT Renal cell carcinoma, unspecified laterality (HCC) Personal history of colonic polyps Second degree hemorrhoids Acute posthemorrhagic anemia SCANNED EKG 11/02/2016 9:56 AM EDT PACEART REPORT Routine 11/01/2016 5:44 PM EDT Cardiac pacemaker in situ Pacemaker reprogramming/ch mode SCANNED EKG 10/09/2016 9:20 PM EDT SCANNED LABS 10/05/2016 2:53 PM EDT SCANNED RHYTHM STRIPS 10/05/2016 2:53 PM EDT SCANNED RHYTHM STRIPS 09/30/2016 12:36 PM EDT GLUCOSE METER POC Routine 09/30/2016 12:23 PM EDT BASIC METABOLIC PANEL STAT 09/30/2016 10:50 AM EDT GLUCOSE METER POC Routine 09/30/2016 8:20 AM EDT SCANNED RHYTHM STRIPS 09/30/2016 12:24 AM EDT SCANNED RHYTHM STRIPS 09/29/2016 11:04 PM EDT GLUCOSE METER POC Routine 09/29/2016 9:49 PM EDT HEMOGLOBIN AND HEMATOCRIT Routine 2016 7:15 PM EDT SCANNED RHYTHM STRIPS 09/29/2016 6:03 PM EDT GLUCOSE METER POC Routine 09/29/2016 5:55 PM EDT GLUCOSE METER POC Routine 09/29/2016 1:50 PM EDT HB CREATININE CLEARANCE Routine 09/30/19 17 1:00 PM EDT GLUCOSE METER POC Routine 09/29/2016 11:07 AM EDT SCANNED RHYTHM STRIPS 09/29/2016 8:30 AM EDT GLUCOSE METER POC Routine 09/29/2016 8:14 AM EDT DIFFERENTIAL Routine 09/29/2016 7:12 AM EDT BASIC METABOLIC PANEL Early AM 09/29/2016 7:12 AM EDT CBC WITH DIFF Routine 09/29/2016 7:12 AM EDT GLUCOSE METER POC Routine 09/28/2016 10:06 PM EDT GLUCOSE METER POC Routine 09/28/2016 5:36 PM EDT GLUCOSE METER POC Routine 09/28/2016 12:51 PM EDT GLUCOSE METER POC Routine 09/28/2016 6:27 AM EDT DIFFERENTIAL Early AM 09/28/2016 4:00 AM EDT BASIC METABOLIC PANEL Early AM 09/28/2016 4:00 AM EDT CBC WITH DIFF Early AM 09/28/2016 4:00 AM EDT GLUCOSE METER POC Routine 09/27/2016 10:48 PM EDT SCANNED RHYTHM STRIPS 09/27/2016 9:57 PM EDT HEMOGLOBIN AND HEMATOCRIT Routine 2016 8:50 PM EDT GLUCOSE METER POC Routine 09/27/2016 6:41 PM EDT HEMOGLOBIN AND HEMATOCRIT Routine 2016 4:45 PM EDT GLUCOSE METER POC Routine 09/27/2016 3:11 PM EDT GLUCOSE METER POC Routine 09/27/2016 2:09 PM EDT FL RETROGRADE PYELOGRAM W WO KUB Routine 09/27/2016 1:54 PM EDT CYSTOSCOPY WITH RETROGRADE PYELOGRAM 09/27/2016 12:59 PM EDT Renal calculus, right CYSTOSCOPY STENT INSERTION OR EXCHANGE 09/27/2016 12:59 PM EDT Renal calculus, right GLUCOSE METER POC Routine 09/27/2016 12:24 PM EDT GLUCOSE METER POC Routine 09/27/2016 8:43 AM EDT SMEAR REVIEW Early AM 09/27/2016 5:00 AM EDT DIFFERENTIAL Early AM 09/27/2016 5:00 AM EDT CBC WITH DIFF Early AM 09/27/2016 5:00 AM EDT BASIC METABOLIC PANEL Early AM 09/27/2016 5:00 AM EDT GLUCOSE METER POC Routine 09/26/2016 9:39 PM EDT GLUCOSE METER POC Routine 09/26/2016 6:21 PM EDT SCANNED RHYTHM STRIPS 09/26/2016 6:18 PM EDT IP CONSULT TO WOUND CARE Routine 017 3:50 PM EDT GLUCOSE METER POC Routine 09/26/2016 12:14 PM EDT GLUCOSE METER POC Routine 09/26/2016 6:11 AM EDT DIFFERENTIAL Early AM 09/26/2016 4:40 AM EDT CBC WITH DIFF Early AM 09/26/2016 4:40 AM EDT BASIC METABOLIC PANEL Early AM 09/26/2016 4:40 AM EDT GLUCOSE METER POC Routine 09/25/2016 10:57 PM EDT SCANNED RHYTHM STRIPS 09/25/2016 9:22 PM EDT PARATHYROID HORMONE INTACT Routine 09/25/2016 7:13 PM EDT VITAMIN D, 1,25-DIHYDROXY -REF LAB Routine 09/25/2016 7:13 PM EDT VITAMIN D 25 HYDROXY Routine 09/25/2016 7:13 PM EDT HEMOGLOBIN AND HEMATOCRIT Routine 2016 7:13 PM EDT FERRITIN Routine 09/25/2016 5:44 PM EDT IRON/UIBC Routine 09/25/2016 5:44 PM EDT GLUCOSE METER POC Routine 09/25/2016 4:46 PM EDT GLUCOSE METER POC Routine 09/25/2016 11:54 AM EDT HEMOGLOBIN AND HEMATOCRIT Timed 2016 11:30 AM EDT GMED EGD Routine 09/25/2016 11:30 AM EDT PATHOLOGY TISSUE REPORT Routine 09/26/19 17 9:29 AM EDT ESOPHAGOGASTRODUODENOSCOP Y (ANESTHESIA) 09/25/2016 9:17 AM EDT Anemia, unspecified type GLUCOSE METER POC Routine 09/25/2016 5:32 AM EDT BASIC METABOLIC PANEL Early AM 09/25/2016 3:45 AM EDT HEMOGLOBIN AND HEMATOCRIT Timed 2016 3:45 AM EDT GLUCOSE METER POC Routine 09/24/2016 10:39 PM EDT HEMOGLOBIN AND HEMATOCRIT Timed 2016 6:30 PM EDT GLUCOSE METER POC Routine 09/24/2016 5:56 PM EDT IP CONSULT TO NUTRITION Routine 09/25/19 17 2:46 PM EDT IP CONSULT TO GI Routine 09/24/2016 11:53 AM EDT Procedure Note - Rikki Mcmanus MD - 09/24/2016 12:59 PM EDTThis note is in progress. [facility] Consult Note Name: Gilberto Cardoso ADDRESS: [address] [place], [place] [id number] : 1960 AGE: 56 y.o. Primary Care Physician: Geovani Wright MD Date of Admission: 09/21/2016 Date of Consultation: 09/24/2016 Admitting Diagnosis: Renal failure/Anemia/Hyperkalemia Chief Complaint / Reason for Consult: Anemia/Rectal bleeding History of Presenting Illness Gilberto Cardoso is a very pleasant 56 y.o. male last seen in our /16/16. He has a history of renal cell carcinoma involving the leftkidney status post left nephrectomy, right renal cell carcinoma treatedwith chemotherapy in 2011, who was followed by his oncologist. Last PETscan around July 2015 was negative. He was initially seen for brightred rectal bleeding. Colonoscopy performed on February 14, 2016 was notablefor a 4 cm polyp at 20 cm from the anal verge. Biopsies proved to betubulovillous adenoma without dysplasia. Ten other polyps were a mixtureof tubular adenomas, sessile serrated adenomas and hyperplastic polyps.Mr. Cardoso underwent a colonoscopy on April 10, during which time the4 cm polyp was removed in a piecemeal fashion after placement of theendo-loop. The pathology on this polyp proved to be a villous adenoma,negative for any high-grade dysplasia or malignancy. The base was notablefor no adenomatous changes seen adjacent to the cauterized mucosal area.Mr. Cardoso initially presented to our office for the repeat colonoscopyon February 07. However, he was in his cardiac rhythm upon entering of theendo unit that was consistent with AFib with RVR. Therefore, it wasdecided that it would be best to be transferred to the hospital forinpatient monitoring. He was found to have sick sinus syndrome and had apacemaker placed. He presented to the ER per his PCP recommendations for low Hgb, elevatedK+ and Creatinine, and right flank and low back pain. CT a/p revealed a 3mm renal stone resulting in mild obstruction. Laboratory values werenotable for WBC 12.1, Hgb 6.5, Hct 19.8, Platelets 567, K+ 6.2, BUN 70, Cr8.41. EKG revealed atrial paced rhythm. He is now having HD treatmentsthis admission. He reports that flank pain caused him to go to [facility]. They wanted him to stay there to be admitted. However, he didnot want to stay there. He followed up with his PCP the next day, who talked him into coming here. He denies emesis, brbpr or melena. Hestates the nurse saw some blood in his stool last night, but therewasn't any blood this AM. He denies N/V. He denies dysphagia orodynophagia. He only has heartburn if he forgets to take his Zantac 150 mgtwice a day. He denies abdominal pain. He does feel bloated after a mealsometimes. He has also had unintentional weight loss, stating he used toweigh 396 lbs. Now he weighs 316 lbs (documented 4 lb. Weight loss sinceOctober). His still has a good appetite, but is unable to eat as much nehemias used to because he feels full early. His normal bowel pattern is oneformed daily stool. He denies ever seeing hematochezia or melena. He notesthat Dr. Martínez wanted to repeat his colonoscopy in August-evaluate. Past Endoscopic Evaluations Colonoscopy 03/[address] Martínez Mild diverticulosis of the sigmoid colon. Polyp (4 cm) in the descending colon (at 35cm from anal verge).(Polypectomy, Endoclip, Injection). Diagnosis 1) Colon polyp at 35 cm: - Villous adenoma. - Negative for high grade dysplasia or malignancy. 2) Colon polyp, base at 35 cm: - Detached fragments of villous adenoma with no high grade dysplasiaor malignancy. - Fragment of colonic mucosa with cauterized submucosal areasuggestive of resection margin; NO adneomatous change seen just adjacent to the cauterized submucoasal area. Current GI related medications: Protonix QD Heparin noted Prescriptions Prior to Admission Medication Sig Dispense Refill Last Dose amiodarone (PACERONE) 200 mg Oral Tablet Take two tablets twice dailyfor one week, then one tablet twice daily for 1 week, then one tabletdaily 56 Tab 2 09/21/2016 at 0800 DULoxetine (CYMBALTA) 60 mg capsule Take 60 mg by mouth daily.09/21/2016 at 0800 edoxaban 60 mg Oral Tablet Take 60 mg by mouth daily. 09/21/2016 [id number] Fenofibric Acid 135 mg CpDR Take 135 mg by mouth daily. 09/21/2016 [id number] fUROsemide (LASIX) 40 mg Oral Tablet Take 40 mg by mouth daily asneeded. 09/19/2016 at 0800 insulin aspart (NOVOLOG) 100 unit/mL injection Subcutaneous (Injectunder the skin) 90 Units 3 times daily (before meals). 09/21/2016 at 1800 Insulin Glargine (LANTUS) 100 unit/mL (3 mL) InPn Subcutaneous (Injectunder the skin) 85 Units 2 times daily. 09/21/2016 at 0800 levothyroxine (SYNTHROID) 50 mcg Oral Tablet Take by mouth daily.09/21/2016 at 0800 losartan (COZAAR) 100 mg tablet Take 100 mg by mouth daily. 09/21/2016at 0800 metoprolol succinate ER (TOPROL-XL) 100 mg Oral Tablet Sustained [id number] hr Take 100 mg by mouth daily. 09/21/2016 at 0800 ranitidine (ZANTAC) 150 mg tablet Take 150 mg by mouth 2 times daily.09/21/2016 at 0800 empagliflozin 25 mg Oral Tablet Take 25 mg by mouth daily. Reported on09/22/2016 Not Taking at Unknown time potassium chloride (MICRO-K) 10 mEq CR capsule Take 10 mEq by mouth asneeded. 09/19/2016 at 0800 pravastatin (PRAVACHOL) 20 mg Oral Tablet Take 20 mg by mouth nightly.Reported on 09/22/2016 Not Taking at Unknown time Allergies Allergen Reactions Ciprocinonide Other (See Comments) developed pancreatitis Ciprofloxacin developed pancreatitis Review of Systems: The following systems were reviewed and revealed the following in additionto any already discussed in the HPI: Constitutional: No acute distress, no wt loss, no fever/chills Eyes: No visual changes, no icterus HENT: no nasal drainage, no oral ulcers, Respiratory: no soa, no cough, no wheeze Cardiovascular: No chest pain, no vora, no complaints Gastrointestinal: see hpi Genitourinary: no dysuria, no hematuria Musculoskeletal: no complaints Integumentary: No rash, no jaundice Hematology / Lymphatics: No enlarged lymph nodes Neuro / Psych: Alert, no confusion, no focal neuro deficits orcomplaints Social History: Gilberto's social history reviewed: 1. ETOH: denies 2. Tobacco: former, quit 2012, 105 pack year history 3. Drugs: Denies 4. : single Family History Problem Relation Age of Onset Coronary Art Dis Mother age: 63 Diabetes Mother COPD Mother Cancer Mother lung Coronary Art Dis Maternal Grandfather Heart Attack Maternal Grandfather Physical Examination Wt Readings from Last 1 Encounters: 09/24/16 (!) 324 lb 1.2 oz (147 kg) Temp Readings from Last 3 Encounters: 09/24/16 98 F (36.7 C) (Oral) 09/07/16 98.4 F (36.9 C) (Oral) 04/24/16 98.9 F (37.2 C) (Oral) BP Readings from Last 3 Encounters: 09/24/16 180/58 09/07/16 146/59 07/26/16 130/72 Pulse Readings from Last 3 Encounters: 09/24/16 64 09/07/16 63 07/26/16 92 General: Alert and oriented x 3, no acute distress, obese Skin: Warm, no jaundice, no rashes, generalized psoriasis, jaiden legsBLE Head: Normocephalic, atraumatic, no abnormalities Eyes: No icterus ENT: Nasal mucosa moist/pink, oral mucosa moist/pink Neck: Supple without mass, no jvd Lungs: Clear to auscultation bilaterally, no wheezes or rhonchi Cardiac: Regular rate and rhythm, no murmurs, rubs, clicks, or gallops Abdomen: soft, nontender, nondistended, normoactive bowel sounds, norebound/guarding, no fluid wave or ascites, no hepatomegaly, no masses,obese Musculoskeletal/Ext: Symmetrical muscle tone and strength Neurological: No focal neurological deficits. Laboratory: BMP: Lab Results Component Value Date NA 137 09/24/2016 K 4.8 09/24/2016 CL 95 (L) 09/24/2016 CO2 23 09/24/2016 BUN 64 (H) 09/24/2016 CREATININE 9.82 (H) 09/24/2016 CALCIUM 8.8 09/24/2016 GFRAFRAM 7 09/24/2016 GFRNONAFRAM 6 09/24/2016 GLU 113 (H) 09/24/2016 Lab Results Component Value Date ALKPHOS 40 09/24/2016 ALT 12 09/24/2016 AST 12 09/24/2016 PROT 6.3 (L) 09/24/2016 LABBILI 1.1 09/24/2016 BILIDIR 0.4 (H) 09/24/2016 Coagulation: Lab Results Component Value Date INR 1.09 09/22/2016 HEPARINLEVEL 0.28 (L) 04/10/2016 Results for GILBERTO CARDOSO ( ) as of 09/24/2016 12:57 09/22/2016 07:36 09/23/2016 05:49 09/24/2016 05:15 WBC 11.7 (H) 8.5 9.7 RBC 2.26 (L) 2.25 (L) 2.75 (L) Hgb 6.8 (Cr) 6.9 (Cr) 8.4 (L) Hct 20.3 (Cr) 20.1 (Cr) 24.4 (L) MCV 90.0 89.5 88.9 MCH 30.2 30.6 30.4 MCHC 33.5 34.2 34.2 RDW 16.1 (H) 15.5 (H) 15.0 Platelets 398 355 339 MPV 6.6 (L) 6.4 (L) 6.6 (L) Neut Percent 78.4 75.6 72.6 Lymph Percent 9.9 12.4 14.2 [place] Percent 5.7 6.4 7.0 Eos Percent 5.4 4.6 5.0 Baso Percent 0.6 1.0 1.2 Neut# 9.2 (H) 6.4 7.0 [place]# 0.7 0.5 0.7 Eos# 0.6 (H) 0.4 0.5 Baso# 0.1 0.1 0.1 Imaging: CT a/p 09/21/16 IMPRESSION: Impression: 3 mm stone proximal to mid right ureter resulting in minimal obstruction. Several other nonobstructing right renal stones noted. Assessment/Plan: 1. Rectal bleeding/Anemia - H/H stable today- 8.- will monitor - s/p 4 units PRBCs - formed brown stool noted per documentation today - stool with reddish tint seen last evening - will need colonoscopy for evaluation of bleeding, likely Saturday as hehas eaten today (will discuss with attending) - continue Protonix 2. Early satiety/unintentional weight loss/bloating - unable to eat as much due to fullness - has had a significant amount of unintentional weight loss - will need EGD for further evaluation - DDx: neoplasm (PET neg 07/2015) v. SIBO v. Gastritis v gastroparesis(though less likely without N/V) Dr Mcmanus will see patient later today with further recommendations. Thank you for allowing us to participate in the care of this patient.Please feel free to call with any questions. Cristin Garrison, EVENT SPECIALIST PRODUCT DEMONSTRATOR 09/24/2016 As above, pt with severe anemia likely related to ARF/CRF but has poss h/oblood in stool; will start with EGD in AM and will need colonoscopy oncestable for prep/procedure; discussed with pt including risks, benefits,alternatives and agrees to proceed. Thanks! Consult dictated #[id number] GLUCOSE METER POC Routine 09/24/2016 8:30 AM EDT SCANNED RHYTHM STRIPS 09/24/2016 6:53 AM EDT DIFFERENTIAL Early AM 09/24/2016 5:15 AM EDT PHOSPHORUS LEVEL Early AM 09/24/2016 5:15 AM EDT MAGNESIUM LEVEL Early AM 09/24/2016 5:15 AM EDT HEPATIC FUNCTION PANEL Early AM 7 5:15 AM EDT BASIC METABOLIC PANEL Early AM 09/24/2016 5:15 AM EDT CBC WITH DIFF Early AM 09/24/2016 5:15 AM EDT GLUCOSE METER POC Routine 09/23/2016 9:30 PM EDT GLUCOSE METER POC Routine 09/23/2016 5:33 PM EDT TRANSFUSE RED BLOOD CELLS STAT 2016 1:48 PM EDT TRANSFUSE RED BLOOD CELLS STAT 2016 10:25 AM EDT GLUCOSE METER POC Routine 09/23/2016 8:12 AM EDT RED BLOOD CELLS REQUEST CHARISSE 09/24/19 17 6:43 AM EDT DIFFERENTIAL Early AM 09/23/2016 5:49 AM EDT PHOSPHORUS LEVEL Early AM 09/23/2016 5:49 AM EDT MAGNESIUM LEVEL Early AM 09/23/2016 5:49 AM EDT HEPATIC FUNCTION PANEL Early AM 7 5:49 AM EDT BASIC METABOLIC PANEL Early AM 09/23/2016 5:49 AM EDT CBC WITH DIFF Early AM 09/23/2016 5:49 AM EDT GLUCOSE METER POC Routine 09/22/2016 9:34 PM EDT HEMOGLOBIN AND HEMATOCRIT STAT 2016 7:56 PM EDT MAGNESIUM LEVEL STAT 09/22/2016 7:56 PM EDT RENAL FUNCTION PANEL STAT 09/22/2016 7:56 PM EDT CALCIUM, IONIZED STAT 09/22/2016 7:56 PM EDT URINALYSIS STAT 09/22/2016 6:23 PM EDT GLUCOSE METER POC Routine 09/22/2016 5:36 PM EDT TRANSFUSE RED BLOOD CELLS Routine 2016 3:09 PM EDT GLUCOSE METER POC Routine 09/22/2016 12:54 PM EDT IR ULTRASOUND GUIDED VASCULAR ACCESS CHARISSE 09/22/2016 12:01 PM EDT IR FLUOROSCOPY GUIDED CENTRAL VENOUS ACCESS DEVICE PLACEMENT CHARISSE 09/22/2016 12:01 PM EDT RED BLOOD CELLS REQUEST CHARISSE 09/23/19 17 11:46 AM EDT GLUCOSE METER POC Routine 09/22/2016 8:09 AM EDT DIFFERENTIAL Routine 09/22/2016 7:36 AM EDT LACTIC ACID Routine 09/22/2016 7:36 AM EDT PARTIAL THROMBOPLASTIN TIME Routine 09/22/2016 7:36 AM EDT PT / INR Routine 09/22/2016 7:36 AM EDT CALCIUM, IONIZED Routine 09/22/2016 7:36 AM EDT PHOSPHORUS LEVEL Routine 09/22/2016 7:36 AM EDT MAGNESIUM LEVEL Routine 09/22/2016 7:36 AM EDT HEPATIC FUNCTION PANEL Routine 7 7:36 AM EDT BASIC METABOLIC PANEL Routine 09/22/2016 7:36 AM EDT CBC WITH DIFF Routine 09/22/2016 7:36 AM EDT TRANSFUSE RED BLOOD CELLS Routine 2016 4:16 AM EDT IP CONSULT TO PULMONOLOGY Routine 2016 3:41 AM EDT Procedure Note - Meño Trinh MD - 09/22/2016 2:02 PM EDTThis note is in progress. Images from the original note were not included. Patient admitted to the ICU for emergent HD. He was hyperkalemic. He wasalso anemic and transfused 1 unit. Currently on HD. He is hemodynamicallystable and on room air. Okay to move out of the ICU when Okay withnephrology. I have no recommendations at this time and will not consult.Please call if we can be of assistance in the future. Thank You, Meño Salamanca IP CONSULT TO NEPHROLOGY Routine 017 1:09 AM EDT Procedure Note - Nilsa Petersen APRN - 09/22/2016 12:43 PM EDTThis note is in progress. Images from the original note were not included. [facility] Greg Leblanc MD PATIENT NAME: Gilberto Cardoso : 1960 MEDICAL RECORD: [id number] HOSPITAL ROOM # [id number] PRIMARY PROVIDER Geovani Wright MD HPI: Gilberto Cardoso is a(n)56 y.o. male admitted on 09/21/2016 We are following for KIERRA on CKD, Stage III Assessment & Plan KIERRA on CKD Stage 3 likely related to ATN and/or volume depletion.Jardiance highly associated with KIERRA also. Patient has a baseline Cr of 1.2. Discharged on 09/13/2016 with Cr 1.6. Hewas treated for AFib then and sent home with amiodrone, lasix andlosartan. He was seen 09/20 at [facility] with Cr around 6 and K 7.4,refused to be admitted then. Admitted with worsening Cr, K 6.4, bicarb 18. Hg was only 6.5. Of note hewas discharged on EDOXABAN 60 mg daily. He is also on Jardiance 25 mgdaily. Patient is admitted to ICU. All anti-coagulation on hold. Blood Tx as needed IVF for now Kayaxelate, Insulin D50, Calcium Gluconate in the ER. K still elevated 5.8, acidosis with bicarb 17, BUN 70 and Cr 9. Increasedvolume and is anuric. Only has one kidney. Discussed with pt the need fordialysis. Will have IR place temporary dialysis catheter and will haveurgent HD in the ICU today. HD orders per Dr Leblanc. Renal Mass Prior Lt Nephrectomy Abdominal CT noted small area of scarring and defect involving the rightlower pole kidney likely represent site of previous cryoablation. Noobvious recurrent mass seen. Hx of Nephrolithiasis Stable Electrolytes david Na, K as above Volume, monitor closely Current Diuretics none Currently appears to be Euvolemic Last Echo on 09/14/2016 with EF nl Acid Base Balance fairly stable. Serum bicarb is 18 Mild metabolic acidosis that is expected with KIERRA Follow with labs Hemoglobin 6.8 Hold blood thinners Tx 2 unit with HD today Bone Mineral disorder, current Ca, Phos, Mag reviewed. Hx of secondary hyperparathyroidism Has been on Vit D2 Rx Hypertension: Current BP 168/60 Home meds include losartan, BB At present holding Losartan Goal BP around 125/75. Follow with more readings post HD DM type II followed and managed by Primary team. Keep BS below 150 atleast for renal recovery. On SSI. Avoid Metformin. Hold Jardiance AFib HR controlled Interval History Remains in the ICU Anuric, rising cr and waste products with acidosis and increased volume.Solitary kidney. Pt agreeable to having HD today. BP elevated. Follow post HD. Hgb 6.8, transfusion with HD Past Medical History: Diagnosis Date Anesthesia couldn't breathe after surgery Arthritis Atrial fibrillation (HCC) Atrial flutter (HCC) Blood circulation, collateral Cancer (HCC) kidney CHF (congestive heart failure) (HCC) Chronic kidney disease kidney cancer COPD (chronic obstructive pulmonary disease) (HCC) PRN 2L Diabetes mellitus (HCC) IDDM Diabetic neuropathy (HCC) Hyperlipidemia Hypertension Kidney disorder right partial surgical freezing KIA (obstructive sleep apnea) RBBB Sinus bradycardia Sinus node dysfunction (HCC) Past Surgical History: Procedure Laterality Date APPENDECTOMY KIDNEY SURGERY left nephrectomy PACEMAKER INSERTION Left 04/10/2016 MDT, dual chamber pacemaker by Dr. Evangelista TYMPANOSTOMY TUBE PLACEMENT Family History Problem Relation Age of Onset Coronary Art Dis Mother age: 63 Diabetes Mother COPD Mother Cancer Mother lung Coronary Art Dis Maternal Grandfather Heart Attack Maternal Grandfather Ciprocinonide and Ciprofloxacin SOCIAL HISTORY Social History Social History Marital status: Single Spouse name: N/A Number of children: N/A Years of education: N/A Social History Main Topics Smoking status: Former Smoker Packs/day: 3.00 Years: 35.00 Types: Cigarettes Start date: 07/01/2005 Quit date: 03/10/2013 Smokeless tobacco: Never Used Comment: quit in 2004 Alcohol use No Comment: Quit over 10 years ago Drug use: No Sexual activity: Not Asked Other Topics Concern None Social History Narrative Lives at home with leah. Completely independent in ADLs andiADLs. Medications Scheduled Meds: heparin, porcine (PF) 5,000 Units Subcutaneous 3 times per day insulin aspart 1-10 Units Subcutaneous QID WM insulin glargine 0.15 Units/kg Subcutaneous QPM (Insulin) Continuous Infusions: sodium chloride sodium chloride 100 mL/hr at 09/22/16 0718 REVIEW OF SYSTEMS Patient denies having problems with headaches, dizziness, troubleswallowing, visual disturbances, hearing loss, cough or chest pain.Patient does not have any abdominal pain, nausea, vomiting, diarrhea,blood in the stool, difficulty with urination, weakness or numbness in thelegs. No calf swelling or joint tenderness. Please refer to IntervalHistory above for acute problems mentioned and addressed. Objective: Visit Vitals BP 168/60 (BP Location: Right arm, Patient Position: Semi Fowlers) Pulse 60 Temp 97.7 F (36.5 C) (Oral) Resp 18 Ht 5' 8 (1.727 m) Wt (!) 313 lb 11.4 oz (142.3 kg) SpO2 98% BMI 47.7 kg/m2 Intake/Output Summary (Last 24 hours) at 09/22/16 1243 Last data filed at 09/22/16 1000 Gross per 24 hour Intake 1290 ml Output 0 ml Net 1290 ml General appearance : awake alert no acute distress Head: atraumatic HEENT PERRL Lungs: rhonchi in bases, otherwise clear Heart: S1 S2 normal. No murmurs Abdomen: Soft NT.Obese Extremities: ++ EDEMA LE Neuro: A&O x3. No gross abnormality. MusuloSkeletal ; No acute arthritis or Synovitis HEMODYNAMIC DATA BP Min: 101/74 Max: 168/60 Pulse Av.1 Min: 60 Max: 99 I/O last 3 completed shifts: In: 240 [P.O.:240] Out: - Wt Readings from Last 2 Encounters: 09/22/16 (!) 313 lb 11.4 oz (142.3 kg) 09/05/16 (!) 318 lb (144.2 kg) Wt Reading from Admission: 09/21/2016 290 lb (131.5 kg) BLOOD GAS & ACID BASE DATA SpO2 Av.7 % Min: 98 % Max: 99 % Lab Results Component Value Date/Time ANIONGAP 20 (H) 09/22/2016 07:36 AM LACTA 0.6 09/22/2016 07:36 AM RENAL & METABOLIC DATA Lab Results Component Value Date/Time GLU 154 (H) 09/22/2016 07:36 AM BUN 70 (H) 09/22/2016 07:36 AM CREATININE 9.03 (H) 09/22/2016 07:36 AM NA 135 (L) 09/22/2016 07:36 AM K 5.8 (H) 09/22/2016 07:36 AM CL 98 09/22/2016 07:36 AM CO2 17 (L) 09/22/2016 07:36 AM CALCIUM 8.8 09/22/2016 07:36 AM MG 2.1 09/22/2016 07:36 AM PHOS 7.0 (H) 09/22/2016 07:36 AM GFRAFRAM 7 09/22/2016 07:36 AM CBC Lab Results Component Value Date WBC 11.7 (H) 09/22/2016 HGB 6.8 (Cr) 09/22/2016 HCT 20.3 (Cr) 09/22/2016 PLT 398 09/22/2016 RBC 2.26 (L) 09/22/2016 Imaging: Xr Chest Pa And Lateral Result Date: 09/21/2016 XR CHEST PA AND LATERAL 09/21/2016 9:27 PM History: -ABNORMAL LAB -FLANKPAIN Comparison: 09/05/16 Pacer wires, stable. Lungs are clear. No focalinfiltrates. No active disease Ek Ekg 12 Lead Result Date: 09/22/2016 NOTICE: Preliminary tracing available for review; Final Interpretation byphysician to follow. Stationary ECG StudySt. Danika MontillaInterpretive StatementsELECTRONIC ATRIAL PACEMAKER POSSIBLE ANTERIOR MYOCARDIAL INFARCTION, OFINDETERMINATE AGE Electronically Signed On 09-22-2016 10:22:38 EDT by MD Jesus Ct Abdomen Pelvis Wo Oral Or Iv Contrast Result Date: 09/21/2016 CT ABDOMEN PELVIS WO ORAL OR IV CONTRAST 09/21/2016 9:55 PM History:-kidney stone and right flank pain Technique: No IV or oral contrast.Comparison: PET [facility] 07/16/15 Findings:There is a 3 mmstone in the proximal to mid right ureter resulting in mild obstruction. 5mm nonobstructing stone is seen in the right lower pole kidney. Severalother smaller right-sided stones are also noted. The left kidney isabsent. Small area of scarring and defect involving the right lower polekidney likely represent site of previous cryoablation. No obviousrecurrent mass seen. Remaining solid organs are unremarkable. Small andlarge bowel loops are normal. No free air or free fluid Impression: 3 mm stone proximal to mid right ureter resulting in minimalobstruction. Several other nonobstructing right renal stones noted. Thank you for letting me participate in your patient care. Please do nothesitate to call if any questions. Nilsa Petersen APRN Nephrology RED BLOOD CELLS REQUEST CHARISSE 09/23/19 17 12:48 AM EDT BASIC METABOLIC PANEL STAT 09/22/2016 12:[address] ABDOMEN PELVIS WO ORAL OR IV CONTRAST STAT 09/21/2016 9:30 PM EDT EK EKG 12 LEAD STAT 09/21/2016 9:14 PM EDT XR CHEST PA AND LATERAL CHARISSE 09/22/19 17 9:14 PM EDT CROSSMATCH SUMMARY STAT 09/21/2016 7:41 PM EDT ANTIBODY SCREEN IGG STAT 09/21/2016 7:41 PM EDT ABORH STAT 09/21/2016 7:41 PM EDT SMEAR REVIEW STAT 09/21/2016 7:41 PM EDT DIFFERENTIAL STAT 09/21/2016 7:41 PM EDT BASIC METABOLIC PANEL STAT 09/21/2016 7:41 PM EDT CBC WITH DIFF STAT 09/21/2016 7:41 PM EDT SCANNED RHYTHM STRIPS 09/12/2016 9:15 PM EDT GLUCOSE METER POC Routine 09/07/2016 12:36 PM EST SCANNED RHYTHM STRIPS 09/07/2016 10:37 AM EST GLUCOSE METER POC Routine 09/07/2016 8:05 AM EST GLUCOSE METER POC Routine 09/07/2016 6:29 AM EST SCANNED RHYTHM STRIPS 09/07/2016 5:53 AM EST GLUCOSE METER POC Routine 09/06/2016 8:51 PM EST SCANNED RHYTHM STRIPS 09/06/2016 7:14 PM EST GLUCOSE METER POC Routine 09/06/2016 5:57 PM EST GLUCOSE METER POC Routine 09/06/2016 10:36 AM EST IP CONSULT TO NUTRITION Routine 09/07/19 10:25 AM EST SCANNED RHYTHM STRIPS 09/06/2016 9:57 AM EST MAGNESIUM LEVEL Routine 09/06/2016 7:03 AM EST COMPREHENSIVE METABOLIC PANEL Routine 09/06/2016 7:03 AM EST CBC Routine 09/06/2016 7:03 AM EST DIGOXIN LEVEL Routine 09/06/2016 7:03 AM EST GLUCOSE METER POC Routine 09/06/2016 6:32 AM EST SCANNED RHYTHM STRIPS 09/06/2016 6:25 AM EST GLUCOSE METER POC Routine 09/05/2016 9:27 PM EST SCANNED RHYTHM STRIPS 09/05/2016 6:19 PM EST SCANNED RHYTHM STRIPS 09/05/2016 5:31 PM EST GLUCOSE METER POC Routine 09/05/2016 3:31 PM EST XR CHEST PA AND LATERAL CHARISSE 09/06/19 17 2:56 PM EST EC ECHOCARDIOGRAM COMPLETE W DOPPLER AND COLOR FLOW MAPPING Routine 09/05/2016 1:34 PM EST EK EKG 12 LEAD Routine 09/05/2016 11:48 AM EST IP CONSULT TO ELECTROPHYSIOLOGY Routine 09/05/2016 11:38 AM EST Procedure Note - Padmini Evangelista MD - 09/05/2016 2:31 PM ESTThis note is in progress. Electrophysiology Consultation Note Admission Date:09/05/2016 PCP: Geovani Wright MD Requesting Physician: Dr. Gibson Consult Requested For: Atrial Fibrillation Mr. Cardoso is a 56 yo morbidly obese man and AF that had AF ablationcancelled today. He appeared decompensated during pre-operativeevaluation. Past Medical History Past Medical History: Diagnosis Date Anesthesia couldn't breathe after surgery Arthritis Atrial fibrillation (HCC) Atrial flutter (HCC) Blood circulation, collateral Cancer (HCC) kidney CHF (congestive heart failure) (HCC) Chronic kidney disease kidney cancer COPD (chronic obstructive pulmonary disease) (HCC) PRN 2L Diabetes mellitus (HCC) IDDM Diabetic neuropathy (HCC) Hyperlipidemia Hypertension KIA (obstructive sleep apnea) RBBB Sinus bradycardia Sinus node dysfunction (HCC) Medications No current facility-administered medications on file prior to encounter. Current Outpatient Prescriptions on File Prior to Encounter Medication Sig Dispense Refill digoxin (LANOXIN) 250 mcg Oral Tablet Take 1 Tab by mouth daily. 30 Tab3 diltiazem 180 mg Oral Capsule, Sust. Release 24 hr Take 180 mg by mouth2 times daily. DULoxetine (CYMBALTA) 60 mg capsule Take 60 mg by mouth daily. edoxaban 60 mg Oral Tablet Take 60 mg by mouth daily. empagliflozin 25 mg Oral Tablet Take 25 mg by mouth daily. Fenofibric Acid 135 mg CpDR Take 135 mg by mouth daily. fUROsemide (LASIX) 40 mg Oral Tablet Take 40 mg by mouth daily asneeded. insulin aspart (NOVOLOG) 100 unit/mL injection Subcutaneous (Injectunder the skin) 90 Units 3 times daily (before meals). Insulin Glargine (LANTUS) 100 unit/mL (3 mL) InPn Subcutaneous (Injectunder the skin) 85 Units 2 times daily. losartan (COZAAR) 100 mg tablet Take 100 mg by mouth daily. metoprolol succinate ER (TOPROL-XL) 100 mg Oral Tablet Sustained [id number] hr Take 100 mg by mouth daily. potassium chloride (MICRO-K) 10 mEq CR capsule Take 10 mEq by mouth asneeded. pravastatin (PRAVACHOL) 20 mg Oral Tablet Take 20 mg by mouth nightly. ranitidine (ZANTAC) 150 mg tablet Take 150 mg by mouth 2 times daily. Scheduled Meds: [START ON 09/06/2016] atorvastatin 10 mg Oral Every Other Night [START ON 09/06/2016] digoxin 250 mcg Oral Daily [START ON 09/06/2016] DULoxetine 60 mg Oral Daily famotidine 40 mg Oral BID insulin aspart 1-5 Units Subcutaneous QID AC & HS insulin aspart 50 Units Subcutaneous TID WM insulin glargine 85 Units Subcutaneous BID [START ON 09/06/2016] levothyroxine 50 mcg Oral Daily metoprolol 25 mg Oral BID polyethylene glycol 17 g Oral BID Continuous Infusions: Past Surgical History Past Surgical History: Procedure Laterality Date APPENDECTOMY KIDNEY SURGERY left nephrectomy PACEMAKER INSERTION Left 04/10/2016 MDT, dual chamber pacemaker by Dr. Evangelista TYMPANOSTOMY TUBE PLACEMENT Allergy Allergies Allergen Reactions Ciprocinonide Other (See Comments) developed pancreatitis Ciprofloxacin developed pancreatitis Family History Family History Problem Relation Age of Onset Coronary Art Dis Mother age: 63 Diabetes Mother COPD Mother Cancer Mother lung Coronary Art Dis Maternal Grandfather Heart Attack Maternal Grandfather There is no pertinent family history based on the presenting problems. Social History Social History Substance Use Topics Smoking status: Former Smoker Packs/day: 3.00 Years: 35.00 Types: Cigarettes Quit date: 03/10/2013 Smokeless tobacco: Never Used Comment: quit in 2004 Alcohol use No Comment: Quit over 10 years ago Review of Systems negative, all other systems have been reviewed and are negative. Objective Visit Vitals BP 130/65 (BP Location: Left arm, Patient Position: Sitting) Pulse 86 Temp 97.8 F (36.6 C) (Temporal) Resp 18 Ht 5' 8 (1.727 m) Wt (!) 318 lb (144.2 kg) SpO2 94% BMI 48.35 kg/m2 General: Sitting up at bedside. Alert and oriented. Eyes: No Scleral icterus. Ptosis is absent. Ears, Nose, Mouth, Throat: Oropharynx is clear. Nose is midline. Neck:Trachea is midline. Respiratory: Respiratory effort is normal. Clear to auscultationbilaterally Cardiovascular: Rhythm is rapid and irregularly irregular. S1 and W1pcsolx. No murmur. Pulses are normal. Jugular venous pressure is normal.Carotid Bruits are absent. Abdomen: Abdomen is soft and non tender. Extremeties: Clubbing is absent. Cyanosis is absent. + Edema; bilaterallegs are wrapped with open sores Skin: Warm and dry. Neurological: Cranial nerves are grossly intact. Speech is normal. Psychiatric: Mood is normal. Affect is normal. Diagnostic Tests Lab Results Component Value Date WBC 10.6 09/05/2016 HGB 10.2 (L) 09/05/2016 HCT 29.3 (L) 09/05/2016 PLT 367 09/05/2016 Lab Results Component Value Date CREATININE 1.52 (H) 09/05/2016 BUN 23 (H) 09/05/2016 NA 137 09/05/2016 K 4.1 09/05/2016 CL 95 (L) 09/05/2016 CO2 24 09/05/2016 Lab Results Component Value Date CHOLESTEROL 115 04/09/2016 TRIG 237 (H) 04/09/2016 HDL 21 (L) 04/09/2016 LDLCALC 47 04/09/2016 Lab Results Component Value Date ALT 20 09/05/2016 AST 24 09/05/2016 Lab Results Component Value Date TSH 7.730 (H) 09/05/2016 Lab Results Component Value Date INR 1.08 09/05/2016 No results found for: CKTOTAL, CKMB, CKMBINDEX, TROPONINI Assessment/Plan 1. Persistent Atrial Fibrillation with RVR - AF ablation postponed today for medical evaluation - Rate control acutely --> Dilitiazem gtt - AC: heparin gtt Check TTE evaluate LV function, if low will consider AVN and Upgrade toCRT Tentative plan for AF ablation tomorrow with GETA --> Will have anesthesia reassess 2. DCPM - AF burden 68% - Stable battery and lead parameters 3. T2DM - Hold Metformin NPO after MN Addendum Patient converted to SR spontaneously D/C dilt gtt hold heparin ABORT EP CASE Routine 09/05/2016 9:50 AM EST Paroxysmal atrial fibrillation (HCC) Atrial flutter, unspecified type (HCC) TROPONIN-T Routine 09/05/2016 6:32 AM EST MAGNESIUM LEVEL Routine 09/05/2016 6:32 AM EST HEPATIC FUNCTION PANEL Routine 7 6:32 AM EST DIFFERENTIAL STAT 09/05/2016 6:32 AM EST THYROID STIMULATING HORMONE STAT 09/05/2016 6:32 AM EST PT / INR STAT 09/05/2016 6:32 AM EST CBC WITH DIFF STAT 09/05/2016 6:32 AM EST BASIC METABOLIC PANEL STAT 09/05/2016 6:32 AM EST PACEART REPORT Routine 07/26/2016 4:54 PM EST Cardiac pacemaker in situ Pacemaker reprogramming/ch mode POCT EKG Routine 07/26/2016 10:47 AM EST Atrial fibrillation with RVR (HCC) Typical atrial flutter (HCC) SCANNED EKG 04/26/2016 1:29 PM EDT PACEART REPORT Routine 04/24/2016 3:38 PM EDT Fitting and adjustment of cardiac pacemaker Cardiac pacemaker in situ SCANNED RHYTHM STRIPS 04/15/2016 10:21 PM EDT CARDIAC INTERROGATION DEVICE 04/15/2016 10:21 PM EDT GLUCOSE METER POC Routine 04/11/2016 4:27 PM EDT SCANNED RHYTHM STRIPS 04/11/2016 11:30 AM EDT GLUCOSE METER POC Routine 04/11/2016 11:20 AM EDT CARDIAC INTERROGATION DEVICE 04/11/2016 10:41 AM EDT GLUCOSE METER POC Routine 04/11/2016 7:20 AM EDT DIFFERENTIAL Early AM 04/11/2016 7:13 AM EDT BASIC METABOLIC PANEL Early AM 04/11/2016 7:13 AM EDT CBC WITH DIFF Early AM 04/11/2016 7:13 AM EDT GLUCOSE METER POC Routine 04/10/2016 10:04 PM EDT GLUCOSE METER POC Routine 04/10/2016 3:56 PM EDT PACEART REPORT Routine 04/10/2016 3:09 PM EDT PATHOLOGY TISSUE REPORT Routine 04/10/20 16 2:36 PM EDT COLONOSCOPY-ENDO DEPT ONLY (ANESTHESIA) 04/10/2016 12:51 PM EDT colon polyp at 35cm, left colon diverticulosis, technically difficult procedure due to patient position, no retrofection done XR CHEST AP PORTABLE STAT 04/10/2016 12:26 PM EDT ELECTROPHYSIOLOGY PROCEDURE Routine 04/10/2016 11:54 AM EDT GMED COLONOSCOPY Routine 04/10/2016 11:00 AM EDT DIFFERENTIAL Early AM 04/10/2016 6:07 AM EDT HEPARIN ANTI-XA, UNF Early AM 04/10/2016 6:07 AM EDT BASIC METABOLIC PANEL Early AM 04/10/2016 6:07 AM EDT CBC WITH DIFF Early AM 04/10/2016 6:07 AM EDT EK EKG 12 LEAD Routine 04/10/2016 12:35 AM EDT HEPARIN ANTI-XA, UNF Timed 04/09/2016 10:16 PM EDT GLUCOSE METER POC Routine 04/09/2016 9:53 PM EDT SCANNED RHYTHM STRIPS 04/09/2016 9:15 PM EDT SCANNED RHYTHM STRIPS 04/09/2016 9:15 PM EDT GLUCOSE METER POC Routine 04/09/2016 6:19 PM EDT IP CONSULT TO GI Routine 04/09/2016 6:08 PM EDT SCANNED RHYTHM STRIPS 04/09/2016 5:00 PM EDT SCANNED RHYTHM STRIPS 04/09/2016 4:59 PM EDT SCANNED RHYTHM STRIPS 04/09/2016 4:56 PM EDT EC ECHOCARDIOGRAM 2D M MODE COMPLETE W CONTRAST STAT 04/09/2016 4:25 PM EDT GLUCOSE METER POC Routine 04/09/2016 3:08 PM EDT TSH REFLEX TO FT4 Routine 04/09/2016 3:01 PM EDT LIPID SCREEN Routine 04/09/2016 3:01 PM EDT HEMOGLOBIN A1C Routine 04/09/2016 3:01 PM EDT PT / INR Routine 04/09/2016 3:01 PM EDT TROPONIN-T Timed 04/09/2016 3:01 PM EDT IP CONSULT TO WOUND CARE Routine 016 2:30 PM EDT IP CONSULT TO NUTRITION Routine 04/09/20 16 2:08 PM EDT IP CONSULT TO PHARMACY Routine 6 1:50 PM EDT TROPONIN-T STAT 04/09/2016 11:15 AM EDT XR CHEST AP PORTABLE CHARISSE 04/09/2016 9:27 AM EDT DIFFERENTIAL STAT 04/09/2016 9:00 AM EDT TROPONIN-T STAT 04/09/2016 9:00 AM EDT BASIC METABOLIC PANEL STAT 04/09/2016 9:00 AM EDT CBC WITH DIFF STAT 04/09/2016 9:00 AM EDT EK EKG 12 LEAD STAT 04/09/2016 8:59 AM EDT POCT EKG Routine 10/07/2015 1:55 PM EDT Atrial fibrillation, unspecified Atrial flutter, unspecified SCANNED EKG 11/08/2014 4:39 PM EDT SCANNED ANESTHESIA FORMS 013 4:21 PM EDT SCANNED PRE/POST PROCEDURES 11/22/2012 4:21 PM EDT SCANNED LABS 11/22/2012 4:[address] GUIDED PARENCHYMAL TISSUE ABLATION Routine 11/19/2012 12:33 PM EDT Malignant neoplasm of kidney, except pelvis (HCC) DIFFERENTIAL Routine 11/17/2012 2:36 PM EDT PT / INR Routine 11/17/2012 2:36 PM EDT CBC WITH DIFF Routine 11/17/2012 2:36 PM EDT BASIC METABOLIC PANEL Routine 11/17/2012 2:36 PM EDT EK EKG 12 LEAD STAT 11/17/2012 11:38 AM EDT US RENAL AND BLADDER Routine 02/12/2012 9:44 AM EDT Malignant neoplasm of kidney, except pelvis (HCC) Neoplasm of uncertain behavior of kidney and ureter Results * VECTOR REMOTE DEVICE (04/16/2025) Only the most recent of17 resultswithin the time period is included. 04/16/2025 Narrative [facility] - 04/16/2025 AT/AF burden increase >10%. Atrial Episodes: 1 c/w persistent AF since 01/13/25. AT/AF [place]: 100%. Patient on AC. Mode: AAIR<=>DDDR. AP: 0.1%. 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 Normal device function. Addendum: pt informed /BE Padmini Evangelista MD [facility] CARDIAC CATH ORDERAB LES Final Result Performing Organization Address [facility] Co de Phone Number [facility] [address] [place] [address] * PACEART REPORT (03/30/2025 6:05 PM EDT) Only the most recent of30 resultswithin the time period is included. 03/30/2025 6:05 PM EDT Narrative [facility] - 03/30/2025 2:15 PM EDT Pt here for 1 yr f/u. See provider OV note for details. - Normal device function. Battery = 12.5 yr till SRUI w/ lead measurements = stable/WNL. - See PDF for episode(s) details, counters and parameters. - Device is functioning as programmed. Parameters are programmed w/in appropriate threshold safety margins. Sera RN/CDS. us Padmini Evangelista MD [facility] CARDIAC CATH ORDERAB LES Final Result Performing Organization Address [facility] Co de Phone Number [facility] [address] [place] [address] * SCANNED EKG (01/26/2025 11:36 AM EDT) Only the most recent of11 resultswithin the time period is included. Anatomical Region Laterality Modality Other 01/26/2025 11:3 6 AM EDT us Unknown Provider IMG ECG ORDERABLES Final Result * (ABNORMAL) BASIC METABOLIC PANEL (01/25/2025 9:05 PM EDT) Only the most recent of61 resultswithin the time period is included. Sodium 139 136 - 145 mmol/L 01/25/2025 9:35 PM EDT [facility] Potassium 6.1(HH) 3.5 - 5.0 mmol/L 01/25/2025 9:35 PM EDT [facility] Chloride 111(H) 98 - 107 mmol/L 01/25/2025 9:35 PM EDT [facility] Total CO2 17(L) 22 - 29 mmol/L 01/25/2025 9:35 PM EDT [facility] Anion Gap 11 7 - 16 mmol/L 01/25/2025 9:35 PM EDT [facility] Calcium 8.4(L) 8.8 - 10.4 mg/dL 01/25/2025 9:35 PM EDT [facility] Glucose Lvl 140(H) 70 - 99 mg/dL 01/25/2025 9:35 PM EDT [facility] BUN 39(H) 8 - 23 mg/dL 01/25/2025 9:35 PM EDT [facility] Creatinine 2.49(H) 0.67 - 1.30 mg/dL 01/25/2025 9:35 PM EDT [facility] eGFR (CKD-EPIcr 2020) 28(L) >=60 mL/min/1.7 3 m2 01/25/2025 9:35 PM EDT [facility] Comment:Estimated GFR was ca lculated using the CKD-EPIcr (2020) equation refit without race. The equation is recommended by the National Kid[employer] - [place] [employer] of Nephrology Task Force. Blood VENOUS BLOOD / Unknown Venipuncture / Unknown 01/25/2025 9:05 PM EDT 01/25/2025 9:08 PM EDT us Bob Arana MD CHEMISTRY ORDERABLES Final Resul t [facility] [place] [address] * EK EKG 12 LEAD (01/25/2025 7:21 PM EDT) Only the most recent of16 resultswithin the time period is included. Anatomical Region Laterality Modality Electrocardiogra phy 01/25/2025 7:25 PM EDT Impressions 01/26/2025 9:[address] 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1960 Requested By: [facility] Order Number: [id number] Reading MD: Adolfo Bañuelos Measurements Intervals [place] Rate: 65 P: 0 OK: 0 QRS: -44 QRSD: 132 T: -69 QT: 363 QTc: 380 Interpretive Statements ELECTRONIC VENTRICULAR PACEMAKER Electronically Signed On 01-26-2025 09:51:14 EDT by Adolfo Bañuelos us Bob Arana MD IMG ECG ORDERABLES Final Result * REPLACE PERMANENT PACEMAKER GENERATOR ONLY (10/16/2024 10:59 AM EDT) Narrative [facility] - 10/16/2024 12:27 PM EDT Dual Chamber Pulse Generator Replacement Tryex Antibimicrobial Pouch us Padmini Evangelista MD ELECTROPHYSIOLOGY ORDERA BLES Final Result [facility] * (ABNORMAL) CBC WITH DIFF (10/16/2024 9:00 AM EDT) Only the most recent of65 resultswithin the time period is included. WBC 12.5(H) 3.7 - 10.3 x10(3)/mcL 10/16/2024 9:11 AM EDT [facility] RBC 5.81 4.60 - 6.10 x10(6)/mcL 10/16/2024 9:11 AM EDT [facility] Hgb 13.5(L) 13.7 - 17.5 g/dL 10/16/2024 9:11 AM EDT [facility] Hct 45.0 40.0 - 51.0 % 10/16/2024 9:11 AM EDT [facility] MCV 77.5(L) 80.0 - 100.0 fL 10/16/2024 9:11 AM EDT [facility] MCH 23.2(L) 26.0 - 34.0 pg 10/16/2024 9:11 AM EDT [facility] MCHC 30.0(L) 30.7 - 35.5 g/dL 10/16/2024 9:11 AM EDT [facility] RDW 15.7(H) <=14.9 % 10/16/2024 9:11 AM EDT [facility] Platelet 273 155 - 369 x10(3)/mcL 10/16/2024 9:11 AM EDT [facility] MPV 10.2 8.8 - 12.5 fL 10/16/2024 9:11 AM EDT [facility] Neut Percent 79.1 % 10/16/2024 9:11 AM EDT [facility] Comment:Neutrophils equals s egs plus bands Imm Gran% 0.7 % 10/16/2024 9:11 AM EDT [facility] Comment:Automated count of m etamyelocytes, myelocytes and promyelocytes. Lymph Percent 10.5 % 10/16/2024 9:11 AM EDT [facility] [place] Percent 6.1 % 10/16/2024 9:11 AM EDT [facility] Eos Percent 3.0 % 10/16/2024 9:11 AM EDT [facility] Baso Percent 0.6 % 10/16/2024 9:11 AM EDT [facility] Neut # 9.9(H) 1.6 - 6.1 x10(3)/[facility] 10/16/2024 9:11 AM EDT [facility] Comment:Neutrophils equals s egs plus bands IMMGRAN# 0.1 0.0 - 0.1 x10(3)/[facility] 10/16/2024 9:11 AM EDT [facility], [facility] Comment:Automated count of m etamyelocytes, myelocytes and promyelocytes. An absolute IG <0.1 is reported as 0.0. Lymph # 1.3 1.2 - 3.9 x10(3)/[facility] 10/16/2024 9:11 AM EDT [facility] [place] # 0.8 0.3 - 0.9 x10(3)/[facility] 10/16/2024 9:11 AM EDT [facility] Eos# 0.4 0.0 - 0.5 x10(3)/[facility] 10/16/2024 9:11 AM EDT [facility] Baso # 0.1 0.0 - 0.1 x10(3)/[facility] 10/16/2024 9:11 AM EDT [facility], [facility] Blood VENOUS BLOOD / Unknown Venipuncture / Unknown 10/16/2024 9:00 AM EDT 10/16/2024 9:00 AM EDT us Padmini Evangelista MD HEMATOLOGY ORDERABLES Fi nal Result [facility] [address] [facility] , [place] [address] * (ABNORMAL) GLUCOSE METER POC (10/16/2024 8:37 AM EDT) Only the most recent of224 resultswithin the time period is included. [facility] Glucose Meter POC 165(H) 70 - 100 mg/dL 10/16/2024 8:39 AM EDT [facility] Sample Type Capillary 10/16/2024 8:39 AM EDT [facility] Patient Status Non-Critical Patient 10/16/2024 8:39 AM EDT [facility] Blood BLOOD SPECIMEN / Unknown 10/16/2024 8:37 AM EDT 10/16/2024 8:39 AM EDT us Padmini Evangelista MD POINT OF CARE TEST ORDER FABY Final Result Performing Organization Address City/[facility]/ZIP Co de Phone Number [facility] [address] [place] [address] * DIGOXIN LEVEL (03/17/2024 11:05 AM EDT) Only the most recent of3 resultswithin the time period is included. [facility] Digoxin Lvl 1.7 0.8 - 2.0 ng/mL 03/17/2024 5:16 PM EDT [facility] [place] Blood VENOUS BLOOD / Unknown Venipuncture / Unknown 03/17/2024 11:05 AM EDT 03/17/2024 11:05 AM EDT us Elizabeth Lee EVENT SPECIALIST PRODUCT DEMONSTRATOR CHEMISTRY ORDERABLES Final Re sult Performing Organization Address City/[facility]/ZIP Co de Phone Number [facility] [address], [address] [place] [id number] * (ABNORMAL) URINALYSIS REFLEX (12/05/2023 1:44 PM EDT) [facility] UA Color Light Yellow 12/05/2023 2:09 PM EDT [facility] [place] UA Appear Clear Clear 12/05/2023 2:09 PM EDT [facility] [place] UA Glucose 2+ (150-200 mg/dL)(A) Negative mg/dL 12/05/2023 2:09 PM EDT [facility] [place] UA Ketones Negative Negative mg/dL 12/05/2023 2:09 PM EDT [facility] UA Blood 1+ (0.06 - 0.1 mg/dL)(A) Negative 12/05/2023 2:09 PM EDT [facility] UA pH 7.0 5.0 - 8.0 pH 12/05/2023 2:09 PM EDT [facility] UA Protein 3+ (300-600 mg/dL)(A) Negative mg/dL 12/05/2023 2:09 PM EDT [facility] UA Urobilinogen Normal <=1 mg/dL 2:09 PM EDT [facility] UA Bili Negative Negative 12/05/2023 2:09 PM EDT [facility] UA Nitrite Negative Negative 12/05/2023 2:09 PM EDT [facility] UA Leuk Est Negative Negative 12/05/2023 2:09 PM EDT [facility] UA Spec Grav 1.016 1.001 - 1.035 no units 12/05/2023 2:09 PM EDT [facility] Comment:Reference range handy d for random specimens only. UA WBC 1 0 - 4 /HPF 12/05/2023 2:09 PM EDT [facility] UA RBC 1 0 - 3 /HPF 12/05/2023 2:09 PM EDT [facility] Urine URINE SPECIMEN COLLECTION, CLEAN CATCH / Unknown 12/05/2023 1:44 PM EDT 12/05/2023 1:54 PM EDT Rusty Cote EVENT SPECIALIST PRODUCT DEMONSTRATOR URINE ORDERABLES Final R esult [facility] [address] [facility] , [place] [address] * EXTRA AMADOR URINE CX (12/05/2023 1:44 PM EDT) Only the most recent of8 resultswithin the time period is included. Urine URINE SPECIMEN COLLECTION, CLEAN CATCH / Unknown 12/05/2023 1:44 PM EDT 12/05/2023 1:54 PM EDT Rusty Cote EVENT SPECIALIST PRODUCT DEMONSTRATOR MICROBIOLOGY - GENERAL [place] [address] * CARDIAC INTERROGATION DEVICE (04/13/2022 2:40 PM EDT) Only the most recent of3 resultswithin the time period is included. Anatomical Region Laterality Modality Other 04/13/2022 2:40 PM EDT us Unknown Provider IMG ECG ORDERABLES Final Result * (ABNORMAL) URINALYSIS (07/07/2021 12:18 PM EST) Only the most recent of10 resultswithin the time period is included. UA Color Light Yellow 07/07/2021 12:39 PM EST [facility] UA Appear Clear Clear 07/07/2021 12:39 PM EST [facility] UA Glucose 1+ (70-100 mg/dL)(A) Negative mg/dL 07/07/2021 12:39 PM EST [facility] UA Ketones 1+ (10-20 mg/dL)(A) Negative mg/dL 07/07/2021 12:39 PM EST [facility] UA Blood Trace (0.03 mg/dL)(A) Negative 07/07/2021 12:39 PM EST [facility] UA pH 6.5 5.0 - 8.0 pH 07/07/2021 12:39 PM EST [facility] UA Protein 3+ (300-600 mg/dL)(A) Negative mg/dL 07/07/2021 12:39 PM EST [facility] UA Urobilinogen Normal <=1 mg/dL 12:39 PM EST [facility] UA Bili Negative Negative 07/07/2021 12:39 PM EST [facility] UA Nitrite Negative Negative 07/07/2021 12:39 PM EST [facility] UA Leuk Est Negative Negative 07/07/2021 12:39 PM EST [facility] UA Spec Grav 1.014 1.001 - 1.035 no units 07/07/2021 12:39 PM EST [facility] Comment:Reference range handy d for random specimens only. UA WBC 1 0 - 4 /HPF 07/07/2021 12:39 PM EST [facility] UA RBC 1 0 - 3 /HPF 07/07/2021 12:39 PM EST [facility] UA Squam Epi 1+ /LPF 07/07/2021 12:39 PM EST [facility] UA Mucus Trace /LPF 07/07/2021 12:39 PM EST [facility] UA Hyal Cast 1 0 - 2 /LPF 07/07/2021 12:39 PM EST [facility] Urine URINE SPECIMEN COLLECTION, CLEAN CATCH / Unknown 07/07/2021 12:18 PM EST 07/07/2021 12:31 PM EST us Georgi Polanco MD URINE ORDERABLES Final Resu lt [facility] [address] [facility] , [place] [address] * CT ABDOMEN PELVIS WO ORAL OR IV CONTRAST (07/07/2021 11:44 AM EST) Only the most recent of4 resultswithin the time period is included. Anatomical Region Laterality Modality Abdomen, Pelvis Computed Tomogra phy 07/07/2021 11:4 4 AM EST Impressions 07/07/2021 12:13 PM EST No acute abnormality of the unenhanced abdomen or pelvis. - Note: Radiology results need to be interpreted within a comprehensive clinical context. If you have questions about the radiology report, please contact the office of the ordering clinician. Narrative 07/07/2021 12:[address] ABDOMEN AND PELVIS WITHOUT IV OR ORAL CONTRAST, 07/07/2021 11:44 AM CLINICAL HISTORY: -Flank pain, kidney stone suspected. COMPARISON: 07/02/2021 PROCEDURE COMMENTS: Multidetector CT examination of the abdomen and pelvis without IV or oral contrast per protocol. Multiplanar reconstructions. Dose 1 : CT DLP Total : 1384.43 mGycm DLP Spiral Max : 1380.2 mGycm Maximum CTDI Vol : 28.02 mGy FINDINGS: LOWER THORAX: There is some posterior bilateral pleural thickening. ABDOMEN AND PELVIS: There is diffuse fatty infiltration of liver. Spleen is within normal limits. Adrenal glands unremarkable. Left kidney surgically absent. Some focal scarring upper pole right kidney. No renal calculi or hydronephrosis. There is an exophytic calcified mass projecting off the lower pole right kidney laterally unchanged. No obvious hydronephrosis or hydroureter on the right. No calcifications in distribution right ureter. Some gas the bladder most likely from instrumentation. Large small bowel loops nondistended. Some diverticula without evidence diverticulitis. No bowel obstruction or acute inflammatory process. No evidence of appendicitis. Pelvic viscera unremarkable. No abnormal fluid or adenopathy. No acute osseous abnormality identified. Procedure Note Sarbjit Olivera III, MD - 07/07/2021 CT ABDOMEN AND PELVIS WITHOUT IV OR ORAL CONTRAST, 07/07/2021 11:44 AM CLINICAL HISTORY: -Flank pain, kidney stone suspected. COMPARISON: 07/02/2021 PROCEDURE COMMENTS: Multidetector CT examination of the abdomen andpelvis without IV or oral contrast per protocol. Multiplanar reconstructions. Dose 1 : CT DLP Total : 1384.43 mGycm DLP Spiral Max : 1380.2 mGycm Maximum CTDI Vol : 28.02 mGy FINDINGS: LOWER THORAX: There is some posterior bilateral pleural thickening. ABDOMEN AND PELVIS: There is diffuse fatty infiltration of liver. Spleenis within normal limits. Adrenal glands unremarkable. Left kidney surgically absent. Some focal scarring upper pole right kidney. No renal calculi orhydronephrosis. There is an exophytic calcified mass projecting off the lower pole rightkidney laterally unchanged. No obvious hydronephrosis or hydroureter on the right. No calcificationsin distribution right ureter. Some gas the bladder most likely from instrumentation. Large small bowel loops nondistended. Some diverticula without evidence diverticulitis. No bowel obstruction or acute inflammatory process. No evidence ofappendicitis. Pelvic viscera unremarkable. No abnormal fluid or adenopathy. No acute osseous abnormality identified. IMPRESSION: No acute abnormality of the unenhanced abdomen or pelvis. - Note: Radiology results need to be interpreted within a comprehensiveclinical context. If you have questions about the radiology report, please contactthe office of the ordering clinician. us Georgi Polanco MD IMG CT ORDERABLES Final Res ult * CT ABD PEL ED FAST W CONTRAST (07/02/2021 10:14 PM EST) Only the most recent of2 resultswithin the time period is included. Anatomical Region Laterality Modality Abdomen, Pelvis Computed Tomogra phy 07/02/2021 10:1 4 PM EST Impressions 07/02/2021 10:21 PM EST 1. Gas in the urinary bladder should be correlated with urinalysis and symptoms of cystitis 2. Resolution of the previously reported colitis and small bowel ileus. 3. Incidental findings as described Note: Radiology results need to be interpreted within a comprehensive clinical context. If you have questions about the radiology report, please contact the office of the ordering clinician. Narrative 07/02/2021 10:21 PM EST CLINICAL HISTORY: -continued abdominal pain, nausea and vomiting. COMPARISON: 06/23/2021. TECHNIQUE: CT ABD PEL ED FAST W CONTRAST on 07/02/2021 10:14 PM. 100 mL of intravenous Isovue-370 was administered. Dose 1 : CT DLP Total : 1836.72 mGycm DLP Spiral Max : 1834.5 mGycm Maximum CTDI Vol : 36.54 mGy FINDINGS: Abdomen: There is atelectasis at the lung bases with small pleural effusions. Cardiac leads are partially imaged. Coronary artery calcifications are noted. There is fatty infiltration of the liver. The gallbladder has been removed. The exophytic lesion projecting off the right kidney is unchanged. The left kidney has been removed. The spleen, pancreas, and adrenal glands are normal. The stomach and caliber of the small bowel are normal. The previously reported small bowel ileus has resolved. There are no enlarged abdominal lymph nodes or free fluid. The caliber of the aorta is normal. There are degenerative changes in the spine. Pelvis: The caliber of the colon is normal. The previously reported colitis has resolved. The appendix is unremarkable. There are no enlarged pelvic lymph nodes or free fluid. Gas is in the urinary bladder. The described prostate gland is normal. The bony pelvis is unremarkable. Procedure Note Mitch Connolly MD - 07/02/2021 CLINICAL HISTORY: -continued abdominal pain, nausea and vomiting. COMPARISON: 06/23/2021. TECHNIQUE: CT ABD PEL ED FAST W CONTRAST on 07/02/2021 10:14 PM. 100 mL of intravenous Isovue-370 was administered. Dose 1 : CT DLP Total : 1836.72 mGycm DLP Spiral Max : 1834.5 mGycm Maximum CTDI Vol : 36.54 mGy FINDINGS: Abdomen: There is atelectasis at the lung bases with small pleuraleffusions. Cardiac leads are partially imaged. Coronary artery calcifications arenoted. There is fatty infiltration of the liver. The gallbladder has beenremoved. The exophytic lesion projecting off the right kidney is unchanged. The leftkidney has been removed. The spleen, pancreas, and adrenal glands are normal.The stomach and caliber of the small bowel are normal. The previously reportedsmall bowel ileus has resolved. There are no enlarged abdominal lymph nodes orfree fluid. The caliber of the aorta is normal. There are degenerative changesin the spine. Pelvis: The caliber of the colon is normal. The previously reportedcolitis has resolved. The appendix is unremarkable. There are no enlarged pelvic lymphnodes or free fluid. Gas is in the urinary bladder. The described prostate glandis normal. The bony pelvis is unremarkable. IMPRESSION: 1. Gas in the urinary bladder should be correlated with urinalysis andsymptoms of cystitis 2. Resolution of the previously reported colitis and small bowel ileus. 3. Incidental findings as described Note: Radiology results need to be interpreted within a comprehensiveclinical context. If you have questions about the radiology report, please contactthe office of the ordering clinician. Scott Zapata MD IM CT ORDERABLES Final Result * (ABNORMAL) LIPASE LEVEL (07/02/2021 7:36 PM EST) Only the most recent of3 resultswithin the time period is included. Lipase Lvl 67(H) 13 - 60 U/L 07/02/2021 8:04 PM EST [facility] Blood VENOUS BLOOD / Unknown Venipuncture / Unknown 07/02/2021 7:36 PM EST 07/02/2021 7:39 PM EST us Scott Zapata MD CHEMISTRY ORDERABLES Final Resul t Performing Organization Address City/[facility] [place] [address] * LACTIC ACID (07/02/2021 7:36 PM EST) Only the most recent of8 resultswithin the time period is included. Pathologist [facility] Lactic Acid 1.3 0.5 - 1.9 mmol/L 07/02/2021 8:03 PM EST [facility] Blood VENOUS BLOOD / Unknown Venipuncture / Unknown 07/02/2021 7:36 PM EST 07/02/2021 7:39 PM EST us Scott Zapata MD CHEMISTRY ORDERABLES Final Resul t Performing Organization Address [facility] [place] [address] * (ABNORMAL) COMPREHENSIVE METABOLIC PANEL (07/02/2021 7:36 PM EST) Only the most recent of7 resultswithin the time period is included. Pathologist [facility] Sodium 137 136 - 145 mmol/L 07/02/2021 8:04 PM EST [facility] Potassium 3.6 3.5 - 5.0 mmol/L 07/02/2021 8:04 PM [facility] Chloride 100 98 - 107 mmol/L 07/02/2021 8:04 PM [facility] Total CO2 25 22 - 29 mmol/L 07/02/2021 8:04 PM [facility] Anion Gap 12 7 - 16 mmol/L 07/02/2021 8:04 PM [facility] Calcium 9.1 8.8 - 10.4 mg/dL 07/02/2021 8:04 PM [facility] Glucose Lvl 184(H) 82 - 100 mg/dL 07/02/2021 8:04 PM [facility] BUN 8 8 - 23 mg/dL 07/02/2021 8:04 PM EST [facility] Creatinine 0.81 0.67 - 1.30 mg/dL 07/02/2021 8:04 PM EST [facility] Albumin 3.7 3.2 - 4.6 gm/dL 07/02/2021 8:04 PM [facility] Total Protein 6.5 6.4 - 8.3 gm/dL 07/02/2021 8:04 PM [facility] Bili Total 0.3 0.1 - 1.4 mg/dL 07/02/2021 8:04 PM EST [facility] ALT 27 <=41 U/L 07/02/2021 8:04 PM [facility] AST 24 <=40 U/L 07/02/2021 8:04 PM [facility] Alk Phos 76 40 - 129 U/L 07/02/2021 8:04 PM [facility] eGFR (CKD-EPIcr 2020) 100 >=60 mL/min/1.7 3 m2 07/02/2021 8:04 PM EST [facility] Comment:Estimated GFR was ca lculated using the CKD-EPIcr (2020) equation refit without race. The equation is recommended by the National [employer] - [place] [employer] Nephrology Task Force. Blood VENOUS BLOOD / Unknown Venipuncture / Unknown 07/02/2021 7:36 PM EST 07/02/2021 7:39 PM EST Scott Zapata MD CHEMISTRY ORDERABLES Final Resul t [facility] [address] [place] [address] * CORONAVIRUS 2019 (07/02/2021 6:57 PM EST) Only the most recent of5 resultswithin the time period is included. CORONAVIRUS [id number] Not Detected Not Detected 07/02/2021 7:20 PM EST [facility] Comment: Caution should be exercised when interpreting a result of 'Not Detected'. A result of 'Not Detected' does not rule out COVID-19 and cannot be used as sole basis for treatment or patient management decisions. If COVID-19 is still suspected following a 'Not Detected' result, re-testing should be considered. This test is a real-time RT-PCR test intended for the qualitative detection of nucleic acid from the SARS-CoV-2 in upper respiratory samples collected from individuals suspected of COVID-19. Not Detected results do not preclude COVID-19 or other respiratory viruses and should not be used as the sole basis for treatment or other patient management decisions. CECY Fact Sheet for Providers and Patients: CECY Fact Sheet for Providers: https://www.fda.gov/media/558541/download CECY Fact Sheet for Patients: https://www.fda.gov/media/275788/download Test is performed on the [employer] CECY platform under the FDA's Emergency Use Authorization (EUA). Performed at [address] [address] CLIA [id number] Swab BOTH ANTERIOR NARES / Unknown 07/02/2021 6:57 PM EST 07/02/2021 7:00 PM EST us Scott Zapata MD MICROBIOLOGY - GENERAL ORDERABLE S Final Result Performing Organization Address City/[facility]/ZIP Co de Phone Number [facility] [address] [place] [id number] * ECG AND WAVEFORMS - TELEMETRY (06/30/2021 6:59 AM EST) Only the most recent of105 resultswithin the time period is included. ECG INTERPRET Atrial Fib Controlled [facility] 06/30/2021 6:59 AM EST Narrative [facility] - 06/30/2021 9:27 AM EST RT/HICUITY ROUTINE QRS 0.14 See Clinical Report link for waveform capture us Unknown Provider POINT OF CARE CARDIOLOGY Final Result Performing Organization Address [facility]/ZIP Co de Phone Number [facility] [address] [place] [id number] * XR HIP RIGHT AP (06/25/2021 7:35 PM EST) Anatomical Region Laterality Modality Hip Radiographic Franchesca ging 06/25/2021 7:35 PM EST Impressions 06/25/2021 7:45 PM EST No acute bony abnormality. - Note: Radiology results need to be interpreted within a comprehensive clinical context. If you have questions about the radiology report, please contact the office of the ordering clinician. Narrative 06/25/2021 7:45 PM EST XR HIP RIGHT AP, 06/25/2021 7:35 PM CLINICAL HISTORY: -Pain COMPARISON: None. PROCEDURE COMMENTS: XR HIP RIGHT AP FINDINGS: Study is limited by patient body habitus and limited views done portably because of patient refusal to cooperate for dedicated full series. No acute fracture, dislocation, embedded foreign body, or significant soft tissue abnormality. Procedure Note Faisal Redman MD - 06/25/2021 XR HIP RIGHT AP, 06/25/2021 7:35 PM CLINICAL HISTORY: -Pain COMPARISON: None. PROCEDURE COMMENTS: XR HIP RIGHT AP FINDINGS: Study is limited by patient body habitus and limited viewsdone portably because of patient refusal to cooperate for dedicated fullseries. No acute fracture, dislocation, embedded foreign body, or significant softtissue abnormality. IMPRESSION: No acute bony abnormality. - Note: Radiology results need to be interpreted within a comprehensiveclinical context. If you have questions about the radiology report, please contactthe office of the ordering clinician. us Joe Viera MD IMG DIAGNOSTIC IMAGING ORDERABL ES Final Result * XR KNEE RIGHT AP AND LATERAL (06/23/2021 5:16 PM EST) Anatomical Region Laterality Modality Knee Radiographic Franchesca ging 06/23/2021 5:16 PM EST Impressions 06/23/2021 5:26 PM EST No acute bony abnormality of the knee. - Note: Radiology results need to be interpreted within a comprehensive clinical context. If you have questions about the radiology report, please contact the office of the ordering clinician. Narrative 06/23/2021 5:26 PM EST RIGHT KNEE AP AND LATERAL, 06/23/2021 5:16 PM CLINICAL HISTORY: -Pain COMPARISON: None. PROCEDURE COMMENTS: AP and lateral views of the right knee. FINDINGS: No acute fracture or traumatic malalignment of the knee. No significant effusion or other soft tissue abnormality. Mild osteoarthritic alterations are noted. Procedure Note Roger Rowe MD - 06/23/2021 RIGHT KNEE AP AND LATERAL, 06/23/2021 5:16 PM CLINICAL HISTORY: -Pain COMPARISON: None. PROCEDURE COMMENTS: AP and lateral views of the right knee. FINDINGS: No acute fracture or traumatic malalignment of the knee. No significant effusion or other soft tissue abnormality. Mild osteoarthritic alterations are noted. IMPRESSION: No acute bony abnormality of the knee. - Note: Radiology results need to be interpreted within a comprehensiveclinical context. If you have questions about the radiology report, please contactthe office of the ordering clinician. us Joe Viera MD IMG DIAGNOSTIC IMAGING ORDERABL ES Final Result * MAGNESIUM LEVEL (06/23/2021 9:16 AM EST) Only the most recent of17 resultswithin the time period is included. Magnesium 2.1 1.6 - 2.4 mg/dL 06/23/2021 10:10 AM EST [facility] Blood VENOUS BLOOD / Unknown Venipuncture / Unknown 06/23/2021 9:16 AM EST 06/23/2021 9:31 AM EST us Joe Viera MD CHEMISTRY ORDERABLES Final Resu lt [facility] [address] [place] [address] , [place] [address] * XR FEMUR RIGHT AP AND LATERAL (06/23/2021 8:50 AM EST) Anatomical Region Laterality Modality Thigh Radiographic Franchesca ging 06/23/2021 8:50 AM EST Impressions 06/23/2021 8:54 AM EST No acute bony abnormality. - Note: Radiology results need to be interpreted within a comprehensive clinical context. If you have questions about the radiology report, please contact the office of the ordering clinician. Narrative 06/23/2021 8:54 AM EST XR FEMUR RIGHT AP AND LATERAL, 06/23/2021 8:50 AM CLINICAL HISTORY: -Pain COMPARISON: None. PROCEDURE COMMENTS: XR FEMUR RIGHT AP AND LATERAL FINDINGS: The right femur is intact. There is no visible fracture. There is no osteolytic or sclerotic lesion. There are atherosclerotic vascular calcifications in the right lower extremity. There is osteoarthritis of the right knee joint. Procedure Note Sheila Moscoso MD - 06/23/2021 XR FEMUR RIGHT AP AND LATERAL, 06/23/2021 8:50 AM CLINICAL HISTORY: -Pain COMPARISON: None. PROCEDURE COMMENTS: XR FEMUR RIGHT AP AND LATERAL FINDINGS: The right femur is intact. There is no visible fracture. There is noosteolytic or sclerotic lesion. There are atherosclerotic vascular calcifications inthe right lower extremity. There is osteoarthritis of the right knee joint. IMPRESSION: No acute bony abnormality. - Note: Radiology results need to be interpreted within a comprehensiveclinical context. If you have questions about the radiology report, please contactthe office of the ordering clinician. Joe Viera MD IMG DIAGNOSTIC IMAGING ORDERABL ES Final Result * CT ABDOMEN PELVIS WITH ORAL WO IV CONTRAST (06/23/2021 8:26 AM EST) Anatomical Region Laterality Modality Abdomen Computed Tomogra phy 06/23/2021 8:26 AM EST Impressions 06/23/2021 8:36 AM EST Findings suggest hepatic flexure colitis with mild small bowel ileus. No abscess or obstruction. - Note: Radiology results need to be interpreted within a comprehensive clinical context. If you have questions about the radiology report, please contact the office of the ordering clinician. Narrative 06/23/2021 8:[address] ABDOMEN AND PELVIS WITH ORAL AND WITHOUT IV CONTRAST, 06/23/2021 8:26 AM CLINICAL HISTORY: -Abdominal abscess/infection suspected. COMPARISON: February 29, 2020 PROCEDURE COMMENTS: Multi-detector CT scanning of the abdomen with multiplanar reformatting. Oral contrast given. No IV contrast. FINDINGS: LOWER THORAX: Small posterior pleural effusions with mild basilar atelectasis. Intracardiac electrode partially imaged. ABDOMEN AND PELVIS: Diffuse fatty infiltration of the liver. Unremarkable spleen. No pancreatic mass or inflammatory process. Prior cholecystectomy. LEFT kidney absent. Stable calcified exophytic lesion lower pole RIGHT kidney. No hydronephrosis. Wall thickening is present involving the hepatic flexure the colon in a pattern suggesting nonspecific colitis. No abscess or obstruction. Mildly dilated central small bowel loops are present in a pattern ileus. Wing catheter in bladder. Rectal tube is also present with inflated balloon. Aortoiliac and branch vessel atherosclerosis noted. No aneurysm. No acute osseous abnormality. Procedure Note Hood Padron MD - 06/23/2021 CT ABDOMEN AND PELVIS WITH ORAL AND WITHOUT IV CONTRAST, 06/23/2021 8:26AM CLINICAL HISTORY: -Abdominal abscess/infection suspected. COMPARISON: February 29, 2020 PROCEDURE COMMENTS: Multi-detector CT scanning of the abdomen withmultiplanar reformatting. Oral contrast given. No IV contrast. FINDINGS: LOWER THORAX: Small posterior pleural effusions with mild basilaratelectasis. Intracardiac electrode partially imaged. ABDOMEN AND PELVIS: Diffuse fatty infiltration of the liver.Unremarkable spleen. No pancreatic mass or inflammatory process. Priorcholecystectomy. LEFT kidney absent. Stable calcified exophytic lesion lower pole RIGHTkidney. No hydronephrosis. Wall thickening is present involving the hepatic flexure the colon in apattern suggesting nonspecific colitis. No abscess or obstruction. Mildlydilated central small bowel loops are present in a pattern ileus. Wing catheter in bladder. Rectal tube is also present with inflatedballoon. Aortoiliac and branch vessel atherosclerosis noted. No aneurysm. No acute osseous abnormality. IMPRESSION: Findings suggest hepatic flexure colitis with mild small bowel ileus. No abscess or obstruction. - Note: Radiology results need to be interpreted within a comprehensiveclinical context. If you have questions about the radiology report, please contactthe office of the ordering clinician. Joe Viera MD IMG CT ORDERABLES Final Result * [facility] LOWER EXTREMITY VENOUS RIGHT (06/23/2021 8:17 AM EST) Only the most recent of2 resultswithin the time period is included. Anatomical Region Laterality Modality Vascular, Thigh, Leg Vascular Im aging 06/23/2021 7:57 AM EST Impressions 06/23/2021 8:29 AM EST CONCLUSIONS No evidence of deep vein thrombosis identified in the right lower extremity. No evidence of superficial vein thrombosis identified in the right lower extremity. No evidence of thrombosis is noted in the contralateral left common femoral vein. Narrative Procedure Note Ray Abernathy MD - 06/23/2021 IMPRESSION CONCLUSIONS No evidence of deep vein thrombosis identified in the right lowerextremity. No evidence of superficial vein thrombosis identified in the right lowerextremity. No evidence of thrombosis is noted in the contralateral left commonfemoral vein. us Joe Viera MD IMG VASCULAR ORDERABLES Final R esult * (ABNORMAL) VITAMIN D 25 HYDROXY (06/22/2021 7:48 AM EST) Only the most recent of2 resultswithin the time period is included. Vit D 25 OH 11.6(L) 30.0 - 150.0 ng/mL 06/25/2021 2:12 PM EST [facility] Comment: Preferred: >= 30 ng/mL Insufficient: 21-29 ng/mL Deficient <= 20 ng/mL Possible Toxicity: >150 ng/mL Samples should not be taken from patients receiving therapy with high biotin doses (i.e. > 5 mg/day) until at least 8 hours following the last biotin administration. Blood VENOUS BLOOD / Unknown Venipuncture / Unknown 06/22/2021 7:48 AM EST 06/22/2021 7:58 AM EST us Raquel Lo EVENT SPECIALIST PRODUCT DEMONSTRATOR CHEMISTRY ORDERABLES Final R esult [facility] [address] [place] [address] , [place] [address] * REPEAT LACTIC ACID (06/21/2021 6:23 PM EST) Only the most recent of4 resultswithin the time period is included. Pathologist [facility] Lactic Acid 1.7 0.5 - 1.9 mmol/L 06/21/2021 6:44 PM EST [facility] Blood VENOUS BLOOD / Unknown Venipuncture / Unknown 06/21/2021 6:23 PM EST 06/21/2021 6:30 PM EST us Joe Viera MD CHEMISTRY ORDERABLES Final Resu lt Performing Organization Address City/[facility]/ZIP Co de Phone Number [place] [phone] * EC ECHOCARDIOGRAM COMPLETE W DOPPLER AND COLOR FLOW MAPPING (06/21/2021 4:14 PM EST) Only the most recent of4 resultswithin the time period is included. Ejection Fraction 55 % PYRAMIS Anatomical Region Laterality Modality Electrocardiogra phy 06/21/2021 2:24 PM EST Impressions 06/21/2021 6:42 PM EST CONCLUSIONS Very Technically limited study. Left ventricualr function is probably normal Left ventricular ejection fraction is roughly estimated at 55% Unable to accurately assess regional wall motion Very limited assessment of cardiac valvular structures Note: Patient is tachycardic during the study with heart rates in 120-140 range . Narrative Procedure Note Js Mendez MD - 06/21/2021 IMPRESSION CONCLUSIONS Very Technically limited study. Left ventricualr function is probably normal Left ventricular ejection fraction is roughly estimated at 55% Unable to accurately assess regional wall motion Very limited assessment of cardiac valvular structures Note: Patient is tachycardic during the study with heart rates [id number] range . us Alexandra Donaldson EVENT SPECIALIST PRODUCT DEMONSTRATOR IMG ECHO ORDERABLES Final Resu lt * SHIGA TOXIN (06/21/2021 2:23 PM EST) Shiga Toxin Shiga toxins (produced by E. coli) not detected. Shiga toxins (produced by E. coli) not detected. 06/21/2021 6:42 PM EST [facility] Stool SPECIMEN FROM RECTUM / Unknown 06/21/2021 2:23 PM EST 06/21/2021 2:33 PM EST us Joe Viera MD MICROBIOLOGY - GENERAL ORDERABL ES Final Result [facility], [address] , [place] [address] * (ABNORMAL) STOOL CULTURE (NO STAIN) (06/21/2021 2:23 PM EST) Culture Positive Growth(A) 06/24/2021 9:45 AM EST [facility] Culture Moderate growth of Salmonella species group B SUSCEPTIBI LITY RESULT 06/24/2021 9:45 AM EST [facility] Stool SPECIMEN FROM RECTUM / Unknown 06/21/2021 2:23 PM EST 06/21/2021 2:33 PM EST Narrative Organism Antibiotic Method Susceptibility Salmonella species group B Amikacin SUSCEPTIBILITY RESULT Salmonella species group B Amoxicillin/Clavulanat e SUSCEPTIBILITY RESULT Salmonella species group B Ampicillin SUSCEPTIBILITY RESULT >16 ug/mL: Resistant Salmonella species group B Ampicillin/Sulbactam SUSCEPTIBILITY RESULT Salmonella species group B Aztreonam SUSCEPTIBILITY RESULT Salmonella species group B Cefazolin SUSCEPTIBILITY RESULT Salmonella species group B Cefepime SUSCEPTIBILITY RESULT Salmonella species group B Cefotaxime SUSCEPTIBILITY RESULT Salmonella species group B Cefoxitin SUSCEPTIBILITY RESULT Salmonella species group B Ceftazidime SUSCEPTIBILITY RESULT Salmonella species group B Ceftazidime/Avibactam SUSCEPTIBILITY RESULT Salmonella species group B Ceftolozane/Tazobactam SUSCEPTIBILITY RESULT Salmonella species group B Ceftriaxone SUSCEPTIBILITY RESULT Salmonella species group B Cefuroxime SUSCEPTIBILITY RESULT Salmonella species group B Ciprofloxacin SUSCEPTIBILITY RESULT Salmonella species group B Ertapenem SUSCEPTIBILITY RESULT Salmonella species group B Gentamicin SUSCEPTIBILITY RESULT Salmonella species group B Imipenem SUSCEPTIBILITY RESULT Salmonella species group B Levofloxacin SUSCEPTIBILITY RESULT Salmonella species group B Meropenem SUSCEPTIBILITY RESULT Salmonella species group B Meropenem/Vaborbactam SUSCEPTIBILITY RESULT Salmonella species group B Minocycline SUSCEPTIBILITY RESULT Salmonella species group B Moxifloxacin SUSCEPTIBILITY RESULT Salmonella species group B Nitrofurantoin SUSCEPTIBILITY RESULT Salmonella species group B Piperacillin/Tazobacta m SUSCEPTIBILITY RESULT Salmonella species group B Tetracycline SUSCEPTIBILITY RESULT Salmonella species group B Tigecycline SUSCEPTIBILITY RESULT Salmonella species group B Tobramycin SUSCEPTIBILITY RESULT Salmonella species group B Trimethoprim/Sulfameth oxazole SUSCEPTIBILITY RESULT <=0.5/9.5 ug/mL: Susceptible Joe Viera MD MICROBIOLOGY - GENERAL ORDERABL ES Final Result [facility] [address] , [place] [address] * (ABNORMAL) FECAL WHITE BLOOD CELLS (06/21/2021 2:23 PM EST) Fecal WBCs Positive(A ) Negative 06/21/2021 11:49 PM EST [facility] Stool COLON STRUCTURE / Unknown 06/21/2021 2:23 PM EST 06/21/2021 2:33 PM EST Narrative [facility] - 06/21/2021 11:49 PM EST POSITIVE for elevated levels of lactoferrin from white blood cells. Joe Viera MD MICROBIOLOGY - GENERAL ORDERABL ES Final Result Performing Organization Address City/[facility]/[place] [address] * BLOOD CULTURE (NO STAIN) (06/21/2021 1:29 PM EST) Only the most recent of8 resultswithin the time period is included. Pathologist [facility] Culture Result No Growth at 120 hours. BLOOD CULTURE (NO STAIN) 06/26/2021 3:02 PM EST [facility] Blood VENOUS BLOOD / Unknown Venipuncture / Unknown 06/21/2021 1:29 PM EST 06/21/2021 1:33 PM EST Joe Viera MD MICROBIOLOGY - GENERAL ORDERABL ES Final Result Performing Organization Address City/[facility]/ZIP Co de Phone Number [facility] [address] , [place] [address] * PROCALCITONIN (06/21/2021 11:24 AM EST) Only the most recent of3 resultswithin the time period is included. Procalcitonin 0.48 <=0.49 ng/mL 06/21/2021 1:36 PM EST [facility] [place] Blood VENOUS BLOOD / Unknown Venipuncture / Unknown 06/21/2021 11:24 AM EST 06/21/2021 11:29 AM EST Narrative [facility] - 06/21/2021 1:36 PM EST Procalcitonin <0.50 ng/mL: Procalcitonin levels below 0.50 ng/mL on the first day of ICU admission represent a low risk for progression to severe sepsis and/or septic shock Procalcitonin >=0.50 ng/mL and <=2.00 ng/mL: If the procalcitonin measurement is performed shortly after the systemic infection process has started (usually less than 6 hours), this value may still be low. As various non-infectious conditions are known to induce procalcitonin as well, procalcitonin levels between 0.50 ng/mL and 2.00 ng/mL should be reviewed carefully to take into account the specific clinical background and condition(s) of the patient. Procalcitonin >2.00 ng/mL: Procalcitonin levels above 2.00 ng/mL on the first day of ICU admission represent a high risk for progression to severe sepsis and/or septic shock. Joe Viera MD CHEMISTRY ORDERABLES Final Resu lt [facility] [address] [facility] , [place] [address] * (ABNORMAL) HEMOGLOBIN A1C (06/21/2021 11:23 AM EST) Only the most recent of6 resultswithin the time period is included. Hgb A1C 9.9(H) 4.2 - 5.6 % 06/21/2021 12:04 PM EST [facility] Est. Avg Glucose 237 mg/dL 06/21/2021 12:04 PM EST [facility] Blood VENOUS BLOOD / Unknown Venipuncture / Unknown 06/21/2021 11:23 AM EST 06/21/2021 11:29 AM EST Narrative [facility] - 06/21/2021 12:04 PM EST REFERENCE RANGE: Normal: 4.0-5.6% Pre-diabetes: 5.7-6.4% Provisional diagnosis of diabetes: >6.4% Hgb F>10% and anything which shortens red cell survival, such as hemolytic anemia, or unstable hemoglobin variants such as HbSS, HbSC, or HbCC, will lower the HbA1c value associated with a given level of glycemic control. us Joe Viera MD CHEMISTRY ORDERABLES Final Resu lt Performing Organization Address [facility] de Phone Number [facility] [employer] [address] , [place] [address] * C DIFF TOXIN DNA (06/21/2021 7:49 AM EST) [facility] C Diff Toxin DNA Negative Negative 06/21/2021 11:30 AM EST [facility] [employer] [facility] Stool SPECIMEN FROM RECTUM / Unknown 06/21/2021 7:49 AM EST 06/21/2021 7:49 AM EST Narrative [facility] [employer] [facility] - 06/21/2021 11:30 AM EST Toxin producing C. difficile target DNA sequences are not detected. This qualitative assay is intended for the detection of Clostridium difficile toxin B gene sequences and for presumptive identification of 027/NAP1/BI strains of toxigenic Clostridium difficile from unformed (liquid or soft) stool specimens in patients suspected of having Clostridium difficile infection (CDI). This assay utilizes real time PCR on the [employer] GeneXpert Infinity, and its performance has been verified by the [facility]. A negative result does not rule out the presence of the Clostridium difficile in concentrations below the limit of detection for the assay. us Mike Garcia MD MICROBIOLOGY - GENERAL ORDERAB LES Final Result Performing Organization Address [facility] Co de Phone Number [facility] , [place] [address] * (ABNORMAL) TROPONIN-T HIGH SENSITIVITY 2HR (06/21/2021 12:23 AM EST) Only the most recent of4 resultswithin the time period is included. [facility] bz-kPbeeefcp-C 2HR 57(H) <22 ng/L 06/21/2021 12:52 AM EST [facility] Comment:See the website osmel wei for rule out [place] care pathway, conditions other than AMI that can cause elevated hs cTnT, and comparison of values from the 4th and 5th generation Charlene tests. https://askmayoexpert.[facility].org/topic/clinical-answers/gnt-32602102/cpm-203 07321 hs-cTnT 2Hr Delta from Baseline -2 <4 ng/L 06/21/2021 12:52 AM EST [facility] Blood VENOUS BLOOD / Unknown Venipuncture / Unknown 06/21/2021 12:23 AM EST 06/21/2021 12:30 AM EST Narrative [facility] - 06/21/2021 12:52 AM EST Ingestion of dariel doses of biotin (>5 mg/day) taken within 8 hours of drawing blood sample can interfere with this immunoassay test. Joseph Turner MD CHEMISTRY ORDERABLES Final Result Performing Organization Address [facility]/ZIP Co de Phone Number [facility] [address] [place] [address] * (ABNORMAL) BETA-HYDROXYBUTYRIC ACID (06/21/2021 12:23 AM EST) BHB 0.80(H) 0.00 - 0.30 mmol/L 06/21/2021 1:04 AM EST [facility] Blood VENOUS BLOOD / Unknown Venipuncture / Unknown 06/21/2021 12:23 AM EST 06/21/2021 12:31 AM EST Joseph Turner MD CHEMISTRY ORDERABLES Final Result Performing Organization Address City/[facility]/ZIP Co de Phone Number [facility] [address] [facility], [address] [place] [phone] * TSH REFLEX (06/21/2021 12:23 AM EST) Only the most recent of5 resultswithin the time period is included. TSH Reflex 3.260 0.270 - 4.200 mcIU/mL 06/21/2021 11:40 AM EST [facility] Blood VENOUS BLOOD / Unknown Venipuncture / Unknown 06/21/2021 12:23 AM EST 06/21/2021 12:31 AM EST Narrative [facility] - 06/21/2021 11:40 AM EST Ingestion of dariel doses of biotin (>5 mg/day) taken within 8 hours of drawing blood sample can interfere with this immunoassay test. Alexandra Donaldson APRN CHEMISTRY ORDERABLES Final Res ult [facility] [address] [facility] , [address] [place] [phone] * (ABNORMAL) LIPID SCREEN (06/21/2021 12:23 AM EST) Only the most recent of2 resultswithin the time period is included. Cholesterol 115 <200 mg/dL 06/21/2021 11:40 AM EST [facility] Comment: < 200 Desirable 200 - 239 Borderline High >= 240 High Triglyceride 142 <150 mg/dL 06/21/2021 11:40 AM EST [facility] Comment: < 150 Normal 150 - 199 Borderline High 200 - 499 High >= 500 Very High HDL 27(L) >=40 mg/dL 06/21/2021 11:40 AM EST [facility] Comment: > 60 Optimal 40 - 60 Acceptable < 40 Low LDL Calculated 63 <100 mg/dL 06/21/2021 11:40 AM EST [facility] Comment: < 100 Optimal 100 - 129 Near or above optimal 130 - 159 Borderline High 160 - 189 High >= 190 Very High Non-HDL-C Calculated 88 <=129 mg/dL 06/21/2021 11:40 AM EST [facility] Comment: <130 Desirable 130-159 Above Desirable 160-189 Borderline High 190-219 High >= 220 Very High Fasting Specimen? 021 11:40 AM EST [facility] Blood VENOUS BLOOD / Unknown Venipuncture / Unknown 06/21/2021 12:23 AM EST 06/21/2021 12:31 AM EST Alexandra Donaldson APRN CHEMISTRY ORDERABLES Final Res ult [facility] [address] [facility] , [place] [address] * XR CHEST AP PORTABLE (06/20/2021 10:55 PM EST) Only the most recent of7 resultswithin the time period is included. Anatomical Region Laterality Modality Chest Radiographic Franchesca ging 06/20/2021 10:5 5 PM EST Impressions 06/20/2021 11:01 PM EST No acute finding. - Note: Radiology results need to be interpreted within a comprehensive clinical context. If you have questions about the radiology report, please contact the office of the ordering clinician. Narrative 06/20/2021 11:01 PM EST XR CHEST AP PORTABLE, 06/20/2021 10:55 PM CLINICAL HISTORY: -WEAKNESS COMPARISON: March 05, 2020. PROCEDURE COMMENTS: AP portable technique. FINDINGS: Cardiovascular structures are stable appearing including 2-lead pacemaker. No pneumonia or effusion. No pneumothorax. Procedure Note Juancarlos Benavidez MD - 06/20/2021 XR CHEST AP PORTABLE, 06/20/2021 10:55 PM CLINICAL HISTORY: -WEAKNESS COMPARISON: March 05, 2020. PROCEDURE COMMENTS: AP portable technique. FINDINGS: Cardiovascular structures are stable appearing including2-lead pacemaker. No pneumonia or effusion. No pneumothorax. IMPRESSION: No acute finding. - Note: Radiology results need to be interpreted within a comprehensiveclinical context. If you have questions about the radiology report, please contactthe office of the ordering clinician. Joseph Turner MD IMG DIAGNOSTIC IMAGI NG ORDERABLES Final Result * (ABNORMAL) TROPONIN-T HIGH SENSITIVITY BASELINE W/ REFLEX (06/20/2021 10:53 PM EST) Only the most recent of6 resultswithin the time period is included. ge-wCwqlcwfw-Z 59(H) <22 ng/L 06/20/2021 11:24 PM EST [facility] Comment:See the website belo w for rule out [place] care pathway, conditions other than AMI that can cause elevated hs cTnT, and comparison of values from the 4th and 5th generation Charlene tests. https://askNewlight [email or web address].org/topic/clinical-answers/gnt-52432934/cpm-203 66797 Blood VENOUS BLOOD / Unknown Venipuncture / Unknown 06/20/2021 10:53 PM EST 06/20/2021 11:02 PM EST Narrative [facility] - 06/20/2021 11:24 PM EST Ingestion of dariel doses of biotin (>5 mg/day) taken within 8 hours of drawing blood sample can interfere with this immunoassay test. us Joseph Turner MD CHEMISTRY ORDERABLES Final Result [facility] [address] [place] [address] * (ABNORMAL) CBC (06/20/2021 10:53 PM EST) Only the most recent of8 resultswithin the time period is included. WBC 20.8(H) 3.7 - 10.3 x10(3)/mcL 06/20/2021 11:05 PM EST [facility] RBC 6.15(H) 4.60 - 6.10 x10(6)/mcL 06/20/2021 11:05 PM EST [facility] Hgb 14.5 13.7 - 17.5 g/dL 06/20/2021 11:05 PM EST [facility] Hct 45.3 40.0 - 51.0 % 06/20/2021 11:05 PM EST [facility] MCV 73.7(L) 80.0 - 100.0 fL 06/20/2021 11:05 PM EST [facility] MCH 23.6(L) 26.0 - 34.0 pg 06/20/2021 11:05 PM EST [facility] MCHC 32.0 30.7 - 35.5 g/dL 06/20/2021 11:05 PM EST [facility] RDW 15.0(H) <=14.9 % 06/20/2021 11:05 PM EST [facility] Platelet 309 155 - 369 x10(3)/mcL 06/20/2021 11:05 PM EST [facility] MPV 9.6 8.8 - 12.5 fL 06/20/2021 11:05 PM EST [facility] Blood VENOUS BLOOD / Unknown Venipuncture / Unknown 06/20/2021 10:53 PM EST 06/20/2021 11:02 PM EST Joseph Turner MD HEMATOLOGY ORDERABLE S Final Result Performing Organization Address City/[facility]/ZIP Co de Phone Number [facility] [address] [place] [address] * (ABNORMAL) PT / INR (06/20/2021 10:53 PM EST) Only the most recent of20 resultswithin the time period is included. PT 13.8(H) 10.0 - 13.1 second(s) 06/20/2021 11:56 PM EST [facility] INR 1.23(H) 0.89 - 1.17 no units 06/20/2021 11:56 PM EST [facility] Comment: Level of Therapy Indications Target INR Range Standard Dose Treatment and prophylaxis of venous 2.0 - 3.0 thrombosis, pulmonary embolism High Dose High risk patients with mechanical 2.5 - 3.5 heart valves Blood VENOUS BLOOD / Unknown Venipuncture / Unknown 06/20/2021 10:53 PM EST 06/20/2021 11:41 PM EST Joseph Turner MD HEMATOLOGY ORDERABLE S Final Result Performing Organization Address City/[facility]/ZIP Co de Phone Number [facility] [address] [facility], [place] [address] * SCANNED RHYTHM STRIPS (05/24/2020 11:54 AM EST) Only the most recent of28 resultswithin the time period is included. Anatomical Region Laterality Modality Other 05/24/2020 11:5 4 AM EST us Unknown Unknown IMG ECG ORDERABLES Final Result * URIC ACID (05/22/2020 7:59 AM EST) Uric Acid 5.1 3.4 - 7.0 mg/dL 05/22/2020 8:42 AM EST [facility] Blood Venipuncture / Unknown 05/22/2020 7:59 AM EST 05/22/2020 8:09 AM EST us Greg Leblanc MD CHEMISTRY ORDERABLES Final Resu lt [facility] [address] [facility] , [place] [address] * US RENAL AND BLADDER (05/21/2020 3:11 PM EST) Only the most recent of3 resultswithin the time period is included. Anatomical Region Laterality Modality Abdomen, Pelvis Ultrasound 05/21/2020 3:11 PM EST Impressions 05/21/2020 5:04 PM EST 1. Single right kidney with nonobstructing nephrolithiasis and no hydronephrosis. - Narrative 05/21/2020 5:04 PM EST US KIDNEYS AND BLADDER, 05/21/2020 3:11 PM CLINICAL HISTORY: -arf COMPARISON: None. PROCEDURE COMMENTS: Routine sonographic evaluation of the kidneys and bladder with dairy supplies sales representative images and mobile paint specialist notes sent to PACS for radiologist review. FINDINGS: RIGHT: 13.1 x 10.1 x 7.7 cm.. There is a small faint calculus over the lower pole. No obstruction. LEFT: Surgically absent.. PELVIS: Normal appearing. Right ureteral jet was not visualized. Procedure Note Juancarlos Benavidez MD - 05/21/2020 US KIDNEYS AND BLADDER, 05/21/2020 3:11 PM CLINICAL HISTORY: -arf COMPARISON: None. PROCEDURE COMMENTS: Routine sonographic evaluation of the kidneys andbladder with dairy supplies sales representative images and mobile paint specialist notes sent to PACS forradiologist review. FINDINGS: RIGHT: 13.1 x 10.1 x 7.7 cm.. There is a small faint calculus over thelower pole. No obstruction. LEFT: Surgically absent.. PELVIS: Normal appearing. Right ureteral jet was not visualized. IMPRESSION: 1. Single right kidney with nonobstructing nephrolithiasis and no hydronephrosis. - us Greg Leblanc MD IMG US ORDERABLES Final Result * EOSINOPHIL URINE (05/21/2020 11:56 AM EST) Urine Eos 0 % 05/21/2020 12:10 PM EST [email or web address] Urine STRUCTURE OF URINARY TRACT PROPER / Unknown 05/21/2020 11:56 AM EST 05/21/2020 12:03 PM EST us Greg Leblanc MD URINE ORDERABLES Final Result Performing Organization Address [facility] Co de Phone Number [facility] [address] [facility] , [place] [address] * SODIUM LEVEL URINE (05/21/2020 11:56 AM EST) Urine Sodium 108 mmol/L 05/21/2020 12:36 PM EST [facility] Urine STRUCTURE OF URINARY TRACT PROPER / Unknown 05/21/2020 11:56 AM EST 05/21/2020 12:04 PM EST Result Andreas Leblanc MD URINE ORDERABLES Final Result Performing Organization Address [facility] de Phone Number [facility] [address] [facility] , [place] [address] * PROTEIN LEVEL URINE (05/21/2020 11:56 AM EST) Urine Protein 13.5 mg/dL 05/21/2020 12:36 PM EST [facility] Urine STRUCTURE OF URINARY TRACT PROPER / Unknown 05/21/2020 11:56 AM EST 05/21/2020 12:04 PM EST Result Andreas Leblanc MD URINE ORDERABLES Final Result Performing Organization Address [facility] Co de Phone Number [facility] [address] [facility] , [place] [address] * POTASSIUM LEVEL URINE (05/21/2020 11:56 AM EST) Urine Potassium 27.7 mmol/L 0 12:36 PM EST [facility] [place] Urine STRUCTURE OF URINARY TRACT PROPER / Unknown 05/21/2020 11:56 AM EST 05/21/2020 12:04 PM EST us Greg Leblanc MD URINE ORDERABLES Final Result Performing Organization Address [facility] Co de Phone Number [facility] [address] [facility] , [place] [address] * OSMOLALITY URINE (05/21/2020 11:56 AM EST) Urine Osmolality 442 50-1,400 mOsm/kg 05/22/2020 7:53 PM EST [email or web address] Urine STRUCTURE OF URINARY TRACT PROPER / Unknown 05/21/2020 11:56 AM EST 05/21/2020 12:04 PM EST Narrative [facility] - 05/22/2020 7:53 PM EST Normal Range: 50 mOSM/kg during maximum water diuresis to 1400 mOSM/kg during maximum urinary concentration. Reference range valid for random specimens only. us Greg Leblanc MD URINE ORDERABLES Final Result Performing Organization Address [facility] de Phone Number [facility] [address] [facility] , [place] [address] * CREATININE LEVEL URINE (05/21/2020 11:56 AM EST) Urine Creatinine 74.3 mg/dL 05/21/2020 12:46 PM EST [email or web address] Urine STRUCTURE OF URINARY TRACT PROPER / Unknown 05/21/2020 11:56 AM EST 05/21/2020 12:04 PM EST us Greg Leblanc MD URINE ORDERABLES Final Result Performing Organization Address [facility] Co de Phone Number [facility]REFERRED [facility] [address] [facility] , [place] [address] * CHLORIDE, URINE - REF LAB (05/21/2020 11:56 AM EST) Total Volume Random mL 05/23/2020 1:01 AM EST [employer] Hrs Fanny Random hr 05/23/2020 1:01 AM EST [employer] U Creatinine 76 mg/dL 05/23/2020 1:01 AM EST [employer] U24 Creat Not Applicable 800 - 2100 mg/d 05/23/2020 1:01 AM EST [employer] U Chloride 101 mmol/L 05/23/2020 1:01 AM EST [employer] U24 Chloride Not Applicable 140 - 250 mmol/d 05/23/2020 1:01 AM EST [employer] Comment: Performed By: [facility] [address] [place] [address] Diamond Polisher: Carmen Willsi MD Urine STRUCTURE OF URINARY TRACT PROPER / Unknown 05/21/2020 11:56 AM EST 05/21/2020 12:03 PM EST Greg Leblanc MD URINE ORDERABLES Final Result Performing Organization Address City/[facility]/ZIP Co de Phone Number [facility] [address] [place], [place] [id number] * MYOGLOBIN (05/21/2020 10:50 AM EST) Myoglobin 68 28 - 72 ng/mL 05/21/2020 2:19 PM EST [facility] Blood Venipuncture / Unknown 05/21/2020 10:50 AM EST 05/21/2020 11:13 AM EST Narrative [facility] - 05/21/2020 2:19 PM EST Ingestion of dariel doses of biotin (>5 mg/day) taken within 8 hours of drawing blood sample can interfere with this immunoassay test. Greg Leblanc MD CHEMISTRY ORDERABLES Final Resu lt [facility] [address] [facility] , [place] [address] * OSMOLALITY (05/21/2020 10:50 AM EST) Pathologist [facility] Osmo-Serum 289 275 - 295 mOsm/kg 05/22/2020 5:50 PM EST [facility] Blood Venipuncture / Unknown 05/21/2020 10:50 AM EST 05/21/2020 11:13 AM EST Greg Leblanc MD CHEMISTRY ORDERABLES Final Resu lt Performing Organization Address [facility] de Phone Number [facility] [employer] [facility] [address] [facility], [place] [address] * INTRAOP AIRWAY PLACEMENT (05/19/2020 6:28 PM EST) Narrative [facility] - 05/19/2020 6:28 PM EST Kaitlynn Peters CRNA 05/19/2020 6:29 PM Intraop Airway Placement: Date/Time: 05/19/2020 5:47 PM Induction type: IV and Modified rapid sequence Mask size: Standard adult Pre-Oxygenation: Standard Mask ventilation: Not attempted Technique: Video laryngoscope Laryngoscope blade: Cullen Blade size: 3 Grade view: II Airway type: ETT- cuffed Topical Anesthetic/Lubricant: None Intubation assist devices: Stylet 14fr Airway location: Oral Device size: 7.5mm Secured at: 22 cm Secured by: Tape Measured from: Lips Placement verified: Auscultation, End tidal CO2 and Symmetric chest wall motion Condition: Unchanged and Atraumatic Insertion attempts: 1 Attempt 1 by: Dominic Peters Title: CELL PREPARER us Abdias Hoyt MD [place] ANESTHESIA Final Resu Performing Organization Address [facility] Co de Phone Number [facility] [address] [place] [address] * T4, FREE (THYROXINE) (05/18/2020 7:26 PM EST) Only the most recent of5 resultswithin the time period is included. Free T4 1.24 0.80 - 1.80 ng/dL 05/18/2020 8:49 PM EST [facility] Blood VENOUS BLOOD / Unknown Venipuncture / Unknown 05/18/2020 7:26 PM EST 05/18/2020 7:32 PM EST Narrative [facility] - 05/18/2020 8:49 PM EST Ingestion of dariel doses of biotin (>5 mg/day) taken within 8 hours of drawing blood sample can interfere with this immunoassay test. Leighton Salazar MD CHEMISTRY ORDERABLES Final Resu lt Performing Organization Address [facility] Co de Phone Number [facility] [address] [facility] , [place] [address] * (ABNORMAL) HEPATIC FUNCTION PANEL (05/18/2020 7:26 PM EST) Only the most recent of8 resultswithin the time period is included. Total Protein 6.7 6.4 - 8.3 gm/dL 05/18/2020 8:49 PM EST [facility] Albumin 3.4 3.2 - 4.6 gm/dL 05/18/2020 8:49 PM EST [facility] Bili Direct <0.2 0.0 - 0.3 mg/dL 05/18/2020 8:49 PM EST [facility] Bili Total 0.2 0.1 - 1.4 mg/dL 05/18/2020 8:49 PM EST [facility] AST 9 <=40 U/L 05/18/2020 8:49 PM EST [facility] ALT 7 <=41 U/L 05/18/2020 8:49 PM EST [facility] Alk Phos 38(L) 40 - 129 U/L 05/18/2020 8:49 PM EST [facility] Blood VENOUS BLOOD / Unknown Venipuncture / Unknown 05/18/2020 7:26 PM EST 05/18/2020 7:32 PM EST Leighton Salazar MD CHEMISTRY ORDERABLES Final Resu lt Performing Organization Address [facility]/ZIP Co de Phone Number [facility] [address] [facility] , [place] [address] * XR FEMUR LEFT AP AND LATERAL (05/17/2020 4:49 PM EST) Anatomical Region Laterality Modality Thigh Radiographic Franchesca ging 05/17/2020 4:49 PM EST Impressions 05/17/2020 4:54 PM EST No acute bony abnormality. - Narrative 05/17/2020 4:54 PM EST XR FEMUR LEFT AP AND LATERAL, 05/17/2020 4:49 PM CLINICAL HISTORY: -posterior leg wound COMPARISON: None. PROCEDURE COMMENTS: Routine views per the ordered protocol. FINDINGS: No acute fracture, dislocation, embedded foreign body, or significant soft tissue abnormality. Procedure Note Alex Ferrari MD - 05/17/2020 XR FEMUR LEFT AP AND LATERAL, 05/17/2020 4:49 PM CLINICAL HISTORY: -posterior leg wound COMPARISON: None. PROCEDURE COMMENTS: Routine views per the ordered protocol. FINDINGS: No acute fracture, dislocation, embedded foreign body, or significantsoft tissue abnormality. IMPRESSION: No acute bony abnormality. - Scott Zapata MD IMG DIAGNOSTIC IMAGING ORDERABLE S Final Result * (ABNORMAL) WOUND CULTURE (STAIN INCLUDED) (05/17/2020 4:22 PM EST) Culture Positive Growth(A) 2019 5:54 PM EST [facility] Culture Abundant growth of Escherichia coli SUSCEPTIBI LITY RESULT 05/20/2020 5:54 PM EST [facility] Culture Abundant growth of Klebsiella oxytoca/Raoultella ornithinolytica SUSCEPTIBI LITY RESULT 05/20/2020 5:54 PM EST [facility] Culture Abundant growth of Proteus mirabilis SUSCEPTIBI LITY RESULT 05/20/2020 5:54 PM EST [facility] Culture Sparse growth of Enterococcus faecalis SUSCEPTIBI LITY RESULT 05/20/2020 5:54 PM EST [facility] Culture Moderate growth of Staphylococcus haemolyticus SUSCEPTIBI LITY RESULT 05/20/2020 5:54 PM EST [facility] Stain Moderate Gram positive cocci(A) 05/20/2020 5:54 PM EST [facility] Stain Few Gram positive rods(A) 05/20/2020 5:54 PM EST [facility] Stain Few WBCs(A) 05/20/2020 5:54 PM EST [facility] Stain Few epithelial cells(A) 05/20/2020 5:54 PM EST [facility] Swab BUTTOCK STRUCTURE / Unknown 05/17/2020 4:22 PM EST 05/17/2020 4:22 PM EST Narrative [facility] - 05/20/2020 5:54 PM EST Mixed aerobic growth. No predominant organism. No further workup. us Scott Zapata MD MICROBIOLOGY - GENERAL ORDERABLE S Edited Result - Final [facility] [address] [facility] , [address] [place] [id number] * (ABNORMAL) RENAL FUNCTION PANEL (04/04/2020 6:20 AM EDT) Only the most recent of20 resultswithin the time period is included. Sodium 138 136 - 145 mmol/L 04/04/2020 8:45 AM EDT [facility] Potassium 4.4 3.5 - 5.0 mmol/L 04/04/2020 8:45 AM EDT [facility] Chloride 100 98 - 107 mmol/L 04/04/2020 8:45 AM EDT [facility] Total CO2 27 22 - 29 mmol/L 04/04/2020 8:45 AM EDT [facility] Anion Gap 11 7 - 16 mmol/L 04/04/2020 8:45 AM EDT [facility] Calcium 8.9 8.8 - 10.4 mg/dL 04/04/2020 8:45 AM EDT [facility] Glucose Lvl 187(H) 82 - 100 mg/dL 04/04/2020 8:45 AM EDT [facility] BUN 20 8 - 23 mg/dL 04/04/2020 8:45 AM EDT [facility] Creatinine 1.33(H) 0.67 - 1.30 mg/dL 04/04/2020 8:45 AM EDT [facility] Albumin 3.9 3.2 - 4.6 gm/dL 04/04/2020 8:45 AM EDT [facility] Phosphorus 4.0 2.5 - 4.5 mg/dL 04/04/2020 8:45 AM EDT [facility] GFR Afr Am 67 >=60 mL/min/1.7 3 m2 04/04/2020 8:45 AM EDT [facility] GFR Non Afr Am 58(L) >=60 mL/min/1.7 3 m2 04/04/2020 8:45 AM EDT [facility] Comment: This estimated GFR was [...] or muscle mass. Blood Venipuncture / Unknown 04/04/2020 6:20 AM EDT 04/04/2020 7:43 AM EDT us U Unknown CHEMISTRY ORDERABLES Final Resul t [email or web address] [address] [facility] , [place] [address] [facility] [address] [place] [address] * XR KNEE LEFT AP AND LATERAL (03/29/2020 8:03 PM EDT) Anatomical Region Laterality Modality Knee Radiographic Franchesca ging 03/29/2020 8:03 PM EDT Impressions 03/29/2020 8:12 PM EDT Moderate osteoarthritis without acute finding. - Narrative 03/29/2020 8:12 PM EDT LEFT KNEE AP AND LATERAL, 03/29/2020 8:03 PM CLINICAL HISTORY: [id number], [id number] COMPARISON: None. PROCEDURE COMMENTS: AP and lateral views of the left knee. FINDINGS:No fracture or traumatic malalignment. No effusion. Moderate DJD. Procedure Note Roger Rowe MD - 03/29/2020 LEFT KNEE AP AND LATERAL, 03/29/2020 8:03 PM CLINICAL HISTORY: [id number], [id number] COMPARISON: None. PROCEDURE COMMENTS: AP and lateral views of the left knee. FINDINGS:No fracture or traumatic malalignment. No effusion. Moderate DJD. IMPRESSION: Moderate osteoarthritis without acute finding. - Jermaine Washburn MD IM DIAGNOSTIC IMAGING ORDERABLES Final Result * PARATHYROID HORMONE INTACT (03/16/2020 2:28 PM EDT) Only the most recent of2 resultswithin the time period is included. PTH Intact 26.90 15.00 - 65.00 pg/mL 03/16/2020 3:48 PM EDT [facility] Blood VENOUS BLOOD / Unknown Venipuncture / Unknown 03/16/2020 2:28 PM EDT 03/16/2020 2:34 PM EDT Narrative [facility] - 03/16/2020 3:48 PM EDT Intact PTH Calcium Interpretation ------- 15 - 65 8.6 - 10.2 Normal > 65 > 10.2 Primary Hyperparathyroidism < 20 > 10.2 Non-Parathyroid hypercalcemia < 15 < 8.6 Hypoparathyroidism Consider the above as guidelines only. PTH results should be interpreted in conjunction with the total or ionized calcium level. The finding of a persistently high-normal calcium accompanied by a high-normal PTH (or a low-normal calcium accompanied by a low-normal PTH) warrants further investigation. Although the PTH may itself be within normal limits, it may be inappropriately high (or low) relative to the circulating calcium level. Ingestion of dariel doses of biotin (>5 mg/day) taken within 8 hours of drawing blood sample can interfere with this immunoassay test. us Epifanio Mason MD CHEMISTRY ORDERABLES Final Resu lt [facility] [address] [facility] , [place] [address] * PHOSPHORUS LEVEL (03/12/2020 6:10 AM EDT) Only the most recent of9 resultswithin the time period is included. Pathologist [facility] Phosphorus 3.5 2.5 - 4.5 mg/dL 03/12/2020 7:23 AM EDT [facility] Blood Venipuncture / Unknown 03/12/2020 6:10 AM EDT 03/12/2020 6:53 AM EDT us Epifanio Mason MD CHEMISTRY ORDERABLES Final Resu lt [facility] [address] [facility] , [place] [address] * (ABNORMAL) IMMUNOFIX ELECTROPHORESIS (03/09/2020 12:39 PM EDT) IgA 586(H) 70 - 400 mg/dL 03/10/2020 11:14 AM EDT [facility] IgG 614(L) 700-1,60 0 mg/dL 03/10/2020 11:14 AM EDT [facility] IgM 123 40 - 230 mg/dL 03/10/2020 11:14 AM EDT [facility] Albumin SPE 2.3(L) 3.1 - 5.0 gm/dL 03/10/2020 11:14 AM EDT [facility] Alpha 1 Globulin 0.4(H) 0.1 - 0.3 gm/dL 03/10/2020 11:14 AM EDT [facility] Alpha 2 Globulin 0.8 0.5 - 1.0 gm/dL 03/10/2020 11:14 AM EDT [facility] Beta Globulin 1.2 0.5 - 1.4 gm/dL 03/10/2020 11:14 AM EDT [facility] Gamma Globulin GREGORY 0.7 0.6 - 1.6 gm/dL 03/10/2020 11:14 AM EDT [facility] SPE/GREGORY Interp Hypoalbuminemia. Albumin is decreased on serum protein electrophoresis. Increased alpha-1 and/or alpha-2 globulins on serum protein electrophoresis. This is consistent with acute phase pattern during episode of tissue damage with or without inflammation. Normal serum immunofixation pattern. 03/10/2020 11:14 AM EDT [facility] Total Protein 5.4(L) 6.4 - 8.3 gm/dL 03/10/2020 11:14 AM EDT [facility] Blood VENOUS BLOOD / Unknown Venipuncture / Unknown 03/09/2020 12:39 PM EDT 03/09/2020 12:45 PM EDT Mitch Dailey MD IMMUNOLOGY ORDERABLES Final Result Performing Organization Address [facility] Co de Phone Number [facility] [address] [facility], [place] [address] * ANCA SCREEN WITH REFLEX TITER - REF LAB (03/09/2020 12:39 PM EDT) ANCA IgG <1:20 <1:20 03/10/2020 2:35 PM EDT [facility] Comment: The ANCA IFA is <1:20; therefore, no further testing will be performed. INTERPRETIVE INFORMATION: Anti-Neutrophil Cyto Ab, IgG Neutrophil Cytoplasmic Antibodies (C-ANCA = granular cytoplasmic staining, P-ANCA = perinuclear staining) are found in the serum of over 90 percent of patients with certain necrotizing systemic vasculitides, and usually in less than 5 percent of patients with collagen vascular disease or arthritis. Performed By: [facility] [address] [place] [address] Diamond Polisher: Carmen Willsi MD Blood VENOUS BLOOD / Unknown Venipuncture / Unknown 03/09/2020 12:39 PM EDT 03/09/2020 12:45 PM EDT Mitch Dailey MD IMMUNOLOGY ORDERABLES Final Result Performing Organization Address [facility] de Phone Number [facility] [address] [place] [address] * ANTINUCLEAR ANTIBODY SCREEN (03/09/2020 12:39 PM EDT) CONY, IgG Negative Negative 03/10/2020 12:08 AM EDT [facility] Comment:CONY samples are scre ened using automated enzyme immunoassay. All samples that screen positive are then tested by the indirect immunofluorescence method. Blood VENOUS BLOOD / Unknown Venipuncture / Unknown 03/09/2020 12:39 PM EDT 03/09/2020 12:45 PM EDT us Mitch Dailey MD IMMUNOLOGY ORDERABLES Final Result [facility] [address] [facility] , [place] [address] * CT LUMBAR SPINE WO CONTRAST (03/08/2020 9:07 PM EDT) Anatomical Region Laterality Modality L-spine Computed Tomogra phy 03/08/2020 9:07 PM EDT Impressions 03/08/2020 9:[address] is limited in evaluation of discogenic change and at multiple levels there is poor distinction between the disc space margin in the thecal sac. With this limitation there is a detailed analysis of multilevel discogenic disease as outlined above but there is no clear evidence of focal neural compression Previous ablation of mass of the lower pole of the RIGHT kidney. - Narrative 03/08/2020 9:[address] LUMBAR SPINE WITHOUT CONTRAST, 03/08/2020 9:07 PM CLINICAL HISTORY: -bilateral leg weakness patient has a pacemaker. COMPARISON: Plain radiographs yesterday. No prior CT or MRI for comparison. PROCEDURE COMMENTS: Multidetector CT scanning of the lumbar spine with multiplanar reformats. Automated exposure control for dose reduction was used. CTDIvol: 45.9 mGy. DLP: 1539 mGy-cm. FINDINGS: No acute spine fracture or traumatic malalignment. Paraspinous soft tissues within normal limits. 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 The patient has had a prior ablation at that site into thousand 13 Level by level analysis: L1-L2: Mild disc bulge with spur. No central stenosis. No significant foraminal narrowing L2-L3: Broad-based disc bulge with a RIGHT paracentral predominance and with covering spur. Mild facet arthropathy. Mild compression of the anterior thecal sac. Mild bilateral foraminal narrowing. L3-L4: Diffuse disc bulge with central protrusion and spur. Mild indentation of the thecal sac. Mild facet arthropathy and mild bilateral foraminal narrowing. L4-L5: Disc bulge and loss of disc space height. Diffuse disc protrusion with mild covering spur and mild thecal sac compression. Mild foraminal narrowing LEFT greater than RIGHT and mild facet arthropathy L5-S1: Broad-based disc desiccation and disc bulge with disc material just touching the anterior aspect of the traversing S1 nerve roots bilaterally but more pronounced on the RIGHT than the LEFT. Mild bilateral foraminal narrowing Procedure Note Hood Moreno MD - 03/08/2020 CT LUMBAR SPINE WITHOUT CONTRAST, 03/08/2020 9:07 PM CLINICAL HISTORY: -bilateral leg weakness patient has a pacemaker. COMPARISON: Plain radiographs yesterday. No prior CT or MRI forcomparison. PROCEDURE COMMENTS: Multidetector CT scanning of the lumbar spine with multiplanar reformats. Automated exposure control for dose reduction wasused. CTDIvol: 45.9 mGy. DLP: 1539 mGy-cm. FINDINGS: No acute spine fracture or traumatic malalignment. Paraspinous softtissues within normal limits. Incidentally noted is a partially calcified mixed density mass in thelower pole of the RIGHT kidney that is stable from CT February 29, 2020. The patienthas had a prior ablation at that site into thousand 13 Level by level analysis: L1-L2: Mild disc bulge with spur. No central stenosis. No significantforaminal narrowing L2-L3: Broad-based disc bulge with a RIGHT paracentral predominance andwith covering spur. Mild facet arthropathy. Mild compression of the anteriorthecal sac. Mild bilateral foraminal narrowing. L3-L4: Diffuse disc bulge with central protrusion and spur. Mildindentation of the thecal sac. Mild facet arthropathy and mild bilateral foraminalnarrowing. L4-L5: Disc bulge and loss of disc space height. Diffuse disc protrusionwith mild covering spur and mild thecal sac compression. Mild foraminalnarrowing LEFT greater than RIGHT and mild facet arthropathy L5-S1: Broad-based disc desiccation and disc bulge with disc materialjust touching the anterior aspect of the traversing S1 nerve roots bilaterallybut more pronounced on the RIGHT than the LEFT. Mild bilateral foraminalnarrowing IMPRESSION: CT is limited in evaluation of discogenic change and at multiple levels there is poor distinction between the disc space margin in thethecal sac. With this limitation there is a detailed analysis of multileveldiscogenic disease as outlined above but there is no clear evidence of focal neural compression Previous ablation of mass of the lower pole of the RIGHT kidney. - Mitch Dailey MD [facility] CT ORDERABLES Final Res ult * XR LUMBAR SPINE AP AND LATERAL (03/07/2020 8:44 PM EDT) Only the most recent of2 resultswithin the time period is included. Anatomical Region Laterality Modality L-spine Radiographic Franchesca ging 03/07/2020 8:44 PM EDT Impressions 03/07/2020 9:08 PM EDT Degenerative changes without acute findings Narrative 03/07/2020 9:08 PM EDT CLINICAL HISTORY: -Foot numbness. COMPARISON: 07/23/2019. TECHNIQUE: XR LUMBAR SPINE AP AND LATERAL on 03/07/2020 8:44 PM. FINDINGS: The alignment of the spine is normal. The vertebral heights are maintained and there is no fracture. Degenerative changes are similar to the prior study. Vascular calcifications are noted. Procedure Note Mitch Connolly MD - 03/07/2020 CLINICAL HISTORY: -Foot numbness. COMPARISON: 07/23/2019. TECHNIQUE: XR LUMBAR SPINE AP AND LATERAL on 03/07/2020 8:44 PM. FINDINGS: The alignment of the spine is normal. The vertebral heightsare maintained and there is no fracture. Degenerative changes are similar tothe prior study. Vascular calcifications are noted. IMPRESSION: Degenerative changes without acute findings Susi Jackson MD [facility] [place] DIAGNOSTIC IMAGING ORDER FABY Final Result * CT HEAD WO CONTRAST (03/07/2020 8:29 PM EDT) Only the most recent of2 resultswithin the time period is included. Anatomical Region Laterality Modality Head Computed Tomogra phy 03/07/2020 8:29 PM EDT Impressions 03/07/2020 8:43 PM EDT 1. No acute intracranial process. Narrative 03/07/2020 8:43 PM EDT CLINICAL HISTORY: -Left foot numb/weak.. COMPARISON: 2 days ago. TECHNIQUE: CT HEAD WO CONTRAST on 03/07/2020 8:29 PM. FINDINGS: The ventricles, sulci, and basal cisterns are normal in size and configuration for the patient's age. There is no CT evidence of an acute infarction, hemorrhage, mass effect, midline shift, or extra-axial fluid collection. The amador-white matter differentiation is preserved. The visualized osseous structures, orbits, sinuses, and mastoids are unremarkable. Procedure Note Mitch Connolly MD - 03/07/2020 CLINICAL HISTORY: -Left foot numb/weak.. COMPARISON: 2 days ago. TECHNIQUE: CT HEAD WO CONTRAST on 03/07/2020 8:29 PM. FINDINGS: The ventricles, sulci, and basal cisterns are normal in sizeand configuration for the patient's age. There is no CT evidence of an acute infarction, hemorrhage, mass effect, midline shift, or extra-axial fluid collection. The amador-white matter differentiation is preserved. Thevisualized osseous structures, orbits, sinuses, and mastoids are unremarkable. IMPRESSION: 1. No acute intracranial process. Susi Jackson MD IMG CT ORDERABLES Final Resu lt * (ABNORMAL) POTASSIUM LEVEL (03/05/2020 2:16 PM EDT) Pathologist [facility] Potassium 5.6(H) 3.5 - 5.0 mmol/L 03/05/2020 2:43 PM EDT [facility] Blood VENOUS BLOOD / Unknown Venipuncture / Unknown 03/05/2020 2:16 PM EDT 03/05/2020 2:19 PM EDT Epifanio Mason MD CHEMISTRY ORDERABLES Final Resu [facility] [address] [facility] , [place] [address] * SYPHILIS SCREEN WITH REFLEX RPR QUANT (03/05/2020 2:09 PM EDT) Trep Ab Index 0.02 <=0.99 Index Value 03/05/2020 4:16 PM EDT [facility] Comment: < 1.00 - Non-Reactive >=1.00 - Reactive NOTE: All reactive results will be reflexed to Quantitative Non-Treponemal(RPR)test. Blood VENOUS BLOOD / Unknown Venipuncture / Unknown 03/05/2020 2:09 PM EDT 03/05/2020 2:19 PM EDT Susi Jackson MD CHEMISTRY ORDERABLES Final R esult Performing Organization Address [facility] de Phone Number [facility] [employer] [facility] [address] [facility] , [place] [address] * (ABNORMAL) VITAMIN B12/ FOLIC ACID (03/05/2020 2:09 PM EDT) Vitamin B12 1,414(H) 232-1,245 pg/mL 03/05/2020 3:08 PM EDT [facility] Folate 9.11 >=4.50 ng/mL 03/05/2020 3:08 PM EDT [facility] [employer] Blood VENOUS BLOOD / Unknown Venipuncture / Unknown 03/05/2020 2:09 PM EDT 03/05/2020 2:19 PM EDT Narrative [facility] [employer] - 03/05/2020 3:08 PM EDT Ingestion of dariel doses of biotin (>5 mg/day) taken within 8 hours of drawing blood sample can interfere with this immunoassay test. Susi Jackson MD CHEMISTRY ORDERABLES Final R esult Performing Organization Address [facility] Phone Number [facility] [employer] [facility] [address] [facility] , [place] [address] * (ABNORMAL) THYROID STIMULATING HORMONE (03/05/2020 2:09 PM EDT) Only the most recent of3 resultswithin the time period is included. TSH 4.660(H) 0.270 - 4.200 mcIU/mL 03/05/2020 3:11 PM EDT [facility] [employer] Blood VENOUS BLOOD / Unknown Venipuncture / Unknown 03/05/2020 2:09 PM EDT 03/05/2020 2:19 PM EDT Narrative [facility] [employer] - 03/05/2020 3:11 PM EDT Ingestion of dariel doses of biotin (>5 mg/day) taken within 8 hours of drawing blood sample can interfere with this immunoassay test. us Susi Jackson MD CHEMISTRY ORDERABLES Final R [facility] Performing Organization Address [facility] Co de Phone Number [facility] [employer] [facility] [address] [facility] , [place] [address] * AMMONIA LEVEL (03/05/2020 2:09 PM EDT) Ammonia 16 16 - 60 mcmol/L 03/05/2020 2:46 PM EDT [facility] Blood VENOUS BLOOD / Unknown Venipuncture / Unknown 03/05/2020 2:09 PM EDT 03/05/2020 2:20 PM EDT us Susi Jackson MD CHEMISTRY ORDERABLES Final R esult Performing Organization Address [facility] de Phone Number [facility] [employer] [facility] [address] [facility] , [place] [address] * (ABNORMAL) BLOOD GAS ARTERIAL (03/05/2020 12:35 PM EDT) pH 7.26(L) 7.35 - 7.45 pH 03/05/2020 1:05 PM EDT [facility] pCO2 60(H) 35 - 45 mmHg 03/05/2020 1:05 PM EDT [facility] pO2 69(L) 80 - 100 mmHg 03/05/2020 1:05 PM EDT [facility] HCO3 25.9 22.0 - 26.0 mmol/L 03/05/2020 1:05 PM EDT [facility] TCO2 24 22 - 29 mmol/L 03/05/2020 1:05 PM EDT [facility] Base Excess -1.6 -2.0 - 3.0 mmol/L 03/05/2020 1:05 PM EDT [facility] O2 Sat 92.3(L) 95.0 - 98.0 % 03/05/2020 1:05 PM EDT [facility] Inspired O2 6L 03/05/2020 1:05 PM EDT [facility] Blood Arterial / Unknown 0 12:35 PM EDT 03/05/2020 12:47 PM EDT Susi Jackson MD CHEMISTRY ORDERABLES Final R [facility] Performing Organization Address [facility] de Phone Number [facility] [employer] [address] , [place] [address] * (ABNORMAL) NT PROBNP (03/05/2020 11:26 AM EDT) Only the most recent of2 resultswithin the time period is included. NT Pro-BNP 3,892(H) <=229 pg/mL 03/05/2020 12:57 PM EDT [facility] [employer] [facility] Blood VENOUS BLOOD / Unknown Capillary / Unknown 03/05/2020 11:26 AM EDT 03/05/2020 11:34 AM EDT Narrative [facility] [employer] [facility] - 03/05/2020 12:57 PM EDT An NT pro-BNP level less than 300 pg/mL in any patient, regardless of age, effectively rules out acute CHF with a 99% negative predictive value. Susi Jackson MD CHEMISTRY ORDERABLES Final R esult Performing Organization Address [facility] Phone Number [facility] [employer] [address] , [place] [address] * (ABNORMAL) HEPARIN ANTI-XA, UNF (03/04/2020 6:41 AM EDT) Only the most recent of18 resultswithin the time period is included. Heparin Level UNF 0.09(L) 0.30 - 0.70 IU/mL 03/04/2020 7:30 AM EDT [facility] [employer] Comment:The therapeutic rang e for heparinized patients monitored by the Heparin Lvl UF is 0.30-0.70 IU/mL. Blood VENOUS BLOOD / Unknown Venipuncture / Unknown 03/04/2020 6:41 AM EDT 03/04/2020 7:05 AM EDT Manuel العلي MD HEMATOLOGY ORDERABLES Final Result Performing Organization Address City/[facility]/ZIP Co de Phone Number [facility] [address] [place] [address] , [place] [address] * PARTIAL THROMBOPLASTIN TIME (03/04/2020 6:41 AM EDT) Only the most recent of8 resultswithin the time period is included. PTT 33.8 26.0 - 36.4 second(s) 03/04/2020 7:30 AM EDT [facility] Comment: Therapeutic range for unfractionated heparin: 53.0 - 94.4 seconds Therapeutic range for direct thrombin inhibitors: Argatroban is 1.5 to 3 times the aPTT baseline. Lepirudin is 1.5 to 2 times the aPTT baseline. The aPTT should not exceed 100 seconds. The dosage of Argatroban should be decreased in patients with hepatic impairment. The dosage of Lepirudin should be decreased in renal insufficiency. Blood VENOUS BLOOD / Unknown Venipuncture / Unknown 03/04/2020 6:41 AM EDT 03/04/2020 7:05 AM EDT Manuel العلي MD HEMATOLOGY ORDERABLES Final Result Performing Organization Address City/[facility] Co de Phone Number [employer] [address] , [address] [place], [place] [id number] * PATHOLOGY TISSUE REQUEST (03/03/2020 4:33 PM EDT) CASE REPORT Surgical Pathology Case: [id number] Authorizing Provider: Manuel العلي MD Collected: 03/03/2020 1633 Ordering Location: [facility] Received: 03/03/20202040 Pathologist: Phyllis Weber MD Specimen: Gallbladder, gallbladder 03/09/2020 3:41 PM EDT [facility] FINAL DIAGNOSIS Gallbladder, cholecystectomy: - Acute and chronic cholecystitis with areas of denuded/eroded mucosa. - Cholelithiasis. 03/09/2020 3:41 PM EDT [facility] at 1541 EDT GROSS DESCRIPTION Received in formalin labeled with the patient's name and gallbladder is a 10.5 x 5.4 x 3.1 cm. moderately disrupted gallbladder with purple-amador, rubbery serosa. The wall ranges from 0.3 to 0.7 cm in thickness and the lumen contains watery brown bile with a 7.0 x 3.8 x 2.1 cm aggregate of brown stones identified. The stones completely obstruct the cystic duct. The mucosa is green-srivastava to brown, partially roughened and diffusely denuded. No periductal lymph node is identified. Sustainability Specialist sections to include the ink duct margin are submitted in one cassette. / ZN 03/09/2020 3:41 PM EDT [facility] MICROSCOPIC DESCRIPTION Microscopic examination is performed and the findings corroborate the diagnosis. 03/09/2020 3:41 PM EDT [facility] EMBEDDED IMAGES 03/09/2020 3:41 PM EDT [facility] Tissue ENTIRE GALLBLADDER / Unknown 03/03/2020 4:33 PM EDT 03/03/2020 8:41 PM EDT us Manuel العلي MD PATHOLOGY ORDERABLES Final R esult Performing Organization Address City/State/[facility] Co de Phone Number [facility] [address] [place] [address] [place] [address] * INTRAOP AIRWAY PLACEMENT (03/03/2020 3:59 PM EDT) Narrative [facility] - 03/03/2020 3:59 PM EDT Jalen Johnson CRNA 03/03/2020 3:59 PM Intraop Airway Placement: Date/Time: 03/03/2020 3:52 PM Induction type: IV and Modified rapid sequence Mask size: Standard adult Pre-Oxygenation: Standard Mask ventilation: Easy mask ventilation Technique: Video laryngoscope Laryngoscope blade: Subhash Blade size: 3 Grade view: II Airway type: ETT- cuffed Topical Anesthetic/Lubricant: None Intubation assist devices: Stylet 14fr Airway location: Oral Device size: 7.5mm Secured at: 23 cm Secured by: Tape Measured from: Lips Placement verified: Auscultation, End tidal CO2 and Symmetric chest wall motion Condition: Atraumatic and Unchanged Insertion attempts: 1 Title: CELL PREPARER Heath Lakhani MD [place] ANESTHESIA Final Result [facility] [address] [place] [id number] * XR FOOT RIGHT AP LATERAL AND OBLIQUE (03/01/2020 2:58 PM EDT) Anatomical Region Laterality Modality Foot Radiographic Franchesca ging 03/01/2020 2:58 PM EDT Impressions 03/01/2020 3:18 PM EDT No acute bony abnormality of the foot. - Narrative 03/01/2020 3:18 PM EDT XR FOOT RIGHT AP LATERAL AND OBLIQUE, 03/01/2020 2:58 PM CLINICAL HISTORY: -Pain COMPARISON: None. PROCEDURE COMMENTS: Routine views per the ordered protocol. FINDINGS: There is normal alignment of the right foot. There are extensive vascular calcifications. There is no subcutaneous gas or radiopaque foreign body. There is no acute fracture. There are no osseous erosions or periosteal reaction. Procedure Note Sheila Moscoso MD - 03/01/2020 XR FOOT RIGHT AP LATERAL AND OBLIQUE, 03/01/2020 2:58 PM CLINICAL HISTORY: -Pain COMPARISON: None. PROCEDURE COMMENTS: Routine views per the ordered protocol. FINDINGS: There is normal alignment of the right foot. There areextensive vascular calcifications. There is no subcutaneous gas or radiopaqueforeign body. There is no acute fracture. There are no osseous erosions orperiosteal reaction. IMPRESSION: No acute bony abnormality of the foot. - Susi Jackson MD [facility] DIAGNOSTIC IMAGING ORDER FABY Final Result * US RIGHT UPPER QUADRANT (03/01/2020 12:12 AM EDT) Anatomical Region Laterality Modality Abdomen Ultrasound 03/01/2020 12:1 2 AM EDT Impressions 03/01/2020 1:39 AM EDT 1. Examination is degraded by suboptimal acoustic windows related to patient body habitus. 2. Cholelithiasis, gallbladder wall thickening, and trace pericholecystic fluid. These findings remain suspicious for acute calculus cholecystitis. Sonographic Smith sign is reported as negative; however, this is unreliable as the patient is reportedly receiving pain medication. 3. Common duct is not seen. 4. Diffuse hepatic steatosis. - - Narrative 03/01/2020 1:39 AM EDT US RIGHT UPPER QUADRANT, 03/01/2020 12:12 AM CLINICAL HISTORY: -ABDOMINAL PAIN. COMPARISON: CT abdomen and pelvis with IV contrast performed earlier same date PROCEDURE COMMENTS: Ultrasound examination of the right upper quadrant performed by the technologist. Sent to PACS along with tech notes for radiologist review. FINDINGS: Overall examination is degraded by suboptimal acoustic windows related to patient body habitus. Gallbladder: There is redemonstration of multiple gallstones. There is abnormal gallbladder wall thickening with gallbladder wall measuring up to 5 mm in thickness. Trace pericholecystic fluid. Smith's sign: Negative sonographic Smith's sign was reported by the medical laboratory technologist; however, this is unreliable as the patient is currently receiving pain medication. Liver: Diffusely increased liver echogenicity is compatible with diffuse hepatic steatosis and corresponds to findings on comparison contrast enhanced CT. No focal liver mass. Common bile duct: Not visualized. (Normal is 6mm or less. If there has been cholecystectomy, normal is 10mm or less.) Pancreas: Not visualized. Other: Right kidney non-hydronephrotic. Right kidney measures 12.9 cm in length. Procedure Note Montez Pacheco MD - 03/01/2020 US RIGHT UPPER QUADRANT, 03/01/2020 12:12 AM CLINICAL HISTORY: -ABDOMINAL PAIN. COMPARISON: CT abdomen and pelvis with IV contrast performed earlier [place] PROCEDURE COMMENTS: Ultrasound examination of the right upper quadrantperformed by the technologist. Sent to PACS along with tech notes for radiologistreview. FINDINGS: Overall examination is degraded by suboptimal acoustic windows relatedto patient body habitus. Gallbladder: There is redemonstration of multiple gallstones. There isabnormal gallbladder wall thickening with gallbladder wall measuring up to 5 mmin thickness. Trace pericholecystic fluid. Smith's sign: Negative sonographic Smith's sign was reported by the medical laboratory technologist; however, this is unreliable as the patient iscurrently receiving pain medication. Liver: Diffusely increased liver echogenicity is compatible with diffusehepatic steatosis and corresponds to findings on comparison contrast enhanced CT.No focal liver mass. Common bile duct: Not visualized. (Normal is 6mm or less. If there hasbeen cholecystectomy, normal is 10mm or less.) Pancreas: Not visualized. Other: Right kidney non-hydronephrotic. Right kidney measures 12.9 cmin length. IMPRESSION: 1. Examination is degraded by suboptimal acoustic windows related topatient body habitus. 2. Cholelithiasis, gallbladder wall thickening, and trace pericholecysticfluid. These findings remain suspicious for acute calculus cholecystitis.Sonographic Smith sign is reported as negative; however, this is unreliable as thepatient is reportedly receiving pain medication. 3. Common duct is not seen. 4. Diffuse hepatic steatosis. - - us Dania Pretty MD IMG US ORDERABLES Final Res ult * T3 FREE (02/29/2020 7:54 PM EDT) T3 Free 2.17 2.00 - 4.40 pg/mL 03/01/2020 9:08 PM EDT [facility] Blood VENOUS BLOOD / Unknown Venipuncture / Unknown 02/29/2020 7:54 PM EDT 02/29/2020 8:00 PM EDT Narrative [facility] - 03/01/2020 9:08 PM EDT Ingestion of dariel doses of biotin (>5 mg/day) taken within 8 hours of drawing blood sample can interfere with this immunoassay test. Susi Jackson MD CHEMISTRY ORDERABLES Final R esult [facility] [address] [place] [address] , [address] [place] [id number] * ELECTROPHYSIOLOGY STUDY WITH TYPICAL ATRIAL FLUTTER ABLATION (12/24/2019 4:49 PM EDT) Narrative [facility] - 12/25/2019 5:50 PM EDT Successful radiofrequency ablation of typical atrial flutter Reprogramming of pacemaker before and after the ablation procedure to restore pacing parameters. No malfunction identified. Intervals 1 Intervals 2 Intervals 3 Intervals were collected post ablation. Sinus rhythm was observed. P-dur interval: 110 ms. OK interval: 181 ms QRS duration: 131 ms QT interval: 436 ms AH interval: 161 ms HV interval: 54 msAVNERP : 600 / 340 AV Wenckebach: 420 ms. Hanane Davis APRN ELECTROPHYSIOLOGY ORDERABLES F inal Result Performing Organization Address [facility] Co de Phone Number [facility] * INTRAOP AIRWAY PLACEMENT (12/24/2019 4:03 PM EDT) Narrative [facility] - 12/24/2019 4:03 PM EDT Yanelis Hickey, CELL PREPARER 12/24/2019 4:16 PM Intraop Airway Placement: Date/Time: 12/24/2019 3:52 PM Airway type: Nasal cannula salter Richard Schwartz MD [place] ANESTHESIA Edited R esult - Final Performing Organization Address [facility] Co de Phone Number [facility] [address] [place] [address] * EP LAB RECORDINGS (12/24/2019 3:35 PM EDT) 12/24/2019 3:35 PM EDT Hanane Davis APRN CARDIAC CATH ORDERABLES Edited Result - Final Performing Organization Address [facility] Phone Number [facility] [address] [place] [address] * (ABNORMAL) MICROALBUMIN/CREATININE RATIO URINE (12/23/2019 9:31 AM EDT) Only the most recent of2 resultswithin the time period is included. Urine Albumin 184.1 mg/L 12/23/2019 10:27 AM EDT [facility] Urine Creatinine 163.2 mg/dL 12/23/2019 10:27 AM EDT [facility] Ur Albumin/Creat Ratio 113(H) 0 - 30 mg/g 12/23/2019 10:27 AM EDT [facility] Urine STRUCTURE OF URINARY TRACT PROPER / Unknown 12/23/2019 9:31 AM EDT 12/23/2019 9:41 AM EDT Roby Lora MD URINE ORDERABLES Final Result [facility] [address] [place] [address] , [place] [address] * (ABNORMAL) URINE CULTURE (NO STAIN) (12/21/2019 5:29 PM EDT) Culture Positive Growth(A) 12/23/2019 8:08 AM EDT [facility] Culture >[id number] CFU/mL Escherichia coli SUSCEPTIBI LITY RESULT 12/23/2019 8:08 AM EDT [facility] Urine URINARY BLADDER STRUCTURE / Unknown 12/21/2019 5:29 PM EDT 12/21/2019 5:33 PM EDT Narrative Organism Antibiotic Method Susceptibility Escherichia coli Ampicillin SUSCEPTIBILITY RESULT >=32 ug/mL: Resistant Escherichia coli Ampicillin/Sulbactam SUSCEPTIBILITY R ESULT >=32 ug/mL: Resistant Escherichia coli Cefazolin SUSCEPTIBILITY RESULT <=4 ug/mL: Susceptible Escherichia coli Cefepime SUSCEPTIBILITY RESULT Escherichia coli Cefoxitin SUSCEPTIBILITY RESULT <=4 ug/mL: Susceptible Escherichia coli Ceftazidime SUSCEPTIBILITY RESULT Escherichia coli Ceftriaxone SUSCEPTIBILITY RESULT Escherichia coli Ciprofloxacin SUSCEPTIBILITY RESULT <=0.25 ug/mL: Susceptible Escherichia coli ESBL SUSCEPTIBILITY RESULT Escherichia coli Ertapenem SUSCEPTIBILITY RESULT <=0.5 ug/mL: Susceptible Escherichia coli Gentamicin SUSCEPTIBILITY RESULT <=1 ug/mL: Susceptible Escherichia coli Imipenem SUSCEPTIBILITY RESULT <=0.25 ug/mL: Susceptible Escherichia coli Levofloxacin SUSCEPTIBILITY RESULT <=0.12 ug/mL: Susceptible Escherichia coli Nitrofurantoin SUSCEPTIBILITY RESULT <=16 ug/mL: Susceptible Escherichia coli Piperacillin/Tazobactam SUSCEPTIBILIT Y RESULT <=4 ug/mL: Susceptible Escherichia coli Tobramycin SUSCEPTIBILITY RESULT <=1 ug/mL: Susceptible Escherichia coli Trimethoprim/Sulfame tho xazole SUSCEPTIBILITY RESULT >=320 ug/mL: Resistant us iNlsa Yun MD MICROBIOLOGY - G ENERAL ORDERABLES Final Result [facility] [address] [place] [address] , [place] [address] * INTRAOP AIRWAY PLACEMENT (04/20/2019 11:35 AM EDT) Narrative [facility] - 04/20/2019 11:35 AM EDT Padmini Alegre CRNA 04/20/2019 11:35 AM Intraop Airway Placement: Airway type: Nasal cannula salter us Delilah Nam MD [place] ANESTHESIA Final Result [facility] [address] [place] [address] * CALCULI (STONE) ANALYSIS - REF LAB (11/25/2018 1:30 PM EDT) Calculi Comp See Note 11/27/2018 10:51 AM EDT [employer] Comment: Calculi composed primarily of: 10% calcium oxalate dihydrate, and 90% uric acid. INTERPRETIVE INFORMATION: Calculi (Stone) analysis Calculi are the products of physiological processes that yield crystalline compounds in a matrix of biological compounds and blood. Matrix components are not reported. The clinically significant crystalline components identified in calculi specimens are reported. Gross description may not be consistent with composition determined by FTIR analysis. Performed by [facility], [address] [place] [address] [email or web address], Vinnie Weinberg MD, Lab. Director Calculi Mass 80 mg 11/27/2018 10:51 AM EDT [employer] Calculi Number 1 11/27/2018 10:51 AM EDT [employer] Calculi Size 5 to 9 mm 11/27/2018 10:51 AM EDT [employer] Calculi Desc See Note 11/27/2018 10:51 AM EDT [employer] Comment: Specimen consists of a single, medium, orange, spherical calculus. Calculus URINARY BLADDER STRUCTURE / Unknown 11/25/2018 1:30 PM EDT 11/25/2018 3:59 PM EDT Comment:Routine us Domo Penny MD MICROBIOLOGY - GENERAL OR DERABLES Final Result Performing Organization Address City/[facility]/ZIP Co de Phone Number [facility] [address] [place] [address] * INTRAOP AIRWAY PLACEMENT (11/25/2018 1:15 PM EDT) Narrative [facility] - 11/25/2018 1:15 PM EDT Juancarlos Martino [place] 11/25/2018 1:16 PM Intraop Airway Placement: Date/Time: 11/25/2018 1:03 PM Induction type: IV Mask size: Standard adult Pre-Oxygenation: BMI guided pre-O2 and Ramping Mask ventilation: Not attempted Technique: Video laryngoscope Laryngoscope blade: Cullen Blade size: 3 Grade view: I Airway type: ETT- cuffed Topical Anesthetic/Lubricant: None Intubation assist devices: Stylet 14fr Airway location: Oral Device size: 7.5mm Secured at: 25 cm Secured by: Commercial tube cintron Measured from: Lips Placement verified: End tidal CO2, Symmetric chest wall motion and Auscultation Condition: Atraumatic and Unchanged Insertion attempts: 1 Title: RNSA Procedure Note Juancarlos Martino - 11/25/2018 1:15 PM EDT Intraop Airway Placement: Date/Time: 11/25/2018 1:03 PM Induction type: IV Mask size: Standard adult Pre-Oxygenation: BMI guided pre-O2 and Ramping Mask ventilation: Not attempted Technique: Video laryngoscope Laryngoscope blade: Cullen Blade size: 3 Grade view: I Airway type: ETT- cuffed Topical Anesthetic/Lubricant: None Intubation assist devices: Stylet 14fr Airway location: Oral Device size: 7.5mm Secured at: 25 cm Secured by: Commercial tube cintron Measured from: Lips Placement verified: End tidal CO2, Symmetric chest wall motion andAuscultation Condition: Atraumatic and Unchanged Insertion attempts: 1 Title: RNSA us Vish Isbell MD [place] ANESTHESIA Final Result [facility] [address] [place] [id number] * POCT EKG (09/08/2018 1:28 PM EDT) Only the most recent of3 resultswithin the time period is included. 09/08/2018 1:28 PM EDT Impressions SEP OFFICE - 09/08/2018 1:28 PM EDT NSR, no dynamic ST changes. Raoul Quinonez MD POINT OF CARE CARDIOLOGY Final R esult SEP OFFICE * SCANNED RADIOLOGY REPORT (09/02/2018 7:37 AM EST) Anatomical Region Laterality Modality Other 09/02/2018 7:37 AM EST Unknown Unknown [facility] [place] DIAGNOSTIC IMAGING ORDERABLE S Final Result * [facility] LOWER EXTREMITY ARTERIAL PHYSIOLOGICAL (04/04/2018 2:13 PM EDT) Anatomical Region Laterality Modality Vascular, Leg Vascular Imaging 04/04/2018 1:33 PM EDT Impressions 04/04/2018 5:34 PM EDT CONCLUSIONS Normal hemodynamics of both lower extremities at rest. PVR's and Doppler waveforms are within normal limits bilaterally. No evidence of arterial insufficiency in the bilateral lower extremities, CHESTER's are within normal limits. Digital pressures are above the healing index, bilaterally. Narrative Procedure Note Hood Velasquez Jr., MD - 04/04/2018 IMPRESSION CONCLUSIONS Normal hemodynamics of both lower extremities at rest. PVR's and Dopplerwaveforms are within normal limits bilaterally. No evidence of arterial insufficiency in the bilateral lowerextremities, CHESTER's are within normal limits. Digital pressures are above the healing index, bilaterally. Result [facility] Demetrius Perez MD [facility] [place] VASCULAR ORDERABLES Fi nal Result * [facility] VENOUS REFLUX COMPLETE (04/04/2018 1:53 PM EDT) Anatomical Region Laterality Modality Vascular, Leg Vascular Imaging 04/04/2018 12:5 1 PM EDT Impressions 04/04/2018 5:35 PM EDT Conclusions No evidence of deep vein thrombosis identified in the bilateral lower extremities. No evidence of superficial vein thrombosis identified in the bilateral lower extremities. No evidence of venous reflux identified in the bilateral lower extremities. Narrative Procedure Note Hood Velasquez Jr., MD - 04/04/2018 IMPRESSION Conclusions No evidence of deep vein thrombosis identified in the bilateral lowerextremities. No evidence of superficial vein thrombosis identified in the bilaterallower extremities. No evidence of venous reflux identified in the bilateral lowerextremities. Demetrius Perez MD IMG VASCULAR ORDERABLES Fi nal Result * TROPONIN-T (11/10/2017 12:45 AM EDT) Only the most recent of7 resultswithin the time period is included. Troponin-T <0.01 <0.01 ng/mL 11/10/2017 1:08 AM EDT [facility] Blood VENOUS BLOOD / Unknown Venipuncture / Unknown 11/10/2017 12:45 AM EDT 11/10/2017 12:49 AM EDT Narrative [facility] - 11/10/2017 1:08 AM EDT Ingestion of dariel doses of biotin (>5 mg/day) taken within 8 hours of drawing blood sample can interfere with this immunoassay test. Ashley Robb APRN CHEMISTRY ORDERABLES Final R esult [facility] [address] [place] [address] * PATHOLOGY TISSUE REPORT (11/19/2016 2:23 PM EDT) Only the most recent of3 resultswithin the time period is included. Surgical Pathology Report PATIENT NAME:GILBERTO CARDOSO Surgical Pathology Report Accession Number Collected Date/Time Received Date/Time [id number] 11/19/16 14:23 EDT 11/19/16 16:17 EDT Diagnosis Descending colon polyp, biopsy: - Hyperplastic polyp. Phyllis Weber (Electronically signed by) Verified: 11/20/2016 [facility] Laboratory Clinical Information Carcinoma, renal cell, unspecified laterality [C64.9]. Personal history of colonic polyps [Z86.010]. Cecal AVMs, hemorrhoids, polyps, fair prep. Routine Gross Description Received in formalin labeled with the patients name and designated descending colon polyp biopsy are 4 portions of srivastava soft tissue 0.2 to 0.4 cm in greatest dimension. Entirely submitted in one cassette./CDM DRB/NIYA Microscopic Description Microscopic examination is performed and the findings corroborate the diagnosis. [facility] 11/19/2016 2:23 PM EDT Talib Martínez MD PATHOLOGY ORDERABLES Final Result Performing Organization Address [facility] Phone Number [facility] [address] [place] [address] * GMED COLONOSCOPY (11/19/2016 2:15 PM EDT) 11/19/2016 2:15 PM EDT Impressions [facility] - 11/19/2016 2:48 PM EDT Polyps (3 mm to 5 mm) in the sigmoid colon. (Biopsy). Moderate diverticulosis of the the left side of the colon. AVM (Thermal Therapy). Grade 2 internal hemorrhoids. Plan: 1) follow up with biopsies, if no results in 4 weeks, please call office , 2) recall colon in 1 yr, 3) high fiber diet, 4) ok to resume anticoagulation as per cardiology with close monitoring of hgb. This section is an excerpt of the full report. Talib Martínez MD GI PROCEDURE ORDERABLES Fin al Result Performing Organization Address [facility] Phone Number [facility] [address] [place] [address] * DIFFERENTIAL (11/15/2016 11:18 AM EDT) Only the most recent of14 resultswithin the time period is included. Neut Percent 75.8 % [facility] Lymph Percent 12.8 % [facility] [place] Percent 5.9 % [facility] Eos Percent 4.7 % [facility] Baso Percent 0.8 % [facility] Neut# 6.2 1.8 - 7.7 x10(3)/mcL [facility] Lymph# 1.0 0.6 - 4.8 x10(3)/mcL [facility] [place]# 0.5 0.0 - 1.3 x10(3)/mcL [facility] Eos# 0.4 0.0 - 0.5 x10(3)/mcL [facility] Baso# 0.1 0.0 - 0.2 x10(3)/[facility] Blood specimen (specimen) 11/15/2016 11:18 AM EDT 11/15/2016 12:23 PM EDT Talib Martínez MD HEMATOLOGY ORDERABLES Final Result Performing Organization Address [facility] Co de Phone Number [facility] [address] [place] [address] * SCANNED LABS (10/05/2016 2:53 PM EDT) Only the most recent of2 resultswithin the time period is included. 10/05/2016 2:53 PM EDT Unknown Unknown HEMATOLOGY ORDERABLES Final Resu lt * (ABNORMAL) HEMOGLOBIN AND HEMATOCRIT (09/29/2016 7:15 PM EDT) Only the most recent of8 resultswithin the time period is included. Hgb 7.9(L) 13.5 - 17.1 gm/dL [facility] Hct 24.5(L) 38.9 - 51.6 % [facility] Blood specimen (specimen) UPPER LIMB STRUCTURE / Unknown 09/29/2016 7:15 PM EDT 09/29/2016 7:44 PM EDT us Valentin Hurtado MD HEMATOLOGY ORDERABLES Final R esult Performing Organization Address City/[facility] Co de Phone Number [facility] [address] [place] [address] * (ABNORMAL) CREATININE CLEARANCE (09/29/2016 1:00 PM EDT) Urine Vol Crea 3,400 mL [facility] Cr Clearance 37.2(L) 66.0 - 143.0 mL/min [facility] Comment:Adjusted for body christensen rface area. Urine specimen (specimen) 09/29/2016 1:00 PM EDT 09/29/2016 1:24 PM EDT Narrative [facility] - 09/30/2016 7:53 AM EDT 24 hour urine Greg Leblanc MD URINE ORDERABLES Edited Result - Final Performing Organization Address [facility] de Phone Number [facility] [address] [place] [address] * FL RETROGRADE PYELOGRAM W WO KUB (09/27/2016 1:54 PM EDT) Anatomical Region Laterality Modality Radio Fluoroscop y 09/27/2016 1:54 PM EDT Impressions 09/27/2016 4:10 PM EDT Single intraoperative view shows a catheter in the RIGHT ureter. Films used for intraoperative documentation purposes only Narrative 09/27/2016 4:10 PM EDT FL RETROGRADE PYELOGRAM W WO KUB 09/27/2016 1:54 PM HISTORY: -Right stent. Procedure Note Hood Moreno MD - 09/27/2016 FL RETROGRADE PYELOGRAM W WO KUB 09/27/2016 1:54 PM HISTORY: -Right stent. IMPRESSION: Single intraoperative view shows a catheter in the RIGHT ureter. Films used for intraoperative documentation purposes only Georgi Myrick MD IMG FLUOROSCOPY ORDERABLES F inal Result * SMEAR REVIEW (09/27/2016 5:00 AM EDT) Only the most recent of2 resultswithin the time period is included. [place] [facility] Polych[facility] Blood specimen (specimen) 09/27/2016 5:00 AM EDT 09/27/2016 5:09 AM EDT us Hood Solano DO HEMATOLOGY ORDERABLES Fi nal Result Performing Organization Address [facility] Co de Phone Number [facility] [address] [place] [address] * (ABNORMAL) VITAMIN D, 1,25-DIHYDROXY -REF LAB (09/25/2016 7:13 PM EDT) Vit D 1,25 <5.0(L) 19.9 - 79.3 pg/mL [facility] Comment: INTERPRETIVE INFORMATION: Vitamin D, 1,25-Dihydroxy This test is primarily indicated during patient evaluation for hypercalcemia and renal failure. A normal result does not rule out Vitamin D deficiency. The recommended test for diagnosing Vitamin D deficiency is Vitamin D 25-hydroxy. Performed by [facility], [address] [place] [address] [email or web address], Vinnie Weinberg MD - Lab. Director Blood specimen (specimen) VENOUS STRUCTURE / Unknown 09/25/2016 7:13 PM EDT 09/25/2016 11:23 PM EDT Hood Solano DO CHEMISTRY ORDERABLES Fin al Result Performing Organization Address City/[facility]/ZIP Co de Phone Number [facility] [address] [place] [address] * (ABNORMAL) IRON/UIBC (09/25/2016 5:44 PM EDT) Pathologist [facility] Iron 56 50 - 170 mcg/dL [facility] UIBC 279 112 - 347 mcg/dL [facility] Transferrin Saturation 17(L) 20 - 50 % [facility] Blood specimen (specimen) 09/25/2016 5:44 PM EDT 09/25/2016 5:44 PM EDT Greg Leblanc MD CHEMISTRY ORDERABLES Final Resu lt [facility] [address] [place] [address] * (ABNORMAL) FERRITIN (09/25/2016 5:44 PM EDT) Ferritin 736(H) 30 - 400 ng/mL [facility] Blood specimen (specimen) 09/25/2016 5:44 PM EDT 09/25/2016 5:44 PM EDT Greg Leblanc MD CHEMISTRY ORDERABLES Final Resu lt Performing Organization Address [facility] Co de Phone Number [facility] [address] [place] [address] * GMED EGD (09/25/2016 11:30 AM EDT) 09/25/2016 11:3 0 AM EDT Impressions [facility] - 09/25/2016 9:52 AM EDT Chronic esophagitis. (Biopsy). Normal stomach. (Biopsy). Duodenal polyps. (Polypectomy). Duodenal nodularity. (Biopsy). Plan: Await pathology results Continue current medication for acid suppression 30 minutes before a meal. Continue current GI medications Resume all usual medications This section is an excerpt of the full report. us Rikki Mcmanus MD GI PROCEDURE ORDERABLES Final Result Performing Organization Address [facility] [place] [address] * TRANSFUSE RED BLOOD CELLS (09/23/2016 4:54 PM EDT) Only the most recent of4 resultswithin the time period is included. Moo Andino MD NURSING TREATMENT ORDERABLES - B LOOD ADMIN Final Result * RED BLOOD CELLS REQUEST (09/23/2016 6:43 AM EDT) Only the most recent of3 resultswithin the time period is included. Red Blood Cells Status Ready [facility] Blood specimen (specimen) 09/23/2016 6:43 AM EDT 09/23/2016 6:43 AM EDT Moo Andino MD BLOOD PRODUCT ORDERS Final Resul t Performing Organization Address [facility] Co de Phone Number [facility] [address] [place] [address] * IONIZED CALCIUM - INPATIENT (09/22/2016 7:56 PM EDT) Only the most recent of2 resultswithin the time period is included. Calcium Ionized 1.14 1.12 - 1.32 mmol/L [facility] Blood specimen (specimen) 09/22/2016 7:56 PM EDT 09/22/2016 7:56 PM EDT us Greg Leblanc MD CHEMISTRY ORDERABLES Final Resu lt [address] [address] * IR ULTRASOUND GUIDED VASCULAR ACCESS (09/22/2016 12:01 PM EDT) Anatomical Region Laterality Modality Interventional R adiology 09/22/2016 12:0 1 PM EDT Impressions 09/24/2016 7:42 AM EDT 1. Successful and uncomplicated placement of an acute hemodialysis catheter with ultrasound and fluoroscopic guidance. Catheter was placed utilized in all elements of maximal sterile barrier technique. Hope Lemos PA-C/ Candido Pandya MD Narrative 09/24/2016 7:42 AM EDT Examination: Acute Hemodialysis catheter placement DATE: 09/22/2016 CLINICAL INDICATIONS: Renal failure TECHNICAL FACTORS AND FINDINGS: 1. The procedure was performed by Hope Lemos PA-C with Dr. Candido Pandya supervising. 2. Informed written consent was obtained. 3. The right neck was prepped and draped in usual sterile fashion. The internal jugular was identified by ultrasound interrogation and was found to be widely patent and compressible. The internal jugular vein was accessed under direct ultrasound guidance. This was documented with a permanent image. An acute dialysis catheter was placed over an access wire with the catheter tip positioned at the cavoatrial junction. This was performed with fluoroscopic guidance. A permanent fluoroscopic digital image was obtained. All ports of the catheter were aspirated, flushed and capped appropriately. The catheter was secured to the skin with 2-0 proline and a sterile dressing applied. 4. The patient tolerated the procedure well. No immediate complications. Total Fluoroscopic Time: 0.1 minutes, one spot film Procedure Note Candido Pandya MD - 09/24/2016 Examination: Acute Hemodialysis catheter placement DATE: 09/22/2016 CLINICAL INDICATIONS: Renal failure TECHNICAL FACTORS AND FINDINGS: 1. The procedure was performed by Hope Lemos PA-C with Dr. Ni supervising. 2. Informed written consent was obtained. 3. The right neck was prepped and draped in usual sterile fashion. The internal jugular was identified by ultrasound interrogation and was foundto be widely patent and compressible. The internal jugular vein was accessedunder direct ultrasound guidance. This was documented with a permanent image.An acute dialysis catheter was placed over an access wire with the cathetertip positioned at the cavoatrial junction. This was performed withfluoroscopic guidance. A permanent fluoroscopic digital image was obtained. All portsof the catheter were aspirated, flushed and capped appropriately. The catheterwas secured to the skin with 2-0 proline and a sterile dressing applied. 4. The patient tolerated the procedure well. No immediate complications. Total Fluoroscopic Time: 0.1 minutes, one spot film IMPRESSION: 1. Successful and uncomplicated placement of an acute hemodialysiscatheter with ultrasound and fluoroscopic guidance. Catheter was placed utilized in all elements of maximal sterile barrier technique. Hope Lemos PA-C/ Candido Pandya MD us Nilsa Petersen APRN IMG IR ORDERABLES Final R esult * IR FLUOROSCOPY GUIDED CENTRAL VENOUS ACCESS DEVICE PLACEMENT (09/22/2016 12:01 PM EDT) Anatomical Region Laterality Modality Interventional R adiology 09/22/2016 12:0 1 PM EDT Impressions 09/24/2016 7:42 AM EDT 1. Successful and uncomplicated placement of an acute hemodialysis catheter with ultrasound and fluoroscopic guidance. Catheter was placed utilized in all elements of maximal sterile barrier technique. Hope Lemos PA-C/ Candido Pandya MD Narrative 09/24/2016 7:42 AM EDT Examination: Acute Hemodialysis catheter placement DATE: 09/22/2016 CLINICAL INDICATIONS: Renal failure TECHNICAL FACTORS AND FINDINGS: 1. The procedure was performed by Hope Lemos PA-C with Dr. Candido Pandya supervising. 2. Informed written consent was obtained. 3. The right neck was prepped and draped in usual sterile fashion. The internal jugular was identified by ultrasound interrogation and was found to be widely patent and compressible. The internal jugular vein was accessed under direct ultrasound guidance. This was documented with a permanent image. An acute dialysis catheter was placed over an access wire with the catheter tip positioned at the cavoatrial junction. This was performed with fluoroscopic guidance. A permanent fluoroscopic digital image was obtained. All ports of the catheter were aspirated, flushed and capped appropriately. The catheter was secured to the skin with 2-0 proline and a sterile dressing applied. 4. The patient tolerated the procedure well. No immediate complications. Total Fluoroscopic Time: 0.1 minutes, one spot film Procedure Note Candido Pandya MD - 09/24/2016 Examination: Acute Hemodialysis catheter placement DATE: 09/22/2016 CLINICAL INDICATIONS: Renal failure TECHNICAL FACTORS AND FINDINGS: 1. The procedure was performed by Hope Lemos PA-C with Dr. Ni supervising. 2. Informed written consent was obtained. 3. The right neck was prepped and draped in usual sterile fashion. The internal jugular was identified by ultrasound interrogation and was foundto be widely patent and compressible. The internal jugular vein was accessedunder direct ultrasound guidance. This was documented with a permanent image.An acute dialysis catheter was placed over an access wire with the cathetertip positioned at the cavoatrial junction. This was performed withfluoroscopic guidance. A permanent fluoroscopic digital image was obtained. All portsof the catheter were aspirated, flushed and capped appropriately. The catheterwas secured to the skin with 2-0 proline and a sterile dressing applied. 4. The patient tolerated the procedure well. No immediate complications. Total Fluoroscopic Time: 0.1 minutes, one spot film IMPRESSION: 1. Successful and uncomplicated placement of an acute hemodialysiscatheter with ultrasound and fluoroscopic guidance. Catheter was placed utilized in all elements of maximal sterile barrier technique. Hope Lemos PA-C/ Candido Pandya MD us Nilsa Petersen EVENT SPECIALIST PRODUCT DEMONSTRATOR IMG IR ORDERABLES Final R esult * XR CHEST PA AND LATERAL (09/21/2016 9:14 PM EDT) Only the most recent of2 resultswithin the time period is included. Anatomical Region Laterality Modality Chest Radiographic Franchesca ging 09/21/2016 9:14 PM EDT Impressions 09/21/2016 9:27 PM EDT No active disease Narrative 09/21/2016 9:27 PM EDT XR CHEST PA AND LATERAL 09/21/2016 9:27 PM History: -ABNORMAL LAB -FLANK PAIN Comparison: 09/05/16 Pacer wires, stable. Lungs are clear. No focal infiltrates. Procedure Note Roger Rowe MD - 09/21/2016 XR CHEST PA AND LATERAL 09/21/2016 9:27 PM History: -ABNORMAL LAB -FLANK PAIN Comparison: 09/05/16 Pacer wires, stable. Lungs are clear. No focal infiltrates. IMPRESSION: No active disease Jessie Reyes EVENT SPECIALIST PRODUCT DEMONSTRATOR IMG DIAGNOSTIC IMAGING OR DERABLES Final Result * CROSSMATCH SUMMARY (09/21/2016 7:41 PM EDT) Product Code [id number] [facility] Unit Number [id number] [facility] BA CODING SYSTEM [id number] [facility] ISBT 128 Type 5100 [facility] Blood Type (Unit) O POS [facility] Dispense Status CROSSMATCHED [facility] Crossmatch IS Compatible [facility] Product Code [id number] [facility] Unit Number [id number] [facility] BA CODING SYSTEM [id number] [facility] ISBT 128 Type 5100 [facility] Blood Type (Unit) O POS [facility] Dispense Status CROSSMATCHED [facility] Crossmatch IS Compatible [facility] Product Code [id number] [facility] Unit Number [id number] [facility] BA CODING SYSTEM [id number] [facility] ISBT 128 Type 5100 [facility] Blood Type (Unit) O POS [facility] Dispense Status CROSSMATCHED [facility] Crossmatch IS Compatible [facility] Product Code [id number] [facility] Unit Number [id number] [facility] BA CODING SYSTEM [id number] [facility] ISBT 128 Type 5100 [facility] Blood Type (Unit) O POS [facility] Dispense Status CROSSMATCHED [facility] Crossmatch IS Compatible [facility] Blood specimen (specimen) 09/21/2016 7:41 PM EDT 09/21/2016 9:17 PM EDT Jessie Reyes APRN BLOOD BANK ORDERABLES Benedicto delicia Result - Final Performing Organization Address [facility] de Phone Number [facility] [address] [place] [address] * ABORH (09/21/2016 7:41 PM EDT) ABORh Int O POS [facility] Blood specimen (specimen) 09/21/2016 7:41 PM EDT 09/21/2016 9:17 PM EDT Jessie Reyes APRN BLOOD BANK ORDERABLES Fin al Result Performing Organization Address [facility] Co de Phone Number [facility] [address] [place] [address] * ANTIBODY SCREEN IGG (09/21/2016 7:41 PM EDT) ABSC IgG Int Negative [facility] Blood specimen (specimen) 09/21/2016 7:41 PM EDT 09/21/2016 9:17 PM EDT Jessie Reyes APRN BLOOD BANK ORDERABLES Fin al Result Performing Organization Address [facility] Co de Phone Number [facility] [address] [place] [address] * ABORT EP CASE (09/05/2016 9:50 AM EST) Narrative [facility] - 09/05/2016 9:51 AM EST Aborted invasive cardiology procedure- see Procedure log for details. Padmini Evangelista MD CARDIAC CATH ORDERABLES Final Result Performing Organization Address City/[facility] Co de Phone Number [facility] * PACEMAKER IMPLANT (04/10/2016 11:54 AM EDT) Narrative [facility] - 04/10/2016 11:54 AM EDT Dual Chamber Pacemaker Sinus Node Dysfunction Post conversion pauses > 5 seconds Tachy-Freddie syndrome Atrial Fibrillation Atrial Flutter us Reina Millykarina Holden APRN ELECTROPHYSIOLOGY ORDER FABY Final Result Performing Organization Address [facility] Co de Phone Number [facility] * GMED COLONOSCOPY (04/10/2016 11:00 AM EDT) 04/10/2016 11:0 0 AM EDT Impressions [facility] - 04/10/2016 2:38 PM EDT Mild diverticulosis of the sigmoid colon. Polyp (4 cm) in the descending colon (at 35cm from anal verge). (Polypectomy, Endoclip, Injection). Plan: 1) Follow up with pathology, if no results in 3-4 weeks, please call office , 2) Repeat colonoscopy in 3 months to ensure complete resection, 3) No anticoagulation for 7-10 days, 4) Ok to start full liquid diet. This section is an excerpt of the full report. us Talib Martínez MD GI PROCEDURE ORDERABLES Fin al Result Performing Organization Address [facility] Co de Phone Number [facility] [address] [place] [address] * IP CONSULT TO GI (04/09/2016 6:08 PM EDT) Narrative PROFESSIONAL ORDERS - 04/09/2016 6:08 PM EDT Talib Martínez MD 04/09/2016 6:16 PM [facility] Consult Note Name: Gilberto Cardoso ADDRESS: [address] [place], [place] [id number] : 1960 AGE: 55 y.o. Primary Care Physician: Geovani Wright MD Date of Admission: 04/09/2016 Date of Consultation: 04/09/2016 Level of Continuing Involvement: Gastroenterology Consultation Admitting Diagnosis: Atrial fibrillation with RVR (HCC) Chief Complaint / Reason for Consult: Colon mass History of Presenting Illness Gilberto Cardoso is a(n) 55 y.o. male Who was at our office today for a repeat colonoscopy to assess a colon mass dx. Prior to his procedure he was noted to be in afib with a rapid rate. He was sent to Er for evaluation. He is pt followed by Dr. 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 He does follow with oncology with a previous PET scan about 6-8 months ago. He recently had had rectal bleeding and a 30 pounds weight loss on February 28, 2016. Two weeks prior he had had a colonoscopy that revealed a 4 cm colon polyps at 20 cms from the anal verges. 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 He also had ten other polyps which were mixtures of tubular adenomas, sessile serrated adenomas and hyperplastic polyps. Dr. Martínez did discuss his case with colorectal surgery with recommendations to try and resect his polyp with a colonoscopy, thus leading to his attempted procedure today. Stopped to see pt but away getting ECHO for cardiac eval. He has a PMH notable a flutter, T2DM insulin dependent, HTN, HLD. Medications (Not in a hospital admission) Current Facility-Administered Medications Medication Dose Route Frequency Provider Last Rate Last Dose digoxin (LANOXIN) injection 500 mcg 500 mcg Intravenous Once Padmini Evangelista MD digoxin (LANOXIN) injection 500 mcg 500 mcg Intravenous Once Padmini Evangelista MD diltiazem (CARDIZEM) 1 mg/mL in dextrose 5% 125 mL infusion 10 mg/hr Intravenous Continuous Ayush Samaniego MD 10 mL/hr at 04/09/16 1030 10 mg/hr at 04/09/16 1030 heparin 25,000 units in 250 mL 0.45% NaCl 1,000 Units/hr Intravenous Continuous Ayush Samaniego MD 10 mL/hr at 04/09/16 1130 1,000 Units/hr at 04/09/16 1130 Current Outpatient Prescriptions Medication Sig Dispense Refill Aspirin 81 mg Take 81 mg by mouth daily. diltiazem 180 mg Oral Capsule, Sust. Release 24 hr Take 180 mg by mouth 2 times daily. DULoxetine (CYMBALTA) 60 mg capsule Take 60 mg by mouth daily. empagliflozin 25 mg Oral Tablet Take 25 mg by mouth daily. insulin aspart (NOVOLOG) 100 unit/mL injection Subcutaneous (Inject under the skin) 90 Units 3 times daily (before meals). losartan (COZAAR) 100 mg tablet Take 100 mg by mouth daily. metoprolol succinate ER (TOPROL-XL) 100 mg Oral Tablet Sustained Release 24 hr Take 100 mg by mouth daily. potassium chloride (MICRO-K) 10 mEq CR capsule Take 10 mEq by mouth daily. pravastatin (PRAVACHOL) 20 mg Oral Tablet Take 20 mg by mouth nightly. ranitidine (ZANTAC) 150 mg tablet Take 150 mg by mouth 2 times daily. edoxaban (SAVAYSA) 60 mg Oral Tablet Take 60 mg by mouth daily. Fenofibric Acid 135 mg CpDR Take 135 mg by mouth daily. fUROsemide (LASIX) 40 mg Oral Tablet Take 40 mg by mouth daily as needed. Insulin Glargine (LANTUS) 100 unit/mL (3 mL) InPn Subcutaneous (Inject under the skin) 85 Units 2 times daily. Allergies Allergen Reactions Ciprocinonide Other (See Comments) developed pancreatitis Ciprofloxacin developed pancreatitis Past Medical History Diagnosis Date Anesthesia couldn't breathe after surgery Arthritis Atrial fibrillation (HCC) Atrial flutter (HCC) Cancer (HCC) kidney CHF (congestive heart failure) (HCC) Chronic kidney disease kidney cancer Diabetes mellitus (HCC) IDDM Diabetic neuropathy (HCC) Hyperlipidemia Hypertension KIA (obstructive sleep apnea) RBBB Sinus bradycardia Past Surgical History Procedure Laterality Date Kidney surgery left nephrectomy Appendectomy Tympanostomy tube placement Family History Problem Relation Age of Onset Coronary Art Dis Mother age: 63 Diabetes Mother COPD Mother Cancer Mother lung Coronary Art Dis Maternal Grandfather Heart Attack Maternal Grandfather Social History: Gilberto's social history reviewed: Former smoker, no etoh. Physical Examination-- additional per follow up Patient Vitals for the past 24 hrs: BP Temp Pulse Resp SpO2 Height Weight 04/09/16 1100 (!) 120/104 - 127 21 95 % - - 04/09/16 1049 - - 118 21 95 % - - 04/09/16 1000 (!) 117/100 - 166 22 95 % - - 04/09/16 0948 107/43 - 149 23 96 % - - 04/09/16 0924 - - 155 22 94 % - - 04/09/16 0858 (!) 122/92 97.5 F (36.4 C) 146 21 96 % 5' 8 (1.727 m) (!) 328 lb (148.8 kg) Laboratory: CBC: Lab Results Component Value Date WBC 11.8 (H) 04/09/2016 RBC 3.83 (L) 04/09/2016 HGB 11.1 (L) 04/09/2016 HCT 32.6 (L) 04/09/2016 MCV 85.2 04/09/2016 MCHC 34.1 04/09/2016 RDW 16.5 (H) 04/09/2016 PLT 354 04/09/2016 MPV 6.7 (L) 04/09/2016 BMP: Lab Results Component Value Date NA 134 (L) 04/09/2016 K 5.2 (H) 04/09/2016 CL 96 (L) 04/09/2016 CO2 22 04/09/2016 BUN 16 04/09/2016 CREATININE 1.18 04/09/2016 CALCIUM 9.0 04/09/2016 GFRAFRAM >60 04/09/2016 GFRNONAFRAM >60 04/09/2016 GLU 265 (H) 04/09/2016 Troponins negative x 2 Assessment/Plan 1. Tubulovillous adenoma - attempted colonoscopy today and found to have AF with RVR leading to admission - appreciate card/ Electrophy input. - eventually plan to do colonoscopy once rate better controlled. - spoke with nursing and per reports from Dr. Evangelista hopefully can do endoscopy tomorrow with better rate control before Electrophysiology addresses AF with ablation as he will need to be on anticoagulation following 2. AF with RVR - managed by Electrophysiology. - pending echo - has gotten Diltiazem gtt and Dig Dr. Martínez to see. Please call with any questions or concerns. Thank you. Jo Reed PA-C Addendum: spoke with Dr. Martínez about pt. Will plan for colonoscopy tomorrow. Will still need a prep and will give Moviprep. Mr. Cardoso is a pleasant 55 yo male who I sent over from endoscopy this am. He was scheduled to have a colonoscopy with removal of a large TVA, however upon evaluation his HR was in the 150s-160s, consistent with atrial fibrillation with RVR. His PMH, social, family, allergies, ros were all reviewed and confirmed as per Jo's note above. Physical exam: Vs as above Awake, alert, nad Eomi, no scleral icterus or injection Chest is clear, no w/c/r Rate is regular without murmurs/gallops Abdomen is obese, nt/nd, bs+ No c/c/e, skin is warm/dry Muscle tone is grossly normal Neuro is grossly normal without deficits Agree with proceeding with colonoscopy tomorrow on 04/10, however after the removal of the large polyp, would not safely be able to start anticoagulation for 5-7 days after removal, as he will be at highest risk for post polypectomy bleeding from days 3-5 from the time of removal. Talib Martínez MD Procedure Note Talib Martínez MD - 04/09/2016 1:20 PM EDT [facility] Consult Note Name: Gilberto aCrdoso ADDRESS: [address] [place], [place] [id number] : 1960 AGE: 55 y.o. Primary Care Physician: Geovani Wright MD Date of Admission: 04/09/2016 Date of Consultation: 04/09/2016 Level of Continuing Involvement: Gastroenterology Consultation Admitting Diagnosis: Atrial fibrillation with RVR (HCC) Chief Complaint / Reason for Consult: Colon mass History of Presenting Illness Gilberto Cardoso is a(n) 55 y.o. male Who was at our office today for arepeat colonoscopy to assess a colon mass dx. Prior to his procedure hewas noted to be in afib with a rapid rate. He was sent to Er forevaluation. He is pt followed by Dr. 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 He does follow with oncology with a previousPET scan about 6-8 months ago. He recently had had rectal bleeding and a30 pounds weight loss on February 28, 2016. Two weeks prior he had had acolonoscopy that revealed a 4 cm colon polyps at 20 cms from the analverges. The bx were consistent with a tubulovillous adenoma withoutdysplasia. He also had ten other polyps which were mixtures of tubularadenomas, sessile serrated adenomas and hyperplastic polyps. Dr. Quarles discuss his case with colorectal surgery with recommendations to tryand resect his polyp with a colonoscopy, thus leading to his attemptedprocedure today. Stopped to see pt but away getting ECHO for cardiac eval. He has a PMH notable a flutter, T2DM insulin dependent, HTN, HLD. Medications (Not in a hospital admission) Current Facility-Administered Medications Medication Dose Route Frequency Provider Last Rate Last Dose digoxin (LANOXIN) injection 500 mcg 500 mcg Intravenous Once Padmini Evangelista MD digoxin (LANOXIN) injection 500 mcg 500 mcg Intravenous Once Padmini Evangelista MD diltiazem (CARDIZEM) 1 mg/mL in dextrose 5% 125 mL infusion 10 mg/hrIntravenous Continuous Ayuhs Samaniego MD 10 mL/hr at 04/09/16 1030 10mg/hr at 04/09/16 1030 heparin 25,000 units in 250 mL 0.45% NaCl 1,000 Units/hr IntravenousContinuous Ayush Samaniego MD 10 mL/hr at 04/09/16 1130 1,000 Units/hr at1 1130 Current Outpatient Prescriptions Medication Sig Dispense Refill Aspirin 81 mg Take 81 mg by mouth daily. diltiazem 180 mg Oral Capsule, Sust. Release 24 hr Take 180 mg by mouth2 times daily. DULoxetine (CYMBALTA) 60 mg capsule Take 60 mg by mouth daily. empagliflozin 25 mg Oral Tablet Take 25 mg by mouth daily. insulin aspart (NOVOLOG) 100 unit/mL injection Subcutaneous (Injectunder the skin) 90 Units 3 times daily (before meals). losartan (COZAAR) 100 mg tablet Take 100 mg by mouth daily. metoprolol succinate ER (TOPROL-XL) 100 mg Oral Tablet Sustained [id number] hr Take 100 mg by mouth daily. potassium chloride (MICRO-K) 10 mEq CR capsule Take 10 mEq by mouthdaily. pravastatin (PRAVACHOL) 20 mg Oral Tablet Take 20 mg by mouth nightly. ranitidine (ZANTAC) 150 mg tablet Take 150 mg by mouth 2 times daily. edoxaban (SAVAYSA) 60 mg Oral Tablet Take 60 mg by mouth daily. Fenofibric Acid 135 mg CpDR Take 135 mg by mouth daily. fUROsemide (LASIX) 40 mg Oral Tablet Take 40 mg by mouth daily asneeded. Insulin Glargine (LANTUS) 100 unit/mL (3 mL) InPn Subcutaneous (Injectunder the skin) 85 Units 2 times daily. Allergies Allergen Reactions Ciprocinonide Other (See Comments) developed pancreatitis Ciprofloxacin developed pancreatitis Past Medical History Diagnosis Date Anesthesia couldn't breathe after surgery Arthritis Atrial fibrillation (HCC) Atrial flutter (HCC) Cancer (HCC) kidney CHF (congestive heart failure) (HCC) Chronic kidney disease kidney cancer Diabetes mellitus (HCC) IDDM Diabetic neuropathy (HCC) Hyperlipidemia Hypertension KIA (obstructive sleep apnea) RBBB Sinus bradycardia Past Surgical History Procedure Laterality Date Kidney surgery left nephrectomy Appendectomy Tympanostomy tube placement Family History Problem Relation Age of Onset Coronary Art Dis Mother age: 63 Diabetes Mother COPD Mother Cancer Mother lung Coronary Art Dis Maternal Grandfather Heart Attack Maternal Grandfather Social History: Gilberto's social history reviewed: Former smoker, renata. Physical Examination-- additional per follow up Patient Vitals for the past 24 hrs: BP Temp Pulse Resp SpO2 Height Weight 04/09/16 1100 (!) 120/104 - 127 21 95 % - - 04/09/16 1049 - - 118 21 95 % - - 04/09/16 1000 (!) 117/100 - 166 22 95 % - - 04/09/16 0948 107/43 - 149 23 96 % - - 04/09/16 0924 - - 155 22 94 % - - 04/09/16 0858 (!) 122/92 97.5 F (36.4 C) 146 21 96 % 5' 8 (1.727 m) (!)328 lb (148.8 kg) Laboratory: CBC: Lab Results Component Value Date WBC 11.8 (H) 04/09/2016 RBC 3.83 (L) 04/09/2016 HGB 11.1 (L) 04/09/2016 HCT 32.6 (L) 04/09/2016 MCV 85.2 04/09/2016 MCHC 34.1 04/09/2016 RDW 16.5 (H) 04/09/2016 PLT 354 04/09/2016 MPV 6.7 (L) 04/09/2016 BMP: Lab Results Component Value Date NA 134 (L) 04/09/2016 K 5.2 (H) 04/09/2016 CL 96 (L) 04/09/2016 CO2 22 04/09/2016 BUN 16 04/09/2016 CREATININE 1.18 04/09/2016 CALCIUM 9.0 04/09/2016 GFRAFRAM >60 04/09/2016 GFRNONAFRAM >60 04/09/2016 GLU 265 (H) 04/09/2016 Troponins negative x 2 Assessment/Plan 1. Tubulovillous adenoma - attempted colonoscopy today and found to have AF with RVR leading toadmission - appreciate card/ Electrophy input. - eventually plan to do colonoscopy once rate better controlled. - spoke with nursing and per reports from Dr. Evangelista hopefully can doendoscopy tomorrow with better rate control before Electrophysiologyaddresses AF with ablation as he will need to be on anticoagulationfollowing 2. AF with RVR - managed by Electrophysiology. - pending echo - has gotten Diltiazem gtt and Dig Dr. Martínez to see. Please call with any questions or concerns. Thank you. Jo Reed PA-C Addendum: spoke with Dr. Martínez about pt. Will plan for colonoscopytomorrow. Will still need a prep and will give Moviprep. Mr. Cardoso is a pleasant 55 yo male who I sent over from endoscopy this. He was scheduled to have a colonoscopy with removal of a large TVA,however upon evaluation his HR was in the 150s-160s, consistent withatrial fibrillation with RVR. His PMH, social, family, allergies, roswere all reviewed and confirmed as per Jo's note above. Physical exam: Vs as above Awake, alert, nad Eomi, no scleral icterus or injection Chest is clear, no w/c/r Rate is regular without murmurs/gallops Abdomen is obese, nt/nd, bs+ No c/c/e, skin is warm/dry Muscle tone is grossly normal Neuro is grossly normal without deficits Agree with proceeding with colonoscopy tomorrow on 04/10, however afterthe removal of the large polyp, would not safely be able to startanticoagulation for 5-7 days after removal, as he will be at highest riskfor post polypectomy bleeding from days 3- 5 from the time of removal. Talib Martínez MD us Padmini Evangelista MD INPATIENT CONSULT ORDERA BLES Final Result PROFESSIONAL ORDERS * EC ECHOCARDIOGRAM 2D M MODE COMPLETE W CONTRAST (04/09/2016 4:25 PM EDT) Ejection Fraction 55-60 % PYRAMIS Anatomical Region Laterality Modality Electrocardiogra phy 04/09/2016 3:25 PM EDT Impressions 04/09/2016 5:05 PM EDT CONCLUSIONS Normal global left ventricular size and systolic function with no obvious regional wall motion abnormalities. 2 cc of Definity contrast utilized for enhanced endocardial border definition. Right ventricle not well visualized. Normal left atrial size. Structurally normal trileaflet aortic valve. Slightly increased velocities across Aortic valve with Mean transaortic valve gradient is estimated to be 13 mmHg. No hemodynamically significant valve ds Narrative Procedure Note Don Hale MD - 04/09/2016 IMPRESSION CONCLUSIONS Normal global left ventricular size and systolic function with noobvious regional wall motion abnormalities. 2 cc of Definity contrast utilized for enhanced endocardial borderdefinition. Right ventricle not well visualized. Normal left atrial size. Structurally normal trileaflet aortic valve. Slightly increasedvelocities across Aortic valve with Mean transaortic valve gradient is estimated to be 13 mmHg. No hemodynamically significant valve ds us Ayush Samaniego MD IMG ECHO ORDERABLES Final Result * SCANNED ANESTHESIA FORMS (11/22/2012 4:21 PM EDT) 11/22/2012 4:21 PM EDT Narrative Procedure Note Unknown, Unknown - 11/22/2012 4:21 PM EDT us Unknown Unknown PROCEDURE/MINOR SURGICAL ORDERAB LES Final Result * SCANNED PRE/POST PROCEDURES (11/22/2012 4:21 PM EDT) 11/22/2012 4:21 PM EDT Narrative Procedure Note Unknown, Unknown - 11/22/2012 4:21 PM EDT us Unknown Unknown PROCEDURE/MINOR SURGICAL ORDERAB LES Final Result * CT GUIDED PARENCHYMAL TISSUE ABLATION (11/19/2012 [...] 3, 6, 9, and 12 months. us Kar Ferrari MD IMG CT ORDERABLES Final Result Visit Diagnoses Diagnosis Start Date Malignant neoplasm of kidney, except pelvis 02/12/2012 Neoplasm of uncertain behavior of kidney and ureter 02/12/2012 Malignant neoplasm of kidney, except pelvis 10/02/2012 Malignant neoplasm of kidney, except pelvis 10/13/2012 Malignant neoplasm of kidney, except pelvis 10/13/2012 Malignant neoplasm of kidney, except pelvis 11/19/2012 Atrial fibrillation (HCC) Atrial fibrillation 11/03/2014 Atrial fibrillation, unspecified 10/07/2015 Atrial flutter, unspecified 10/07/2015 Atrial fibrillation with rapid ventricular response (HCC) Atrial fibrillation 04/09/2016 Paroxysmal atrial fibrillation (HCC) Atrial fibrillation 04/24/2016 Typical atrial flutter (HCC) Atrial flutter 04/24/2016 Fitting and adjustment of cardiac pacemaker 04/24/2016 Cardiac pacemaker in situ 04/24/2016 Morbid obesity, unspecified obesity type (HCC) 04/24/2016 Essential hypertension Unspecified essential hypertension 04/24/2016 Atrial fibrillation with RVR (HCC) Atrial fibrillation 07/26/2016 Typical atrial flutter (HCC) Atrial flutter 07/26/2016 Cardiac pacemaker in situ 07/26/2016 Pacemaker reprogramming/check Fitting and adjustment of cardiac pacemaker 07/26/2016 Typical atrial flutter (HCC) Atrial flutter 08/01/2016 Paroxysmal atrial fibrillation (HCC) Atrial fibrillation 08/01/2016 Paroxysmal atrial fibrillation (HCC) Atrial fibrillation 09/05/2016 Atrial flutter, unspecified type (HCC) 09/05/2016 Paroxysmal atrial fibrillation (HCC) Atrial fibrillation 09/05/2016 Atrial flutter, unspecified type (HCC) 09/05/2016 Anemia, unspecified type 09/25/2016 Renal calculus, right Calculus of kidney 09/27/2016 Renal failure Renal failure, unspecified 09/21/2016 Anemia, unspecified type 09/21/2016 Hyperkalemia Hyperpotassemia 09/21/2016 KIERRA (acute kidney injury) Acute kidney failure, unspecified 09/21/2016 KIERRA (acute kidney injury) Acute kidney failure, unspecified 10/09/2016 Iron deficiency anemia due to chronic blood loss Iron deficiency anemia secondary to blood loss (chronic) 10/09/2016 Type 2 diabetes mellitus with complication, with long-term current use of insulin (HCC) 10/09/2016 Pure hypercholesterolemia 10/09/2016 Essential hypertension Unspecified essential hypertension 10/09/2016 Paroxysmal atrial fibrillation (HCC) Atrial fibrillation 11/01/2016 Typical atrial flutter (HCC) Atrial flutter 11/01/2016 Cardiac pacemaker in situ 11/01/2016 Pacemaker reprogramming/check Fitting and adjustment of cardiac pacemaker 11/01/2016 Renal cell carcinoma, unspecified laterality (HCC) 11/15/2016 Personal history of colonic polyps 11/15/2016 Second degree hemorrhoids Unspecified hemorrhoids with other complication 11/15/2016 Acute posthemorrhagic anemia 11/15/2016 Carcinoma, renal cell, unspecified laterality (HCC) 11/19/2016 Personal history of colonic polyps 11/19/2016 Chronic kidney disease, stage III (moderate) (HCC) Chronic kidney disease, Stage III (moderate) 02/20/2017 Essential hypertension, malignant 02/20/2017 Cardiac pacemaker in situ 02/22/2017 Fitting and adjustment of cardiac pacemaker 02/22/2017 Atrial fibrillation with RVR (HCC) Atrial fibrillation 02/22/2017 Typical atrial flutter (HCC) Atrial flutter 02/22/2017 Sinus bradycardia Other specified cardiac dysrhythmias 02/22/2017 RBBB Right bundle branch block 02/22/2017 Sinus node dysfunction (HCC) Sinoatrial node dysfunction 02/22/2017 Acute on chronic diastolic (congestive) heart failure (HCC) suspected 02/22/2017 Stage 3 chronic kidney disease (HCC) 02/26/2017 Hyperkalemia Hyperpotassemia 02/26/2017 Paroxysmal atrial fibrillation (HCC) Atrial fibrillation 02/26/2017 Anemia in stage 3 chronic kidney disease (HCC) 02/26/2017 Sinus node dysfunction (HCC) Sinoatrial node dysfunction 05/27/2017 Pacemaker Cardiac pacemaker in situ 05/27/2017 Cardiac pacemaker in situ 08/30/2017 Pacemaker reprogramming/check Fitting and adjustment of cardiac pacemaker 08/30/2017 detention current use of amiodarone 09/23/2017 Cardiac pacemaker in situ 10/29/2017 Fitting and adjustment of cardiac pacemaker 10/29/2017 Paroxysmal atrial fibrillation (HCC) Atrial fibrillation 10/29/2017 Sinus node dysfunction (HCC) Sinoatrial node dysfunction 10/29/2017 Typical atrial flutter (HCC) Atrial flutter 10/29/2017 Atrial fibrillation with RVR (HCC) Atrial fibrillation 10/29/2017 Paroxysmal atrial fibrillation (HCC) Atrial fibrillation 10/31/2017 Atrial flutter, unspecified type ([facility]) 10/31/2017 Acute appendicitis, unspecified acute appendicitis type 11/09/2017 Atrial fibrillation with rapid ventricular response ([facility]) Atrial fibrillation 11/09/2017 Type 2 diabetes mellitus with complication, with long-term current use of insulin ([facility]) 03/20/2018 Non-pressure chronic ulcer right lower leg, limited to breakdown skin ([facility]) Ulcer of lower limb, unspecified 03/20/2018 Chronic venous hypertension involving both sides Chronic venous hypertension without complications 03/20/2018 Type 2 diabetes mellitus with complication, with long-term current use of insulin ([facility]) 03/27/2018 Venous hypertension of both lower extremities 03/27/2018 Claudication in peripheral vascular disease Peripheral vascular disease, unspecified 03/27/2018 Type 2 diabetes mellitus with complication, with long-term current use of insulin ([facility]) 04/03/2018 Chronic acquired lymphedema Other lymphedema 04/03/2018 Venous hypertension of both lower extremities 04/03/2018 Venous stasis Unspecified venous (peripheral) insufficiency 04/03/2018 Claudication in peripheral vascular disease Peripheral vascular disease, unspecified 04/04/2018 Venous hypertension of both lower extremities 04/04/2018 Type 2 diabetes mellitus with complication, with long-term current use of insulin ([facility]) 04/10/2018 Chronic acquired lymphedema Other lymphedema 04/10/2018 Chronic acquired lymphedema Other lymphedema 04/17/2018 Chronic venous hypertension involving both sides Chronic venous hypertension without complications 04/17/2018 Chronic venous hypertension involving both sides Chronic venous hypertension without complications 04/24/2018 Cardiac pacemaker in situ 04/29/2018 Encounter for interrogation of cardiac pacemaker Fitting and adjustment of cardiac pacemaker 04/29/2018 Chronic acquired lymphedema Other lymphedema 05/02/2018 Type 2 diabetes mellitus with complication, with long-term current use of insulin ([facility]) 05/08/2018 Chronic venous hypertension involving both sides Chronic venous hypertension without complications 05/08/2018 Venous ulcer of left lower extremity with varicose veins (HCC) 05/08/2018 Venous ulcer of right lower extremity with varicose veins ([facility]) Varicose veins of lower extremities with ulcer 05/08/2018 Chronic venous hypertension involving both sides Chronic venous hypertension without complications 05/16/2018 Venous ulcer of left lower extremity with varicose veins (HCC) 05/16/2018 Type 2 diabetes mellitus with complication, with long-term current use of insulin ([facility]) 05/29/2018 Venous ulcer of left lower extremity with varicose veins (HCC) 05/29/2018 Chronic venous hypertension involving both sides Chronic venous hypertension without complications 05/29/2018 Type 2 diabetes mellitus with complication, with long-term current use of insulin (HCC) 06/05/2018 Venous ulcer of left lower extremity with varicose veins (HCC) 06/05/2018 Chronic acquired lymphedema Other lymphedema 06/05/2018 Chronic venous hypertension involving both sides Chronic venous hypertension without complications 06/05/2018 Type 2 diabetes mellitus with complication, with long-term current use of insulin (HCC) 06/19/2018 Venous ulcer of left lower extremity with varicose veins (HCC) 06/19/2018 Chronic venous hypertension involving both sides Chronic venous hypertension without complications 06/19/2018 Lymphedema of both lower extremities 06/19/2018 Chronic acquired lymphedema Other lymphedema 07/03/2018 Chronic acquired lymphedema Other lymphedema 07/17/2018 Cardiac pacemaker in situ 08/29/2018 Pacemaker reprogramming/check Fitting and adjustment of cardiac pacemaker 08/29/2018 Atrial fibrillation with RVR (HCC) Atrial fibrillation 08/29/2018 Sinus node dysfunction (HCC) Sinoatrial node dysfunction 08/29/2018 Acute on chronic diastolic (congestive) heart failure (HCC) suspected Acute on chronic diastolic heart failure 08/29/2018 Hypertensive heart disease without heart failure Unspecified hypertensive heart disease without heart failure 08/29/2018 Atrial fibrillation with RVR (HCC) Atrial fibrillation 09/08/2018 Pure hypercholesterolemia 09/08/2018 Hypertension associated with diabetes (HCC) Type II or unspecified type diabetes mellitus with other specified manifestations, not stated as uncontrolled 09/08/2018 SOB (shortness of breath) Shortness of breath 09/08/2018 Preop examination Preoperative examination, unspecified 09/08/2018 SOB (shortness of breath) Shortness of breath 09/10/2018 Right ureteral stone Calculus of ureter 11/25/2018 Ureterolithiasis Calculus of ureter 11/24/2018 Right flank pain Abdominal pain, unspecified site 11/24/2018 Acute on chronic renal insufficiency Unspecified disorder of kidney and ureter 11/24/2018 Right ureteral stone Calculus of ureter 11/24/2018 Atrial flutter with rapid ventricular response (HCC) Atrial flutter 12/10/2018 Preop testing Preoperative examination, unspecified 12/10/2018 Ureterolithiasis Calculus of ureter 12/10/2018 Paroxysmal atrial fibrillation (HCC) Atrial fibrillation 12/11/2018 Paroxysmal atrial fibrillation (HCC) Atrial fibrillation 12/12/2018 Cardiac pacemaker in situ 12/29/2018 Encounter for interrogation of cardiac pacemaker Fitting and adjustment of cardiac pacemaker 12/29/2018 Sinus node dysfunction (HCC) Sinoatrial node dysfunction 12/29/2018 Paroxysmal atrial fibrillation (HCC) Atrial fibrillation 12/29/2018 Typical atrial flutter (HCC) Atrial flutter 12/29/2018 Sinus node dysfunction (HCC) Sinoatrial node dysfunction 01/12/2019 Paroxysmal atrial fibrillation (HCC) Atrial fibrillation 01/12/2019 Pacemaker Cardiac pacemaker in situ 01/12/2019 Calculus of ureter 01/26/2019 Calculus of ureter 02/24/2019 Calculus of ureter 03/10/2019 Sinus bradycardia Other specified cardiac dysrhythmias 03/17/2019 Paroxysmal atrial fibrillation (HCC) Atrial fibrillation 03/17/2019 Sinus bradycardia Other specified cardiac dysrhythmias 04/03/2019 Paroxysmal atrial fibrillation (HCC) Atrial fibrillation 04/03/2019 Cardiac pacemaker in situ 04/07/2019 Encounter for interrogation of cardiac pacemaker Fitting and adjustment of cardiac pacemaker 04/07/2019 Sinus node dysfunction (HCC) Sinoatrial node dysfunction 04/07/2019 Paroxysmal atrial fibrillation (HCC) Atrial fibrillation 04/07/2019 Typical atrial flutter (HCC) Atrial flutter 04/07/2019 Acute on chronic diastolic (congestive) heart failure (HCC) suspected Acute on chronic diastolic heart failure 04/07/2019 Calculus of ureter 04/14/2019 Calculus of ureter 04/20/2019 Preop testing Preoperative examination, unspecified 04/20/2019 Other [place] [facility]current[facility] drug therapy 04/20/2019 Typical atrial flutter (HCC) Atrial flutter 07/15/2019 Sinus node dysfunction (HCC) Sinoatrial node dysfunction 07/15/2019 Sinus bradycardia Other specified cardiac dysrhythmias 07/15/2019 Paroxysmal atrial fibrillation (HCC) Atrial fibrillation 07/15/2019 Acute right-sided low back pain without sciatica 07/23/2019 Sinus node dysfunction (HCC) Sinoatrial node dysfunction 10/11/2019 Paroxysmal atrial fibrillation (HCC) Atrial fibrillation 10/11/2019 Pacemaker Cardiac pacemaker in situ 10/11/2019 Pacemaker Cardiac pacemaker in situ 10/13/2019 Typical atrial flutter (HCC) Atrial flutter 10/13/2019 Atrial flutter, unspecified type (HCC) 10/22/2019 Typical atrial flutter (HCC) Atrial flutter 10/30/2019 Paroxysmal atrial fibrillation (HCC) Atrial fibrillation 10/30/2019 Typical atrial flutter (HCC) Atrial flutter 10/30/2019 Atrial flutter with rapid ventricular response (HCC) Atrial flutter 12/24/2019 Atrial fibrillation with rapid ventricular response (HCC) Atrial fibrillation 12/21/2019 Atrial flutter with rapid ventricular response (HCC) Atrial flutter 12/21/2019 Urinary tract infection with hematuria, site unspecified 12/21/2019 Paroxysmal atrial fibrillation (HCC) Atrial fibrillation 12/28/2019 Cholecystitis Cholecystitis, unspecified 03/01/2020 Cholecystitis Cholecystitis, unspecified 03/03/2020 Cholecystitis Cholecystitis, unspecified 02/29/2020 Cholecystitis Cholecystitis, unspecified 02/29/2020 KIA (obstructive sleep apnea) Obstructive sleep apnea (adult) (pediatric) 02/29/2020 Acute on chronic diastolic (congestive) heart failure (HCC) suspected Acute on chronic diastolic heart failure 02/29/2020 COPD, very severe (HCC) Chronic airway obstruction, not elsewhere classified 03/17/2020 COPD, very severe (HCC) Chronic airway obstruction, not elsewhere classified 03/18/2020 COPD, very severe (HCC) Chronic airway obstruction, not elsewhere classified 03/19/2020 COPD, very severe (HCC) Chronic airway obstruction, not elsewhere classified 03/20/2020 KIA (obstructive sleep apnea) Obstructive sleep apnea (adult) (pediatric) 03/20/2020 COPD, very severe (HCC) Chronic airway obstruction, not elsewhere classified 03/21/2020 COPD, very severe (HCC) Chronic airway obstruction, not elsewhere classified 03/22/2020 COPD, very severe (HCC) Chronic airway obstruction, not elsewhere classified 03/23/2020 COPD, very severe (HCC) Chronic airway obstruction, not elsewhere classified 03/24/2020 KIA (obstructive sleep apnea) Obstructive sleep apnea (adult) (pediatric) 03/24/2020 COPD, very severe (HCC) Chronic airway obstruction, not elsewhere classified 03/25/2020 KIA (obstructive sleep apnea) Obstructive sleep apnea (adult) (pediatric) 03/25/2020 SOB (shortness of breath) Shortness of breath 03/25/2020 Atrial flutter with rapid ventricular response (HCC) Atrial flutter 03/25/2020 Essential hypertension Unspecified essential hypertension 03/25/2020 COPD, very severe (HCC) Chronic airway obstruction, not elsewhere classified 03/26/2020 KIA (obstructive sleep apnea) Obstructive sleep apnea (adult) (pediatric) 03/26/2020 SOB (shortness of breath) Shortness of breath 03/26/2020 Acanthosis nigricans Acquired acanthosis nigricans 03/26/2020 Essential hypertension Unspecified essential hypertension 03/26/2020 Acute respiratory failure with hypoxia (HCC) Acute respiratory failure 03/26/2020 COPD, very severe (HCC) Chronic airway obstruction, not elsewhere classified 03/27/2020 KIA (obstructive sleep apnea) Obstructive sleep apnea (adult) (pediatric) 03/27/2020 SOB (shortness of breath) Shortness of breath 03/27/2020 Atrial flutter with rapid ventricular response (HCC) Atrial flutter 03/27/2020 Essential hypertension Unspecified essential hypertension 03/27/2020 Paroxysmal A-fib (HCC) Atrial fibrillation 03/27/2020 KIA (obstructive sleep apnea) Obstructive sleep apnea (adult) (pediatric) 03/28/2020 COPD, very severe (HCC) Chronic airway obstruction, not elsewhere classified 03/29/2020 Pain Generalized pain 03/29/2020 COPD, very severe (HCC) Chronic airway obstruction, not elsewhere classified 03/30/2020 KIA (obstructive sleep apnea) Obstructive sleep apnea (adult) (pediatric) 03/31/2020 COPD, very severe (HCC) Chronic airway obstruction, not elsewhere classified 03/31/2020 SOB (shortness of breath) Shortness of breath 03/31/2020 Acute on chronic diastolic congestive heart failure (HCC) Acute on chronic diastolic heart failure 03/31/2020 Atrial fibrillation with rapid ventricular response (HCC) Atrial fibrillation 03/31/2020 Essential hypertension Unspecified essential hypertension 03/31/2020 Paroxysmal A-fib (HCC) Atrial fibrillation 03/31/2020 KIA (obstructive sleep apnea) Obstructive sleep apnea (adult) (pediatric) 04/01/2020 COPD, very severe (HCC) Chronic airway obstruction, not elsewhere classified 04/01/2020 SOB (shortness of breath) Shortness of breath 04/01/2020 Acute on chronic diastolic congestive heart failure (HCC) Acute on chronic diastolic heart failure 04/01/2020 Atrial fibrillation with rapid ventricular response (HCC) Atrial fibrillation 04/01/2020 Chronic venous hypertension involving both sides Chronic venous hypertension without complications 04/01/2020 CKD stage 2 due to type 2 diabetes mellitus ([facility]) 04/01/2020 Encephalopathy acute Encephalopathy, unspecified 04/01/2020 Hypertension associated with diabetes ([facility]) Type II or unspecified type diabetes mellitus with other specified manifestations, not stated as uncontrolled 04/01/2020 Paroxysmal A-fib (HCC) Atrial fibrillation 04/01/2020 Type 2 diabetes mellitus with complication, with long-term current use of insulin (HCC) 04/01/2020 KIA (obstructive sleep apnea) Obstructive sleep apnea (adult) (pediatric) 04/02/2020 COPD, very severe (HCC) Chronic airway obstruction, not elsewhere classified 04/02/2020 SOB (shortness of breath) Shortness of breath 04/02/2020 Acute on chronic diastolic congestive heart failure (HCC) Acute on chronic diastolic heart failure 04/02/2020 Hyperlipidemia associated with type 2 diabetes mellitus (HCC) 04/02/2020 Paroxysmal A-fib (HCC) Atrial fibrillation 04/02/2020 Type 2 diabetes mellitus with complication, with long-term current use of insulin (HCC) 04/02/2020 KIA (obstructive sleep apnea) Obstructive sleep apnea (adult) (pediatric) 04/03/2020 COPD, very severe (HCC) Chronic airway obstruction, not elsewhere classified 04/03/2020 SOB (shortness of breath) Shortness of breath 04/03/2020 Acute on chronic diastolic congestive heart failure (HCC) Acute on chronic diastolic heart failure 04/03/2020 Intestinal mass Other specified disorder of intestines 04/03/2020 Paroxysmal atrial fibrillation (HCC) Atrial fibrillation 04/03/2020 Type 2 diabetes mellitus with complication, with long-term current use of insulin (HCC) 04/03/2020 KIA (obstructive sleep apnea) Obstructive sleep apnea (adult) (pediatric) 04/04/2020 COPD, very severe (HCC) Chronic airway obstruction, not elsewhere classified 04/04/2020 SOB (shortness of breath) Shortness of breath 04/04/2020 Acute on chronic diastolic congestive heart failure (HCC) Acute on chronic diastolic heart failure 04/04/2020 Paroxysmal atrial fibrillation (HCC) Atrial fibrillation 04/04/2020 Sinus node dysfunction (HCC) Sinoatrial node dysfunction 04/04/2020 Type 2 diabetes mellitus with complication, with long-term current use of insulin (HCC) 04/04/2020 Typical atrial flutter (HCC) Atrial flutter 04/04/2020 KIA (obstructive sleep apnea) Obstructive sleep apnea (adult) (pediatric) 04/05/2020 COPD, very severe (HCC) Chronic airway obstruction, not elsewhere classified 04/05/2020 SOB (shortness of breath) Shortness of breath 04/05/2020 Acute on chronic diastolic congestive heart failure (HCC) Acute on chronic diastolic heart failure 04/05/2020 Atrial fibrillation with rapid ventricular response (HCC) Atrial fibrillation 04/05/2020 Essential hypertension Unspecified essential hypertension 04/05/2020 Paroxysmal A-fib (HCC) Atrial fibrillation 04/05/2020 Paroxysmal atrial fibrillation (HCC) Atrial fibrillation 04/05/2020 Sinus node dysfunction (HCC) Sinoatrial node dysfunction 04/25/2020 Sinus bradycardia Other specified cardiac dysrhythmias 04/25/2020 Pacemaker Cardiac pacemaker in situ 04/25/2020 Buttock wound, left, sequela 05/18/2020 Buttock wound, left, sequela 05/19/2020 Buttock wound, left, sequela 05/17/2020 Type 2 diabetes mellitus with complication, with long-term current use of insulin ([facility]) 06/02/2020 Pressure ulcer of left buttock, stage 4 (HCC) 06/02/2020 Paroxysmal A-fib (HCC) Atrial fibrillation 06/09/2020 Type 2 diabetes mellitus with complication, with long-term current use of insulin (HCC) 06/09/2020 Dehiscence of operative wound, initial encounter 06/09/2020 Pressure ulcer of left buttock, stage 4 (HCC) 06/16/2020 Pressure ulcer of left buttock, stage 4 (HCC) 06/23/2020 Type 2 diabetes mellitus with complication, with long-term current use of insulin (HCC) 06/23/2020 Dehiscence of operative wound, initial encounter 06/23/2020 Pressure ulcer of left buttock, stage 4 (HCC) 06/30/2020 Pressure ulcer of left buttock, stage 4 (HCC) 07/14/2020 Type 2 diabetes mellitus with complication, with long-term current use of insulin (HCC) 07/14/2020 Pressure ulcer of left buttock, stage 4 (HCC) 07/21/2020 Type 2 diabetes mellitus with complication, with long-term current use of insulin ([facility]) 07/21/2020 Dehiscence of operative wound, initial encounter 07/21/2020 Paroxysmal atrial fibrillation (HCC) Atrial fibrillation 08/04/2020 Sinus node dysfunction (HCC) Sinoatrial node dysfunction 08/04/2020 Acute on chronic diastolic (congestive) heart failure (HCC) suspected Acute on chronic diastolic heart failure 08/04/2020 Sinus bradycardia Other specified cardiac dysrhythmias 08/04/2020 Pacemaker Cardiac pacemaker in situ 08/04/2020 Pressure ulcer of left buttock, stage 4 (HCC) 08/04/2020 Type 2 diabetes mellitus with complication, with long-term current use of insulin (HCC) 08/04/2020 Dehiscence of operative wound, initial encounter 08/04/2020 Pressure ulcer of left buttock, stage 4 (HCC) 09/08/2020 Type 2 diabetes mellitus with complication, with long-term current use of insulin (HCC) 09/08/2020 Dehiscence of operative wound, initial encounter 09/08/2020 Pressure ulcer of left buttock, stage 4 (HCC) 09/29/2020 Type 2 diabetes mellitus with complication, with long-term current use of insulin ([facility]) 09/29/2020 Dehiscence of operative wound, initial encounter 09/29/2020 Pressure ulcer of left buttock, stage 4 (HCC) 10/27/2020 Type 2 diabetes mellitus with complication, with long-term current use of insulin ([facility]) 10/27/2020 Dehiscence of operative wound, initial encounter 10/27/2020 Pacemaker Cardiac pacemaker in situ 11/11/2020 Pacemaker reprogramming/check Fitting and adjustment of cardiac pacemaker 11/11/2020 Paroxysmal atrial fibrillation (HCC) Atrial fibrillation 11/11/2020 Pressure ulcer of left buttock, stage 4 (HCC) 11/17/2020 Type 2 diabetes mellitus with complication, with long-term current use of insulin (HCC) 11/17/2020 Dehiscence of operative wound, initial encounter 11/17/2020 Pressure ulcer of left buttock, stage 4 (HCC) 12/08/2020 Type 2 diabetes mellitus with complication, with long-term current use of insulin (HCC) 12/08/2020 Dehiscence of operative wound, initial encounter 12/08/2020 Pressure ulcer of left buttock, stage 4 (HCC) 12/29/2020 Pressure ulcer of left buttock, stage 4 (HCC) 01/19/2021 Pressure ulcer of left buttock, stage 4 (HCC) 01/26/2021 Type 2 diabetes mellitus with complication, with long-term current use of insulin (HCC) 01/26/2021 Dehiscence of operative wound, initial encounter 01/26/2021 Pressure ulcer of left buttock, stage 4 (HCC) 02/09/2021 Type 2 diabetes mellitus with complication, with long-term current use of insulin (HCC) 02/09/2021 Dehiscence of operative wound, initial encounter 02/09/2021 Pressure ulcer of ischium, stage 3, left (HCC) 02/16/2021 Pressure ulcer of left buttock, stage 4 (HCC) 02/23/2021 Type 2 diabetes mellitus with complication, with long-term current use of insulin (HCC) 02/23/2021 Dehiscence of operative wound, initial encounter 02/23/2021 Pressure ulcer of left buttock, stage 4 (HCC) 04/06/2021 Pressure ulcer of left buttock, stage 4 (HCC) 04/13/2021 Type 2 diabetes mellitus with complication, with long-term current use of insulin (HCC) 04/13/2021 Dehiscence of operative wound, initial encounter 04/13/2021 Pressure ulcer of ischium, stage 3, left (HCC) 04/20/2021 Pressure ulcer of ischium, stage 3, left (HCC) 04/27/2021 Type 2 diabetes mellitus with complication, with long-term current use of insulin (HCC) 04/27/2021 Dehiscence of operative wound, initial encounter 04/27/2021 Pressure ulcer of ischium, stage 3, left (HCC) 05/11/2021 Pressure ulcer of ischium, stage 3, left (HCC) 05/18/2021 Pressure ulcer of ischium, stage 3, left (HCC) 06/08/2021 Type 2 diabetes mellitus with complication, with long-term current use of insulin (HCC) 06/08/2021 Pressure ulcer of ischium, stage 3, left (HCC) 06/15/2021 Type 2 diabetes mellitus with complication, with long-term current use of insulin (HCC) 06/15/2021 Atrial fibrillation with RVR (HCC) Atrial fibrillation 06/20/2021 Hyperglycemia Other abnormal glucose 06/20/2021 Nausea and vomiting, intractability of vomiting not specified, unspecified vomiting type 07/02/2021 Right flank pain Abdominal pain, unspecified site 07/07/2021 Diarrhea, unspecified type 07/07/2021 Pacemaker Cardiac pacemaker in situ 11/13/2021 Sinus node dysfunction (HCC) Sinoatrial node dysfunction 11/13/2021 Sinus bradycardia Other specified cardiac dysrhythmias 11/13/2021 [employer] Device 03/15/2022 Paroxysmal A-fib (HCC) Atrial fibrillation 04/13/2022 Pacemaker Cardiac pacemaker in situ 04/13/2022 Sinus node dysfunction (HCC) Sinoatrial node dysfunction 04/13/2022 Atrial fibrillation with RVR (HCC) Atrial fibrillation 04/13/2022 Atrial flutter with rapid ventricular response (HCC) Atrial flutter 04/13/2022 Pacemaker Cardiac pacemaker in situ 04/13/2022 Pacemaker reprogramming/check Fitting and adjustment of cardiac pacemaker 04/13/2022 Paroxysmal A-fib (HCC) Atrial fibrillation 05/07/2022 [employer] Device 05/17/2022 Paroxysmal A-fib (HCC) Atrial fibrillation 08/15/2022 [employer] 09/06/2022 Personal history of colonic polyps 12/10/2022 [employer] Device 12/13/2022 Venous insufficiency of both lower extremities 12/27/2022 Non-pressure chronic ulcer of right lower leg with fat layer exposed (HCC) Ulcer of lower limb, unspecified 12/27/2022 Type 2 diabetes mellitus with complication, with long-term current use of insulin (HCC) 12/27/2022 Lymph edema Other lymphedema 12/27/2022 Non-pressure chronic ulcer of right lower leg with fat layer exposed (HCC) Ulcer of lower limb, unspecified 01/03/2023 Chronic venous hypertension involving both sides Chronic venous hypertension without complications 01/03/2023 Non-pressure ulcer of left lower extremity, unspecified ulcer stage (HCC) 01/03/2023 Non-pressure chronic ulcer of right lower leg with fat layer exposed (HCC) Ulcer of lower limb, unspecified 01/10/2023 Chronic venous hypertension involving both sides Chronic venous hypertension without complications 01/10/2023 Non-pressure ulcer of left lower extremity, unspecified ulcer stage (HCC) 01/10/2023 Lymph edema Other lymphedema 01/17/2023 Venous insufficiency of both lower extremities 01/17/2023 Non-pressure chronic ulcer of right lower leg with fat layer exposed (HCC) Ulcer of lower limb, unspecified 01/17/2023 Venous insufficiency of both lower extremities 01/24/2023 Non-pressure chronic ulcer of right lower leg with fat layer exposed (HCC) Ulcer of lower limb, unspecified 01/24/2023 Venous insufficiency of both lower extremities 01/31/2023 Non-pressure chronic ulcer of right lower leg with fat layer exposed (HCC) Ulcer of lower limb, unspecified 01/31/2023 Non-pressure ulcer of left lower extremity, unspecified ulcer stage (HCC) 01/31/2023 Venous insufficiency of both lower extremities 02/28/2023 Non-pressure chronic ulcer of right lower leg with fat layer exposed (HCC) Ulcer of lower limb, unspecified 02/28/2023 Non-pressure ulcer of left lower extremity, unspecified ulcer stage (HCC) 02/28/2023 Lymph edema Other lymphedema 02/28/2023 [employer] 03/21/2023 [employer] Remote Device 03/21/2023 Venous insufficiency of both lower extremities 04/04/2023 Lymph edema Other lymphedema 04/04/2023 Venous insufficiency of both lower extremities 06/06/2023 Chronic venous hypertension (idiopathic) with ulcer and inflammation of bilateral lower extremity (HCC) 06/06/2023 [employer] Device 06/27/2023 Venous insufficiency of both lower extremities 06/27/2023 Lymph edema Other lymphedema 06/27/2023 [employer] 11/13/2023 KIERRA (acute kidney injury) Acute kidney failure, unspecified 12/05/2023 [employer] Device 02/26/2024 Paroxysmal A-fib (HCC) Atrial fibrillation 03/17/2024 Pacemaker Cardiac pacemaker in situ 03/17/2024 Sinus node dysfunction (HCC) Sinoatrial node dysfunction 03/17/2024 Pacemaker reprogramming/check Fitting and adjustment of cardiac pacemaker 03/17/2024 Typical atrial flutter (HCC) Atrial flutter 03/17/2024 Paroxysmal A-fib (HCC) Atrial fibrillation 03/17/2024 Sinus node dysfunction (HCC) Sinoatrial node dysfunction 03/17/2024 Pacemaker Cardiac pacemaker in situ 03/17/2024 Essential hypertension Unspecified essential hypertension 03/17/2024 Hyperlipidemia associated with type 2 diabetes mellitus (HCC) 03/17/2024 RBBB Right bundle branch block 03/17/2024 Acute on chronic diastolic (congestive) heart failure (HCC) suspected Acute on chronic diastolic heart failure 03/17/2024 [employer] 04/29/2024 [employer] 06/02/2024 [employer] Device 07/14/2024 Stage 4 chronic kidney disease (HCC) 07/23/2024 [employer] 08/08/2024 High blood pressure associated with diabetes (HCC) Type II or unspecified type diabetes mellitus with other specified manifestations, not stated as uncontrolled 08/18/2024 Stage 4 chronic kidney disease (HCC) 09/02/2024 High blood pressure associated with diabetes (HCC) Type II or unspecified type diabetes mellitus with other specified manifestations, not stated as uncontrolled 09/02/2024 [employer] Device 09/11/2024 Typical atrial flutter (HCC) Atrial flutter 09/11/2024 Pacemaker battery depletion Fitting and adjustment of cardiac pacemaker 09/11/2024 Pacemaker battery depletion Fitting and adjustment of cardiac pacemaker 09/17/2024 Sinus node dysfunction (HCC) Sinoatrial node dysfunction 09/17/2024 [employer] Device 10/16/2024 Pacemaker battery depletion Fitting and adjustment of cardiac pacemaker 10/16/2024 Pacemaker battery depletion Fitting and adjustment of cardiac pacemaker 10/16/2024 Sinus node dysfunction (HCC) Sinoatrial node dysfunction 10/16/2024 Preop testing Preoperative examination, unspecified 10/16/2024 Atrial fibrillation with RVR (HCC) Atrial fibrillation 10/16/2024 Pacemaker reprogramming/check Fitting and adjustment of cardiac pacemaker 10/30/2024 RBBB Right bundle branch block 10/30/2024 Pacemaker Cardiac pacemaker in situ 10/30/2024 Sinus node dysfunction (HCC) Sinoatrial node dysfunction 10/30/2024 Atrial flutter with rapid ventricular response (HCC) Atrial flutter 10/30/2024 Paroxysmal A-fib (HCC) Atrial fibrillation 10/30/2024 Atrial fibrillation with RVR (HCC) Atrial fibrillation 10/30/2024 Stage 4 chronic kidney disease (HCC) 11/04/2024 High blood pressure associated with diabetes (HCC) Type II or unspecified type diabetes mellitus with other specified manifestations, not stated as uncontrolled 11/04/2024 [employer] Device 01/15/2025 Stage 4 chronic kidney disease (HCC) 01/20/2025 High blood pressure associated with diabetes (HCC) Type II or unspecified type diabetes mellitus with other specified manifestations, not stated as uncontrolled 01/20/2025 Hyperkalemia Hyperpotassemia 01/25/2025 Hx of chronic kidney disease Personal history of other disorder of urinary system 01/25/2025 Stage 4 chronic kidney disease (HCC) 01/28/2025 Hyperkalemia Hyperpotassemia 01/28/2025 Hypocalcemia 01/28/2025 Vitamin D deficiency Unspecified vitamin D deficiency 01/28/2025 Pacemaker reprogramming/check Fitting and adjustment of cardiac pacemaker 03/30/2025 RBBB Right bundle branch block 03/30/2025 Sinus node dysfunction (HCC) Sinoatrial node dysfunction 03/30/2025 Pacemaker Cardiac pacemaker in situ 03/30/2025 Typical atrial flutter (HCC) Atrial flutter 03/30/2025 Atrial flutter with rapid ventricular response (HCC) Atrial flutter 03/30/2025 Paroxysmal A-fib (HCC) Atrial fibrillation 03/30/2025 RBBB Right bundle branch block 03/30/2025 Pacemaker Cardiac pacemaker in situ 03/30/2025 Sinus node dysfunction (HCC) Sinoatrial node dysfunction 03/30/2025 Paroxysmal A-fib (HCC) Atrial fibrillation 03/30/2025 Stage 4 chronic kidney disease (HCC) 03/30/2025 Hypocalcemia 03/30/2025 [employer] Device 04/16/2025 Atrial fibrillation with RVR (HCC) Atrial fibrillation 04/09/2016 HLD (hyperlipidemia) Other and unspecified hyperlipidemia 04/09/2016 Long-term insulin use in type 2 diabetes (HCC) Type II or unspecified type diabetes mellitus without mention of complication, not stated as uncontrolled 04/09/2016 Morbid obesity (HCC) Morbid obesity 04/09/2016 KIA (obstructive sleep apnea) Obstructive sleep apnea (adult) (pediatric) 04/09/2016 Essential hypertension Unspecified essential hypertension 04/09/2016 Advance directive discussed with patient Other specified counseling 04/09/2016 Intestinal mass Other specified disorder of intestines 04/09/2016 Atrial flutter (HCC) Atrial flutter 04/09/2016 Sinus node dysfunction (HCC) Sinoatrial node dysfunction 04/09/2016 Pacemaker Cardiac pacemaker in situ 04/09/2016 Paroxysmal atrial fibrillation (HCC) Atrial fibrillation 04/09/2016 Atrial fibrillation with RVR (HCC) Atrial fibrillation 09/05/2016 Type 2 diabetes mellitus with complication, with long-term current use of insulin (HCC) 09/05/2016 Chronic acquired lymphedema Other lymphedema 09/05/2016 Morbid obesity (HCC) Morbid obesity 09/05/2016 KIA (obstructive sleep apnea) Obstructive sleep apnea (adult) (pediatric) 09/05/2016 Acute on chronic diastolic (congestive) heart failure (HCC) suspected 09/05/2016 Type 2 diabetes mellitus with complication, with long-term current use of insulin (HCC) 09/21/2016 Paroxysmal atrial fibrillation (HCC) Atrial fibrillation 09/21/2016 KIA (obstructive sleep apnea) Obstructive sleep apnea (adult) (pediatric) 09/21/2016 Morbid obesity due to excess calories (HCC) 09/21/2016 Hypertensive heart disease without heart failure Unspecified hypertensive heart disease without heart failure 09/21/2016 KIERRA (acute kidney injury) Acute kidney failure, unspecified 09/21/2016 Hyperkalemia Hyperpotassemia 09/21/2016 Recurrent appendicitis Other appendicitis 11/09/2017 Type 2 diabetes mellitus with complication, with long-term current use of insulin (HCC) 11/09/2017 CKD stage 3 due to type 2 diabetes mellitus (HCC) 11/09/2017 Paroxysmal atrial fibrillation (HCC) Atrial fibrillation 11/09/2017 Morbid obesity due to excess calories ([facility]) 11/09/2017 Pacemaker Cardiac pacemaker in situ 11/09/2017 Atrial fibrillation with RVR (HCC) Atrial fibrillation 11/09/2017 KIA (obstructive sleep apnea) Obstructive sleep apnea (adult) (pediatric) 11/09/2017 Hypertension associated with diabetes ([facility]) Type II or unspecified type diabetes mellitus with other specified manifestations, not stated as uncontrolled 11/09/2017 Hypertensive heart disease without heart failure Unspecified hypertensive heart disease without heart failure 11/09/2017 CKD stage 3 due to type 2 diabetes mellitus ([facility]) 11/24/2018 Hyperlipidemia associated with type 2 diabetes mellitus (HCC) 11/24/2018 Hypertension associated with diabetes ([facility]) Type II or unspecified type diabetes mellitus with other specified manifestations, not stated as uncontrolled 11/24/2018 Morbid obesity due to excess calories ([facility]) 11/24/2018 Type 2 diabetes mellitus with complication, with long-term current use of insulin (HCC) 11/24/2018 Paroxysmal atrial fibrillation (HCC) Atrial fibrillation 11/24/2018 Ureterolithiasis Calculus of ureter 11/24/2018 Acute kidney injury Acute kidney failure, unspecified 11/24/2018 Calculus of ureter 04/20/2019 Atrial flutter with rapid ventricular response (HCC) Atrial flutter 12/21/2019 Hyperlipidemia associated with type 2 diabetes mellitus (HCC) 12/21/2019 Type 2 diabetes mellitus with complication, with long-term current use of insulin (HCC) 12/21/2019 Hypertension associated with diabetes ([facility]) Type II or unspecified type diabetes mellitus with other specified manifestations, not stated as uncontrolled 12/21/2019 Paroxysmal atrial fibrillation (HCC) Atrial fibrillation 12/21/2019 Morbid obesity due to excess calories ([facility]) 12/21/2019 CKD stage 3 due to type 2 diabetes mellitus ([facility]) 12/21/2019 Acute cystitis with hematuria Acute cystitis 12/21/2019 Sepsis ([facility]) 12/21/2019 KIA (obstructive sleep apnea) Obstructive sleep apnea (adult) (pediatric) 12/21/2019 Pacemaker Cardiac pacemaker in situ 12/21/2019 Paroxysmal A-fib (HCC) Atrial fibrillation 02/29/2020 Essential hypertension Unspecified essential hypertension 02/29/2020 CKD stage 2 due to type 2 diabetes mellitus (HCC) 02/29/2020 Type 2 diabetes mellitus with complication, with long-term current use of insulin ([facility]) 02/29/2020 Pacemaker Cardiac pacemaker in situ 02/29/2020 Hypertensive heart disease without heart failure Unspecified hypertensive heart disease without heart failure 02/29/2020 Hyperlipidemia associated with type 2 diabetes mellitus (HCC) 02/29/2020 CKD stage 3 due to type 2 diabetes mellitus (HCC) 02/29/2020 Abdominal pain Abdominal pain, unspecified site 02/29/2020 Acute calculous cholecystitis Calculus of gallbladder with acute cholecystitis, without mention of obstruction 02/29/2020 Morbid obesity due to excess calories (HCC) 02/29/2020 Cholecystitis Cholecystitis, unspecified 02/29/2020 Atrial fibrillation with rapid ventricular response (HCC) Atrial fibrillation 02/29/2020 Hyponatremia Hyposmolality and/or hyponatremia 02/29/2020 Encephalopathy acute Encephalopathy, unspecified 02/29/2020 KIERRA (acute kidney injury) Acute kidney failure, unspecified 02/29/2020 Neuropathy Mononeuritis of unspecified site 02/29/2020 Weakness of left foot 02/29/2020 KIERRA (acute kidney injury) Acute kidney failure, unspecified 05/17/2020 A-fib (HCC) Atrial fibrillation 05/17/2020 CKD stage 3 due to type 2 diabetes mellitus (HCC) 05/17/2020 Hyperlipidemia associated with type 2 diabetes mellitus (HCC) 05/17/2020 Hypertensive heart disease without heart failure Unspecified hypertensive heart disease without heart failure 05/17/2020 Morbid obesity due to excess calories (HCC) 05/17/2020 Long-term insulin use in type 2 diabetes (HCC) Type II or unspecified type diabetes mellitus without mention of complication, not stated as uncontrolled 05/17/2020 Paroxysmal A-fib (HCC) Atrial fibrillation 05/17/2020 Buttock wound, left, sequela 05/17/2020 Atrial fibrillation with RVR (HCC) Atrial fibrillation 06/20/2021 Type 2 diabetes mellitus with complication, with long-term current use of insulin (HCC) 06/20/2021 Sepsis (HCC) 06/20/2021 Psoriasis Other psoriasis 06/20/2021 Pressure ulcer of ischium, stage 3, left (HCC) 06/20/2021 Pacemaker Cardiac pacemaker in situ 06/20/2021 KIA (obstructive sleep apnea) Obstructive sleep apnea (adult) (pediatric) 06/20/2021 Morbid obesity due to excess calories (HCC) 06/20/2021 Metabolic acidosis Acidosis 06/20/2021 Acanthosis nigricans Acquired acanthosis nigricans 06/20/2021 Chronic acquired lymphedema Other lymphedema 06/20/2021 Diarrhea 06/20/2021 Diabetic ketoacidosis associated with type 2 diabetes mellitus (HCC) 06/20/2021 CKD stage 3 due to type 2 diabetes mellitus (HCC) 06/20/2021 Hyponatremia Hyposmolality and/or hyponatremia 06/20/2021 UTI (urinary tract infection) Urinary tract infection, site not specified 06/20/2021 Elevated troponin Other abnormal blood chemistry 06/20/2021 Hypertension associated with diabetes (HCC) Type II or unspecified type diabetes mellitus with other specified manifestations, not stated as uncontrolled 06/20/2021 Hyperlipidemia associated with type 2 diabetes mellitus (HCC) 06/20/2021 Leukocytosis Leukocytosis, unspecified 06/20/2021 Fever Fever, unspecified 06/20/2021 Pacemaker battery depletion Fitting and adjustment of cardiac pacemaker 10/16/2024 Care Teams Pediatric Care Coordinator Relationship Specialty Start Date End Date Geovani Wright MD PCP - General Family Medicine 02/12/12 Padmini Evangelista MD [address] [place] [address] [place] [address] Internal Medicine - Clinical Cardiac Electrophysiology 04/10/16 Reina Holden APRN [address] [place] [address] [place] [address] Nurse Practitioner 10/12/16
--- OUTSIDE RECORDS SUMMARY | 2025-04-26 10:42 | XMS_ITS ---
Laboratory report Created on: April 01, 2025 WADE CARDOSO : 1960 Sex: Male Author Organization Unknown PROBLEMS Problems List Code Description RESULTS Laboratory Orders Date Order Code Test 2025-03-27 [id number] VITAMIN D, 25-HY DROXY Laboratory Results Date LOINC Test Value Unit Reference Range Interpre tation 2025-03-27 72584-0 VITAMIN D, 25-HYDROXY 27.1 NG/ML 30.0-10 0.0 L
--- OUTSIDE RECORDS SUMMARY | 2025-04-26 10:42 | XMS_ITS | Encounter Summary ---
Author Organization [place] [address] Care Team Providers Care Pharmacy Resident Name Role Phone Geovani Wright MD Primary Care Provider [phone] Raleigh Evangelista MD Unavailable [phone] Reina Holden APRN Unavailable [phone] Encounter Details Date Type Department Care Team (Late st Contact Info) Description 10/02/2012 Pre-Imaging Procedure Adult Med [address] [place] [address] [phone] Aisha Agrawal, LARRY Social History Tobacco Use [...] Description 06/02/2025 12:00 PM EST Office Visit [facility] Nephrology [place] [address] [facility] [place] [address] Greg Leblanc MD [address] [place] [address] 06/09/2025 12:00 PM EST Office Visit [facility] [address] [place] [address] Talib Martínez MD [address] [place] [place] [address] 03/31/2026 10:30 AM EDT Office Visit [facility] [address] [place] [address] [address] [place] [address] 03/31/2026 11:00 AM EDT Office Visit [facility] [address] [place] [address] [address] [place] [address] Elizabeth Lee APRN [address] [place] [address] documented as of this encounter Visit [...] documented as of this encounter Care Teams Pharmacy Resident Relationship Specialty Start Date End Date Geovani Wright MD PCP - General Family Medicine 02/12/12 Raleigh Evangelista MD [address] [place] [address] [place] [address] Internal Medicine - Clinical Cardiac Electrophysiology 04/10/16 Reina Holden APRN [address] [place] [address] [place], [place] [id number] Nurse Practitioner 10/12/16 documented as of this encounter
--- OUTSIDE RECORDS SUMMARY | 2025-04-26 10:42 | XMS_ITS | Encounter Summary ---
Author Organization [place] [address] Care Team Providers Care Surface Room Shop Optician Name Role Phone Geovani Wright MD Primary Care Provider [phone] Raleigh Evangelista MD Unavailable [phone] Reina Holden APRN Unavailable [phone] Encounter Details Date Type Department Care Team (Late st Contact Info) Description 04/16/2025 Orders Only [facility] [address] [facility] [address] [place] [address] Raleigh Evangelista MD [address] [place] [address] Vector Remote Device Social History [...] Description 06/02/2025 12:00 PM EST Office Visit [facility] Nephrology [place] [address] [facility] [place] [address] Greg Leblanc MD [address] [facility] [address] [place] [address] 06/09/2025 12:00 PM EST Office Visit [facility] [address] [place], [place] [id number] Talib Martínez MD [address] [place] [address] 03/31/2026 10:30 AM EDT Office Visit [facility] [address] [facility] [address] [place] [address] 03/31/2026 11:00 AM EDT Office Visit [facility] [address] [facility] [address] [place] [address] Elizabeth Lee APRN [address] [place], [place] [id number] documented as of this encounter Procedures Procedure Name Priority Date/Time Associated Diagnosis Comments MD REM INTERROG PM/LDLS PM <90 D PHYS/QHP Routine 04/16/2025 Vector Remote Device documented in this encounter Results * VECTOR REMOTE DEVICE (04/16/2025) 04/16/2025 Narrative [facility] - 04/16/2025 AT/AF burden increase >10%. Atrial Episodes: 1 c/w persistent AF since 01/13/25. AT/AF [place]: 100%. Patient on AC. Mode: AAIR<=>DDDR. AP: 0.1%. WAITER/WAITRESS CLUB: 85%. Normal device function. Addendum: pt informed /BE us Raleigh Evangelista MD [facility] CARDIAC CATH ORDERAB LES Final Result [facility] [address] [place] [address] documented in this encounter Visit Diagnoses Diagnosis Vector Remote Device documented in this encounter Additional Health Concerns Assessment Noted Time A fall risk assessment has been complete d for the patient 03/30/2025 2:10 PM EDT documented as of this encounter Care Teams Surface Room Shop Optician Relationship Specialty Start Date End Date Geovani Wright MD PCP - General Family Medicine 02/12/12 Raleigh Evangelista MD [address] [place] [address] [place] [address] Internal Medicine - Clinical Cardiac Electrophysiology 04/10/16 Reina Holden APRN [address] [place] [address] [place] [address] Nurse Practitioner 10/12/16 documented as of this encounter
--- OUTSIDE RECORDS SUMMARY | 2025-04-26 10:42 | XMS_ITS | Clinical Summary ---
Author Organization [facility] Address [address] [place] [address] Care Team Providers Care Extractor Loader And Unloader Name Role Phone Geovani Wright MD Primary Care Provider [phone] Source Comments This information has been disclosed [...] therelease of HIV test results or diagnoses. [id number] Health Allergies Active Allergy Reactions Criticality Noted [...] of Treatment Not on file Care Teams Extractor Loader And Unloader Relationship Specialty Start Date End Date Geovani Wright MD [address] [place] [address] PCP - General Family Medicine 01/04/12
--- OUTSIDE RECORDS SUMMARY | 2025-04-26 10:42 | XMS_ITS | Encounter Summary ---
Author Organization [place] [address] Care Team Providers Care Dressing Room Attendant Name Role Phone Geovani Wright MD Primary Care Provider [phone] Raleigh Evangelista MD Unavailable [phone] Reina Holden APRN Unavailable [phone] Encounter Details Date Type Department Care Team (Latest Contact Info) Description 10/13/2012 Pre-Imaging Procedure Adult Med [address] [place] [address] [phone] Aisha Agrawal, LARRY Malignant neoplasm of kidney, [...] 06/02/2025 12:00 PM EST Office Visit [facility] Nephrology [place] [address] [facility] [address] [place] [address] Greg Leblanc MD [address] [facility] [address] [place] [address] 06/09/2025 12:00 PM EST Office Visit [facility] [address] [place] [address] Talib Mratínez MD [address] [place] [address] 03/31/2026 10:30 AM EDT Office Visit [facility] [address] [place] [address] [address] [place] [address] 03/31/2026 11:00 AM EDT Office Visit [facility] [address] [place] [address] [address] [place] [address] Elizabeth Lee APRN [address] [place] [address] documented as of this encounter Visit [...] documented as of this encounter Care Teams Dressing Room Attendant Relationship Specialty Start Date End Date Geovani Wright MD PCP - General Family Medicine 02/12/12 Raleigh Evangelista MD [address] [place] [address] Internal Medicine - Clinical Cardiac Electrophysiology 04/10/16 Reina Holden APRN [address] [facility] [place] [address] Nurse Practitioner 10/12/16 documented as of this encounter
--- OUTSIDE RECORDS SUMMARY | 2025-04-26 10:42 | XMS_ITS | Encounter Summary ---
Author Organization [place] [address] Care Team Providers Care Manager Roofing Name Role Phone Geovani Wright MD Primary Care Provider [phone] Raleigh Evangelista MD Unavailable [phone] Reina Holden APRN Unavailable [phone] Encounter Details Date Type Department Care Team (Latest Contact Info) Description 10/02/2012 Pre-Imaging Procedure Adult Med [address] [place] [address] [phone] Aisha Agrawal, LARRY Malignant neoplasm of kidney, [...] 06/02/2025 12:00 PM EST Office Visit [facility] Nephrology [place] [address] [facility] [address] [place] [address] Greg Leblanc MD [address] [facility] [address] [place] [address] 06/09/2025 12:00 PM EST Office Visit [facility] [address] [place] [address] Talib Martínez MD [address] [place] [address] 03/31/2026 10:30 AM EDT Office Visit [facility] [address] [place] [address] [address] [place] [address] 03/31/2026 11:00 AM EDT Office Visit [facility] [address] [place] [address] [address] [place] [address] Elizabeth Lee APRN [address] [place] [address] documented as of this encounter Visit [...] documented as of this encounter Care Teams Manager Roofing Relationship Specialty Start Date End Date Geovani Wright MD PCP - General Family Medicine 02/12/12 Raleigh Evangelista MD [address] [place] [address] Internal Medicine - Clinical Cardiac Electrophysiology 04/10/16 Reina Holden APRN [address] [facility] [place] [address] Nurse Practitioner 10/12/16 documented as of this encounter
--- OUTSIDE RECORDS SUMMARY | 2025-04-26 10:42 | XMS_ITS | Encounter Summary ---
Author Organization [place] [address] Care Team Providers Care Reed Maker Name Role Phone Geovani Wright MD Primary Care Provider Raleigh Evangelista MD Unavailable [phone] Reina Holden APRN Unavailable [phone] Encounter Details Date Type Department Care Team (Late st Contact Info) Description 10/12/2019 Orders Only [facility] [address] [facility] [address] [place] [address] Raleigh Evangelista MD [address] [place] [address] Social History Tobacco Use Types [...] Description 06/02/2025 12:00 PM EST Office Visit [facility] Nephrology [place] [address] [place] [address] Greg Leblanc MD [address] [place] [address] 06/09/2025 12:00 PM EST Office Visit [facility] [address] [facility], [place] [phone] Talib Martínez MD [address] [place] [address] 03/31/2026 10:30 AM EDT Office Visit [facility] [address] [facility] [address] [place] [address] 03/31/2026 11:00 AM EDT Office Visit [facility] [address] [facility] [address] [place] [address] Elizabeth Lee APRN [address] [place], [place] [phone] documented as of this encounter Procedures Procedure Name Priority Date/Time Associated Diagnosis Comments PACEART REPORT Routine 10/12/2019 6:08 PM EDT documented in this encounter Results * PACEART REPORT (10/12/2019 6:08 PM EDT) 10/12/2019 6:08 PM EDT Narrative [facility] - 10/12/2019 2:19 PM EDT Manual Carelink transmission to assess current rhythm. Current EGM AT/AFL atrial rate 300bpm, ventricular rate 150bpm. See [facility] for telephone encounter. Macie Nam, RN, BSN us [place] Evangelista MD [facility] CARDIAC CATH ORDERAB LES Final Result [facility] [address] [place], [place] [id number] documented in this encounter Visit Diagnoses Not [...] documented as of this encounter Care Teams Reed Maker Relationship Specialty Start Date End Date Geovani Wright MD PCP - General Family Medicine 02/12/12 Raleigh Evangelista MD [address] [place] [address] [place] [address] Internal Medicine - Clinical Cardiac Electrophysiology 04/10/16 Reina Holden APRN [address] [place] [address] [place] [address] Nurse Practitioner 10/12/16 documented as of this encounter
--- OUTSIDE RECORDS SUMMARY | 2025-04-26 10:42 | XMS_ITS ---
Laboratory report Created on: March 31, 2025 WADE CARDOSO : 1960 Sex: Male Author Organization Unknown PROBLEMS Problems List Code Description RESULTS Laboratory Orders Date Order Code Test 2025-03-27 [id number] PTH, INTACT Laboratory Results Date LOINC Test Value Unit Reference Range Interpre tation 2025-03-27 2731-8 PTH, INTACT 54 PG/ML 15-65
--- OUTSIDE RECORDS SUMMARY | 2025-04-26 10:42 | XMS_ITS | Encounter Summary ---
Author Organization [place] [address] Care Team Providers Care Loom Setter Fourdrinier Name Role Phone Geovani Wright MD Primary Care Provider [phone] Raleigh Evangelista MD Unavailable [phone] Reina Holden APRN Unavailable [phone] Reason for Referral * MRI/CAT Scan (Routine) - Closed Specialty Diagnoses / Procedures Referred By Contac t Referred To Contact Radiology Diagnoses Malignant neoplasm of kidney, except pelvis Procedures CT GUIDED PARENCHYMAL TISSUE ABLATION Kar Ferrari MD Phone: tel: fax: Referral ID Status Reason Start Date Expiration Date Visits Re quested Visits Authorized [id number] Closed 10/13/2012 04/11/2013 1 1 Encounter Details Date Type Department Care Team (Latest Contact Info) Description 10/13/2012 Pre-Imaging Procedure Adult Med [address] [place] [phone] Aisha Agrawal, LARRY Malignant neoplasm of [...] 06/02/2025 12:00 PM EST Office Visit [facility] Nephrology [place] [address] [place] [address] Greg Leblanc MD [address] [place] [address] 06/09/2025 12:00 PM EST Office Visit [facility] [address] [place] [address] Talib Martínez MD [address] [place] [address] 03/31/2026 10:30 AM EDT Office Visit [facility] [address] [facility] [address] [place] [address] 03/31/2026 11:00 AM EDT Office Visit [facility] [address] [facility] [address] [place] [address] Elizabeth Lee APRN [address] [place], [place] [id number] documented as of this encounter Results * [...] in 3, 6, 9, and 12 months. Kar Ferrari MD IMG CT ORDERABLES Final Result documented in [...] documented as of this encounter Care Teams Loom Setter Fourdrinier Relationship Specialty Start Date End Date Geovani Wright MD PCP - General Family Medicine 02/12/12 Raleigh Evangelista MD [address] [place] [address] [place] [address] Internal Medicine - Clinical Cardiac Electrophysiology 04/10/16 Reina Holden APRN [address] [place] [address] [place] [address] Nurse Practitioner 10/12/16 documented as of this encounter
--- OUTSIDE RECORDS SUMMARY | 2025-04-26 10:42 | XMS_ITS | Encounter Summary ---
Author Organization [facility] Address [address] [facility] [place] [address] Care Team Providers Care Province Archivist Name Role Phone Geovani Wright MD Primary Care Provider [phone] Raleigh Evangelista MD Unavailable [phone] Reina Holden APRN Unavailable [phone] Reason for Visit * Reason Comments Medication Refill Encounter Details Date Type Department Care Team (Late st Contact Info) Description 04/06/2025 Refill [facility] Nephrology [place] [address] [place] [address] Nilsa Petersen, MINE SURVEYOR [address] [facility] [address] [place] [address] Medication Refill Social History Tobacco [...] MOUTH ONCE A WEEK. 12 Capsule 1 04/06/2025 documented in this encounter Plan of Treatment Upcoming Encounters Date Type Department Care Team (Late st Contact Info) Description 06/02/2025 12:00 PM EST Office Visit [facility] Nephrology [place] [address] [place] [address] Greg Leblanc MD [address] [place] [address] 06/09/2025 12:00 PM EST Office Visit [facility] [address] [facility] [place] [address] Talib Martínez MD [address] [place] [address] 03/31/2026 10:30 AM EDT Office Visit [facility] [address] [place] [address] [address] [place] [address] 03/31/2026 11:00 AM EDT Office Visit [facility] [address] [place] [address] [address] [place] [address] Elizabeth eLe APRN [address] [place] [address] documented as of this encounter Visit Diagnoses Not on filedocumented in this encounter Discontinued Medications Medication Sig Discontinue Reason Start Date End Da te ergocalciferol (DRISDOL) 1,250 mcg (50,000 unit) Oral Capsule Take 1 Capsule by mouth once a week. 01/20/2025 04/06/2025 documented as of this encounter Additional Health Concerns Assessment Noted Time A fall risk assessment has been complete d for the patient 03/30/2025 2:10 PM EDT documented as of this encounter Care Teams Province Archivist Relationship Specialty Start Date End Date Geovani Wright MD PCP - General Family Medicine 02/12/12 Raleigh Evangelista MD [address] [place] [address] [place] [address] Internal Medicine - Clinical Cardiac Electrophysiology 04/10/16 Reina Holden APRN [address] [place] [address] [place] [address] Nurse Practitioner 10/12/16 documented as of this encounter
--- OUTSIDE RECORDS SUMMARY | 2025-04-26 10:42 | XMS_ITS | Encounter Summary ---
Author Organization [place] [address] Care Team Providers Care Program Director Group Work Name Role Phone Geovani Wright MD Primary Care Provider [phone] Raleigh Evangelista MD Unavailable [phone] Reina Holden APRN Unavailable [phone] Encounter Details Date Type Department Care Team (Late st Contact Info) Description 10/13/2012 Pre-Imaging Procedure Adult Med [address] [place] [address] [phone] Aisha Agrawal, LARRY Social History Tobacco Use [...] Description 06/02/2025 12:00 PM EST Office Visit [facility]phrology [place] [address] [facility] [address] [place] [address] Greg Leblanc MD [address] [place] [address] 06/09/2025 12:00 PM EST Office Visit [facility] [address] [place] [address] Talib Martínez MD [address] [place] [address] 03/31/2026 10:30 AM EDT Office Visit [facility] [address] [place] [address] [address] [place] [address] 03/31/2026 11:00 AM EDT Office Visit [facility] [address] [place] [address] [address] [place] [address] Elizabeth Lee APRN [address] [place] [address] documented as of this encounter Visit [...] documented as of this encounter Care Teams Program Director Group Work Relationship Specialty Start Date End Date Geovani Wright MD PCP - General Family Medicine 02/12/12 Raleigh Evangelista MD [address] [place] [address] [place] [address] Internal Medicine - Clinical Cardiac Electrophysiology 04/10/16 Reina Holden APRN [address] [place] [address] [place], [place] [phone] Nurse Practitioner 10/12/16 documented as of this encounter
--- OUTSIDE RECORDS SUMMARY | 2025-04-26 10:42 | XMS_ITS | Encounter Summary ---
Author Organization [place] [address] Care Team Providers Care Bill Adjuster Name Role Phone Geovani Wright MD Primary Care Provider [phone] Raleigh Evangelista MD Unavailable [phone] Reina Holden APRN Unavailable [phone] Reason for Visit * Reason Onset Date Comments Other 04/19/2025 Scheduled transm ission Encounter Details Date Type Department Care Team (Late st Contact Info) Description 04/19/2025 Telephone [facility] [address] [facility] [address] [place] [address] Ray Clemente MA Other (Scheduled transmission) Social History Tobacco Use Types Packs/Day Years [...] encounter Miscellaneous Notes * Telephone Encounter - Ray Clemente MA - 04/19/2025 9:29 AM EDT AT/AF burden increase >10%. Atrial Episodes: 1 c/w persistent AF since 01/13/25. AT/AF [place]: 100%. Patient on AC. Mode: AAIR<=>DDDR. AP: 0.1%. CUSTOMER SUPPORT MANAGER: 85%. Normal device function. Addendum: pt informed /BE documented in this encounter Plan of Treatment Upcoming Encounters Date Type Department Care Team (Late st Contact Info) Description 06/02/2025 12:00 PM EST Office Visit [facility] Nephrology [place] [address] [facility] [address] [place] [address] Greg Leblanc MD [address] [facility] [address] [place] [address] 06/09/2025 12:00 PM EST Office Visit [facility] [address] [facility] [place] [address] Talib Martínez MD [address] [place] [place] [address] 03/31/2026 10:30 AM EDT Office Visit [facility] [address] [place] [address] [address] [place] [address] 03/31/2026 11:00 AM EDT Office Visit [facility] [address] [place] [address] [address] [place] [address] Elizabeth Lee APRN [address] [place] [address] documented as of this encounter Visit Diagnoses Not on filedocumented in this encounter Additional Health Concerns Assessment Noted Time A fall risk assessment has been complete d for the patient 03/30/2025 2:10 PM EDT documented as of this encounter Care Teams Bill Adjuster Relationship Specialty Start Date End Date Geovani Wright MD PCP - General Family Medicine 02/12/12 Raleigh Evangelista MD [address] [place] [address] [place] [address] Internal Medicine - Clinical Cardiac Electrophysiology 04/10/16 Reina Holden APRN [address] [place] [address] [place] [address] Nurse Practitioner 10/12/16 documented as of this encounter
--- OUTSIDE RECORDS SUMMARY | 2025-04-26 10:42 | XMS_ITS | Continuity of Care Document ---
Author Organization [facility] [place], ENT NEW Address [address] [place] [address] [address] [place] [address] Assessment No assessment recorded. Plan of Treatment [...] Organization Details Recorded Time Sensorineural hearing loss 91846829 Active 2022 MARKIE SINGH, AUD [address] [facility], [place], [address] , [facility] & [place] 3 10:23:12 Chronic atrial fibrillation 918807370 Active 2024 Juancarlos Shaffer MD [facility] [employer],Giftah e [address] [place] [address], [address] , [facility] - [facility] & [place] 5 14:56:21 Moderate aortic valve stenosis 937030504 Active 2024 Juancarlos Shaffer MD [facility] [employer],[place] [address], [address] , [facility] & [place] 5 14:56:39 Diastolic dysfunction 7347339 Active 2024 Juancarlos Shaffer MD [facility] [employer],[place] [address], [address] , [facility] & [place] 5 14:56:47 Essential hypertension 98366882 Active 2024 Juancarlos Shaffer MD [address] [place] [address], [address] , [facility] & [place] 5 14:56:52 Electrocardio gram abnormal 030658077 Active 2024 Juancarlos Shaffer MD [address] [place] [address], [address] , [facility] & [place] 5 14:57:36 Coronary arteriosclero sis 51144735 Active 2024 Juancarlos Shaffer MD [address] [place] [address], [address] , [facility] & [place] 5 14:57:46 Problem Notes None recorded. Procedures Surgical History Date Name Laterality Status Provider Name and Address Organization Details Recorded Time kidney excision completed [facility]barb Morales [facility] [place] 10/20/2024 09:49:23 Cholecystectomy completed Leigh Morales [facility] 10/20/2024 09:49:44 Imaging Results None recorded. Procedure Notes None recorded. Medical Equipment None Reported. Allergies Allergen ID Allergen Name Allergen Category Reaction Reaction Severity Criticality Documentation Date Start Date Code Code System Note Provider Name and Address Organization Details Recorded Time [id number] Cipro medicatio n Not available Not available Not available 10/20/202404623 3 RxNorm Leigh Tomeka n hilaria, [facility] & [place] 5 09:47:07 Medications Name Sig Start Date [...] use any illicit or recreational drugs? No [id number] Information not available 10/20/2024 What is your level of alcohol consumption? None [email or web address] Information not available 10/20/2024 Mental Status None recorded. Family History Nothing Reported. Medical History Condition Response Atrial Fibrillation Y Diabetes Y Hypertension Y Past Encounters Encounter ID Performer Location Encounter Start Date Encounter Closed Date Diagnosis/Indication Diagnosis SNOMED-CT Code Diagnosis ICD10 Code Diagnosis IMO Codes Diagnosis Note MAGGY SAPP [facility] [place] [address] [address] [place] [address] 03/08/2025 15:25:14 03/08/2025 15:39:03 Sensorineural hearing loss 99567137 H90.3 [id number] MAGGY SAPP [facility] [place] [address] 03/12/2025 09:56:27 03/12/2025 10:00:47 Sensorineural hearing loss 63081678 H90.3 Health Concerns Section Related Observation LastModified by Organization Detai ls LastModified Time None Recorded Concern Status LastModified by Organization Details LastModified Time None Recorded Payers Encounter Date Sequence Insurance Name Policy Number Policy Hare Covered Member ID Hare Member ID Guarantor Name 03/12/2025 1 [id number]-[id number]: JASWINDER BOYKIN OF [facility] (MEDICARE REPLACEMENT REGIONAL PPO) [id number] Gilberto Anderson [id number] Gilberto Anderson Notes Date Note Type Note Provider Name and Address Organization Details Recorded Time 03/12/2025 text/html Mr. Anderson was seen today for a hearing aid fitting via [facility]. Hearing Aids: [employer] [id number] HS Warranty: 03/27/2028 MAGGY SAPP [address] [place] [address],[address], [place], [address], [facility] - [facility] & [place] 03/12/2025 10:05:51
--- OUTSIDE RECORDS SUMMARY | 2025-04-26 11:40 | XMS_ITS | CCD ---
Author Organization Unknown Care Team Providers Care Needle Process Felt Goods Supervisor Name Role Phone Unavailable Primary Care Provider Unavailabl e Unavailable Chronic Care Management Unavaila ble Summary Purpose DataExchange Insurance Providers Payer name Policy type / Coverage type Covered democrat ID Effective Begin Date Effective End Date [facility] [id number] Unknown Unknown Family History Family History data not found Medication Administered No Medication Administered data Reason For Visit No Reason For Visit data Medical Equipment No Medical Equipment data Advance Directives No Advance Directive data
--- OUTSIDE RECORDS SUMMARY | 2025-04-26 11:40 | XMS_ITS | CCD ---
Author Organization Unknown Care Team Providers Care Clinical Operations Manager Name Role Phone Unavailable Primary Care Provider Unavailabl e Unavailable Chronic Care Management Unavaila ble Summary Purpose DataExchange Insurance Providers Payer name Policy type / Coverage type Covered green party ID Effective Begin Date Effective End Date [facility] [id number] Unknown Unknown Family History Family History data not found Medication Administered No Medication Administered data Reason For Visit No Reason For Visit data Medical Equipment No Medical Equipment data Advance Directives No Advance Directive data
== END 2025-04-23 23:59 ==
LOC: LAB.DROPOF 04-26 10:29
PROVIDERS: PCP Family Medicine; Visit Provider Family Medicine
DX: I12.9 Hypertensive chronic kidney disease with stage 1 through stage 4 chronic kidney disease, or unspecified chronic kidney disease (principal); N18.9 Chronic kidney disease, unspecified; E11.9 Type 2 diabetes mellitus without complications; E05.90 Thyrotoxicosis, unspecified without thyrotoxic crisis or storm; I89.0 Lymphedema, not elsewhere classified
CPT/HCPCS: 80053; 80162; 84443